=== PATIENT | male | born 1950 | race Caucasian/White ===

== ENCOUNTER 2023-10-10 03:28 | Observation (INO) | payer MEDICARE, SELFPAY ==
[2023-10-10] VITALS (49 sets, daily range): BP systolic 109–166; BP diastolic 74–118; PULSE 56–92; RESP 12–30; TEMP 36.5–36.6; O2SAT 93–100; BMI 29.5
--- NOTE | ~2023-10-10 | XR_ITS ---
XR chest 2V DATE: 10/10/2023 04:33 INDICATION: Shortness of breath TECHNIQUE: PA and lateral views COMPARISON: None FINDINGS: Heart size is within upper normal range. Aortic calcification. Left triple lead transvenous pacemaker device With leads in expected position. Moderate bilateral hyperinflation. Minimal atelectasis at the lung bases. Small bilateral pleural eff usions. Mild prominence of the fissures consistent with mild subpleural edema. Ayanna B-lines are most consis tent with pulmonary interstitial edema. Status post anterior cervical spine fusion at C6-7 Diffuse idiopathic skeletal hyperostosis of the thoracic spine. IMPRESSION: Pulmonary interstitial and subpleural edema and small pleural effusions, consistent with mild congestive change. Left triple lead pacemaker Aortic calcification Reviewed, dictated and finalized at location A. IMPRESSION: Pulmonary interstitial and subpleural edema and small pleural effus ions, consistent with mild congestive change. Left triple lead pacemaker Aortic calcification
--- NOTE | ~2023-10-10 | CT_ITS ---
EXAMINATION: CT abdomen pelvis wo con DATE: 10/11/2023 10:07 INDICATION: Generalized abdominal tenderness. Diarrhea. TECHNIQUE: Computed tomography (CT) of the abdomen and pelvis was performed without intravenous contr ast. Automated exposure control and iterative reconstruction technique were employed. The dose-length product was 723.13 mGy-cm. COMPARISON: None. FINDINGS: The visualized portions of the lung bases demonstrate small pleural effusions and mild depe ndent atelectasis. There is mild bronchiectasis bilaterally. There is smooth septal thickening in the lungs. There is left atrial and left ventricular enlargement of the heart. There are coronary artery calcifications. No pericardial effusion. There are pacer wires in the region, right ventricle, and c oronary sinus. The liver and spleen are normal. The gallbladder is normal in size. The pancreas, adre nal glands, and kidneys are normal. There is calcified atherosclerosis of the aorta and many of the o ther arteries. The prostate is moderately enlarged. There are no dilated loops of bowel. There is an anastomosis in the small bowel. The appendix is not visualized. There are no pathologically enlarged lymph nodes. There is no free intraperitoneal fluid. There are bridging endplate osteophytes at multi ple levels in the spine, consistent with diffuse idiopathic skeletal hyperostosis (DISH). There is mi ld lumbar spondylosis. IMPRESSION: 1. Small pleural effusions. 2. Diffuse lung disease, likely a combination of mild pulmonary edema and mild chronic interstitial l kurtis disease. Reviewed, dictated and finalized at location E. IMPRESSION: 1. Small pleural effusions. 2. Diffuse lung disease, likely a combination of mild pulmonary edema and mild chronic interstitial lung disease.
--- NOTE | ~2023-10-10 | US_ITS ---
EXAMINATION: US renal BI DATE: 10/11/2023 11:45 INDICATION: Acute kidney injury superimposed on chronic kidney disease. TECHNIQUE: Multiple ultrasound grayscale images of the kidneys were obtained. COMPARISON: CT abdomen and pelvis 10/11/2023 FINDINGS: The right kidney measures 9.2 x 4.5 x 5.7 cm. The left kidney measures 9.0 x 4.7 x 5.1 cm. The kidney s demonstrate normal parenchymal echogenicity. There is no hydronephrosis. The bladder is normal. IMPRESSION: 1. Normal kidneys. No hydronephrosis. Reviewed, dictated and finalized at location E.
--- NOTE | 2023-10-10 03:53 | ECG_ITS ---
Measurements Intervals [place] Rate: 72 P: 66 ID: [id number] QRS: 155 QRSD: 125 T: -29 QT: 416 QTc: 457 Interpretive Statements ELECTRONIC ATRIAL PACEMAKER WITH INHIBITION ELECTRONIC VENTRICULAR PACEMAKER WITH INHIBITION VENTRICULAR PREMATURE COMPLEX NO FURTHER INTERPRETATION IS POSSIBLE ATYPICAL ECG NO PREVIOUS ECG AVAILABLE FOR COMPARISON Electronically Signed On 10-10-2023 7:35:43 CDT by Jose Alberto Rodriguez D.O.
[2023-10-10 04:15] LABS: Basophils Absolute Auto 0.1 K/mm3 (0.0-0.1); Basophils Percent Auto 0.9 % (0.2-1.2); Eosinophils Absolute Auto 0.1 K/mm3 (0-0.3); Eosinophils Percent Auto 0.8 % (0-4.4); Hematocrit 32.6 % (42.0-52.0); Hemoglobin 10.4 g/dL (14.0-18.0); Immature Granulocyte Absolute 0.09 K/mm3 (0.00-0.031); Lymphocytes Percent Auto 11.1 % (18.3-44.2); Mean Corpuscular HGB Conc 31.9 g/dl (32-36); Mean Corpuscular Hemoglobin 30.9 pg (26-34); Mean Corpuscular Volume 96.7 fl (80-100); Mean Platelet Volume 10.4 fl (7.4-10.4); Monocytes Absolute Auto 0.7 K/mm3 (0.1-0.6); Neutrophils Absolute Auto 7.1 K/mm3 (1.3-6.7); Neutrophils Percent Auto 78.2 % (45.5-73.1); Platelet Count Result 258 k/mm3 (150-375); Red Blood Count 3.37 M/mm3 (4.6-6.20); Red Cell Distribution Width 13.4 % (11.5-14.5)
[2023-10-10 04:26] LABS: Alanine Aminotransferase 23 U/L (6-50); Alkaline Phosphatase 107 U/L (38-126); Anion Gap 14 mmol/L (4-12); Aspartate Amino Transferase 39 U/L (17-59); Bilirubin,Total 0.7 mg/dL (0.2-1.3); Blood Urea Nitrogen 59 mg/dL (9-20); Calcium 9.4 mg/dL (8.4-10.2); Carbon Dioxide 15 mmol/L (22-30); Chloride 107 mmol/L (98-107); Estimated CRCL calculation 20 ml/min; Estimated Glomerular Filt Rate 20; Glucose 102 mg/dL (65-110); Potassium 4.6 mmol/L (3.4-5.0); Sodium 136 mmol/L (137-145)
--- NOTE | 2023-10-10 04:27 | ED.SOB ---
HPI - SOB/Dyspnea General Chief Complaint: Shortness of Breath/Dyspnea Stated Complaint: sob Time Seen by Provider: 10/10/23 04:26 Source: patient Mode of arrival: EMS Limitations: no limitations History of Present Illness HPI Narrative: Patient presents with shortness of breath, particularly orthopnea but also dyspnea on exertion. Previously used 1 pillow behind head, now 2. Patient sees [facility] ([facility]) for cardiology; resolution manager = Dr Johnston. Recent pacemaker replacement 10/01/23 performed at [facility] in [place]. On coumadin and gets weekly INR checks. Had previously been on furosemide 40mg daily, states he was told to take it BID or even TID over the past few days for symptoms and that he should also take his potassium pill TID. Patient denies a history of diabetes mellitus. He states he was placed on Farxiga/dapagliflozin for renal protection. He states he previously was experiencing this recurrent shortness of breath and had gone multiple times to urgent care and kept getting prednisone and something else. Cough has been productive of clear sputum. No hemoptysis or pink tinged/foamy. He states he has not been told he has congestive heart failure although a nurse at his cardiology clinic had mentioned it to someone else. Patient's medication list as follows: Depakote was in/for [place] 5 mg daily, losartan 25 mg once daily, ondansetron carvedilol Lasix 40 mg by mouth Thursday and Thursday, pantoprazole, venlafaxine, warfarin/Coumadin 5 mg daily except for Thursday, [place] 5 mg q.4 hours, lorazepam, potassium chloride 20 mEq by mouth Thursday and Thursday. Patient has been advised recently to stop taking lisinopril and meloxicam. Related Data Home Medications Medication Instructions Recorded Confirmed albuterol sulfate 90 mcg/actuation 4 puff inhalation Q4-5H PRN 10/10/23 10/10/23 aerosol inhaler Shortness Of Breath carvedilol 6.25 mg tablet (Coreg) 6.25 mg PO BID 10/10/23 10/10/23 dapagliflozin propanediol 10 mg 5 mg PO DAILY 10/10/23 10/10/23 tablet (Farxiga) furosemide 40 mg tablet 40 mg PO 3XW 10/10/23 10/10/23 hydrocodone 5 mg-acetaminophen 325 1 tablet PO BID 10/10/23 10/10/23 mg tablet lorazepam 1 mg tablet 1 mg PO BID PRN Anxiety 10/10/23 10/10/23 losartan 25 mg tablet 25 mg PO DAILY 10/10/23 10/10/23 ondansetron HCl 4 mg tablet 4 mg PO DAILY PRN Nausea And 10/10/23 10/10/23 Vomiting pantoprazole 40 mg tablet,delayed 40 mg PO DAILY 10/10/23 10/10/23 release potassium chloride 20 mEq 20 meq PO 3XW 10/10/23 10/10/23 tablet,extended release venlafaxine 150 mg 150 mg PO DAILY 10/10/23 10/10/23 capsule,extended release 24 hr warfarin 5 mg tablet 5 mg PO DAILY 10/10/23 10/10/23 Allergies Allergy/AdvReac Type Severity Reaction Status Date / Time No Known Allergies Allergy Mild Unverified 05/25/08 16:13 [facility] Past Medical History Medical History (Updated 10/11/23 @ 21:55 by Brooklynn Arreguin MD) Afib Anxiety and depression Arthritis CHF (congestive heart failure) Chronic kidney disease CVA (cerebral vascular accident) Presence of combination internal cardiac defibrillator (ICD) and pacemaker Surgical History Surgical History History of appendectomy History of cardiac defibrillator placement replaced 10/01/2023; [facility] [facility] [employer]; Dr Fracisco Eli through [facility] Cardiology History of cataract surgery History of cervical spinal surgery cervical laminectomy Social History Social History Smoking packs per day: 0.5 Smoking cigarettes per day: 10.0 Years smoked: 30 Smoking pack-years: 15.00 Smoking status: Former smoker Tobacco type: cigarettes Alcohol intake: never Substance use: never Do You Feel Safe in your Home?: Yes Lack of Transportation: No Lack of Food: Never True Current Housing: I Have Housing Concer
[2023-10-10 05:23] LABS: NT Pro B Type Natriuretic Pept > 30000 pg/mL (19.9-100)
[2023-10-10 05:56] LABS: Influenza A QL RT-PCR Negative (Negative); Influenza B QL RT-PCR Negative (Negative); RSV RNA, RT-PCR Negative (Negative); SARS-CoV-2 RNA PCR Negative (Negative)
[2023-10-10] MEDS: ACETAMINOPHEN 325 MG TABLET 650 MG PO ×2 (07:09→13:42)
[2023-10-10] MEDS: FUROSEMIDE INJ 100 MG/10 ML VIAL 80 MG IV PUSH (07:09)
[2023-10-10] MEDS: HYDROcodone/acetaminophen (*CRX) 5-325 MG TABLET 1 TAB PO ×2 (07:09→16:33)
[2023-10-10] MEDS: ONDANSETRON INJ 4 MG/2 ML VIAL IV PUSH ×2 (09:25→20:43)
[2023-10-10 09:47] LABS: INR 1.9; Prothrombin Time 23.4 Seconds (11.1-14.7)
--- NOTE | 2023-10-10 11:38 | ADMGEN ---
This patient, Aj Zamarripa, was admitted to Medical Room 257-01. Patient/family oriented to hospital policies and general routines including ID bracelet, bed and alarms, visiting hours, pain management, procedures, bathroom and other care routines, personal items, smoking policy, room service/diet, and visiting hours. Information on how to activate the Rapid Response Team has been discussed. Patient/Family are encouraged to report perceived risks to care and to ask questions if they do not understand what they are told or what they should do.
[2023-10-10] MEDS: EMPAGLIFLOZIN 10 MG TABLET PO (13:43)
[2023-10-10] MEDS: PANTOPRAZOLE 40 MG TABLET PO (13:43)
[2023-10-10] MEDS: LOSARTAN POTASSIUM 25 MG TABLET PO (13:43)
[2023-10-10] MEDS: VENLAFAXINE HCL XR 75 MG CAP.ER.24H 150 MG PO (13:47)
--- NOTE | 2023-10-10 14:01 | PM.IMHP ---
H&P: HPI History of Present Illness Date/Time: 10/10/23 14:01 Chief Complaint: SOB Narrative: 73 y/o M presents here with shortness of breath with PMH of CKD, CHF, AFib, cardiac defibrillator in place, CVA, anxiety and depression. Patient presented here from home via EMS with complaints of shortness of breath. SOB has been progressing over the last 6 months. Has worsened over the last few days. Worsens with laying flat or exertion. Also experiencing a cough, productive, and yielding clear sputum that has been ongoing for the last 4 months. Has been producing more sputum in the last month. Recently had pacemaker replaced on 10/01/23 at [facility]. No complications post-procedure. No melena, hematochezia, hematemesis, or hemoptysis. Reports increased swelling to his feet and legs over the last 2 months. No dysuria, urinary frequency, or sensation that he was unable to completely empty his bladder. Endorsing chest discomfort around where pacemaker is located, was occurring prior to replacement for approximately the last 304 months. Reports the SOB was interfering with his sleep and causing insomnia which is what prompted him to seek care today. States that it feels like his chest is filled with fluids . Patient was seen at [facility] for same symptoms and was admitted for 7 days, told his symptoms were due to his heart and that it wasn't pumping fast enough to get rid of the fluids in his body and that's why I filled up with fluids . Patient then followed up with his fingernail sculptor last month and was told he had CHF. Patient was placed on 40 mg of Lasix daily. Denies any weight gain in the last month. Has had abdominal distention over the last few days with some underlying lower/midline abdominal pain. Reports diarrhea that started today, 4 episodes, nonbloody. Has been on abx recently - preventative with pacemaker placement. Initial VS at presentation: 97.8? F, HR 79, R 22, 152/102, and 98% on RA. ED workup showed: No leukocytosis, Hgb 10.4, INR 1.9, sodium 136, creatinine 3.1 (1.84 on 08/18/23 while at [facility], per chart review), BNP >30,000 and viral PCR negative. CXR showed pulmonary interstitial and subpleural edema, small pleural effusions all consistent with mild congestive changes, left triple lead pacemaker, and aortic calcification. Review of Systems Review of Systems: All systems reviewed & are unremarkable except as noted in HPI and below [facility] Past Medical History Medical History Afib Anxiety and depression Arthritis CHF (congestive heart failure) Chronic kidney disease CVA (cerebral vascular accident) Presence of combination internal cardiac defibrillator (ICD) and pacemaker Surgical History Surgical History History of appendectomy History of cardiac defibrillator placement replaced 10/01/2023; [employer] / [employer]; Dr Fracisco Eli through [facility] Cardiology History of cataract surgery History of cervical spinal surgery cervical laminectomy Social History Social History Smoking packs per day: 0.5 Smoking cigarettes per day: 10.0 Years smoked: 30 Smoking pack-years: 15.00 Smoking status: Former smoker Tobacco type: cigarettes Alcohol intake: never Substance use: never Do You Feel Safe in your Home?: Yes Lack of Transportation: No Lack of Food: Never True Current Housing: I Have Housing Concerned About Future Housing: No Difficulty Paying Gas/Electric Bills: No Difficulty Paying for Meds: No Currently Unemployed: No Education: High School Diploma/GED Difficulty w/ Childcare or Family Care: No Spiritual care concerns: No Meds Home Medications and Allergies Home Medications Medication Instructions Recorded Confirmed Type albuterol sulfate 90 mcg/actuation 4 puff inha
[2023-10-10] MEDS: IPRATROPIUM 0.5 MG/ALBUTEROL SULFATE 2.5 MG AMPUL.NEB 3 ML INHALATION ×2 (16:08→20:30)
[2023-10-10 17:20] LABS: Creatine Kinase 159 U/L (55-170)
[2023-10-10] MEDS: carvediloL 6.25 MG TABLET PO (17:39)
[2023-10-10] MEDS: WARFARIN (*PBKC) 5 MG TABLET PO (17:39)
[2023-10-10 18:53] LABS: Appearance Urine Clear (Clear); Bilirubin Urine Negative (Negative); Blood Urine Negative (Negative); Color Urine Yellow (Yellow); Glucose Urine UA Trace mg/dL (Negative); Ketones Urine Negative (Negative); Leukocyte Esterase Ur Negative LEU/UL (Negative); Nitrate Urine Negative (Negative); Protein Urine Negative (Negative); Specific Grav Ur 1.012 (1.001-1.035); Urobilinogen Urine 0.2 mg/dL (<2.0); pH Urine 5.5 (5.0-9.0)
[2023-10-10 18:56] LABS: Sodium Urine Random 73 meq/L
[2023-10-10 18:58] LABS: Add Urine Microscopic? NO
[2023-10-10 18:59] LABS: Creatinine Urine 60.6 mg/dL; Total Protein Urine Random 8 mg/dL; Ur Ttl Prot Creatinine Ratio 0.13 mg/mg (0-0.20)
[2023-10-10] MEDS: LORazepam (*CRX) 1 MG TABLET PO (20:01)
[2023-10-11] VITALS (18 sets, daily range): BP systolic 131–151; BP diastolic 72–86; PULSE 64–82; RESP 16–20; TEMP 36.6–36.7; O2SAT 94–100
--- NOTE | 2023-10-11 04:46 | PCRCNOTE ---
Patient did not want to be awakened for 0200 updraft treatment. Treatment to resume at 0800.
[2023-10-11 05:52] LABS: Basophils Absolute Auto 0.1 K/mm3 (0.0-0.1); Basophils Percent Auto 0.8 % (0.2-1.2); Eosinophils Absolute Auto 0.2 K/mm3 (0-0.3); Hematocrit 35.5 % (42.0-52.0); Hemoglobin 11.2 g/dL (14.0-18.0); Immature Granulocyte Percent A 1.3 % (0-0.5); Lymphocytes Absolute Auto 0.83 K/mm3 (0.9-3.2); Lymphocytes Percent Auto 10.6 % (18.3-44.2); Mean Corpuscular HGB Conc 31.5 g/dl (32-36); Mean Corpuscular Hemoglobin 31.3 pg (26-34); Mean Corpuscular Volume 99.2 fl (80-100); Mean Platelet Volume 10.5 fl (7.4-10.4); Monocytes Absolute Auto 0.8 K/mm3 (0.1-0.6); Monocytes Percent Auto 9.6 % (2.6-8.5); Neutrophils Percent Auto 75.7 % (45.5-73.1); Platelet Count Result 306 k/mm3 (150-375); Red Blood Count 3.58 M/mm3 (4.6-6.20); Red Cell Distribution Width 13.5 % (11.5-14.5); White Blood Count 7.9 K/mm3 (4.5-10.0)
[2023-10-11 06:00] LABS: INR 2.1; Prothrombin Time 25.4 Seconds (11.1-14.7)
[2023-10-11 06:30] LABS: Alanine Aminotransferase 22 U/L (6-50); Albumin Level 3.9 g/dL (3.5-5.1); Alkaline Phosphatase 109 U/L (38-126); Anion Gap 11 mmol/L (4-12); Aspartate Amino Transferase 33 U/L (17-59); Bilirubin,Total 0.5 mg/dL (0.2-1.3); Blood Urea Nitrogen 48 mg/dL (9-20); Calcium 9.3 mg/dL (8.4-10.2); Carbon Dioxide 20 mmol/L (22-30); Chloride 108 mmol/L (98-107); Estimated CRCL calculation 24 ml/min; Estimated Glomerular Filt Rate 24; Glucose 109 mg/dL (65-110); Potassium 3.7 mmol/L (3.4-5.0); Sodium 139 mmol/L (137-145)
[2023-10-11] MEDS: IPRATROPIUM 0.5 MG/ALBUTEROL SULFATE 2.5 MG AMPUL.NEB 3 ML INHALATION ×3 (07:13→20:05)
--- NOTE | 2023-10-11 08:35 | PM.CNNEP ---
Assessment and Plan Assessment and plan (1) Acute kidney injury superimposed on CKD: Code(s): N17.9 - Acute kidney failure, unspecified; N18.9 - Chronic kidney disease, unspecified Status: Acute Assessment and Plan: The patient has chronic kidney disease based on his history of what people of been telling him. His creatinine was apparently elevated a [place] as well. He does have 30 years of hypertension which could cause this. he has congestive heart failure and could have chronic pre renal azotemia. He also has had a stroke and so could have some vascular disease in his kidneys as well. to evaluate this will get a renal ultrasound, serology and immunofixation. The patient also has superimposed acute kidney injury. His creatinine is up to 3.1 on admission, however his creatinine improved to 2.6 this morning. The patient does not look dehydrated. The patient does not have a skin rash or eosinophilia to suggest allergic interstitial nephritis. There is no strong evidence for rhabdomyolysis but we can check a CPK. The patient does have congestive heart failure. He could have chronic pre renal azotemia . If it were this simple, then I would think that the diuretics he got overnight might have made the creatinine worse but they made the creatinine better. He could have renal venous hypertension in which case the creatinine can improve with diuresis. Some sort of glomerulonephritis is possible but his urine is bland and he does not have much protein in the urine. To evaluate this will get the renal ultrasound as above, fractional excretion of urea since he is on diuretics, and a CPK. I think we should give diuretics as long as his creatinine is improving. will try couple of doses of IV diuretics today. (2) CHF (congestive heart failure): Code(s): I50.9 - Heart failure, unspecified Status: Acute Assessment and Plan: The patient has a history of congestive heart failure. Will check an echocardiogram. Continue diuretics. He is on empagliflozin and carvedilol. Consider Entresto once the GFR has been worked out? (3) Diarrhea: Code(s): R19.7 - Diarrhea, unspecified Status: Acute Assessment and Plan: The patient has nausea vomiting and diarrhea for the last couple of weeks. Possibly this is viral. His kidney function is above 20 so I do not not think that the nausea is due to his renal failure. (4) Normocytic anemia: Code(s): D64.9 - Anemia, unspecified Status: Acute Assessment and Plan: will check iron levels and reticulocyte count. History of Present Illness Reason for Consult Consult date: 10/11/23 Chief Complaint Chief complaint: JANELL on CKD/ Acute on Subacute CHF Exacerbation History of Present Illness Narrative: Aj is a very pleasant 73-year-old gentleman who has multiple medical problems including stroke 30 years ago, hypertension for 30 years which has been well controlled, AFib for about 8 years, pacemaker with AICD, congestive heart failure, cervical spine surgery, anxiety and depression. the patient says he has been having trouble with shortness of breath with for about the last 6 months. He was at [facility] for about 7 days where he was told that he had in essence heart failure. He was also told that he had some issues with his kidneys. After that he went to see the manager pool told him that he had congestive heart failure. At some point an AICD/ pacemaker was placed. He says that over the last 6 months he has had episodes where he has shortness of breath and swelling. When he gets diuretics the symptoms improved. Lately however because of the kidney issue it seems that the diuretic dose has been reduced. Lately he has been getting Lasix 40mg 3 times a week. Because he does have some symptoms in between doses of Lasix he will take an extra dose from time to time. He say
[2023-10-11] MEDS: carvediloL 6.25 MG TABLET PO ×2 (08:39→18:07)
[2023-10-11] MEDS: EMPAGLIFLOZIN 10 MG TABLET PO (08:39)
[2023-10-11] MEDS: VENLAFAXINE HCL XR 75 MG CAP.ER.24H 150 MG PO (08:40)
[2023-10-11] MEDS: LOSARTAN POTASSIUM 25 MG TABLET PO (08:40)
[2023-10-11] MEDS: HYDROcodone/acetaminophen (*CRX) 5-325 MG TABLET 1 TAB PO ×2 (08:40→18:07)
[2023-10-11] MEDS: PANTOPRAZOLE 40 MG TABLET PO (08:40)
[2023-10-11 09:41] LABS: Reticulocyte Hemoglobin Conten 29.3 pg (28.2-36.6); Reticulocyte Percent 2.34 % (0.7-4.3); Reticulocytes Absolute 0.08 10^6/uL (0.02-0.10)
[2023-10-11 09:50] LABS: Creatine Kinase 141 U/L (55-170)
[2023-10-11 09:57] LABS: Complement C3 124 mg/dL (88-165)
[2023-10-11 10:02] LABS: Parathyroid Intact 86.4 pg/mL (7.5-53.5)
[2023-10-11 10:04] LABS: Iron 44 ug/dL (49-181)
[2023-10-11 10:12] LABS: Erythrocyte Sedimentation Rate 106 mm/hr (0-20)
[2023-10-11 10:14] LABS: Percent Iron Saturation 13 % (20-50)
[2023-10-11] MEDS: FUROSEMIDE INJ 40 MG/4 ML VIAL IV PUSH ×2 (11:30→18:07)
[2023-10-11] MEDS: LORazepam (*CRX) 1 MG TABLET PO (16:39)
--- NOTE | 2023-10-11 17:34 | PM.IMPN ---
Progress Note: A&P Assessment and Plan (1) CHF (congestive heart failure): Code(s): I50.9 - Heart failure, unspecified Status: Acute Assessment and Plan: Patient presents with SOB. CXR showing pulmonary interstitial and subpleural edema and small pleural effusions, consistent with mild congestive change. BNP>[id number] Viral PCR negative for influenza, COVID, and RSV EKG showing paced rhythm Hgb 10.4 but no hx of anemia Echo pending CT Abd showing small pleural effusions and diffuse lung disease likely combination of mild pulm edema and mild chronic ILD Suspect SOB secondary to volume overload/CHF exacerbation +/- ILD On Lasix IV but now stopped. Follow clinically. Okay to stop tele (2) Acute kidney injury superimposed on CKD: Code(s): N17.9 - Acute kidney failure, unspecified; N18.9 - Chronic kidney disease, unspecified Status: Acute Assessment and Plan: Creatinine 3.1 on admission. Baseline Cr 1.84 per chart from [facility] on 08/18/2023 Renal ultrasound showing no acute findings. ESR 106, TCK 159. Serum bicarb 15 with normal potassium UA benign. Urine sodium 73, UCr 61 with FENa 2.7 to suggest renal dz. Urine protein/creatinine 0.13gm Acidosis is better and Cr improved with diuretics. He is on dapgliflozin, lasix and losartan on admission. Could be poor renal perfusion from poor cardiac fxn. COnsider autoimmune (pulm-renal) with high ESR and ILD on imaging Monitor I&Os, renal function and electrolytes Nephrology consulted adn appreciate their input (3) Diarrhea: Code(s): R19.7 - Diarrhea, unspecified Status: Acute Assessment and Plan: Patient states having loose stools about 2 per day Recently on abx, finished course, as prophylaxis for pacemaker replacement procedure CT abdomen pelvis without contrast showing no acute abdominal findings. Check for CDiff (4) Normocytic anemia: Code(s): D64.9 - Anemia, unspecified Status: Acute Assessment and Plan: Normocytic anemia with Hgb 10.4 Iron studies showing iron defeiciency with ferritin 92. Probably related to being on Coumadin Repeat Hgb better so some of this dilutation related Probably a componenet of inflammation/anemia of chronic dz and/or CKD. Check B12/folate Replace iron. Continue PPI (5) Shortness of breath: Code(s): R06.02 - Shortness of breath Status: Acute Assessment and Plan: Patient presentw tih SOB felt to be related to CHF As above (6) Afib: Code(s): I48.91 - Unspecified atrial fibrillation Status: Acute Assessment and Plan: Paced rhythm. Okay to stop tele Continue COumadin Daily INR Plan Diet: Heart healthy DVT Prophylaxis: SCDs Code Status: Full code Subjective Date/time seen: 10/11/23 17:34 Interval history: 73 yo male with CKD, CHF, AFib, cardiac defibrillator in place, CVA, anxiety and depression here with shortness of breath He feels 'like shit' today. Having SOB and orthopnea. Cought productive of clear sputum. No CP. Has loose stools but more chronic for him. Had PM battery changed recently (09/30) and was on abx for that. Exam Narrative: AF 97.8 148/72 71 17 100% ra Gen - NARD Chest - left base crackles o/w distatn clear BS. Left upper chest dressing clean and dry CV - RRR S1/S2 with occasional extra beat. Tele showing paced rhythm Abd - Soft, NT/ND, Positive BS Ext - scant pedal edema Psych - Nml mood and affect Skin - Warm and dry Objective Data Vital Signs Vital Signs: Vital Signs - 24 hr 10/10/23 17:39 10/10/23 20:36 10/10/23 20:30 Temperature 97.7 F Pulse Rate 71 72 74 Respiratory Rate 16 20 Blood Pressure 124/74 Pulse Oximetry 99 Oxygen Delivery 10/10/23 20:30 10/10/23 20:40 10/10/23 20:00 Temperature Pulse Rate 74 72 Respiratory Rate 20 Blood Pressure Pulse Oximetry 97 Oxygen Delivery Room Air Room Air 10/10/23 20:0
--- NOTE | 2023-10-11 18:03 | PC.NURSE ---
Spoke with pharmacist to ask if I should give 1700 dose of lasix now or hold off since first dose was given at 1130. Pharmacist said okay to give dose now
[2023-10-11] MEDS: WARFARIN (*PBKC) 5 MG TABLET PO (18:07)
[2023-10-11] MEDS: IRON SUCROSE COMPLEX 100 MG in SODIUM CHLORIDE 0.9% IV 50 ML 220 MG IVPB (18:41)
[2023-10-11 18:43] LABS: Creatinine Urine 37.7 mg/dL; Total Protein Urine Random 9 mg/dL; Ur Ttl Prot Creatinine Ratio 0.24 mg/mg (0-0.20); Urea Random Urine 344 MG/DL
[2023-10-11 20:51] LABS: Toxigenic C. Diff NEGATIVE (NEGATIVE)
[2023-10-11] MEDS: ACETAMINOPHEN 325 MG TABLET 650 MG PO (21:10)
[2023-10-12] VITALS (10 sets, daily range): BP systolic 115–125; BP diastolic 65–84; PULSE 64–79; RESP 14–20; TEMP 36.4–36.5; O2SAT 98–100
--- NOTE | 2023-10-12 | ECHO_ITS ---
Patient Info Name: Aj Zamarripa Age: 73 years : 1950 Gender: Male Ht: 69 in Wt: 182 lbs BSA: 2.02 m2 HR: 73 bpm BP: 133 / 75 mmHg Heart Rhythm: Sinus Rhythm Technical Quality: Fair Exam Date: 10/12/2023 7:55 AM Exam Location: Echo Lab Patient Status: Inpatient Admit Date: 10/10/2023 Staff Ordering Physician: Nitish Schilling MD Vp Strategy: JOSE M Attending Provider: Serjio Bradley MD Referring Physician: Shakir MEHTA; Exam Type: CA echo dop color flow w con Study Info Complete two-dimensional, color flow and Doppler transthoracic echocardiogram is performed with contrast to opacify the left ventricle and to improve the deliniation of the left ventricle endocardial borders. Contrast/Agitated Saline Contrast/Ag. Saline: Definity Amount: 3.00 ml Summary 1. Technically challenging exam, definity contrast used to improve visualization. 2. Left ventricular enlargement with significant systolic dysfunction ejection fraction approximately 25% with grade 2 diastolic dysfunction as well. 3. Biatrial dilation. 4. Sclerotic and probably mildly stenotic aortic valve, Doppler information does not suggest significant . 5. Pacemaker/ICD lead identified in the right ventricle and right atrium. Left Ventricle Left ventricular chamber dimension is moderately enlarged. Left ventricular systolic function is severely reduced, estimated at 25-30%. The left ventricular diastolic function is grade II diastolic dysfunction. Right Ventricle Right ventricular chamber dimension is mildly enlarged. Linear artifact in right ventricle suggestive of catheter(s), pacemaker lead(s), or ICD lead(s). Left Atria Left atrial chamber dimension is moderately enlarged. Right Atria Right atrial chamber dimension is mildly enlarged. Linear artifact in the right atrium suggestive of catheter(s), pacemaker lead(s), or ICD lead(s). Aortic Valve The aortic valve is trileaflet. There is moderate aortic valve sclerosis. Pulmonic Valve The pulmonic valve is not well visualized. Mitral Valve The mitral valve has normal leaflets. The mitral valve annulus is moderately calcified. Tricuspid Valve The tricuspid valve leaflets are normal. There is mild tricuspid valve regurgitation. Pericardium/Pleural The pericardium appears normal. Aorta The aortic root size at the sinus of Valsalva is normal. Report Signatures
[2023-10-12] MEDS: IPRATROPIUM 0.5 MG/ALBUTEROL SULFATE 2.5 MG AMPUL.NEB 3 ML INHALATION ×3 (01:36→14:35)
[2023-10-12 05:47] LABS: Basophils Absolute Auto 0.1 K/mm3 (0.0-0.1); Basophils Percent Auto 1.2 % (0.2-1.2); Eosinophils Absolute Auto 0.2 K/mm3 (0-0.3); Eosinophils Percent Auto 3.3 % (0-4.4); Hematocrit 38.3 % (42.0-52.0); Hemoglobin 12.1 g/dL (14.0-18.0); Immature Granulocyte Percent A 1.5 % (0-0.5); Lymphocytes Absolute Auto 1.12 K/mm3 (0.9-3.2); Lymphocytes Percent Auto 16.8 % (18.3-44.2); Mean Corpuscular HGB Conc 31.6 g/dl (32-36); Mean Corpuscular Volume 98.2 fl (80-100); Mean Platelet Volume 9.8 fl (7.4-10.4); Monocytes Absolute Auto 0.7 K/mm3 (0.1-0.6); Monocytes Percent Auto 10.8 % (2.6-8.5); Neutrophils Absolute Auto 4.4 K/mm3 (1.3-6.7); Neutrophils Percent Auto 66.4 % (45.5-73.1); Platelet Count Result 335 k/mm3 (150-375); Red Cell Distribution Width 13.8 % (11.5-14.5); White Blood Count 6.7 K/mm3 (4.5-10.0)
[2023-10-12 05:58] LABS: INR 1.9; Prothrombin Time 23.4 Seconds (11.1-14.7)
[2023-10-12 06:07] LABS: Albumin Level 4.1 g/dL (3.5-5.1); Anion Gap 8 mmol/L (4-12); Blood Urea Nitrogen 37 mg/dL (9-20); Calcium 9.2 mg/dL (8.4-10.2); Carbon Dioxide 25 mmol/L (22-30); Chloride 107 mmol/L (98-107); Estimated CRCL calculation 27 ml/min; Estimated Glomerular Filt Rate 28; Glucose 107 mg/dL (65-110); Phosphorus 3.8 mg/dL (2.5-4.5); Potassium 3.5 mmol/L (3.4-5.0); Sodium 140 mmol/L (137-145)
[2023-10-12 07:36] LABS: Folic Acid > 20.0 ng/mL (2.76->20)
[2023-10-12] MEDS: PERFLUTREN LIPID MICROSPHERES 1.5 ML VIAL DILUTED TO 10 ML TOTAL VOLUME IV PUSH (08:20)
[2023-10-12] MEDS: LOSARTAN POTASSIUM 25 MG TABLET PO (09:30)
[2023-10-12] MEDS: PANTOPRAZOLE 40 MG TABLET PO (09:30)
[2023-10-12] MEDS: HYDROcodone/acetaminophen (*CRX) 5-325 MG TABLET 1 TAB PO (09:30)
[2023-10-12] MEDS: carvediloL 6.25 MG TABLET PO (09:31)
[2023-10-12] MEDS: EMPAGLIFLOZIN 10 MG TABLET PO (09:31)
[2023-10-12] MEDS: IRON SUCROSE COMPLEX 100 MG in SODIUM CHLORIDE 0.9% IV 50 ML 220 MG IVPB (09:31)
[2023-10-12] MEDS: VENLAFAXINE HCL XR 75 MG CAP.ER.24H 150 MG PO (09:31)
[2023-10-12] MEDS: POTASSIUM CHLORIDE 20 MEQ ER TABLET PO (09:36)
--- NOTE | 2023-10-12 10:02 | PM.PNNEP ---
Progress Note: A&P Assessment and Plan (1) JANELL (acute kidney injury): Code(s): N17.9 - Acute kidney failure, unspecified Status: Acute Assessment and Plan: slow improvement noted evaluation to date noted: normal renal ultrasound urine electrolytes non-prerenal moderate proteinuria CPK normal insult due to mild decompensation in heart failure (?) follow trend of repeat labs and UOP (2) Stage 3b chronic kidney disease: Code(s): N18.32 - Chronic kidney disease, stage 3b Status: Chronic Assessment and Plan: creatinine 1.84mg/dl in Aug 2023 by labs done at [place] suspect secondary to HTN, vascular disease, and chronic prerenal azotemia from his chronic systolic heart failure (3) CHF (congestive heart failure): Code(s): I50.9 - Heart failure, unspecified Status: Acute Assessment and Plan: confirmed by Echo EF ~ 25% resume diuretics as an outpatient GMDT as tolerated based on renal function (4) Diarrhea: Code(s): R19.7 - Diarrhea, unspecified Status: Acute Assessment and Plan: clinically better C. diff toxin negative supportive therapy (5) Normocytic anemia: Code(s): D64.9 - Anemia, unspecified Status: Acute Assessment and Plan: iron deficiency by anemia studies dosing with IV venofer follow trend of H/H Will continue to follow. Subjective Date/time seen: 10/12/23 10:02 Interval history: Follow-up for acute kidney injury/acute renal failure on chronic kidney disease. Chart reviewed -- assuming care from Dr. Schilling; no apparent distress voiced at the time of my visit; feeling better in general; improvement in renal function noted by AM labs; no other acute issues/events overnight or earlier this morning. Exam Narrative: General: elderly but WD/WN male in NAD Heart: normal S1 and S2; no rub Lungs: clear anteriorly; decreased at bases Abdomen: soft, nontender, nondistended, positive bowel sounds Extremities: no cyanosis or clubbing; trace edema Skin: warm and dry Objective Data Vital Signs Vital Signs: Vital Signs Temp Pulse Resp BP Pulse Ox O2 Del Method 10/12/23 09:31 70 10/12/23 09:28 70 16 115/65 100 10/12/23 09:24 70 18 10/12/23 09:16 64 18 10/12/23 06:56 97.6 F 79 14 125/84 98 10/12/23 01:45 65 20 10/12/23 01:38 73 20 10/11/23 21:00 Room Air 10/11/23 20:38 98.0 F 78 16 133/75 96 10/11/23 20:12 64 20 10/11/23 20:07 94 Room Air 10/11/23 20:05 69 20 10/11/23 18:07 80 10/11/23 16:00 71 10/11/23 14:00 97.8 F 74 17 148/72 H 100 10/11/23 13:20 72 20 10/11/23 13:08 73 20 Intake/Output Intake/Output: Intake & Output 10/09/23 10/10/23 10/11/23 10/12/23 23:59 23:59 23:59 23:59 Intake Total 1359 670 Output Total 2575 900 Balance -1216 -230 Meds/Results Medications: Active Medications Generic Name Dose Route Start Last Admin Trade Name Timmy PRN Reason Stop Dose Admin Acetaminophen 650 mg 10/10/23 07:12 10/11/23 21:10 Acetaminophen 325 Mg Tablet PO 650 mg Q4H PRN Administration Mild Pain (1-3) or Fever Hydrocodone Bitart/Acetaminophen 1 tab 10/10/23 17:00 10/12/23 09:30 Hydrocodone/Acetaminophen (*Crx) 5-325 Mg Tablet PO 1 tab BID MC Administration Albuterol/Ipratropium 3 ml 10/10/23 20:00 10/12/23 09:15 Ipratropium 0.5 Mg/Albuterol Sulfate 2.5 Mg Ampul.Neb 3 Ml INHALATION 3 ml Q6HRT MC Administration Carvedilol 6.25 mg 10/10/23 17:00 10/12/23 09:31 Carvedilol 6.25 Mg Tablet PO 6.25 mg BIDWM MC Administration Empagliflozin 10 mg 10/10/23 13:40 10/12/23 09:31 Empagliflozin 10 Mg Tablet PO 11/10/23 13:39 10 mg DAILY MC Administration Iron Sucrose 100 mg/ Sodium 55 mls @ 220 mls/hr 10/12/23 09:00 10/12/23 09:31 Chloride IVPB 10/13/23 09:14 22
--- NOTE | 2023-10-12 10:02 | P.PNNP_ITS ---
Progress Note: A&P Assessment and Plan (1) JANELL (acute kidney injury): Code(s): N17.9 - Acute kidney failure, unspecified Status: Acute Assessment and Plan: * slow improvement noted * evaluation to date noted: * normal renal ultrasound * urine electrolytes non-prerenal * moderate proteinuria * CPK normal * insult due to mild decompensation in heart failure (?) * follow trend of repeat labs and UOP (2) Stage 3b chronic kidney disease: Code(s): N18.32 - Chronic kidney disease, stage 3b Status: Chronic Assessment and Plan: * creatinine 1.84mg/dl in Aug 2023 by labs done at [place] * suspect secondary to HTN, vascular disease, and chronic prerenal azotemia from his chronic systolic heart failure (3) CHF (congestive heart failure): Code(s): I50.9 - Heart failure, unspecified Status: Acute Assessment and Plan: * confirmed by Echo * EF ~ 25% * resume diuretics as an outpatient * GMDT as tolerated based on renal function (4) Diarrhea: Code(s): R19.7 - Diarrhea, unspecified Status: Acute Assessment and Plan: * clinically better * C. diff toxin negative * supportive therapy (5) Normocytic anemia: Code(s): D64.9 - Anemia, unspecified Status: Acute Assessment and Plan: * iron deficiency by anemia studies * dosing with IV venofer * follow trend of H/H Will continue to follow. Subjective Date/time seen: 10/12/23 10:02 Interval history: Follow-up for acute kidney injury/acute renal failure on chronic kidney disease. Chart reviewed -- assuming care from Dr. Schilling; no apparent distress voiced at the time of my visit; feeling better in general; improvement in renal function noted by AM labs; no other acute issues/events overnight or earlier this morning. Exam Narrative: General: elderly but WD/WN male in NAD Heart: normal S1 and S2; no rub Lungs: clear anteriorly; decreased at bases Abdomen: soft, nontender, nondistended, positive bowel sounds Extremities: no cyanosis or clubbing; trace edema Skin: warm and dry Objective Data Vital Signs Vital Signs: Vital Signs Temp Pulse Resp BP Pulse Ox O2 Del Method 10/12/23 09:31 70 10/12/23 09:28 70 16 115/65 100 10/12/23 09:24 70 18 10/12/23 09:16 64 18 10/12/23 06:56 97.6 F 79 14 125/84 98 10/12/23 01:45 65 20 10/12/23 01:38 73 20 10/11/23 21:00 Room Air 10/11/23 20:38 98.0 F 78 16 133/75 96 10/11/23 20:12 64 20 10/11/23 20:07 94 Room Air 10/11/23 20:05 69 20 10/11/23 18:07 80 10/11/23 16:00 71 10/11/23 14:00 97.8 F 74 17 148/72 H 100 10/11/23 13:20 72 20 10/11/23 13:08 73 20 Intake/Output Intake/Output: Intake & Output 10/09/23 10/10/23 10/11/23 10/12/23 23:59 23:59 23:59 23:59 Intake Total 1359 670 Output Total 4273 900 [facility] -[id number] [phone] Meds/Results Medications: Active Medications Generic Name Dose Route Start Last Admin Trade Name Freq PRN Reason Stop Dose Admin
[2023-10-12] MEDS: LORazepam (*CRX) 1 MG TABLET PO (12:05)
--- NOTE | 2023-10-12 14:32 | IVDEFINITY ---
Prior to administration of IV Definity the patient was educated on the risks and benefits of the imaging enhancing agent including potential adverse side effects. The patient verbalized understanding. Allergies were verified. No exclusion criteria were identified and at least one of the following inclusion criteria were met: 1) physician request, 2) patient technically difficult to image (per the [place] [employer] guidelines of two or more segments not discernable within the apical view), or 3) questionable left ventricular function. ?
--- NOTE | 2023-10-12 15:28 | PM.DS ---
DS: Admitting Diagnosis Discharge Date 10/12/23 Admitting Diagnosis Shortness of breath DS: Discharge Diagnosis Discharge Diagnosis (1) CHF (congestive heart failure): Code(s): I50.9 - Heart failure, unspecified Status: Acute (2) Acute kidney injury superimposed on CKD: Code(s): N17.9 - Acute kidney failure, unspecified; N18.9 - Chronic kidney disease, unspecified Status: Acute (3) Diarrhea: Code(s): R19.7 - Diarrhea, unspecified Status: Acute (4) Normocytic anemia: Code(s): D64.9 - Anemia, unspecified Status: Acute (5) Shortness of breath: Code(s): R06.02 - Shortness of breath Status: Acute (6) Afib: Code(s): I48.91 - Unspecified atrial fibrillation Status: Acute DS: Summary Hospital Course Reason for hospitalization: 73yo male with CKD, CHF, AFib, cardiac defibrillator in place, CVA, anxiety and depression here with shortness of breath. Please see H&P for details. Hospital Course: Patient presents with SOB. CXR showing pulmonary interstitial and subpleural edema and small pleural effusions, consistent with mild congestive change. BNP>45614. Viral PCR negative for influenza, COVID, and RSV. EKG showing paced rhythm. Hgb 10.4 but no hx of anemia. Echo showing EF 25% with Grade II diastolic dysfunction. No old records to compare but suspect chronic. CT Abd showing small pleural effusions and diffuse lung disease likely combination of mild pulm edema and mild chronic ILD. Suspect SOB secondary to volume overload/CHF exacerbation +/- ILD. He was treated with IV Lasix IV with improvement. Creatinine 3.1 on admission. Baseline Cr 1.84 per chart from [facility] on 08/18/23. Renal ultrasound showing no acute findings. ESR 106, TCK 159. Serum bicarb 15 with normal potassium. UA benign. Urine sodium 73, UCr 61 with FENa 2.7 to suggest renal dz. Urine protein/creatinine 0.13gm. Acidosis resolved and Cr improved to 2.3. He is on dapagliflozin, lasix and losartan on admission related to his CHF. Consider poor renal perfusion from poor cardiac fxn.? Consider autoimmune (pulm-renal) with high ESR and ILD on imaging. Patient states having loose stools about 2 per day. He was on abx recently and finished the course. CT abdomen pelvis without contrast showing no acute abdominal findings. CDiff negative. Diarrhea resolved. Normocytic anemia with Hgb 10.4. Iron studies showing iron deficiency with ferritin 92. Probably related to being on Coumadin. Repeat Hgb better so some of this dilutation related. Probably a component of inflammation/anemia of chronic dz and/or CKD. He has been up walking in the room without symptoms. Slept well. He overall did well and was able to be discharged home on 10/12/23. Status at Discharge Cognitive/behavioral status at discharge: stable Time Spent with Patient Time attestation: Total time spent providing and/or coordinating discharge services: 35 minutes Time spent: Greater than 30 minutes Specific discharge activities: discussed with nephrology Exam Narrative: AF 97.7 122/78 72 18 98% ra Gen - NARD Chest - CTA bilaterally, nml RR CV - RRR S1/S2 Abd - Soft, NT/ND, Positive BS Ext - no pedal edema Psych - Nml mood and affect Skin - Warm and dry DS: Data Data Completed and Pending Labs on day of discharge: Labs from last 24 hours 10/12/23 10/11/23 10/11/23 05:32 19:58 18:15 WBC 6.7 RBC 3.90 L Hgb 12.1 L Hct 38.3 L MCV 98.2 MCH 31.0 MCHC 31.6 L RDW 13.8 Plt Count 335 MPV 9.8 Immature Gran % (Auto) 1.5 H Neut % (Auto) 66.4 Lymph % (Auto) 16.8 L [place] % (Auto) 10.8 H Eos % (Auto) 3.3 Baso % (Auto) 1.2 Lymph # (Auto) 1.12 [place] # (Auto) 0.7 H Eos # (Auto) 0.2 Baso # (Auto) 0.1 Abs Immat Gran (auto) 0.10 H Absolute Neuts (auto) 4.4 Absolute Nucleated RBC 0.000 Nucleated RBC % 0.0 PT 23.4 H INR 1.9 S
[2023-10-14 10:45] LABS: Kappa\\Lambda Light Chains 1.13 (0.26-1.65); Lambda Light Chain 23.4 mg/L (5.7-26.3)
[2023-10-14 18:23] LABS: Complement Total CH50 >60 U/mL (31-60)
[2023-10-14 22:04] LABS: ANCA Screen Negative (Negative)
[2023-10-16 01:45] LABS: Anti Glomerular Basement Memb <1.0 AI (<1.0)
[2023-10-16 18:14] LABS: Anti Nuclear Antibody Titer 1:40 (Negative)
[2023-10-19 22:08] LABS: Albumin 30 %; Creat 24 Hr 1.24 g/24 h (0.50-2.15); Pro/Creat Ratio 147 mg/g creat (<100); Pro/Creat Ratio mg/mg 0.147 (<0.100); Protein,total, 24 Hr Ur 182 mg/24 h (<100)
--- NOTE | 2023-10-23 13:30 | PC.NURSE ---
OSVALDO abnormal, UIF and SIF abnormal. Dr. Snyder aware of findings. Labs faxed to Shaun Teague APRN.
== END 2023-10-12 17:30 | disposition home or self-care (01) ==
LOC: ANHED 05:02 → ANH2MED 13:33 → ANH3MEDSUR 10-15 08:09
PROVIDERS: Internal Medicine Nephrology; Student in an Organized Health Care Education/Training Program; Admitting Provider Internal Medicine; Emergency Provider Student in an Organized Health Care Education/Training Program; PCP Nurse Practitioner Family; Visit Provider Internal Medicine
DX: N17.9 Acute kidney failure, unspecified (principal); I13.10 Hypertensive heart and chronic kidney disease without heart failure, with stage 1 through stage 4 chronic kidney disease, or unspecified chronic kidney disease; I50.22 Chronic systolic (congestive) heart failure; N18.32 Chronic kidney disease, stage 3b; D63.1 Anemia in chronic kidney disease; R19.7 Diarrhea, unspecified; I48.91 Unspecified atrial fibrillation; F41.9 Anxiety disorder, unspecified; I07.1 Rheumatic tricuspid insufficiency; I34.81 Nonrheumatic mitral (valve) annulus calcification; I70.0 Atherosclerosis of aorta; J81.1 Chronic pulmonary edema; Z95.810 Presence of automatic (implantable) cardiac defibrillator; Z20.822 Contact with and (suspected) exposure to COVID-19; F32.A Depression, unspecified; Z87.891 Personal history of nicotine dependence; Z86.73 Personal history of transient ischemic attack (TIA), and cerebral infarction without residual deficits; Z79.01 Long term (current) use of anticoagulants; Z79.51 Long term (current) use of inhaled steroids; Z79.84 Long term (current) use of oral hypoglycemic drugs; Z79.891 Long term (current) use of opiate analgesic; Z79.899 Other long term (current) drug therapy
CPT/HCPCS: 36415; 71046; 74176; 76775; 80053; 80069; 81003; 82550; 82570; 82607; 82728; 82746; 83520; 83540; 83550; 83880; 83883; 83970; 84156; 84300; 84540; 85025; 85046; 85610; 85652; 86036; 86038; 86039; 86160; 86162; 86334; 86335; 87493; 87637; 93005; 93306; 94640; 96365; 96374; 96375; 96376; 99285; A9270; C8929; G0378; J1756; J1940; J2405; Q9957

== ENCOUNTER 2024-04-22 10:46 | Emergency (ER) | payer MEDICARE, SELFPAY ==
--- NOTE | ~2024-04-22 | CT_ITS ---
EXAMINATION: CT lumbar spine wo con DATE: 04/22/2024 11:27 INDICATION: Back injury. TECHNIQUE: Computed tomography (CT) of the lumbar spine was performed without intravenous contrast. A utomated exposure control and iterative reconstruction technique were employed. The dose-length produ ct was 754.81 mGy-cm. COMPARISON: CT lumbar spine 02/19/2018 FINDINGS: There are trace pleural effusions. There are healing fractures of left 11th and 12th ribs a nd left L1 and L2 transverse processes with callus formation. Alignment is normal. Vertebral body hei ghts are normal. There are bridging endplate osteophytes from at least T10 to L1, consistent with dif fuse idiopathic skeletal hyperostosis (DISH). Intervertebral disc heights are normal and lumbar spine . The following disc levels are specifically discussed: L1-L2: The disc does not extend beyond the endplate margin. There is moderate bilateral facet joint o steoarthritis. There is no neural foraminal stenosis. There is no central canal stenosis. L2-L3: The disc is bulging. There is severe bilateral facet joint osteoarthritis. There is mild bilat eral neural foraminal stenosis. There is mild central canal stenosis. L3-L4: The disc is bulging. There is severe bilateral facet joint osteoarthritis. There is mild later al neural foraminal stenosis. There is mild central canal stenosis. L4-L5: The disc is bulging. There is severe bilateral facet joint osteoarthritis. There is hypertroph y of the ligamentum flavum. There is moderate bilateral neural foraminal stenosis. There is severe ce ntral canal stenosis. L5-S1: The disc is bulging. There is severe bilateral facet joint osteoarthritis. There is mild bilat eral neural foraminal stenosis. There is mild central canal stenosis. IMPRESSION: 1. Lumbar spondylosis including severe central canal stenosis at L4-L5. Reviewed, dictated and finalized at location A.
[2024-04-22 10:50] VITALS: BP 122/67; PULSE 66; RESP 20; TEMP 36.6; O2SAT 100
[2024-04-22] MEDS: oxyCODONE/ACETAMINOPHEN (*CRX) 5-325 MG TABLET 1 TABLET PO (11:37)
[2024-04-22] MEDS: predniSONE 20 MG TABLET 40 MG PO (11:38)
[2024-04-22 11:39] VITALS: BP 120/75; PULSE 68; RESP 16; TEMP 36.6; O2SAT 100
--- NOTE | 2024-04-22 12:59 | ED.BACK ---
HPI - Back Pain/Injury General Chief Complaint: Back Pain/Injury Stated Complaint: BACK PAIN Time Seen by Provider: 04/22/24 10:55 History of Present Illness HPI Narrative: Had headache and patient had to lift his couch up yesterday because 1 of his birds escaped and ran under the couch, he has had chronic back pain for a while and he felt like he threw his back out. Has had pain since then especially when he walks, has no focal numbness or week, no saddle anesthesia, no difficulty with voiding. History of spinal stenosis Related Data Home Medications Medication Instructions Recorded Confirmed albuterol sulfate 90 mcg/actuation 4 puff inhalation Q4-5H PRN 10/10/23 11/04/23 aerosol inhaler Shortness Of Breath carvedilol 6.25 mg tablet (Coreg) 6.25 mg PO BID 10/10/23 11/04/23 dapagliflozin propanediol 10 mg 5 mg PO DAILY 10/10/23 11/04/23 tablet (Farxiga) furosemide 40 mg tablet 40 mg PO 3XW 10/10/23 11/04/23 hydrocodone 5 mg-acetaminophen 325 1 tablet PO BID 10/10/23 11/04/23 mg tablet lorazepam 1 mg tablet 1 mg PO BID PRN Anxiety 10/10/23 11/04/23 ondansetron HCl 4 mg tablet 4 mg PO DAILY PRN Nausea And 10/10/23 11/04/23 Vomiting pantoprazole 40 mg tablet,delayed 40 mg PO DAILY 10/10/23 11/04/23 release potassium chloride 20 mEq 20 meq PO 3XW 10/10/23 11/04/23 tablet,extended release venlafaxine 150 mg 150 mg PO DAILY 10/10/23 11/04/23 capsule,extended release 24 hr warfarin 5 mg tablet 5 mg PO DAILY 10/10/23 11/04/23 ferrous sulfate 325 mg (65 mg 325 mg PO DAILY 11/03/23 11/04/23 iron) tablet sacubitril 49 mg-valsartan 51 mg 1 tablet PO BID 11/03/23 11/04/23 tablet (Entresto) topiramate 50 mg tablet 50 mg PO .COMPLEX 11/03/23 11/04/23 Allergies Allergy/AdvReac Type Severity Reaction Status Date / Time No Known Allergies Allergy Mild Unverified 04/22/24 10:52 Review of Systems Review of Systems: All systems reviewed & are unremarkable except as noted in HPI and below [facility] Past Medical History Medical History Afib Anxiety and depression Arthritis CHF (congestive heart failure) Chronic kidney disease CVA (cerebral vascular accident) Presence of combination internal cardiac defibrillator (ICD) and pacemaker Surgical History Surgical History History of appendectomy History of cardiac defibrillator placement replaced 10/01/2023; [employer] / [employer]; Dr Fracisco Eli through [facility] Cardiology History of cataract surgery History of cervical spinal surgery cervical laminectomy Social History Social History Smoking packs per day: 0.5 Smoking cigarettes per day: 10.0 Years smoked: 30 Smoking pack-years: 15.00 Smoking status: Former smoker Tobacco type: cigarettes Alcohol intake: never Substance use: never Do You Feel Safe in your Home?: Yes Lack of Transportation: No Lack of Food: Never True Current Housing: I Have Housing Concerned About Future Housing: No Difficulty Paying Gas/Electric Bills: No Difficulty Paying for Meds: No Currently Unemployed: No Education: High School Diploma/GED Difficulty w/ Childcare or Family Care: No Gender identity (if verbalized by the patient): Male Spiritual care concerns: No Exam Narrative: EXAMINATION OF ORGAN SYSTEMS/BODY AREAS: Constitutional: Vital signs per nursing GENERAL: Appears slightly uncomfortable HEAD: Normal with no signs of head trauma. EYES: EOMI, conjunctiva normal ENT: Hearing grossly intact LUNGS: Nonlabored breathing. HEART: [Regular rate and rhythm] ABD: [Soft], [nontender to palpation] EXT: Normal range of motion SKIN: [No rashes or lesions.] NEURO: [Alert and oriented x 3. No gross focal sensory or strength deficits. Able to lift both legs equally without drift.] PSYCH: Normal affect Course Vital Signs
== END 2024-04-22 12:02 | disposition home or self-care (01) ==
LOC: ANHED 11:52
PROVIDERS: Emergency Provider Emergency Medicine; PCP Nurse Practitioner Family
DX: S33.5XXA Sprain of ligaments of lumbar spine, initial encounter (principal); X50.0XXA Overexertion from strenuous movement or load, initial encounter; I48.91 Unspecified atrial fibrillation; F41.8 Other specified anxiety disorders; I50.9 Heart failure, unspecified; N18.9 Chronic kidney disease, unspecified; Z95.0 Presence of cardiac pacemaker; Z87.891 Personal history of nicotine dependence
CPT/HCPCS: 72131; 99284; A9270; J7512

== ENCOUNTER 2024-05-16 12:03 | Observation (INO) | payer MEDICARE, SELFPAY ==
[2024-05-16] VITALS (15 sets, daily range): BP systolic 131–177; BP diastolic 82–122; PULSE 62–92; RESP 12–23; TEMP 36.5–37; O2SAT 95–100; BMI 27.1
--- NOTE | ~2024-05-16 | XR_ITS ---
EXAMINATION: XR chest 2V DATE: 05/16/2024 13:20 INDICATION: Shortness of breath. TECHNIQUE: Frontal and lateral views of the chest were obtained. COMPARISON: Chest 2 views 10/10/2023, CT abdomen and pelvis 10/11/2023 FINDINGS: There are small pleural effusions. A calcified right lung nodule is consistent with old gra nulomatous disease. There is mild atelectasis at the lung bases. No pneumothorax. The heart size is n ormal. There is a left chest pacer with leads in right atrium, right ventricle, and coronary sinus. IMPRESSION: 1. Small pleural effusions. Reviewed, dictated and finalized at location A. RIBUTION ESTIMATOR IMPRESSION: 1. Small pleural effusions.
--- NOTE | 2024-05-16 12:10 | ECG_ITS ---
Test Date: 2024-05-16 12:19:32 Measurements Intervals [place] Rate: 80 P: 64 OK: 191 QRS: -76 QRSD: 133 T: 82 QT: 419 QTc: 483 Interpretive Statements ATRIAL SENSE- ELECTRONIC VENTRICULAR PACEMAKER WITH INHIBITION VENTRICULAR PREMATURE COMPLEXES NO FURTHER INTERPRETATION IS POSSIBLE ATYPICAL ECG No previous ECG available for comparison Electronically Signed On 05-16-2024 13:09:12 [employer] by Jose Alberto Rodriguez D.O.
[2024-05-16 12:34] LABS: Basophils Absolute Auto 0.1 K/mm3 (0.0-0.1); Basophils Percent Auto 1.1 % (0.2-1.2); Eosinophils Absolute Auto 0.1 K/mm3 (0-0.3); Hematocrit 42.3 % (42.0-52.0); Hemoglobin 13.8 g/dL (14.0-18.0); Immature Granulocyte Absolute 0.02 K/mm3 (0.00-0.031); Immature Granulocyte Percent A 0.3 % (0-0.5); Lymphocytes Absolute Auto 1.01 K/mm3 (0.9-3.2); Lymphocytes Percent Auto 15.4 % (18.3-44.2); Mean Corpuscular HGB Conc 32.6 g/dl (32-36); Mean Corpuscular Hemoglobin 32.7 pg (26-34); Mean Corpuscular Volume 100.2 fl (80-100); Mean Platelet Volume 10.7 fl (7.4-10.4); Monocytes Absolute Auto 0.6 K/mm3 (0.1-0.6); Monocytes Percent Auto 9.2 % (2.6-8.5); Neutrophils Absolute Auto 4.7 K/mm3 (1.3-6.7); Platelet Count Result 195 k/mm3 (150-375); Red Blood Count 4.22 M/mm3 (4.6-6.20); Red Cell Distribution Width 13.2 % (11.5-14.5); White Blood Count 6.6 K/mm3 (4.5-10.0)
[2024-05-16 12:47] LABS: Alanine Aminotransferase 25 U/L (6-50); Albumin Level 4.4 g/dL (3.5-5.1); Alkaline Phosphatase 90 U/L (38-126); Anion Gap 15 mmol/L (4-12); Aspartate Amino Transferase 43 U/L (17-59); Blood Urea Nitrogen 39 mg/dL (9-20); Carbon Dioxide 20 mmol/L (22-30); Chloride 105 mmol/L (98-107); Estimated Glomerular Filt Rate 31; Glucose 118 mg/dL (65-110); Potassium 4.5 mmol/L (3.4-5.0); Sodium 140 mmol/L (137-145)
--- NOTE | 2024-05-16 13:50 | ED.SOB ---
HPI - SOB/Dyspnea General Chief Complaint: Shortness of Breath/Dyspnea Stated Complaint: sent by PMD for fluid build up Time Seen by Provider: 05/16/24 12:53 History of Present Illness HPI Narrative: 74-year-old male history of CHF, CKD, afib on warfarin presenting with shortness of breath. States that over the last week or so he has been increasingly short of breath with exertion and lying flat. States that he has been taking his Lasix more frequently but he has not noticed an increase in his urination. He saw his news wire photo operator today who advised that he come to the ER as they were concerned his kidneys are not responding to the diuretics. States that he can not breathe if he lays flat. Denies any new pain. Denies significant weight gain. Related Data Home Medications Medication Instructions Recorded Confirmed albuterol sulfate 90 mcg/actuation 4 puff inhalation Q4-5H PRN 10/10/23 05/16/24 aerosol inhaler Shortness Of Breath carvedilol 6.25 mg tablet (Coreg) 6.25 mg PO BID 10/10/23 05/16/24 dapagliflozin propanediol 10 mg 5 mg PO DAILY 10/10/23 05/16/24 tablet (Farxiga) furosemide 40 mg tablet 40 mg PO 3XW 10/10/23 05/16/24 ondansetron HCl 4 mg tablet 4 mg PO DAILY PRN Nausea And 10/10/23 05/16/24 Vomiting pantoprazole 40 mg tablet,delayed 40 mg PO DAILY 10/10/23 05/16/24 release potassium chloride 20 mEq 20 meq PO 3XW 10/10/23 05/16/24 tablet,extended release venlafaxine 150 mg 150 mg PO DAILY 10/10/23 05/16/24 capsule,extended release 24 hr ferrous sulfate 325 mg (65 mg 325 mg PO DAILY 11/03/23 05/16/24 iron) tablet sacubitril 49 mg-valsartan 51 mg 1 tablet PO BID 11/03/23 05/16/24 tablet (Entresto) topiramate 50 mg tablet 50 mg PO .COMPLEX 11/03/23 05/16/24 cyclobenzaprine 10 mg tablet 10 mg PO Q8H PRN muscle spasms 05/16/24 05/16/24 hydrocodone 5 mg-acetaminophen 325 1 tablet PO BID PRN Pain 05/16/24 05/16/24 mg tablet lorazepam 1 mg tablet 1 mg PO BID PRN Anxiety 05/16/24 05/16/24 meloxicam 15 mg tablet 15 mg PO EVERY OTHER DAY 05/16/24 05/16/24 warfarin 5 mg tablet 5 mg USEASDIRECTD 05/16/24 05/16/24 Allergies Allergy/AdvReac Type Severity Reaction Status Date / Time No Known Allergies Allergy Mild Verified 05/16/24 19:57 Review of Systems Review of Systems: All systems reviewed & are unremarkable except as noted in HPI and below [facility] Past Medical History Medical History Afib Anxiety and depression Arthritis CHF (congestive heart failure) Chronic kidney disease CVA (cerebral vascular accident) Presence of combination internal cardiac defibrillator (ICD) and pacemaker Surgical History Surgical History History of appendectomy History of cardiac defibrillator placement replaced 10/01/2023; [employer] / Setrox/Protego; Dr Fracisco Eli through [facility] Cardiology History of cataract surgery History of cervical spinal surgery cervical laminectomy Family History Family History (Updated 05/16/24 @ 19:50 by Kathy Pena RN) Father S/P triple vessel bypass Social History Social History Smoking packs per day: 0.5 Smoking cigarettes per day: 10.0 Years smoked: 30 Smoking pack-years: 15.00 Smoking status: Current some day smoker Tobacco type: cigarettes Alcohol intake: never Substance use: never Do You Feel Safe in your Home?: Yes Lack of Transportation: No Lack of Food: Never True Current Housing: I Have Housing Concerned About Future Housing: No Difficulty Paying Gas/Electric Bills: No Difficulty Paying for Meds: No Currently Unemployed: No Education: High School Diploma/GED Difficulty w/ Childcare or Family Care: No Gender identity (if verbalized by the patient): Male Spiritual care concerns: No Exam Narrative: GENERAL: Chronically ill-appearing, no acute distress, pleasant cooperative HEAD: Normocephalic, atraumatic. EYES: PERRLA and EOMI. ENT: Mucous membranes moist. NECK: Supple. CHEST: Clear to auscultation. No respiratory distress. HEART: Regular rate and rhythm ABDOMEN: Soft, nontender, nondistended EXTREMITIES: Normal range of motion. No edema. SKIN: Warm, dry, no rash. NEURO: Alert and oriented x3. PSYCH: Normal mood and affect. Course Vital Signs Vital signs: Vital Signs Temperature 97.7 F 05/16/24 12:06 Pulse Rate 62 05/16/24 12:06 Respiratory Rate 22 H 05/16/24 12:06 Blood Pressure 152/110 H 05/16/24 12:06 Pulse Oximetry 95 05/16/24 12:06 Oxygen Delivery Room Air 05/16/24 12:06 Temperature 98.6 F 05/16/24 21:20 Pulse Rate 86 05/16/24 21:46 Respiratory Rate 20 05/16/24 21:20 Blood Pressure 147/95 H 05/16/24 21:20 Pulse Oximetry 100 05/16/24 21:20 Oxygen Delivery Room Air 05/16/24 13:06 MDM - SOB/Dyspnea MDM Narrative Medical decision making narrative: 74-year-old male presenting with orthopnea and exertional shortness of breath. Vitals are stable. Exam remarkable for the above. EKG per my interpretation shows ventricular pacemaker, no ST elevations or depressions. [place] [address]. Troponin is elevated at 0.078. Patient denies any chest pain. Chest x-ray with small bilateral pleural effusions. Patient requires admission for diuresis. He has been compliant with his Lasix and actually has gone up but states that he has not had any increase in his urinary output. Spoke with cardiology who advises to continue trending troponins, will not start heparin drip at this time. Spoke with the hospitalist who has accepted him for admission. Patient is agreeable this plan. Differential Diagnosis Differential diagnosis: Likely congestive heart failure and other ( CHF, CKD, orthopnea, dyspnea) Medical Records Attestation: I reviewed the patient's medical records. Lab Data Attestation: I reviewed the patient's lab results. 05/16/24 12:27 05/16/24 12:27 Labs: Lab Results 05/16/24 05/16/24 Range/Units 12:27 14:17 WBC 6.6 (4.5-10.0) K/mm3 RBC 4.22 L (4.6-6.20) M/mm3 Hgb 13.8 L (14.0-18.0) g/dL Hct 42.3 (42.0-52.0) % MCV 100.2 H (80-100) fl MCH 32.7 (26-34) pg MCHC 32.6 (32-36) g/dl RDW 13.2 (11.5-14.5) % Plt Count 195 (150-375) k/mm3 MPV 10.7 H (7.4-10.4) fl Immature Gran % (Auto) 0.3 (0-0.5) % Neut % (Auto) 72.0 (45.5-73.1) % Lymph % (Auto) 15.4 L (18.3-44.2) % [place] % (Auto) 9.2 H (2.6-8.5) % Eos % (Auto) 2.0 (0-4.4) % Baso % (Auto) 1.1 (0.2-1.2) % Lymph # (Auto) 1.01 (0.9-3.2) K/mm3 [place] # (Auto) 0.6 (0.1-0.6) K/mm3 Eos # (Auto) 0.1 (0-0.3) K/mm3 Baso # (Auto) 0.1 (0.0-0.1) K/mm3 Abs Immat Gran (auto) 0.02 (0.00-0.031) K/mm3 Absolute Neuts (auto) 4.7 (1.3-6.7) K/mm3 Absolute Nucleated RBC 0.000 (0.0-0.012) K/mm3 Nucleated RBC % 0.0 (0.0-0.2) % PT 24.4 H (11.1-14.7) Seconds INR 2.1 APTT 43.6 H (22.3-36.8) Seconds Sodium 140 (137-145) mmol/L Potassium 4.5 (3.4-5.0) mmol/L Chloride 105 (98-107) mmol/L Carbon Dioxide 20 L (22-30) mmol/L Anion Gap 15 H (4-12) mmol/L BUN 39 H (9-20) mg/dL Creatinine 2.10 H (0.7-1.3) mg/dL Estim Creat Clear Calc Not Reportable Estimated GFR 31 L (59 - ) Glucose 118 H (65-110) mg/dL Calcium 9.0 (8.4-10.2) mg/dL Total Bilirubin 1.0 (0.2-1.3) mg/dL AST 43 (17-59) U/L ALT 25 (6-50) U/L Alkaline Phosphatase 90 (38-126) U/L Troponin I 0.078 H* (0.000-0.034) ng/mL NT-Pro-B Natriuret Pep 57263 H (19.9-100) pg/mL Total Protein 8.0 (6.3-8.2) g/dL Albumin 4.4 (3.5-5.1) g/dL Influenza A (RT-PCR) Negative (Negative) Influenza B (RT-PCR) Negative (Negative) RSV (RT-PCR) Negative (Negative) SARS-CoV-2 RNA (RT-PCR) Negative (Negative) Imaging Data Radiologist's impression: ITS Impressions Chest X-Ray 05/16/24 13:34 IMPRESSION: 1. Small pleural effusions. Critical Care Time Critical Care Time Critical Care Time: No Discharge Plan Discharge Clinical Impression: Acute exacerbation of CHF (congestive heart failure), Elevated troponin, Orthopnea Patient Disposition: Still a Patient Condition: Stable
[2024-05-16] MEDS: HYDROcodone/acetaminophen (*CRX) 5-325 MG TABLET 1 TAB PO ×2 (14:18→21:54)
[2024-05-16 14:31] LABS: INR 2.1; Prothrombin Time 24.4 Seconds (11.1-14.7)
[2024-05-16 14:32] LABS: Partial Thromboplastin Time 43.6 Seconds (22.3-36.8)
[2024-05-16 14:47] LABS: NT Pro B Type Natriuretic Pept 20700 pg/mL (19.9-100); Troponin I 0.078 ng/mL (0.000-0.034)
[2024-05-16 14:58] LABS: Influenza A QL RT-PCR Negative (Negative); Influenza B QL RT-PCR Negative (Negative); RSV RNA, RT-PCR Negative (Negative); SARS-CoV-2 RNA PCR Negative (Negative)
--- NOTE | 2024-05-16 16:04 | PM.IMHP ---
H&P: HPI History of Present Illness Date/Time: 05/16/24 16:04 Chief Complaint: Shortness of breath Narrative: 74-year-old male presents to the hospital with complaints of shortness of breath. 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 This morning he went to his motorcycle police officer in was sent to emergency room. Patient states that his be propped up on several pillows to sleep. Patient denies flu-like symptoms, fever or chills. In the ED his troponin was 0.078, proBNP was 20,700, respiratory panel was negative, creatinine was 2.1 which seems to be baseline. Chest x-ray shows small pleural effusions, EKG shows ventricular paced rhythm. Last echocardiogram was 10/10/2023 which showed ejection fraction 25% with grade 2 diastolic dysfunction. In the ED the patient was given 40 mg IV Lasix. [facility] Past Medical History Medical History Afib Anxiety and depression Arthritis CHF (congestive heart failure) Chronic kidney disease CVA (cerebral vascular accident) Presence of combination internal cardiac defibrillator (ICD) and pacemaker Surgical History Surgical History History of appendectomy History of cardiac defibrillator placement replaced 10/01/2023; [employer] / Setrox/Protego; Dr Fracisco Eli through [facility] Cardiology History of cataract surgery History of cervical spinal surgery cervical laminectomy Family History Family History (Updated 05/16/24 @ 19:50 by Kathy Pena RN) Father S/P triple vessel bypass Social History Social History Smoking packs per day: 0.5 Smoking cigarettes per day: 10.0 Years smoked: 30 Smoking pack-years: 15.00 Smoking status: Current some day smoker Tobacco type: cigarettes Alcohol intake: never Substance use: never Do You Feel Safe in your Home?: Yes Lack of Transportation: No Lack of Food: Never True Current Housing: I Have Housing Concerned About Future Housing: No Difficulty Paying Gas/Electric Bills: No Difficulty Paying for Meds: No Currently Unemployed: No Education: High School Diploma/GED Difficulty w/ Childcare or Family Care: No Gender identity (if verbalized by the patient): Male Spiritual care concerns: No Meds Home Medications and Allergies Home Medications Medication Instructions Recorded Confirmed Type albuterol sulfate 90 mcg/actuation 4 puff inhalation Q4-5H PRN 10/10/23 05/16/24 History aerosol inhaler Shortness Of Breath carvedilol 6.25 mg tablet (Coreg) 6.25 mg PO BID 10/10/23 05/16/24 History dapagliflozin propanediol 10 mg 5 mg PO DAILY 10/10/23 05/16/24 History tablet (Farxiga) furosemide 40 mg tablet 40 mg PO 3XW 10/10/23 05/16/24 History ondansetron HCl 4 mg tablet 4 mg PO DAILY PRN Nausea And 10/10/23 05/16/24 History Vomiting pantoprazole 40 mg tablet,delayed 40 mg PO DAILY 10/10/23 05/16/24 History release potassium chloride 20 mEq 20 meq PO 3XW 10/10/23 05/16/24 History tablet,extended release venlafaxine 150 mg 150 mg PO DAILY 10/10/23 05/16/24 History capsule,extended release 24 hr ferrous sulfate 325 mg (65 mg 325 mg PO DAILY 11/03/23 05/16/24 History iron) tablet sacubitril 49 mg-valsartan 51 mg 1 tablet PO BID 11/03/23 05/16/24 History tablet (Entresto) topiramate 50 mg tablet 50 mg PO .COMPLEX 11/03/23 05/16/24 History methocarbamol 750 mg tablet 750 mg PO TID PRN muscle spasm #30 04/22/24 05/16/24 Rx tabs cyclobenzaprine 10 mg tablet 10 mg PO Q8H PRN muscle spasms 05/16/24 05/16/24 History hydrocodone 5 mg-acetaminophen 325 1 tablet PO BID PRN Pain 05/16/24 05/16/24 History mg tablet lorazepam 1 mg tablet 1 mg PO BID PRN Anxiety 05/16/24 05/16/24 History meloxicam 15 mg tablet 15 mg PO EVERY OTHER DAY 05/16/24 05/16/24 History warfarin 5 mg tablet 5 mg USEASDIRECTD 05/16/24 05/16/24 History Allergies Allergy/AdvReac Type Severity Reaction Status Date / Time No Known Allergies Allergy Mild Verified 05/16/24 19:57 Vital Signs Vital Signs - 24 hr 05/16/24 12:06 05/16/24 13:06 05/16/24 13:06 Temperature 97.7 F Pulse Rate 62 78 Respiratory Rate 22 H Blood Pressure 152/110 H Pulse Oximetry 95 98 Oxygen Delivery Room Air Room Air 05/16/24 12:22 05/16/24 13:24 05/16/24 14:30 Temperature 97.7 F Pulse Rate 89 74 92 Respiratory Rate 15 19 18 Blood Pressure 141/113 H 131/101 H 164/122 H Pulse Oximetry 99 100 100 Oxygen Delivery 05/16/24 15:00 05/16/24 15:46 Temperature 98.0 F Pulse Rate 83 85 Respiratory Rate 19 12 Blood Pressure 177/121 H 158/87 H Pulse Oximetry 98 98 Oxygen Delivery Exam Narrative: General: well appearing, appears stated age. HEENT: normocephalic, atraumatic. Mucous membranes moist. EOMI, PERRLA, bilateral sclera anicteric, no conjunctival injection. Neck supple without JVD, lymphadenopathy, or bruit. Respiratory: Diminished clear to ascultation bilaterally. No rales/rhonic/wheezes. Cardiovascular: Regular rate and rhythm, normal S1-S2 upon ascultation. No murmurs, rubs, or clicks. PMI is nondisplaced, capillary refill less than 3 second. Abdomen: Soft, round, no pulsatile masses, nondistended and nontender. No rebound, no guarding. No CVA tenderness, no hepatosplenomegaly. Bowel sounds present to all four quadrants. No high pitch or tinkling sounds, resonant to percussion. Extremities: No cyanosis, clubbing, or edema present. Pulses are palpable 2/2. Active ROM to all four extremities. Neuro: Alert and orientated x 4. PERRLA. Cranial nerves 2-12 intact without focal deficit. Skin: Warm, dry, and intact, without rash, erythema, or lesion. Psych: pleasant, cooperative, normal speech, normal affect, no hallucinations, no dysarthia H&P: Results Labs Labs: Short CBC 05/16/24 Range/Units 12:27 WBC 6.6 (4.5-10.0) K/mm3 Hgb 13.8 L (14.0-18.0) g/dL Hct 42.3 (42.0-52.0) % Plt Count 195 (150-375) k/mm3 BMP 05/16/24 12:27 Sodium 140 Potassium 4.5 Chloride 105 Carbon Dioxide 20 L BUN 39 H Creatinine 2.10 H Glucose 118 H Calcium 9.0 Cardiac Enzymes 05/16/24 Range/Units 12:27 Troponin I 0.078 H* (0.000-0.034) ng/mL Liver Function 05/16/24 Range/Units 12:27 Total Bilirubin 1.0 (0.2-1.3) mg/dL AST 43 (17-59) U/L ALT 25 (6-50) U/L Alkaline Phosphatase 90 (38-126) U/L Albumin 4.4 (3.5-5.1) g/dL Assessment and Plan Assessment and plan (1) CHF (congestive heart failure): Code(s): I50.9 - Heart failure, unspecified Status: Acute Assessment and Plan: Last echocardiogram was 10/10/2023 which showed ejection fraction 25% with grade 2 diastolic dysfunct Will need Cardiology IV Lasix 40 mg x 1 in ED Forty of IV Lasix scheduled daily, adjust as needed (2) Stage 3b chronic kidney disease: Code(s): N18.32 - Chronic kidney disease, stage 3b Status: Chronic Assessment and Plan: Creatinine 2.1 baseline (3) Normocytic anemia: Code(s): D64.9 - Anemia, unspecified Status: Acute Assessment and Plan: No signs of acute bleeding, no need to transfuse at this time (4) Afib: Code(s): I48.91 - Unspecified atrial fibrillation Status: Acute Assessment and Plan: Restarted home Coreg and warfarin Quality VTE Prophylaxis VTE prophylaxis: mechanical ordered and pharmacologic ordered Hospitalist MIPS Advance Care Plan I have confirmed that the patient's Advanced Care Plan is present, code status is documented, or surrogate decision maker is listed in patient medical record.: Yes Medication Reconciliation I have utilized all available resources to obtain, update and review the patients current medications (includes all prescriptions, OTC, herbals, cannabis, and nutritional supplements).: Yes
[2024-05-16] MEDS: FUROSEMIDE INJ 40 MG/4 ML VIAL IV PUSH (16:35)
--- NOTE | 2024-05-16 17:01 | ECG_ITS ---
Test Date: 2024-05-16 17:25:21 Measurements Intervals [place] Rate: 75 P: -87 [place]: 143 QRS: 202 QRSD: 169 T: 24 QT: 495 QTc: 554 Interpretive Statements ELECTRONIC ATRIAL PACEMAKER WITH INHIBITION ELECTRONIC VENTRICULAR PACEMAKER VENTRICULAR PREMATURE COMPLEXES AND FUSION COMPLEX NO FURTHER INTERPRETATION IS POSSIBLE ATYPICAL ECG Compared to ECG 05/16/2024 12:19:32 NO SIGNIFICANT CHANGE Electronically Signed On 05-16-2024 18:42:12 PATTERN SCRATCHER by Jose Alberto Rodriguez D.O.
[2024-05-16 17:34] LABS: Troponin I 0.072 ng/mL (0.000-0.034)
--- NOTE | 2024-05-16 19:43 | ECG_ITS ---
Test Date: 2024-05-16 20:05:33 Measurements Intervals [place] Rate: 80 P: 58 [place]: 191 QRS: 244 QRSD: 114 T: 0 QT: 422 QTc: 487 Interpretive Statements ATRIAL SENSE- ELECTRONIC VENTRICULAR PACEMAKER FREQUENT VENTRICULAR PREMATURE COMPLEXES NO FURTHER INTERPRETATION IS POSSIBLE ABNORMAL ECG Compared to ECG 05/16/2024 17:25:21 NO SIGNIFICANT CHANGE Electronically Signed On 05-17-2024 06:06:18 CREDIT AUTHORIZER by Jose Alberto Rodriguez D.O.
[2024-05-16 20:31] LABS: Troponin I 0.087 ng/mL (0.000-0.034)
--- NOTE | 2024-05-16 20:59 | PC.NURSE ---
FLORECITA Young called for report - no questions.
--- NOTE | 2024-05-16 21:27 | ADMGEN ---
This patient, jA Zamarripa, was admitted to IMU Room 210-01 on 05/16/24 at 2120. Patient/family oriented to hospital policies and general routines including ID bracelet, bed and alarms, visiting hours, pain management, procedures, bathroom and other care routines, personal items, smoking policy, room service/diet, and visiting hours. Information on how to activate the Rapid Response Team has been discussed. Patient/Family are encouraged to report perceived risks to care and to ask questions if they do not understand what they are told or what they should do.
[2024-05-16] MEDS: SACUBITRIL/VALSARTAN 49-51 MG TABLET 1 TABLET PO (21:46)
[2024-05-16] MEDS: carvediloL 6.25 MG TABLET PO (21:46)
[2024-05-16] MEDS: WARFARIN (*PBKC) 5 MG TABLET BY MOUTH (21:46)
[2024-05-16] MEDS: VENLAFAXINE HCL XR 75 MG CAP.ER.24H 150 MG PO (21:55)
[2024-05-16] MEDS: ONDANSETRON INJ 4 MG/2 ML VIAL IV PUSH (22:55)
[2024-05-17] VITALS (15 sets, daily range): BP systolic 99–134; BP diastolic 67–90; PULSE 66–94; RESP 12–20; TEMP 36.2–37.2; O2SAT 90–99
[2024-05-17 05:07] LABS: Basophils Percent Auto 0.9 % (0.2-1.2); Eosinophils Absolute Auto 0.2 K/mm3 (0-0.3); Eosinophils Percent Auto 4.1 % (0-4.4); Hematocrit 39.9 % (42.0-52.0); Hemoglobin 13.1 g/dL (14.0-18.0); Immature Granulocyte Absolute 0.02 K/mm3 (0.00-0.031); Immature Granulocyte Percent A 0.4 % (0-0.5); Lymphocytes Absolute Auto 1.04 K/mm3 (0.9-3.2); Lymphocytes Percent Auto 22.5 % (18.3-44.2); Mean Corpuscular HGB Conc 32.8 g/dl (32-36); Mean Corpuscular Volume 100.5 fl (80-100); Mean Platelet Volume 10.4 fl (7.4-10.4); Monocytes Absolute Auto 0.6 K/mm3 (0.1-0.6); Monocytes Percent Auto 13.2 % (2.6-8.5); Neutrophils Absolute Auto 2.7 K/mm3 (1.3-6.7); Neutrophils Percent Auto 58.9 % (45.5-73.1); Platelet Count Result 159 k/mm3 (150-375); Red Blood Count 3.97 M/mm3 (4.6-6.20); Red Cell Distribution Width 13.2 % (11.5-14.5); White Blood Count 4.6 K/mm3 (4.5-10.0)
[2024-05-17 05:18] LABS: INR 1.8; Prothrombin Time 21.7 Seconds (11.1-14.7)
[2024-05-17 05:23] LABS: Anion Gap 9 mmol/L (4-12); Blood Urea Nitrogen 33 mg/dL (9-20); Calcium 8.7 mg/dL (8.4-10.2); Carbon Dioxide 27 mmol/L (22-30); Chloride 103 mmol/L (98-107); Cholesterol 129 mg/dL (0-200); Estimated CRCL calculation 29 ml/min; Estimated Glomerular Filt Rate 31; Glucose 136 mg/dL (65-110); HDL Direct 30 mg/dL; Potassium 3.6 mmol/L (3.4-5.0); Sodium 139 mmol/L (137-145); Triglycerides 204 mg/dL (<150)
[2024-05-17 05:33] LABS: LDL Cholesterol Direct 49 mg/dL
[2024-05-17 05:37] LABS: Troponin I 0.082 ng/mL (0.000-0.034)
[2024-05-17] MEDS: HYDROcodone/acetaminophen (*CRX) 5-325 MG TABLET 1 TAB PO ×2 (06:16→20:05)
[2024-05-17] MEDS: carvediloL 6.25 MG TABLET PO ×2 (08:17→20:14)
[2024-05-17] MEDS: DOCUSATE SODIUM 100 MG CAPSULE PO (08:17)
[2024-05-17] MEDS: PANTOPRAZOLE 40 MG TABLET PO (08:17)
[2024-05-17] MEDS: SACUBITRIL/VALSARTAN 49-51 MG TABLET 1 TABLET PO ×2 (08:17→20:06)
[2024-05-17] MEDS: FERROUS SULFATE 325 MG TABLET DR PO (08:18)
[2024-05-17] MEDS: FUROSEMIDE INJ 40 MG/4 ML VIAL IV PUSH ×2 (08:18→17:15)
[2024-05-17] MEDS: EMPAGLIFLOZIN 5 MG 1 EACH PO (09:52)
--- NOTE | 2024-05-17 10:21 | P.PNIM_ITS ---
Progress Note: A&P Assessment and Plan (1) Acute exacerbation of CHF (congestive heart failure): Code(s): I50.9 - Heart failure, unspecified Status: Deleted (2) Elevated troponin: Code(s): R79.89 - Other specified abnormal findings of blood chemistry Status: Acute (3) Orthopnea: Code(s): R06.01 - Orthopnea Status: Acute (4) Acute non-ST segment elevation myocardial infarction: Code(s): I21.4 - Non-ST elevation (NSTEMI) myocardial infarction Status: Deleted (5) Shortness of breath: Code(s): R06.02 - Shortness of breath Status: Acute (6) Afib: Code(s): I48.91 - Unspecified atrial fibrillation Status: Acute (7) CHF (congestive heart failure): Code(s): I50.9 - Heart failure, unspecified Status: Acute (8) JANELL (acute kidney injury): Code(s): N17.9 - Acute kidney failure, unspecified Status: Acute (9) Stage 3b chronic kidney disease: Code(s): N18.32 - Chronic kidney disease, stage 3b Status: Chronic (10) Paraproteinemia: Code(s): D89.2 - Hypergammaglobulinemia, unspecified Status: Acute (11) Raised antibody titer: Code(s): R76.0 - Raised antibody titer Status: Acute Plan 74-year-old male presents to the hospital with complaints of shortness of breath. he went to his food service agent, he was sent to emergency room. Patient states that his be propped up on several pillows to sleep. In the ED his troponin was 0.078, proBNP was 20,700, respiratory panel was negative, creatinine was 2.1 which seems to be baseline. Chest x-ray shows small pleural effusions, EKG shows ventricular paced rhythm. Last echocardiogram was 10/10/2023 which showed ejection fraction 25% with grade 2 diastolic dysfunction. In the ED the patient was given 40 mg IV Lasix. Acute on chronic systolic and diastolic heart failure Last echocardiogram was 10/10/2023 which showed ejection fraction 25% with grade 2 diastolic dysfunct IV Lasix 40 mg x 1 in ED Start Lasix 40 mg b.i.d. IV push Follow-up input output Consult food service agent for evaluation treatment Stage 3b chronic kidney disease: Code(s): N18.32 - Chronic kidney disease, stage 3b Status: Chronic Assessment and Plan: Creatinine 2.1 baseline Follow urinalysis Cardiorenal syndrome? Normocytic anemia: Code(s): D64.9 - Anemia, unspecified Status: Acute Assessment and Plan: No signs of acute bleeding, no need to transfuse at this time Afib: Code(s): I48.91 - Unspecified atrial fibrillation Status: Acute Assessment and Plan: Restarted home Coreg and warfarin Uncontrolled hypertension Patient is on coronal 06.25 mg b.i.d. p.o. Blood pressure is not well control, Management per food service agent Subjective Date/time seen: 05/17/24 10:21 Interval history: I saw examined patient today, patient feels better on IV diuretic medication. Dyspnea is improving. Patient denies chest pain abdomen pain, nausea vomiting diarrhea. Patient is afebrile, blood pressure stable Exam Narrative: GENERAL: Pleasant, in no acute distress. Well-nourished. - EYES: EOMI. Anicteric. - HENT: Moist mucous membranes. - LUNGS: Coarse breath sound bilateral base - CARDIOVASCULAR: Regular rate and rhyth m. No murmur. No JVD. - ABDOMEN: Soft, non-tender and non-dist ended. No palpable masses. - EXTREMITIES: No edema. Peripheral puls es 2+. Non-tender. - NEUROLOGIC: No focal neurological defi cits. CN II-XII grossly intact. - PSYCHIATRIC: Awake, Alert and oriented x 3. Appropriate mood and affect. - SKIN: No rashes or lesions. Warm. - LYMPH: No cervical lymphadenopathy. Objective Data Vital Signs Vital Signs: Vital Signs - 24 hr 05/16/24 12:06 05/16/24 13:06 05/16/24 13:06 Temperature 97.7 F Pulse Rate 62 78 Respiratory Rate 22 H Blood Pressure 152/110 H Pulse Oximetry 95 98 Oxygen Delivery Room Air Room Air 05/16/24 12:22 05/16/24 13:24 05/16/24 14:30 Temperature 97.7 F Pulse Rate 89 74 92 Respiratory Rate 15 19 18 Blood Pressure 141/113 H 131/101 H 164/122 H Pulse Oximetry 99 100 100 Oxygen Delivery 05/16/24 15:00 05/16/24 15:46 05/16/24 17:05 Temperature 98.0 F 97.9 F Pulse Rate 83 85 79 Respiratory Rate 19 12 14 Blood Pressure 177/121 H 158/87 H 144/82 H Pulse Oximetry 98 98 97 Oxygen Delivery 05/16/24 17:55 05/16/24 19:07 05/16/24 20:37 Temperature 97.7 F 97.8 F Pulse Rate 88 77 79 Respiratory Rate 18 23 H Blood Pressure 140/88 149/108 H Pulse Oximetry 99 99 Oxygen Delivery 05/16/24 20:00 05/16/24 21:46 05/16/24 21:20 Temperature 98.6 F Pulse Rate 86 86 86 Respiratory Rate 20 Blood Pressure 147/95 H Pulse Oximetry 100 Oxygen Delivery 05/16/24 22:00 05/17/24 00:05 05/17/24 00:00 Temperature 98.9 F Pulse Rate 89 78 71 Respiratory Rate 20 Blood Pressure 129/81 Pulse Oximetry 99 Oxygen Delivery 05/17/24 00:00 05/17/24 02:00 05/17/24 04:00 Temperature Pulse Rate 78 75 77 Respiratory Rate 20 Blood Pressure Pulse Oximetry 99 Oxygen Delivery Room Air 05/17/24 04:00 05/17/24 04:25 05/17/24 06:00 Temperature 97.8 F Pulse Rate 94 71 73 Respiratory Rate 20 20 Blood Pressure 99/72 L Pulse Oximetry 99 90 Oxygen Delivery Room Air 05/17/24 08:17 05/17/24 08:00 05/17/24 08:00 Temperature 97.6 F Pulse Rate 75 74 85 Respiratory Rate 16 Blood Pressure 131/83 Pulse Oximetry 97 Oxygen Delivery 05/17/24 08:00 Temperature Pulse Rate Respiratory Rate Blood Pressure Pulse Oximetry Oxygen Delivery Room Air Intake/Output Intake/Output: Intake & Output 05/15/24 05/15/24 05/16/24 05/17/24 00:59 23:59 23:59 23:59 Intake Total 790 Balance 790 Meds/Results Medications: Active Medications Generic Name Dose Route Start Last Admin Trade Name Freq PRN Reason Stop Dose Admin Acetaminophen 650 mg 05/16/24 20:11 Acetaminophen 325 Mg Tablet PO Q4H PRN Mild Pain (1-3) or Fever Hydrocodone Bitart/Acetaminophen 1 tab 05/16/24 20:12 05/17/24 06:16 Hydrocodone/Acetaminophen (*Crx) 5-325 Mg Tablet PO 1 tab BID PRN Administration PAIN RATED 4-6 Albuterol 4 puff 05/16/24 20:12 Albuterol Sulfate (*Sp) Aerosol 1 Puff INHALATION Q4H PRN Shortness Of Breath Carvedilol 6.25 mg 05/16/24 21:00 05/17/24 08:17 Carvedilol 6.25 Mg Tablet PO 6.25 mg Q12HR MC Administration Cyclobenzaprine HCl 10 mg 05/16/24 20:12 Cyclobenzaprine Hcl 10 Mg Tablet PO Q8H PRN muscle spasms Docusate Sodium 100 mg 05/17/24 09:00 05/17/24 08:17 Docusate Sodium 100 Mg Capsule PO 100 mg DAILY [facility] Administration Ferrous Sulfate 325 mg 05/17/24 09:00 05/17/24 08:18 Ferrous Sulfate [address] PO 325 mg DAILY [facility] Administration Furosemide 40 mg 05/17/24 09:00 05/17/24 08:18 Furosemide Inj 40 Mg/4 Ml Vial IV PUSH 40 mg DAILY [facility] Administration Lorazepam 1 mg 05/16/24 20:12 Lorazepam (*Crx) 1 Mg Tablet PO BID PRN Anxiety Non-Formulary ( 1 each 05/17/24 09:00 Empagliflozin 5 Mg PO 06/16/24 08:59 Oral Tablet) DAILY [facility] Ondansetron HCl 4 mg 05/16/24 22:55 05/16/24 22:55 Ondansetron Inj 4 Mg/2 Ml Vial IV PUSH 4 mg Q6H PRN Administration Nausea And Vomiting Pantoprazole Sodium 40 mg 05/17/24 09:00 05/17/24 08:17 Pantoprazole 40 Mg Tablet PO 40 mg DAILY [facility] Administration Sacubitril/Valsartan 1 tablet 05/16/24 21:00 05/17/24 08:17 Sacubitril/Valsartan 49-51 Mg Tablet PO 1 tablet Q12HR [facility] Administration Venlafaxine HCl 150 mg 05/17/24 09:00 05/16/24 22:17 Venlafaxine Hcl Xr 75 Mg Cap.Er.24h PO Not Given DAILY [facility] Warfarin Sodium 5 mg 05/16/24 20:35 05/16/24 21:46 Warfarin (*Pbkc) 5 Mg Tablet BY MOUTH 5 mg MoFr@1700 [facility] Administration Warfarin Sodium 2.5 mg 05/17/24 17:00 Warfarin (*Pbkc) 2.5 Mg Tablet BY MOUTH Suresh@1700 [facility] Radiology Results: ITS Impressions Chest X-Ray 05/16/24 13:34 IMPRESSION: 1. Small pleural effusions. Labs Labs: Laboratory Results - last 24 hr 05/16/24 05/16/24 05/16/24 12:27 14:17 16:58 WBC 6.6 RBC 4.22 L Hgb 13.8 L Hct 42.3 MCV 100.2 H MCH 32.7 MCHC 32.6 RDW 13.2 Plt Count 195 MPV 10.7 H Immature Gran % (Auto) 0.3 Neut % (Auto) 72.0 Lymph % (Auto) 15.4 L [place] % (Auto) 9.2 H Eos % (Auto) 2.0 Baso % (Auto) 1.1 Lymph # (Auto) 1.01 [place] # (Auto) 0.6 Eos # (Auto) 0.1 Baso # (Auto) 0.1 Abs Immat Gran (auto) 0.02 Absolute Neuts (auto) 4.7 Absolute Nucleated RBC 0.000 Nucleated RBC % 0.0 PT 24.4 H INR 2.1 APTT 43.6 H Sodium 140 Potassium 4.5 Chloride 105 Carbon Dioxide 20 L Anion Gap 15 H BUN 39 H Creatinine 2.10 H Estim Creat Clear Calc Not Reportable Estimated GFR 31 L Glucose 118 H Calcium 9.0 Total Bilirubin 1.0 AST 43 ALT 25 Alkaline Phosphatase 90 Troponin I 0.078 H* 0.072 H* NT-Pro-B Natriuret Pep 40275 H Total Protein 8.0 Albumin 4.4 Triglycerides Cholesterol LDL Cholesterol Direct HDL Direct Influenza A (RT-PCR) Negative Influenza B (RT-PCR) Negative RSV (RT-PCR) Negative SARS-CoV-2 RNA (RT-PCR) Negative 05/16/24 05/17/24 19:55 04:53 WBC 4.6 RBC 3.97 L Hgb 13.1 L Hct 39.9 L MCV 100.5 H MCH 33.0 MCHC 32.8 RDW 13.2 Plt Count 159 MPV 10.4 Immature Gran % (Auto) 0.4 Neut % (Auto) 58.9 Lymph % (Auto) 22.5 [place] % (Auto) 13.2 H Eos % (Auto) 4.1 Baso % (Auto) 0.9 Lymph # (Auto) 1.04 [place] # (Auto) 0.6 Eos # (Auto) 0.2 Baso # (Auto) 0.0 Abs Immat Gran (auto) 0.02 Absolute Neuts (auto) 2.7 Absolute Nucleated RBC 0.000 Nucleated RBC % 0.0 PT 21.7 H INR 1.8 APTT Sodium 139 Potassium 3.6 Chloride 103 Carbon Dioxide 27 Anion Gap 9 BUN 33 H Creatinine 2.10 H Estim Creat Clear Calc 29 Estimated GFR 31 L Glucose 136 H Calcium 8.7 Total Bilirubin AST ALT Alkaline Phosphatase Troponin I 0.087 H* D 0.082 H* NT-Pro-B Natriuret Pep Total Protein Albumin Triglycerides 204 H Cholesterol 129 LDL Cholesterol Direct 49 HDL Direct 30 Influenza A (RT-PCR) Influenza B (RT-PCR) RSV (RT-PCR) SARS-CoV-2 RNA (RT-PCR)
--- NOTE | 2024-05-17 12:45 | PM.CNCAR ---
Assessment and Plan Assessment and plan (1) Acute on chronic heart failure with reduced ejection fraction (HFrEF, <= 40%): Code(s): I50.23 - Acute on chronic systolic (congestive) heart failure Status: Acute Assessment and Plan: He has diuresed well with IV Lasix. No longer having shortness of breath or orthopnea. Okay for discharge from my standpoint. Recommend Lasix 40mg PO daily. Continue Coreg, Farxiga, Entresto. (2) Elevated troponin: Code(s): R79.89 - Other specified abnormal findings of blood chemistry Status: Acute Assessment and Plan: Minimally elevated and flat. Not an acute coronary syndrome. (3) Afib: Code(s): I48.91 - Unspecified atrial fibrillation Status: Acute Assessment and Plan: Continue home Warfarin with INR goal of 2-3. Continue Coreg. (4) Biventricular ICD (implantable cardioverter-defibrillator) in place: Code(s): Z95.810 - Presence of automatic (implantable) cardiac defibrillator Status: Acute (5) Stage 3b chronic kidney disease: Code(s): N18.32 - Chronic kidney disease, stage 3b Status: Chronic Assessment and Plan: Renal function stable. Plan Okay for discharge from my standpoint. Patient to follow up with his primary field service technician after hospital discharge. History of Present Illness History of Present Illness Consult date/time: 05/17/24 12:45 Requesting physician: Deana Anderson APRN Consult reason: congestive heart failure Reason For Visit: sent by PMD for fluid build up Narrative: This is a 74 year old male with heart failure with reduced LVEF, atrial fibrillation, s/p biventricular ICD who presented with shortness of breath and orthopnea. Primary field service technician is Dr. Eli with [facility]. He was recently started on Lasix 40mg once daily a few days ago due to his heart failure symptoms, however, he continued to have symptoms, therefore, he was instructed by his field service technician to go to ER. Workup here shows troponins of 0.078, 0.072, 0.087, 0.082. NT pro BNP of 20,700. CXR with small pleural effusions. EKG with ventricular paced rhythm with PVCs. He was started on IV Lasix on admission, and feels much better now. No longer having shortness of breath or orthopnea. Last echocardiogram in our system October 2023 shows LVEF 25-30%. Review of Systems Review of Systems: All systems reviewed & are unremarkable except as noted in HPI and below (HPI) [facility] Past Medical History Medical History Afib Anxiety and depression Arthritis CHF (congestive heart failure) Chronic kidney disease CVA (cerebral vascular accident) Presence of combination internal cardiac defibrillator (ICD) and pacemaker Surgical History Surgical History History of appendectomy History of cardiac defibrillator placement replaced 10/01/2023; [employer] / [employer]; Dr Fracisco Eli through [facility] Cardiology History of cataract surgery History of cervical spinal surgery cervical laminectomy Family History Family History Father S/P triple vessel bypass Social History Social History Smoking packs per day: 0.5 Smoking cigarettes per day: 10.0 Years smoked: 30 Smoking pack-years: 15.00 Smoking status: Current some day smoker Tobacco type: cigarettes Alcohol intake: never Substance use: never Do You Feel Safe in your Home?: Yes Lack of Transportation: No Lack of Food: Never True Current Housing: I Have Housing Concerned About Future Housing: No Difficulty Paying Gas/Electric Bills: No Difficulty Paying for Meds: No Currently Unemployed: No Education: High School Diploma/GED Difficulty w/ Childcare or Family Care: No Gender identity (if verbalized by the patient): Male Spiritual care concerns: No Meds Home Medications and Allergies Home Medications Medication Instructions Recorded Confirmed Type albuterol sulfate 90 mcg/actuation 4 puff inhalation Q4-5H PRN 10/10/23 05/16/24 History aerosol inhaler Shortness Of Breath carvedilol 6.25 mg tablet (Coreg) 6.25 mg PO BID 10/10/23 05/16/24 History dapagliflozin propanediol 10 mg 5 mg PO DAILY 10/10/23 05/16/24 History tablet (Farxiga) furosemide 40 mg tablet 40 mg PO 3XW 10/10/23 05/16/24 History ondansetron HCl 4 mg tablet 4 mg PO DAILY PRN Nausea And 10/10/23 05/16/24 History Vomiting pantoprazole 40 mg tablet,delayed 40 mg PO DAILY 10/10/23 05/16/24 History release potassium chloride 20 mEq 20 meq PO 3XW 10/10/23 05/16/24 History tablet,extended release venlafaxine 150 mg 150 mg PO DAILY 10/10/23 05/16/24 History capsule,extended release 24 hr ferrous sulfate 325 mg (65 mg 325 mg PO DAILY 11/03/23 05/16/24 History iron) tablet sacubitril 49 mg-valsartan 51 mg 1 tablet PO BID 11/03/23 05/16/24 History tablet (Entresto) topiramate 50 mg tablet 50 mg PO .COMPLEX 11/03/23 05/16/24 History methocarbamol 750 mg tablet 750 mg PO TID PRN muscle spasm #30 04/22/24 05/16/24 Rx tabs cyclobenzaprine 10 mg tablet 10 mg PO Q8H PRN muscle spasms 05/16/24 05/16/24 History hydrocodone 5 mg-acetaminophen 325 1 tablet PO BID PRN Pain 05/16/24 05/16/24 History mg tablet lorazepam 1 mg tablet 1 mg PO BID PRN Anxiety 05/16/24 05/16/24 History meloxicam 15 mg tablet 15 mg PO EVERY OTHER DAY 05/16/24 05/16/24 History warfarin 5 mg tablet 5 mg USEASDIRECTD 05/16/24 05/16/24 History Allergies Allergy/AdvReac Type Severity Reaction Status Date / Time No Known Allergies Allergy Mild Verified 05/16/24 19:57 Vital Signs Vital Signs - 24 hr 05/16/24 13:06 05/16/24 13:06 05/16/24 13:24 Temperature 36.5 C Pulse Rate 78 74 Respiratory Rate 19 Blood Pressure 131/101 H Pulse Oximetry 98 100 Oxygen Delivery Room Air 05/16/24 14:30 05/16/24 15:00 05/16/24 15:46 Temperature 36.7 C Pulse Rate 92 83 85 Respiratory Rate 18 19 12 Blood Pressure 164/122 H 177/121 H 158/87 H Pulse Oximetry 100 98 98 Oxygen Delivery 05/16/24 17:05 05/16/24 17:55 05/16/24 19:07 Temperature 36.6 C 36.5 C Pulse Rate 79 88 77 Respiratory Rate 14 18 Blood Pressure 144/82 H 140/88 Pulse Oximetry 97 99 Oxygen Delivery 05/16/24 20:37 05/16/24 20:00 05/16/24 21:46 Temperature 36.6 C Pulse Rate 79 86 86 Respiratory Rate 23 H Blood Pressure 149/108 H Pulse Oximetry 99 Oxygen Delivery 05/16/24 21:20 05/16/24 22:00 05/17/24 00:05 Temperature 37.0 C 37.2 C Pulse Rate 86 89 78 Respiratory Rate 20 20 Blood Pressure 147/95 H 129/81 Pulse Oximetry 100 99 Oxygen Delivery 05/17/24 00:00 05/17/24 00:00 05/17/24 02:00 Temperature Pulse Rate 71 78 75 Respiratory Rate 20 Blood Pressure Pulse Oximetry 99 Oxygen Delivery Room Air 05/17/24 04:00 05/17/24 04:00 05/17/24 04:25 Temperature 36.6 C Pulse Rate 77 94 71 Respiratory Rate 20 20 Blood Pressure 99/72 L Pulse Oximetry 99 90 Oxygen Delivery Room Air 05/17/24 06:00 05/17/24 08:17 05/17/24 08:00 Temperature 36.4 C Pulse Rate 73 75 74 Respiratory Rate 16 Blood Pressure 131/83 Pulse Oximetry 97 Oxygen Delivery 05/17/24 08:00 05/17/24 08:00 05/17/24 10:00 Temperature Pulse Rate 85 71 Respiratory Rate Blood Pressure Pulse Oximetry Oxygen Delivery Room Air 05/17/24 11:45 05/17/24 12:00 05/17/24 12:00 Temperature 36.6 C Pulse Rate 78 Respiratory Rate 16 Blood Pressure 115/76 Pulse Oximetry 95 95 Oxygen Delivery Room Air Room Air 05/17/24 12:00 Temperature Pulse Rate 75 Respiratory Rate Blood Pressure Pulse Oximetry Oxygen Delivery Exam Const: General: comfortable and no acute distress HENMT: Mouth: Yes moist mucous membranes Eyes: General: appearance normal, both eyes and all related structures Sclera: sclerae normal Resp: Effort & Inspection: normal respiratory effort Auscultation: clear to auscultation bilaterally Cardio: Rate: regular rate Rhythm: regular rhythm Heart sounds: no murmurs Skin: General skin exam: normal color Neuro: Speech: normal speech Psych: Mental Status: mental status grossly normal Affect: normal affect Results Labs and Meds 05/17/24 04:53 05/17/24 04:53 Lab results: Cardiac Enzymes 05/16/24 05/16/24 05/16/24 Range/Units 12:27 16:58 19:55 AST 43 (17-59) U/L Troponin I 0.078 H* 0.072 H* 0.087 H* D (0.000-0.034) ng/mL 05/17/24 Range/Units 04:53 AST (17-59) U/L Troponin I 0.082 H* (0.000-0.034) ng/mL Coagulation 05/16/24 05/17/24 Range/Units 12:27 04:53 PT 24.4 H 21.7 H (11.1-14.7) Seconds APTT 43.6 H (22.3-36.8) Seconds Lipids 05/17/24 Range/Units 04:53 Triglycerides 204 H (<150) mg/dL Cholesterol 129 (0-200) mg/dL CBC 05/17/24 Range/Units 04:53 WBC 4.6 (4.5-10.0) K/mm3 RBC 3.97 L (4.6-6.20) M/mm3 Hgb 13.1 L (14.0-18.0) g/dL Hct 39.9 L (42.0-52.0) % Plt Count 159 (150-375) k/mm3 Lymph # (Auto) 1.04 (0.9-3.2) K/mm3 [place] # (Auto) 0.6 (0.1-0.6) K/mm3 Eos # (Auto) 0.2 (0-0.3) K/mm3 Baso # (Auto) 0.0 (0.0-0.1) K/mm3 Comprehensive Metabolic Panel 05/16/24 05/17/24 Range/Units 12:27 04:53 Sodium 140 139 (137-145) mmol/L Potassium 4.5 3.6 (3.4-5.0) mmol/L Chloride 105 103 (98-107) mmol/L Carbon Dioxide 20 L 27 (22-30) mmol/L BUN 39 H 33 H (9-20) mg/dL Creatinine 2.10 H 2.10 H (0.7-1.3) mg/dL Glucose 118 H 136 H (65-110) mg/dL Calcium 9.0 8.7 (8.4-10.2) mg/dL AST 43 (17-59) U/L ALT 25 (6-50) U/L Alkaline Phosphatase 90 (38-126) U/L Total Protein 8.0 (6.3-8.2) g/dL Albumin 4.4 (3.5-5.1) g/dL Intake and Output 05/16/24 05/17/24 05/17/24 23:59 07:59 15:59 Intake Total 550 240 Balance 550 240 Intake: Oral 550 240 Other: # Unmeasured Voids 2 Patient Weight 05/17/24 23:59 Weight 83.4 kg
[2024-05-17] MEDS: LORazepam (*CRX) 1 MG TABLET PO (13:52)
--- NOTE | 2024-05-17 16:01 | PC.NURSE ---
This patient, Aj Zamarripa, was received from imu on 05/17/24 at 1601. Patient/family oriented to unit policies and routines
[2024-05-17] MEDS: ONDANSETRON INJ 4 MG/2 ML VIAL IV PUSH (16:05)
--- NOTE | 2024-05-17 16:09 | PC.NURSE ---
patient being transferred rooms. Nurse gave report to receiving nurse at 1550. Patient transferred to room 241 at 1557 via bed with all belongings.
[2024-05-17] MEDS: WARFARIN (*PBKC) 2.5 MG TABLET BY MOUTH (17:14)
[2024-05-18] MEDS: LORazepam (*CRX) 1 MG TABLET PO (00:54)
[2024-05-18 05:15] LABS: INR 1.7
[2024-05-18 06:00] VITALS: BP 133/83; PULSE 74; RESP 20; TEMP 36.8; O2SAT 98
[2024-05-18] MEDS: SACUBITRIL/VALSARTAN 49-51 MG TABLET 1 TABLET PO (08:46)
[2024-05-18 08:47] VITALS: PULSE 64
[2024-05-18] MEDS: DOCUSATE SODIUM 100 MG CAPSULE PO (08:47)
[2024-05-18] MEDS: FERROUS SULFATE 325 MG TABLET DR PO (08:47)
[2024-05-18] MEDS: PANTOPRAZOLE 40 MG TABLET PO (08:47)
[2024-05-18] MEDS: carvediloL 6.25 MG TABLET PO (08:47)
[2024-05-18] MEDS: FUROSEMIDE INJ 40 MG/4 ML VIAL IV PUSH (08:48)
[2024-05-18] MEDS: EMPAGLIFLOZIN 5 MG 1 EACH PO (08:50)
[2024-05-18] MEDS: HYDROcodone/acetaminophen (*CRX) 5-325 MG TABLET 1 TAB PO (08:52)
--- NOTE | 2024-05-18 09:44 | PM.DS ---
DS: Admitting Diagnosis Discharge Date 05/18/2024 Admitting Diagnosis Acute congestive heart failure DS: Discharge Diagnosis Discharge Diagnosis (1) Elevated troponin: Code(s): R79.89 - Other specified abnormal findings of blood chemistry Status: Acute (2) Orthopnea: Code(s): R06.01 - Orthopnea Status: Acute (3) Afib: Code(s): I48.91 - Unspecified atrial fibrillation Status: Acute (4) CHF (congestive heart failure): Code(s): I50.9 - Heart failure, unspecified Status: Acute (5) JANELL (acute kidney injury): Code(s): N17.9 - Acute kidney failure, unspecified Status: Acute (6) Stage 3b chronic kidney disease: Code(s): N18.32 - Chronic kidney disease, stage 3b Status: Chronic (7) Paraproteinemia: Code(s): D89.2 - Hypergammaglobulinemia, unspecified Status: Acute Plan Disposition: Discharged to home DS: Summary Hospital Course Reason for hospitalization: Acute on chronic systolic heart failure with reduced ejection fraction Hospital Course: Patient was a 74-year-old male who initially presented to the emergency department with worsening shortness of breaths after he was sent to the emergency department by his custodial services manager due to fluid overload. Initial troponin was 0.078 likely ischemic demand due to exacerbation of CHF proBNP was >20,00 and CXR was showing bilateral small pleurel effusions. Patient last known Echo from 09/2023 showed and EF of 25%. Patient was then admitted for further treatment of congestive heart failure exacerbation. EKG was showing a ventricle paced rhythm and patient was having improvement with IV Lasix initially given in the emergency department 40 mg. There is a consult to Cardiology placed who recommended continued IV diuresis as well as continuing patient's Lasix 40 daily, Coreg, Farxiga, and Entresto. Patient remained on RA and had overall improvement to symptoms after 2 days of IV lasix. Patient was ambulatory on own and was transitioned to PO lasix and cleared by cardiology prior to discharge. Patient discharged to home back to baseline and will follow-up with his custodial services manager outpatient. Status at Discharge Functional status at discharge: independent ambulation Overall status at discharge: patient is back to baseline Time Spent with Patient Time attestation: Total time spent providing and/or coordinating discharge services: Time spent: Greater than 30 minutes Exam Narrative: GENERAL: Pleasant, in no acute distress. Well-nourished. - EYES: EOMI. Anicteric. - HENT: Moist mucous membranes. - LUNGS: Improved Coarse breath sound bilateral base - CARDIOVASCULAR: Regular rate and rhythm. No murmur. No JVD. - ABDOMEN: Soft, non-tender and non-distended. No palpable masses. - EXTREMITIES: No edema. Peripheral pulses 2+. Non-tender. - NEUROLOGIC: No focal neurological deficits. CN II-XII grossly intact. - PSYCHIATRIC: Awake, Alert and oriented x 3. Appropriate mood and affect. - SKIN: No rashes or lesions. Warm. - LYMPH: No cervical lymphadenopathy. DS: Data Data Completed and Pending Labs on day of discharge: Labs from last 24 hours 05/18/24 04:35 PT 21.0 H INR 1.7 Imaging Radiologist's impression: EXAMINATION: XR chest 2V DATE: 05/16/2024 13:20 INDICATION: Shortness of breath. TECHNIQUE: Frontal and lateral views of the chest were obtained. COMPARISON: Chest 2 views 10/10/2023, CT abdomen and pelvis 10/11/2023 FINDINGS: There are small pleural effusions. A calcified right lung nodule is consistent with old granulomatous disease. There is mild atelectasis at the lung bases. No pneumothorax. The heart size is normal. There is a left chest pacer with leads in right atrium, right ventricle, and coronary sinus. IMPRESSION: 1. Small pleural effusions. Additional Comments Additional comments: EXAMINATION: XR chest 2V DATE: 05/16/2024 13:20 INDICATION: Shortness of breath. TECHNIQUE: Frontal and lateral views of the chest were obtained. COMPARISON: Chest 2 views 10/10/2023, CT abdomen and pelvis 10/11/2023 FINDINGS: There are small pleural effusions. A calcified right lung nodule is consistent with old granulomatous disease. There is mild atelectasis at the lung bases. No pneumothorax. The heart size is normal. There is a left chest pacer with leads in right atrium, right ventricle, and coronary sinus. IMPRESSION: 1. Small pleural effusions. Discharge Plan Discharge Attending physician on discharge: Juan C Snyder Consulting providers: Deana Anderson; Jose Alberto Rodriguez; Rush Thakkar V.; [place]; Lena Peoples Discharging Clinician: Monica Chaudhary Anticipated Discharge Date/Time: 05/18/24 09:23 Patient Disposition: Home, Self-Care Activity: may shower and as tolerated Diet: heart healthy and low sodium Discharge Instructions: You are being discharged to the home after treatment for congestive heart failure exacerbation. I encourage a low sodium heart healthy diet. Please follow-up with your custodial services manager Dr. Fountain as scheduled. I will resume your Coreg, Farxiga and Entresto as well as prescribing 40mg daily dose of Lasix per cardiology recommendations. I also recommend daily ow weekly weights and to report a significant weight gain to your doctor. Please review the education attached regarding diet, exercise and general education on congestive heart failure I understand your Primary has recently retired and you are establishing with a new primary care physician please follow-up with them as soon as established. I have provided a prescription for you Albuterol inhaler and Christiana pain medication for our back as needed. How can you care for yourself at home? ? Keep track of any new symptoms or changes in your symptoms. ? Rest until you feel better. ? Be safe with medicines. Take your medicines exactly as prescribed. Call your doctor if you think you are having a problem with your medicine. ? Do not drive after taking a prescription pain medicine. ? Ensure to follow-up with primary care physician as indicated and provide updated medication list provided to you at discharge. When should you call for help? Call 911 anytime you think you may need emergency care. For example, call if: ? You passed out (lost consciousness). Call your doctor now or seek immediate medical care if: ? You have new symptoms like fever, difficulty breathing, Chest pain, vomiting, or rash. ? You have new or different pain. ? You are confused and are having trouble thinking clearly. ? Your symptoms are getting worse. Watch closely for changes in your health, and be sure to contact your doctor if: ? You do not get better as expected. Patient Instructions: Antibiotic Form, Warfarin (By mouth), Heart Failure (DC), Pain Management (DC), Low-Sodium Diet (DC) Stand Alone Forms: General Discharge Information Follow-up/Referrals: Julian Eli MD [Physician] - Keep Reg. Scheduled Appt. Discharge Medications: New docusate sodium 100 mg Capsule 100 mg PO DAILY Qty: 30 0RF loratadine [Allergy Relief (loratadine)] 10 mg tablet 10 mg PO QHS Qty: 30 0RF Continued ferrous sulfate 325 mg (65 mg iron) tablet 325 mg PO DAILY Entresto 49-51 mg tablet 1 tablet PO BID topiramate 50 mg tablet 50 mg PO .COMPLEX Rx Instructions: 50 mg orally take 2 tabs weekly or as needed carvedilol [Coreg] 6.25 mg tablet 6.25 mg PO BID ondansetron HCl 4 mg tablet 4 mg PO DAILY PRN (Reason: Nausea And Vomiting) venlafaxine 150 mg capsule,extended release 24hr 150 mg PO DAILY pantoprazole 40 mg tablet,delayed release (DR/EC) 40 mg PO DAILY dapagliflozin propanediol [Farxiga] 10 mg tablet 5 mg PO DAILY potassium chloride 20 mEq tablet extended release 20 meq PO 3XW Rx Instructions: Takes on days with Furosemide methocarbamol 750 mg tablet 750 mg PO TID PRN (Reason: muscle spasm) Qty: 30 0RF warfarin 5 mg tablet 5 mg USEASDIRECTD Rx Instructions: 5mg on Thursday and Thursday; 2.5mg , Thu, , Sat, Sun cyclobenzaprine 10 mg tablet 10 mg PO Q8H PRN (Reason: muscle spasms) meloxicam 15 mg tablet 15 mg PO EVERY OTHER DAY lorazepam 1 mg tablet 1 mg PO BID PRN (Reason: Anxiety) hydrocodone-acetaminophen 5-325 mg tablet 1 tablet PO BID PRN (Reason: Pain) Qty: 20 0RF albuterol sulfate 90 mcg/actuation HFA aerosol inhaler 4 puff INHALATION Q4-5H PRN (Reason: Shortness Of Breath) Qty: 6.7 0RF Changed furosemide 40 mg tablet 40 mg PO DAILY Qty: 30 0RF Rx Instructions: Takes on Thursday, Thursday, and Thursday Date of admission: 05/16/24 15:47 Primary Care Provider: HoShaun Admitting Provider: Ronan Cano Attending physician on admission: Monica Chaudhary Condition: Stable Quality VTE Prophylaxis VTE prophylaxis: mechanical ordered and pharmacologic ordered Hospitalist MIPS Heart Failure (Exclusion) Patient has history of Heart Transplant or Left Ventricular Assistive Device?: No IF YES, STOP HERE Heart Failure (Qualifier) Patient has current or prior documentation of LVEF less than or equal to 40%, or mod/servere depressed LVSF?: Yes IF NO, STOP HERE If Yes, Heart Failure (Qualifier) Patient was prescribed or already taking an Angiotensin-Converting Enzyme (KRYSTA) Inhibitor, or Antiotensin Receptor Addison (ARB): Yes Patient was prescribed or already taking bisoprolol, carvedilol, or sustained release metoprolol succinate: Yes
== END 2024-05-18 11:57 | disposition home or self-care (01) ==
LOC: ANHED 12:57 → ANHIMU 20:08 → ANH2MED 05-18 07:08 → ANHIMU 05-19 07:15
PROVIDERS: Nurse Practitioner Gerontology; Student in an Organized Health Care Education/Training Program; Admitting Provider Internal Medicine; Emergency Provider Emergency Medicine; PCP Nurse Practitioner Family; Visit Provider Nurse Practitioner Family
DX: I13.0 Hypertensive heart and chronic kidney disease with heart failure and stage 1 through stage 4 chronic kidney disease, or unspecified chronic kidney disease (principal); I50.23 Acute on chronic systolic (congestive) heart failure; N18.32 Chronic kidney disease, stage 3b; N17.9 Acute kidney failure, unspecified; I48.91 Unspecified atrial fibrillation; R79.89 Other specified abnormal findings of blood chemistry; D64.9 Anemia, unspecified; R76.0 Raised antibody titer; D89.2 Hypergammaglobulinemia, unspecified; F17.210 Nicotine dependence, cigarettes, uncomplicated; M19.90 Unspecified osteoarthritis, unspecified site; F41.9 Anxiety disorder, unspecified; F32.A Depression, unspecified; Z20.822 Contact with and (suspected) exposure to COVID-19; Z79.01 Long term (current) use of anticoagulants; Z79.51 Long term (current) use of inhaled steroids; Z79.84 Long term (current) use of oral hypoglycemic drugs; Z79.899 Other long term (current) drug therapy; Z86.73 Personal history of transient ischemic attack (TIA), and cerebral infarction without residual deficits; Z95.810 Presence of automatic (implantable) cardiac defibrillator
CPT/HCPCS: 36415; 71046; 80048; 80053; 80061; 83880; 84484; 85025; 85610; 85730; 87637; 93005; 96374; 96375; 96376; 99285; A9270; G0378; J1940; J2405

== ENCOUNTER 2024-06-07 06:55 | Inpatient (IN) | payer MEDICARE, SELFPAY ==
[2024-06-07] VITALS (14 sets, daily range): BP systolic 107–139; BP diastolic 77–107; PULSE 59–133; RESP 19–29; TEMP 36.5–36.6; O2SAT 95–100; BMI 28.2
--- NOTE | ~2024-06-07 | XR_ITS ---
EXAMINATION: XR chest 2V DATE: 06/07/2024 08:09 INDICATION: Shortness of breath. TECHNIQUE: Frontal and lateral views of the chest were obtained. COMPARISON: Chest 2 views 05/16/2024 FINDINGS: Ayanna B-lines are noted, consistent with mild pulmonary edema. A calcified right lung nodu le is consistent with old granulomatous disease. There are small pleural effusions. No pneumothorax. Cardiomegaly is noted. There is a left chest pacer with leads in right atrium, right ventricle, and c oronary sinus. There are changes of anterior fusion procedure in cervical spine. IMPRESSION: 1. Mild pulmonary edema. 2. Small pleural effusions. 3. Cardiomegaly. Reviewed, dictated and finalized at location A. [employer]
--- NOTE | ~2024-06-07 | XR_ITS ---
EXAMINATION: XR chest 1V portable DATE: 06/08/2024 12:22 INDICATION: Congestive heart failure. TECHNIQUE: A single frontal view of the chest was obtained. COMPARISON: Chest 2 views 06/07/2024, CT abdomen and pelvis 10/11/2023 FINDINGS: Ayanna B-lines are noted, consistent with mild pulmonary edema. No pleural effusion or pneu mothorax. Cardiomegaly is noted. There is a left chest pacer with leads in right atrium, right ventri manuel, and coronary sinus. There are changes of anterior fusion procedure in cervical spine. IMPRESSION: 1. Mild pulmonary edema. 2. Cardiomegaly. Reviewed, dictated and finalized at location A. [employer]
--- NOTE | 2024-06-07 07:07 | ECG_ITS ---
Test Date: 2024-06-07 07:08:19 Measurements Intervals Ira Rate: 133 P: -56 CO: 185 QRS: -53 QRSD: 150 T: 119 QT: 346 QTc: 516 Interpretive Statements SUPRAVENTRICULAR TACHYCARDIA WITH FREQUENT VENTRICULAR PREMATURE COMPLEXES INTRAVENTRICULAR CONDUCTION DELAY ST-T WAVE ABNORMALITY IN HIGH LATERAL LEADS- CONSIDER ISCHEMIA BASELINE ARTIFACT- I, II, III, V6 ABNORMAL ECG Compared to ECG 05/16/2024 20:05:33 SUPRAVENTRICULAR TACHYCARDIA NOW PRESENT POSSIBLE ISCHEMIA NOW PRESENT Electronically Signed On 06-07-2024 08:28:07 SHOT BLASTER by Jose Alberto Rodriguez D.O.
[2024-06-07 07:16] LABS: Basophils Absolute Auto 0.1 K/mm3 (0.0-0.1); Basophils Percent Auto 0.8 % (0.2-1.2); Eosinophils Absolute Auto 0.1 K/mm3 (0-0.3); Eosinophils Percent Auto 1.2 % (0-4.4); Hematocrit 40.6 % (42.0-52.0); Hemoglobin 12.6 g/dL (14.0-18.0); Immature Granulocyte Absolute 0.04 K/mm3 (0.00-0.031); Immature Granulocyte Percent A 0.5 % (0-0.5); Lymphocytes Absolute Auto 0.67 K/mm3 (0.9-3.2); Lymphocytes Percent Auto 8.9 % (18.3-44.2); Mean Corpuscular Hemoglobin 32.1 pg (26-34); Mean Corpuscular Volume 103.6 fl (80-100); Mean Platelet Volume 10.6 fl (7.4-10.4); Monocytes Absolute Auto 0.7 K/mm3 (0.1-0.6); Monocytes Percent Auto 8.8 % (2.6-8.5); Neutrophils Percent Auto 79.8 % (45.5-73.1); Platelet Count Result 165 k/mm3 (150-375); Red Blood Count 3.92 M/mm3 (4.6-6.20); Red Cell Distribution Width 14.5 % (11.5-14.5); White Blood Count 7.5 K/mm3 (4.5-10.0)
[2024-06-07 07:29] LABS: INR 2.2; Prothrombin Time 25.1 Seconds (11.1-14.7)
[2024-06-07 07:30] LABS: Alanine Aminotransferase 24 U/L (6-50); Albumin Level 4.3 g/dL (3.5-5.1); Alkaline Phosphatase 111 U/L (38-126); Anion Gap 15 mmol/L (4-12); Aspartate Amino Transferase 44 U/L (17-59); Bilirubin,Total 1.2 mg/dL (0.2-1.3); Blood Urea Nitrogen 41 mg/dL (9-20); Calcium 8.8 mg/dL (8.4-10.2); Carbon Dioxide 18 mmol/L (22-30); Chloride 106 mmol/L (98-107); Estimated CRCL calculation 27 ml/min; Estimated Glomerular Filt Rate 25; Glucose 152 mg/dL (65-110); Lipase 66 U/L (23-300); Partial Thromboplastin Time 41.5 Seconds (22.3-36.8); Potassium 4.3 mmol/L (3.4-5.0); Sodium 139 mmol/L (137-145)
[2024-06-07 07:49] LABS: Troponin I 0.101 ng/mL (0.000-0.034)
--- NOTE | 2024-06-07 07:56 | ED.SOB ---
HPI - SOB/Dyspnea General Chief Complaint: Shortness of Breath/Dyspnea Stated Complaint: SOB, CP Time Seen by Provider: 06/07/24 07:39 History of Present Illness HPI Narrative: 74-year-old male with a past medical history significant for congestive heart failure with reduced ejection fraction pressure proximally 25%. He also has a history of AICD pacemaker placement as well as chronic renal insufficiency. Today patient presents to the emergency room with chief complaint of worsening difficulty in breathing, shortness of breath and difficulty lying flat. He states that his communications program manager instructed him to take escalating doses of Lasix at home but he has not been urinating as frequently and feeling like he is drowning and having to sit up to sleep. He called EMS today as he was having some chest discomfort and was pale and diaphoretic when they arrive. Patient was provided 0.4 mg of nitroglycerin EN route within removed in his symptoms. He was saturating well on room air with arrived. Patient presently is tachycardic and tachypneic but awake alert able answer questions. He states that he feels short of breath and like he is drowning but denies any chest discomfort, fever, chills, nausea, vomiting, vomiting, back pain. He states he has been gaining weight the last few days including weight around the abdomen legs. States he feels dehydrated but has been trying to drink water but notices that he is not urinating much at all. Related Data Home Medications Medication Instructions Recorded Confirmed carvedilol 6.25 mg tablet (Coreg) 6.25 mg PO Q12H 10/10/23 06/07/24 dapagliflozin propanediol 10 mg 5 mg PO DAILY 10/10/23 06/07/24 tablet (Farxiga) pantoprazole 40 mg tablet,delayed 40 mg PO DAILY 10/10/23 06/07/24 release potassium chloride 20 mEq 20 meq PO 3XW 10/10/23 06/07/24 tablet,extended release venlafaxine 150 mg 150 mg PO DAILY 10/10/23 06/07/24 capsule,extended release 24 hr ferrous sulfate 325 mg (65 mg 325 mg PO DAILY 11/03/23 06/07/24 iron) tablet sacubitril 49 mg-valsartan 51 mg 1 tablet PO Q12H 11/03/23 06/07/24 tablet (Entresto) topiramate 50 mg tablet 50 mg PO .COMPLEX 04/23/24 11/26/24 lorazepam 1 mg tablet 1 mg PO BID PRN Anxiety 05/16/24 06/07/24 meloxicam 15 mg tablet 15 mg PO EVERY OTHER DAY 05/16/24 06/07/24 warfarin 5 mg tablet 5 mg USEASDIRECTD 05/16/24 06/07/24 furosemide 40 mg tablet 40 mg PO 3XW 06/07/24 06/07/24 Allergies Allergy/AdvReac Type Severity Reaction Status Date / Time No Known Allergies Allergy Mild Verified 06/07/24 08:12 Review of Systems Review of Systems: As reviewed above in [facility] Past Medical History Medical History Afib Anxiety and depression Arthritis CHF (congestive heart failure) Chronic kidney disease CVA (cerebral vascular accident) Presence of combination internal cardiac defibrillator (ICD) and pacemaker Surgical History Surgical History History of appendectomy History of cardiac defibrillator placement replaced 10/01/2023; [employer] / [employer]; Dr Fracisco Eli through [facility] Cardiology History of cataract surgery History of cervical spinal surgery cervical laminectomy Family History Family History Father S/P triple vessel bypass Social History Social History Smoking packs per day: 0.5 Smoking cigarettes per day: 10.0 Years smoked: 30 Smoking pack-years: 15.00 Smoking status: Current some day smoker Tobacco type: cigarettes Alcohol intake: former Substance use: never Substance use type: does not use Do You Feel Safe in your Home?: Yes Lack of Transportation: No Lack of Food: Never True Current Housing: I Have Housing Concerned About Future Housing: No Difficulty Paying Gas/Electric Bills: No Difficulty Paying for Meds: No Currently Unemployed: No Education: High School Diploma/GED Difficulty w/ Childcare or Family Care: No Gender identity (if verbalized by the patient): Male Spiritual care concerns: No Exam Narrative: GENERAL: Chronically ill-appearing, tachypneic, tachycardic, awake and alert answering questions with some dyspnea HEAD: [Normocephalic, atraumatic.] EYES: [PERRLA and EOMI.] ENT: Nares clear, no rhinorrhea or epistaxis. Telangiectasias noted on the nose. dry mucous membranes NECK: Supple. CHEST: Rales appreciated in the bilateral lung bases, tachypnea without any significant respiratory distress HEART: [Regular rate and rhythm]. No murmur heard. [Normal peripheral pulses.] ABDOMEN: [Soft, nondistended], [nontender], [No rigidity or guarding] EXTREMITIES: Normal range of motion. 1+ edema to the ankles SKIN: Warm, dry, no rash. NEURO: [No focal deficits]. Alert and oriented [x3.] PSYCH: [Normal mood and affect.] Course Vital Signs Vital signs: Vital Signs Temperature 36.6 C 06/07/24 06:56 Pulse Rate 128 H 06/07/24 06:56 Respiratory Rate 25 H 06/07/24 06:56 Blood Pressure 128/94 H 06/07/24 06:56 Pulse Oximetry 98 06/07/24 06:56 Oxygen Delivery Room Air 06/07/24 06:56 Temperature 36.6 C 06/07/24 06:56 Pulse Rate 108 H 06/07/24 17:55 Respiratory Rate 22 H 06/07/24 17:55 Blood Pressure 107/77 06/07/24 17:55 Pulse Oximetry 99 06/07/24 17:55 Oxygen Delivery Room Air 06/07/24 09:12 MDM - SOB/Dyspnea MDM Narrative Medical decision making narrative: 74-year-old male with a past medical history of congestive heart failure with reduced ejection fraction, AICD pacemaker placement, chronic renal insufficiency. Today patient presents to the emergency department with worsening difficulty in breathing despite escalating Lasix dosages at the direction of his communications program manager at home. He states that he is not urinating as frequently as he was previously and feels like he is drowning and having to sit straight upright to get any rest. Endorses some chest discomfort and difficulty breathing which is why he called EMS. EMS provided some nitroglycerin which alleviated some of his pain. Overall he appears chronically ill and is tachycardic and tachypneic. No significant respiratory distress and is able to answer questions and awake alert oriented. He has normal reassuring blood pressure but tachycardic pulse in the 110s to 140s on the monitor. Respiratory rates in the mid 20s, no hypoxia noted. He does have diffuse rales on the lung bases and some edema in his legs. Overall likely differential includes acute exacerbation of heart failure, decompensated heart failure, pneumonia, atrial fibrillation, ACS, cardiorenal syndrome, fluid overload of other causes. Laboratory studies were obtained including serial troponins, EKG, chest x-ray, BNP. Laboratory studies revealed worsening rising troponin from his previous elevations during his last visit 3 weeks ago but EKG shows no acute ST segment elevations or depressions noted BP suspicious for an acute occlusive myocardial infarction he is tachycardic on EKG however. His creatinine also reva and now has an JANELL on CKD. Higher dose of Lasix was provided 80 mg to make sure that the doses able to reach his kidneys to get the desired effect in the urinary catheter was placed for I/O management. After successfully placing the Cifuentes catheter pacing started having some leakage around the Cifuentes and wanted it removed. He did have successful urination and urinating quite frequently after the Lasix. Laboratory studies revealed no leukocytosis or significant anemia. Platelets within normal limits. Chemistry panel reveals elevated BUN and creatinine slightly higher than his normal chronic kidney disease indicative of an JANELL on CKD. Troponin was elevated 0.082 which is mildly above his previous levels. Will trend his troponins and his repeated 3 hours and 6 hours was only mildly above the stent without any significant delta. BNP markedly elevated 28,700 which is almost 33% higher than his previous level upon discharge several weeks ago. Patient's chest x-ray was reviewed and does show pulmonary edema on my interpretation as well as small pleural effusions per Radiology interpretation. EKG shows sinus tachycardia with a or left bundle branch block which is chronic per his previous EKGs. No signs of acute arrhythmia or acute ischemic changes. Repeat troponin 3 hours shows similar findings without any progressive changes or acute findings aside from a infrequent PVC. I re-evaluated the patient after the Lasix therapy and he had improvement in his respiratory efforts and feeling like he was no longer drowning. He was able to talk in clear concise sentences and able ambulate without getting winded. At this time I believe he requires a more aggressive diuretic therapy and would benefit from admission to the hospital to accomplish this until we can get him to euvolemic state and on a good regimen for outpatient therapy. Patient was appreciative of this and I discussed the case for admission with the on-call hospitalist Dr. Snyder. We will or patient's imaging studies, plan of care, laboratory assessment and imaging studies and patient is up to the intermediate care unit given his elevated troponins and respiratory efforts. Repeat vital signs were obtained with improvement in the tachycardia no longer in the 120 he was now in the 100s and still saturating well on room air. Differential Diagnosis Differential diagnosis: Likely acute exacerbation of chronic obstructive airways disease, congestive heart failure, community acquired pneumonia, asthma with exacerbation and other Medical Records Attestation: I reviewed the patient's medical records. Lab Data Attestation: I reviewed the patient's lab results. 06/07/24 07:09 06/07/24 07:09 Labs: Lab Results 06/07/24 06/07/24 Range/Units 07:09 11:07 WBC 7.5 (4.5-10.0) K/mm3 RBC 3.92 L (4.6-6.20) M/mm3 Hgb 12.6 L (14.0-18.0) g/dL Hct 40.6 L (42.0-52.0) % MCV 103.6 H (80-100) fl MCH 32.1 (26-34) pg MCHC 31.0 L (32-36) g/dl RDW 14.5 (11.5-14.5) % Plt Count 165 (150-375) k/mm3 MPV 10.6 H (7.4-10.4) fl Immature Gran % (Auto) 0.5 (0-0.5) % Neut % (Auto) 79.8 H (45.5-73.1) % Lymph % (Auto) 8.9 L (18.3-44.2) % [place] % (Auto) 8.8 H (2.6-8.5) % Eos % (Auto) 1.2 (0-4.4) % Baso % (Auto) 0.8 (0.2-1.2) % Lymph # (Auto) 0.67 L (0.9-3.2) K/mm3 [place] # (Auto) 0.7 H (0.1-0.6) K/mm3 Eos # (Auto) 0.1 (0-0.3) K/mm3 Baso # (Auto) 0.1 (0.0-0.1) K/mm3 Abs Immat Gran (auto) 0.04 H (0.00-0.031) K/mm3 Absolute Neuts (auto) 6.0 (1.3-6.7) K/mm3 Absolute Nucleated RBC 0.000 (0.0-0.012) K/mm3 Nucleated RBC % 0.0 (0.0-0.2) % PT 25.1 H (11.1-14.7) Seconds INR 2.2 APTT 41.5 H (22.3-36.8) Seconds Sodium 139 (137-145) mmol/L Potassium 4.3 (3.4-5.0) mmol/L Chloride 106 (98-107) mmol/L Carbon Dioxide 18 L (22-30) mmol/L Anion Gap 15 H (4-12) mmol/L BUN 41 H (9-20) mg/dL Creatinine 2.50 H (0.7-1.3) mg/dL Estim Creat Clear Calc 27 ml/min Estimated GFR 25 L (59 - ) Glucose 152 H (65-110) mg/dL Calcium 8.8 (8.4-10.2) mg/dL Total Bilirubin 1.2 (0.2-1.3) mg/dL AST 44 (17-59) U/L ALT 24 (6-50) U/L Alkaline Phosphatase 111 (38-126) U/L Troponin I 0.101 H* 0.111 H* (0.000-0.034) ng/mL NT-Pro-B Natriuret Pep 28152 H (19.9-100) pg/mL Total Protein 7.0 (6.3-8.2) g/dL Albumin 4.3 (3.5-5.1) g/dL Lipase 66 (23-300) U/L Imaging Data Attestation: I personally reviewed and interpreted this imaging study as follows: Radiologist's impression: Impressions Chest X-Ray 06/07/24 08:10 IMPRESSION: 1. Mild pulmonary edema. 2. Small pleural effusions. 3. Cardiomegaly. Critical Care Time Critical Care Time Critical Care Time: Yes Total Critical Care Time: 35 Discharge Plan Discharge Clinical Impression: Acute exacerbation of CHF (congestive heart failure), Acute kidney injury superimposed on chronic kidney disease Patient Disposition: Still a Patient Condition: Stable Time of Disposition: 11:35
[2024-06-07] MEDS: FUROSEMIDE INJ 100 MG/10 ML VIAL 80 MG IV PUSH (08:22)
--- NOTE | 2024-06-07 10:30 | PC.NURSE ---
Patient is urinating around catheter. provider made aware and gave verbal order to remove 5CC of fluid from the rojo balloon. This RN did and patient states he is still urinating around the tube. the rojo catheter is patent and also draining. provider aware
--- NOTE | 2024-06-07 10:57 | PC.NURSE ---
rojo catheter removed per verbal from provider. around 650mL of clear, yellow urine was measured prior to removal
--- NOTE | 2024-06-07 11:01 | ECG_ITS ---
Test Date: 2024-06-07 11:33:50 Measurements Intervals Capac Rate: 126 P: 101 OR: 229 QRS: -54 QRSD: 141 T: 111 QT: 353 QTc: 512 Interpretive Statements SUPRAVENTRICULAR TACHYCARDIA WITH VENTRICULAR PREMATURE COMPLEXES INTRAVENTRICULAR CONDUCTION DELAY BORDERLINE R WAVE PROGRESSION, ANTERIOR LEADS ST-T WAVE ABNORMALITY IN HIGH LATERAL LEADS- CONSIDER ISCHEMIA BASELINE ARTIFACT- I, II, III, AVR, AVL, AVF, V1-V2 ABNORMAL ECG Compared to ECG 06/07/2024 07:08:19 NO SIGNIFICANT CHANGE Electronically Signed On 06-07-2024 12:03:22 FISH FARMER by Jose Alberto Rodriguez D.O.
[2024-06-07 11:10] LABS: NT Pro B Type Natriuretic Pept 28700 pg/mL (19.9-100)
[2024-06-07 11:51] LABS: Troponin I 0.111 ng/mL (0.000-0.034)
--- NOTE | 2024-06-07 12:39 | PM.IMHP ---
H&P: HPI History of Present Illness Date/Time: 06/07/24 12:39 Chief Complaint: Shortness of breath Narrative: 74-year-old male past medical history of CHF with ejection fraction 25%, AFib, AICD, CKD presents to the hospital with complaints of shortness of breath. Patient states this morning that was coughing so hard your struggling to breathe and he felt like he could not get the secretions in his chest. So he came to the emergency room. Patient was recently discharged from the hospital on 05/17/2024 for acute on chronic congestive heart failure seen by Cardiology with recommendations for p.o. Lasix 40 mg daily. Patient has been struggling with managing his CHF for the last 3 or 4 weeks with dramatic increase in his diuretics with out adequate control. Patient's creatinine was 2.5, baseline appears to be 2.10, BNP of 28,000, an elevated troponin of 0.101 and 2 hour troponin of 0.111. EKG in that emergency room shows supraventricular tachycardia with PVCs at a rate of 126. Cardiology is consulted. Chest x-ray shows pulmonary edema with Ayanna b lines, small pleural effusions and cardiomegaly. Patient was given 80 mg IV Lasix in the chewable aspirin in the ED. patient states that shortness of breath has improved since given Lasix. Review of Systems Review of Systems: 12 systems were reviewed and are negative except for as per HPI. [facility] Past Medical History Medical History Afib Anxiety and depression Arthritis CHF (congestive heart failure) Chronic kidney disease CVA (cerebral vascular accident) Presence of combination internal cardiac defibrillator (ICD) and pacemaker Surgical History Surgical History History of appendectomy History of cardiac defibrillator placement replaced 10/01/2023; [employer] / Setrox/Protego; Dr Fracisco Eli through [facility] Cardiology History of cataract surgery History of cervical spinal surgery cervical laminectomy Family History Family History Father S/P triple vessel bypass Social History Social History Smoking packs per day: 0.5 Smoking cigarettes per day: 10.0 Years smoked: 30 Smoking pack-years: 15.00 Smoking status: Current some day smoker Tobacco type: cigarettes Alcohol intake: former Substance use: never Substance use type: does not use Do You Feel Safe in your Home?: Yes Lack of Transportation: No Lack of Food: Never True Current Housing: I Have Housing Concerned About Future Housing: No Difficulty Paying Gas/Electric Bills: No Difficulty Paying for Meds: No Currently Unemployed: No Education: High School Diploma/GED Difficulty w/ Childcare or Family Care: No Gender identity (if verbalized by the patient): Male Spiritual care concerns: No Meds Home Medications and Allergies Home Medications Medication Instructions Recorded Confirmed Type carvedilol 6.25 mg tablet (Coreg) 6.25 mg PO Q12H 10/10/23 06/07/24 History dapagliflozin propanediol 10 mg 5 mg PO DAILY 10/10/23 06/07/24 History tablet (Farxiga) pantoprazole 40 mg tablet,delayed 40 mg PO DAILY 10/10/23 06/07/24 History release potassium chloride 20 mEq 20 meq PO 3XW 10/10/23 06/07/24 History tablet,extended release venlafaxine 150 mg 150 mg PO DAILY 10/10/23 06/07/24 History capsule,extended release 24 hr ferrous sulfate 325 mg (65 mg 325 mg PO DAILY 11/03/23 06/07/24 History iron) tablet sacubitril 49 mg-valsartan 51 mg 1 tablet PO Q12H 11/03/23 06/07/24 History tablet (Entresto) topiramate 50 mg tablet 50 mg PO .COMPLEX 11/03/23 06/07/24 History lorazepam 1 mg tablet 1 mg PO BID PRN Anxiety 05/16/24 06/07/24 History meloxicam 15 mg tablet 15 mg PO EVERY OTHER DAY 05/16/24 06/07/24 History warfarin 5 mg tablet 5 mg USEASDIRECTD 05/16/24 06/07/24 History albuterol sulfate 90 mcg/actuation 4 puff inhalation Q4-5H PRN 05/18/24 06/07/24 Rx aerosol inhaler Shortness Of Breath #6.7 grams docusate sodium 100 mg capsule 100 mg PO DAILY #30 caps 05/18/24 06/07/24 Rx hydrocodone 5 mg-acetaminophen 325 1 tablet PO BID PRN Pain #20 tabs 05/18/24 06/07/24 Rx mg tablet loratadine 10 mg tablet (Allergy 10 mg PO QHS #30 tabs 05/18/24 06/07/24 Rx Relief (loratadine)) furosemide 40 mg tablet 40 mg PO 3XW 06/07/24 06/07/24 History Allergies Allergy/AdvReac Type Severity Reaction Status Date / Time No Known Allergies Allergy Mild Verified 06/07/24 08:12 Vital Signs Vital Signs - 24 hr 06/07/24 06:56 06/07/24 08:25 06/07/24 09:12 Temperature 97.8 F Pulse Rate 128 H 133 H Respiratory Rate 25 H 25 H Blood Pressure 128/94 H 135/103 H Pulse Oximetry 98 100 100 Oxygen Delivery Room Air Room Air 06/07/24 10:00 06/07/24 11:11 Temperature Pulse Rate 123 H 122 H Respiratory Rate 27 H Blood Pressure 129/107 H 139/97 H Pulse Oximetry 100 99 Oxygen Delivery Exam Narrative: General: well appearing, appears stated age. HEENT: normocephalic, atraumatic. Mucous membranes moist. EOMI, PERRLA, bilateral sclera anicteric, no conjunctival injection. Neck supple without JVD, lymphadenopathy, or bruit. Respiratory: Diminished to ascultation bilaterally. No rales/rhonic/wheezes. Cardiovascular: Regular rate and rhythm, normal S1-S2 upon ascultation. No murmurs, rubs, or clicks. PMI is nondisplaced, capillary refill less than 3 second. Abdomen: Soft, round, no pulsatile masses, nondistended and nontender. No rebound, no guarding. No CVA tenderness, no hepatosplenomegaly. Bowel sounds present to all four quadrants. No high pitch or tinkling sounds, resonant to percussion. Extremities: No cyanosis, clubbing, or edema present. Pulses are palpable 2/2. Active ROM to all four extremities. Neuro: Alert and orientated x 4. PERRLA. Cranial nerves 2-12 intact without focal deficit. Skin: Warm, dry, and intact, without rash, erythema, or lesion. Psych: pleasant, cooperative, normal speech, normal affect, no hallucinations, no dysarthia H&P: Results Labs Labs: Short CBC 06/07/24 Range/Units 07:09 WBC 7.5 (4.5-10.0) K/mm3 Hgb 12.6 L (14.0-18.0) g/dL Hct 40.6 L (42.0-52.0) % Plt Count 165 (150-375) k/mm3 BMP 06/07/24 07:09 Sodium 139 Potassium 4.3 Chloride 106 Carbon Dioxide 18 L BUN 41 H Creatinine 2.50 H Glucose 152 H Calcium 8.8 Cardiac Enzymes 06/07/24 06/07/24 Range/Units 07:09 11:07 Troponin I 0.101 H* 0.111 H* (0.000-0.034) ng/mL Liver Function 06/07/24 Range/Units 07:09 Total Bilirubin 1.2 (0.2-1.3) mg/dL AST 44 (17-59) U/L ALT 24 (6-50) U/L Alkaline Phosphatase 111 (38-126) U/L Albumin 4.3 (3.5-5.1) g/dL Assessment and Plan Assessment and plan (1) Acute on chronic heart failure with reduced ejection fraction (HFrEF, <= 40%): Code(s): I50.23 - Acute on chronic systolic (congestive) heart failure Status: Acute Assessment and Plan: Patient was discharged on 05/18/2024 after acute CHF exacerbation on 40 mg p.o. Lasix daily Cardiology consulted 80 mg IV Lasix given in ED 60 mg IV Lasix b.i.d. Cardiac diet with fluid restriction Daily weight Daily BMP is for electrolytes closely due to aggressive diuresis (2) Elevated troponin: Code(s): R79.89 - Other specified abnormal findings of blood chemistry Status: Acute Assessment and Plan: Cardiology consulted Aspirin given ED, no heparin drip per Cardiology Trend troponins Denies chest pain Could be demand ischemia from severe CHF and pulmonary edema (3) JANELL (acute kidney injury): Code(s): N17.9 - Acute kidney failure, unspecified Status: Acute Assessment and Plan: On CKD stage 3 Avoid nephrotoxic medications as much as possible Daily BMP (4) Afib: Code(s): I48.91 - Unspecified atrial fibrillation Status: Acute Assessment and Plan: Restarted home Coreg and warfarin Quality VTE Prophylaxis VTE prophylaxis: mechanical ordered and pharmacologic ordered Hospitalist MIPS Advance Care Plan I have confirmed that the patient's Advanced Care Plan is present, code status is documented, or surrogate decision maker is listed in patient medical record.: Yes Medication Reconciliation I have utilized all available resources to obtain, update and review the patients current medications (includes all prescriptions, OTC, herbals, cannabis, and nutritional supplements).: Yes
[2024-06-07] MEDS: HYDROcodone/acetaminophen (*CRX) 5-325 MG TABLET 1 TAB PO ×2 (13:00→21:21)
[2024-06-07 14:59] LABS: Troponin I 0.118 ng/mL (0.000-0.034)
[2024-06-07] MEDS: LORazepam (*CRX) 1 MG TABLET PO (17:12)
--- NOTE | 2024-06-07 18:15 | ADMGEN ---
This patient, Aj Zamarripa, was admitted to IMU Room 214-01. Patient/family oriented to hospital policies and general routines including ID bracelet, bed and alarms, visiting hours, pain management, procedures, bathroom and other care routines, personal items, smoking policy, room service/diet, and visiting hours. Information on how to activate the Rapid Response Team has been discussed. Patient/Family are encouraged to report perceived risks to care and to ask questions if they do not understand what they are told or what they should do.
[2024-06-07] MEDS: FUROSEMIDE INJ 100 MG/10 ML VIAL 60 MG IV PUSH (20:29)
[2024-06-07] MEDS: HEPARIN SODIUM 5,000 UNITS/ML VIAL 5000 UNITS SUB-Q (20:29)
[2024-06-07] MEDS: VENLAFAXINE HCL XR 75 MG CAP.ER.24H 150 MG PO (21:22)
[2024-06-07] MEDS: carvediloL 6.25 MG TABLET PO (21:22)
[2024-06-07] MEDS: LORATADINE 10 MG TABLET PO (21:22)
[2024-06-07] MEDS: SACUBITRIL/VALSARTAN 49-51 MG TABLET 1 TABLET PO (21:22)
[2024-06-07] MEDS: IPRATROPIUM 0.5 MG/ALBUTEROL SULFATE 2.5 MG AMPUL.NEB 3 ML INHALATION (22:47)
[2024-06-07 23:16] LABS: Anion Gap 13 mmol/L (4-12); Blood Urea Nitrogen 44 mg/dL (9-20); Calcium 8.9 mg/dL (8.4-10.2); Carbon Dioxide 18 mmol/L (22-30); Chloride 105 mmol/L (98-107); Estimated CRCL calculation 23 ml/min; Estimated Glomerular Filt Rate 24; Glucose 93 mg/dL (65-110); Magnesium 2.1 mg/dL (1.6-2.3); Phosphorus 4.1 mg/dL (2.5-4.5); Potassium 3.9 mmol/L (3.4-5.0); Sodium 136 mmol/L (137-145)
[2024-06-08] VITALS (27 sets, daily range): BP systolic 102–133; BP diastolic 79–88; PULSE 86–117; RESP 16–24; TEMP 36.3–36.6; O2SAT 97–100
[2024-06-08] MEDS: WARFARIN (*PBKC) 2.5 MG TABLET BY MOUTH ×2 (01:47→17:07)
[2024-06-08] MEDS: IPRATROPIUM 0.5 MG/ALBUTEROL SULFATE 2.5 MG AMPUL.NEB 3 ML INHALATION ×4 (03:00→20:35)
[2024-06-08 05:25] LABS: Basophils Absolute Auto 0.1 K/mm3 (0.0-0.1); Basophils Percent Auto 1.3 % (0.2-1.2); Eosinophils Absolute Auto 0.1 K/mm3 (0-0.3); Eosinophils Percent Auto 1.4 % (0-4.4); Hematocrit 40.1 % (42.0-52.0); Hemoglobin 12.6 g/dL (14.0-18.0); Immature Granulocyte Absolute 0.04 K/mm3 (0.00-0.031); Immature Granulocyte Percent A 0.6 % (0-0.5); Lymphocytes Absolute Auto 1.31 K/mm3 (0.9-3.2); Lymphocytes Percent Auto 18.9 % (18.3-44.2); Mean Corpuscular HGB Conc 31.4 g/dl (32-36); Mean Corpuscular Hemoglobin 31.8 pg (26-34); Mean Corpuscular Volume 101.3 fl (80-100); Mean Platelet Volume 10.5 fl (7.4-10.4); Monocytes Absolute Auto 1.1 K/mm3 (0.1-0.6); Monocytes Percent Auto 15.7 % (2.6-8.5); Neutrophils Absolute Auto 4.3 K/mm3 (1.3-6.7); Neutrophils Percent Auto 62.1 % (45.5-73.1); Platelet Count Result 153 k/mm3 (150-375); Red Blood Count 3.96 M/mm3 (4.6-6.20); Red Cell Distribution Width 14.3 % (11.5-14.5); White Blood Count 6.9 K/mm3 (4.5-10.0)
[2024-06-08 05:33] LABS: Anion Gap 14 mmol/L (4-12); Blood Urea Nitrogen 43 mg/dL (9-20); Calcium 8.7 mg/dL (8.4-10.2); Carbon Dioxide 19 mmol/L (22-30); Chloride 106 mmol/L (98-107); Estimated CRCL calculation 24 ml/min; Estimated Glomerular Filt Rate 25; Glucose 92 mg/dL (65-110); Potassium 3.7 mmol/L (3.4-5.0); Sodium 139 mmol/L (137-145)
[2024-06-08 05:36] LABS: INR 2.2; Prothrombin Time 24.6 Seconds (11.1-14.7)
[2024-06-08] MEDS: PANTOPRAZOLE 40 MG TABLET PO (09:14)
[2024-06-08] MEDS: carvediloL 6.25 MG TABLET PO (09:14)
[2024-06-08] MEDS: HYDROcodone/acetaminophen (*CRX) 5-325 MG TABLET 1 TAB PO (09:14)
[2024-06-08] MEDS: SACUBITRIL/VALSARTAN 49-51 MG TABLET 1 TABLET PO ×2 (09:15→21:52)
[2024-06-08] MEDS: FUROSEMIDE INJ 100 MG/10 ML VIAL 60 MG IV PUSH (09:15)
[2024-06-08] MEDS: DOCUSATE SODIUM 100 MG CAPSULE PO (09:15)
[2024-06-08] MEDS: EMPAGLIFLOZIN 10 MG TABLET PO (09:15)
--- NOTE | 2024-06-08 10:58 | P.CONCA_ITS ---
Assessment and Plan Assessment and plan (1) Acute on chronic heart failure with reduced ejection fraction (HFrEF, <= 40%): Code(s): I50.23 - Acute on chronic systolic (congestive) heart failure Status: Acute Assessment and Plan: Urine output not at goal. I am going to increase his Lasix to 80mg IV BID. Will give a one time dose of Metolazone 5mg to see if this helps facilitate diuresis. Please monitor strict I/Os. Continue Coreg, will increase to 12.5 mg BID given atrial flutter with RVR noted on tele overnight. Continue Jardiance. Continue Entresto. Not on Spironolactone, likely due to his renal function. Aj states that he saw Dr. Gastelum three times last week in the office. Please obtain [facility] records. (2) Elevated troponin: Code(s): R79.89 - Other specified abnormal findings of blood chemistry Status: Acute Assessment and Plan: Minimally elevated, likely due to demand ischemia. From the very limited records I see from [facility], there is mention of a cath earlier in 2023 that showed only mild CAD. Recommend to obtain the cardiac catheterization report if possible. (3) Atrial flutter with rapid ventricular response: Code(s): I48.92 - Unspecified atrial flutter Status: Acute Assessment and Plan: EKGs on admission show SVT, maybe atrial flutter with RVR, which was noted on tele overnight as well. Will get his device interrogated. Tele with frequent ectopy noted as well, along with NSVT. Will increase his Coreg to 12.5mg BID. Continue Warfarin for anticoagulation. (4) Biventricular ICD (implantable cardioverter-defibrillator) in place: Code(s): Z95.810 - Presence of automatic (implantable) cardiac defibrillator Status: Acute Assessment and Plan: Will get his device interrogated. (5) Acute kidney injury superimposed on chronic kidney disease: Code(s): N17.9 - Acute kidney failure, unspecified; N18.9 - Chronic kidney disease, unspecified Status: Acute Assessment and Plan: Monitor renal function closely with diuresis. Plan Recommendations and plan discussed with Hospitalist. History of Present Illness History of Present Illness Consult date/time: 06/08/24 10:58 Requesting physician: Eugene Li MD Consult reason: congestive heart failure Reason For Visit: CHF Exacerbation Narrative: We are consulted for CHF. This is a 74 year old male with heart failure with reduced LVEF, atrial fibrillation, s/p biventricular ICD, CKD. Follows with Dr. Eli from [facility] He was recently admitted here at [facility] for CHF exacerbation earlier this month. Last echocardiogram in our system October 2023 shows LVEF 25-30%. Earlier this month, we had discharged him on Lasix 40mg once daily. Patient states he was taking the Lasix three times a week at home. He saw Dr. Jose A Gastelum three times last week due to shortness of breath and was instructed to increase Lasix to once daily. He continued to have worsening shortness of breath, orthopnea, and came to [facility]. Workup shows SCr of 2.6. Troponins are 0.101, 0.111, 0.118. NT pro BNP of 28,700, which is higher than previous value of 20,700. CXR shows mild pulmonary edema, small pleural effusions. EKG on admission shows SVT, possible atrial flutter with RVR. He has been started on Lasix 60mg IV BID. Review of Systems Review of Systems: All systems reviewed & are unremarkable except as noted in HPI and below (HPI) [facility] Past Medical History Medical History Afib Anxiety and depression Arthritis CHF (congestive heart failure) Chronic kidney disease CVA (cerebral vascular accident) Presence of combination internal cardiac defibrillator (ICD) and pacemaker Surgical History Surgical History History of appendectomy History of cardiac defibrillator placement replaced 10/01/2023; [employer] / Setrox/Protego; Dr Fracisco Eli through [facility] Cardiology History of cataract surgery History of cervical spinal surgery cervical laminectomy Family History Family History Father S/P triple vessel bypass Social History Social History Smoking packs per day: 0.5 Smoking cigarettes per day: 10.0 Years smoked: 30 Smoking pack-years: 15.00 Smoking status: Current some day smoker Tobacco type: cigarettes Alcohol intake: former Substance use: never Substance use type: does not use Do You Feel Safe in your Home?: Yes Lack of Transportation: No Lack of Food: Never True Current Housing: I Have Housing Concerned About Future Housing: No Difficulty Paying Gas/Electric Bills: No Difficulty Paying for Meds: No Currently Unemployed: No Education: High School Diploma/GED Difficulty w/ Childcare or Family Care: No Gender identity (if verbalized by the patient): Male Spiritual care concerns: No Meds Home Medications and Allergies Home Medications Medication Instructions Recorded Confirmed Type carvedilol 6.25 mg tablet (Coreg) 6.25 mg PO Q12H 10/10/23 06/07/24 History dapagliflozin propanediol 10 mg 5 mg PO DAILY 10/10/23 06/07/24 History tablet (Farxiga) pantoprazole 40 mg tablet,delayed 40 mg PO DAILY 10/10/23 06/07/24 History release potassium chloride 20 mEq 20 meq PO 3XW 10/10/23 06/07/24 History tablet,extended release venlafaxine 150 mg 150 mg PO DAILY 10/10/23 06/07/24 History capsule,extended release 24 hr ferrous sulfate 325 mg (65 mg 325 mg PO DAILY 11/03/23 06/07/24 History iron) tablet sacubitril 49 mg-valsartan 51 mg 1 tablet PO Q12H 11/03/23 06/07/24 History tablet (Entresto) topiramate 50 mg tablet 50 mg PO .COMPLEX 11/03/23 06/07/24 History lorazepam 1 mg tablet 1 mg PO BID PRN Anxiety 05/16/24 06/07/24 History meloxicam 15 mg tablet 15 mg PO EVERY OTHER DAY 05/16/24 06/07/24 History warfarin 5 mg tablet 5 mg USEASDIRECTD 05/16/24 06/07/24 History albuterol sulfate 90 mcg/actuation 4 puff inhalation Q4-5H PRN 05/18/24 06/07/24 Rx aerosol inhaler Shortness Of Breath #6.7 grams docusate sodium 100 mg capsule 100 mg PO DAILY #30 caps 05/18/24 06/07/24 Rx hydrocodone 5 mg-acetaminophen 325 1 tablet PO BID PRN Pain #20 tabs 05/18/24 06/07/24 Rx mg tablet loratadine 10 mg tablet (Allergy 10 mg PO QHS #30 tabs 05/18/24 06/07/24 Rx Relief (loratadine)) furosemide 40 mg tablet 40 mg PO 3XW 06/07/24 06/07/24 History Allergies Allergy/AdvReac Type Severity Reaction Status Date / Time No Known Allergies Allergy Mild Verified 06/07/24 08:12 Vital Signs Vital Signs - 24 hr 06/07/24 11:11 06/07/24 14:16 06/07/24 14:29 Temperature Pulse Rate 122 H 118 H 133 H Respiratory Rate 20 29 H Blood Pressure 139/97 H 112/91 H Pulse Oximetry 99 95 98 Oxygen Delivery Oxygen Flow Rate Fraction of Inspired Oxygen 06/07/24 17:55 06/07/24 21:09 06/07/24 21:22 Temperature 36.5 C Pulse Rate 108 H 118 H 109 H Respiratory Rate 22 H 22 H Blood Pressure 107/77 127/96 H Pulse Oximetry 99 98 Oxygen Delivery Oxygen Flow Rate Fraction of Inspired Oxygen 06/07/24 22:46 06/07/24 22:55 06/08/24 00:22 Temperature 36.6 C Pulse Rate 59 L 67 91 Respiratory Rate 19 19 22 H Blood Pressure 121/84 Pulse Oximetry 100 Oxygen Delivery Oxygen Flow Rate Fraction of Inspired Oxygen 06/07/24 20:00 06/08/24 00:00 06/08/24 03:00 Temperature Pulse Rate 97 Respiratory Rate 19 Blood Pressure Pulse Oximetry 100 Oxygen Delivery Room Air Nasal Cannula Oxygen Flow Rate 2 Fraction of Inspired Oxygen 06/08/24 03:15 06/08/24 04:00 06/08/24 04:00 Temperature 36.5 C Pulse Rate 96 103 H Respiratory Rate 19 22 H Blood Pressure 121/80 Pulse Oximetry 100 100 Oxygen Delivery Nasal Cannula Oxygen Flow Rate 2 Fraction of Inspired Oxygen 06/07/24 20:00 06/07/24 22:00 06/08/24 00:00 Temperature Pulse Rate 112 H 116 H 97 Respiratory Rate Blood Pressure Pulse Oximetry Oxygen Delivery Oxygen Flow Rate Fraction of Inspired Oxygen 06/08/24 02:00 06/08/24 04:00 06/08/24 06:00 Temperature Pulse Rate 96 103 H 95 Respiratory Rate Blood Pressure Pulse Oximetry Oxygen Delivery Oxygen Flow Rate Fraction of Inspired Oxygen 06/08/24 07:41 06/08/24 08:21 06/08/24 07:24 Temperature 36.3 C L Pulse Rate 96 Respiratory Rate 24 H Blood Pressure 115/88 Pulse Oximetry 100 98 100 Oxygen Delivery Room Air Nasal Cannula Oxygen Flow Rate 2 Fraction of Inspired Oxygen 06/08/24 07:24 06/08/24 07:31 Temperature Pulse Rate 91 86 Respiratory Rate 18 18 Blood Pressure Pulse Oximetry Oxygen Delivery Oxygen Flow Rate Fraction of Inspired Oxygen Exam Const: General: no acute distress Other: Coughing a lot HENMT: Mouth: Yes moist mucous membranes Eyes: General: appearance normal, both eyes and all related structures Sclera: sclerae normal Resp: Effort & Inspection: normal respiratory effort Auscultation: diminished lung sounds Cardio: Rate: regular rate Rhythm: regular rhythm Heart sounds: no murmurs Skin: General skin exam: normal color Neuro: Speech: normal speech Psych: Mental Status: mental status grossly normal Affect: normal affect Results Labs and Meds 06/08/24 05:04 06/08/24 05:04 Lab results: Cardiac Enzymes 06/07/24 06/07/24 Range/Units 11:07 14:15 Troponin I 0.111 H* 0.118 H* (0.000-0.034) ng/mL Coagulation 06/08/24 Range/Units 05:04 PT 24.6 H (11.1-14.7) Seconds CBC 06/08/24 Range/Units 05:04 WBC 6.9 (4.5-10.0) K/mm3 RBC 3.96 L (4.6-6.20) M/mm3 Hgb 12.6 L (14.0-18.0) g/dL Hct 40.1 L (42.0-52.0) % Plt Count 153 (150-375) k/mm3 Lymph # (Auto) 1.31 (0.9-3.2) K/mm3 [place] # (Auto) 1.1 H (0.1-0.6) K/mm3 Eos # (Auto) 0.1 (0-0.3) K/mm3 Baso # (Auto) 0.1 (0.0-0.1) K/mm3 Comprehensive Metabolic Panel 06/07/24 06/08/24 Range/Units 22:57 05:04 Sodium 136 L 139 (137-145) mmol/L Potassium 3.9 3.7 (3.4-5.0) mmol/L Chloride 105 106 (98-107) mmol/L Carbon Dioxide 18 L 19 L (22-30) mmol/L BUN 44 H 43 H (9-20) mg/dL Creatinine 2.60 H 2.50 H (0.7-1.3) mg/dL Glucose 93 92 (65-110) mg/dL Calcium 8.9 8.7 (8.4-10.2) mg/dL Intake and Output 06/07/24 06/08/24 06/08/24 23:59 07:59 15:59 Intake Total 1200 240 Output Total 100 500 Balance -100 700 240 Intake: Oral 1200 240 Output: Urine 100 500 Other: # Unmeasured Voids 1 Patient Weight 06/08/24 23:59 Weight 86 kg
[2024-06-08] MEDS: LORazepam (*CRX) 1 MG TABLET PO (11:42)
[2024-06-08] MEDS: metOLazone 5 MG TABLET PO (11:42)
--- NOTE | 2024-06-08 13:15 | ADMGEN ---
This patient, Aj Zamarripa, was admitted to IMU Room 214-01 at 0825. Patient/family oriented to hospital policies and general routines including ID bracelet, bed and alarms, visiting hours, pain management, procedures, bathroom and other care routines, personal items, smoking policy, room service/diet, and visiting hours. Information on how to activate the Rapid Response Team has been discussed. Patient/Family are encouraged to report perceived risks to care and to ask questions if they do not understand what they are told or what they should do.
--- NOTE | 2024-06-08 17:05 | P.PNIM_ITS ---
Progress Note: A&P Assessment and Plan (1) Acute on chronic heart failure with reduced ejection fraction (HFrEF, <= 40%): Code(s): I50.23 - Acute on chronic systolic (congestive) heart failure Status: Acute Assessment and Plan: * Cardiology following * 80 mg IV Lasix ED * Continue 80 mg IV Lasix b.i.d. * Cardiac diet * Obtain daily weights * Continue fluid restriction * Cardiology consulted * Plan for interrogation of pacemaker * Continue Coreg, Jardiance, Entresto--Coreg increased today by Cardiology * Patient is not on spironolactone due to his kidney function per Cardiology (2) Elevated troponin: Code(s): R79.89 - Other specified abnormal findings of blood chemistry Status: Acute Assessment and Plan: * Troponin 0.101> 0.111> 0.118 * Likely demand ischemia from on chronic congestive heart failure with reduced ejection fraction * Cardiology following (3) JANELL (acute kidney injury): Code(s): N17.9 - Acute kidney failure, unspecified Status: Acute Assessment and Plan: * Avoid nephrotoxic medication * Creatinine 2.50, EGFR 25 * Appears to be a baseline * Continue to trend (4) Afib: Code(s): I48.91 - Unspecified atrial fibrillation Status: Acute Assessment and Plan: * Continue Coreg and warfarin Time Spent With Patient Time with patient: Greater than 35 minutes Subjective Date/time seen: 06/08/24 17:05 Review of Systems Review of Systems: 12 systems were reviewed and are negativ e except for as per HPI. Exam Narrative: General: In no acute distress, well nourished Head: atraumatic, no encephalopathy Eyes: PERRLA, sclera clear ENT: moist mucous membranes, nasal passages clear Neck: supple, no JVD, no adenopathy, trachea midline Cardiac: Normal S1 and S2. No murmur, gallops or friction rubs, peripheral pulses intact. Respiratory: Lungs clear to auscultation, no adventitious lung sounds, currently on room air Gastrointestinal: soft, non-distended, non-tender, normoactive bowel sounds. : voiding without difficulty. Extremities: moves all extremities well, no edema, good ROM, strength 5/5 Skin: clean, dry, intact. No wounds or lesions. Neuro: Alert and oriented x4, cranial nerves intact, no neuro deficits. Psych: normal mood, normal affect, interactive Objective Data Vital Signs Vital Signs: Vital Signs - 24 hr 06/07/24 17:55 06/07/24 21:09 06/07/24 21:22 Temperature 97.7 F Pulse Rate 108 H 118 H 109 H Respiratory Rate 22 H 22 H Blood Pressure 107/77 127/96 H Pulse Oximetry 99 98 Oxygen Delivery Oxygen Flow Rate Fraction of Inspired Oxygen 06/07/24 22:46 06/07/24 22:55 06/08/24 00:22 Temperature 97.8 F Pulse Rate 59 L 67 91 Respiratory Rate 19 19 22 H Blood Pressure 121/84 Pulse Oximetry 100 Oxygen Delivery Oxygen Flow Rate Fraction of Inspired Oxygen 06/07/24 20:00 06/08/24 00:00 06/08/24 03:00 Temperature Pulse Rate 97 Respiratory Rate 19 Blood Pressure Pulse Oximetry 100 Oxygen Delivery Room Air Nasal Cannula Oxygen Flow Rate 2 Fraction of Inspired Oxygen 06/08/24 03:15 06/08/24 04:00 06/08/24 04:00 Temperature 97.7 F Pulse Rate 96 103 H Respiratory Rate 19 22 H Blood Pressure 121/80 Pulse Oximetry 100 100 Oxygen Delivery Nasal Cannula Oxygen Flow Rate 2 Fraction of Inspired Oxygen 06/07/24 20:00 06/07/24 22:00 06/08/24 00:00 Temperature Pulse Rate 112 H 116 H 97 Respiratory Rate Blood Pressure Pulse Oximetry Oxygen Delivery Oxygen Flow Rate Fraction of Inspired Oxygen 06/08/24 02:00 06/08/24 04:00 06/08/24 06:00 Temperature Pulse Rate 96 103 H 95 Respiratory Rate Blood Pressure Pulse Oximetry Oxygen Delivery Oxygen Flow Rate Fraction of Inspired Oxygen 06/08/24 07:41 06/08/24 08:21 06/08/24 07:24 Temperature 97.3 F L Pulse Rate 96 Respiratory Rate 24 H Blood Pressure 115/88 Pulse Oximetry 100 98 100 Oxygen Delivery Room Air Nasal Cannula Oxygen Flow Rate 2 Fraction of Inspired Oxygen 06/08/24 07:24 06/08/24 07:31 06/08/24 08:00 Temperature Pulse Rate 91 86 Respiratory Rate 18 18 Blood Pressure Pulse Oximetry Oxygen Delivery Room Air Oxygen Flow Rate Fraction of Inspired Oxygen 06/08/24 08:00 06/08/24 10:00 06/08/24 11:18 Temperature 97.6 F Pulse Rate 113 H 113 H 117 H Respiratory Rate 20 Blood Pressure 133/79 Pulse Oximetry 98 Oxygen Delivery Oxygen Flow Rate Fraction of Inspired Oxygen 06/08/24 12:00 06/08/24 12:00 06/08/24 13:27 Temperature Pulse Rate 93 91 Respiratory Rate 18 Blood Pressure Pulse Oximetry Oxygen Delivery Room Air Oxygen Flow Rate Fraction of Inspired Oxygen 06/08/24 13:38 06/08/24 14:00 06/08/24 16:00 Temperature 97.3 F L Pulse Rate 92 94 101 H Respiratory Rate 18 20 Blood Pressure 111/84 Pulse Oximetry 98 Oxygen Delivery Oxygen Flow Rate Fraction of Inspired Oxygen 06/08/24 16:00 Temperature Pulse Rate Respiratory Rate Blood Pressure Pulse Oximetry Oxygen Delivery Room Air Oxygen Flow Rate Fraction of Inspired Oxygen Intake/Output Intake/Output: Intake & Output 06/05/24 06/06/24 06/07/24 06/08/24 23:59 23:59 23:59 23:59 Intake Total 1560 Output Total 100 850 Balance -100 710 Meds/Results Medications: Active Medications Generic Name Dose Route Start Last Admin Trade Name Freq PRN Reason Stop Dose Admin Acetaminophen 650 mg 06/07/24 17:53 Acetaminophen 325 Mg Tablet PO Q4H PRN Mild Pain (1-3) or Fever Hydrocodone Bitart/Acetaminophen 1 tab 06/07/24 20:48 06/08/24 09:14 Hydrocodone/Acetaminophen (*Crx) 5-325 Mg Tablet PO 1 tab BID PRN Administration Pain 4-6 Albuterol/Ipratropium 3 ml 06/08/24 02:00 06/08/24 13:27 Ipratropium 0.5 Mg/Albuterol Sulfate 2.5 Mg Ampul.Neb 3 Ml INHALATION 06/09/24 02:00 3 ml Q6HRT MC Administration Carvedilol 12.5 mg 06/08/24 21:00 Carvedilol 12.5 Mg Tablet PO Q12HR MC Docusate Sodium 100 mg 06/08/24 09:00 06/08/24 09:15 Docusate Sodium 100 Mg Capsule PO 100 mg DAILY MC Administration Empagliflozin 10 mg 06/08/24 09:00 06/08/24 09:15 Empagliflozin 10 Mg Tablet PO 10 mg DAILY MC Administration Furosemide 80 mg 06/08/24 21:00 Furosemide Inj 100 Mg/10 Ml Vial IV PUSH Q12HR MC Loratadine 10 mg 06/07/24 21:00 06/07/24 21:22 Loratadine 10 Mg Tablet PO 10 mg QHS [facility] Administration Lorazepam 1 mg 06/07/24 20:48 06/08/24 11:42 Lorazepam (*Crx) 1 Mg Tablet PO 1 mg BID PRN Administration Anxiety Pantoprazole Sodium 40 mg 06/08/24 09:00 06/08/24 09:14 Pantoprazole 40 Mg Tablet PO 40 mg DAILY MC Administration Sacubitril/Valsartan 1 tablet 06/07/24 21:00 06/08/24 09:15 Sacubitril/Valsartan 49-51 Mg Tablet PO 1 tablet Q12HR [facility] Administration Venlafaxine HCl 150 mg 06/08/24 21:00 Venlafaxine Hcl Xr 75 Mg Cap.Er.24h PO QHS [facility] Warfarin Sodium 2.5 mg 06/08/24 00:00 06/08/24 01:47 Warfarin (*Pbkc) 2.5 Mg Tablet BY MOUTH 2.5 mg DAILY@1700 [facility] Administration Warfarin Sodium 2.5 mg 06/10/24 17:00 Warfarin (*Pbkc) 2.5 Mg Tablet PO MoFr@1700 [facility] Radiology Results: ITS Impressions Chest X-Ray 06/08/24 12:24 IMPRESSION: 1. Mild pulmonary edema. 2. Cardiomegaly. Labs Labs: Laboratory Results - last 24 hr 06/07/24 06/08/24 22:57 05:04 WBC 6.9 RBC 3.96 L Hgb 12.6 L Hct 40.1 L MCV 101.3 H MCH 31.8 MCHC 31.4 L RDW 14.3 Plt Count 153 MPV 10.5 H Immature Gran % (Auto) 0.6 H Neut % (Auto) 62.1 Lymph % (Auto) 18.9 Tift % (Auto) 15.7 H Eos % (Auto) 1.4 Baso % (Auto) 1.3 H Lymph # (Auto) 1.31 Tift # (Auto) 1.1 H Eos # (Auto) 0.1 Baso # (Auto) 0.1 Abs Immat Gran (auto) 0.04 H Absolute Neuts (auto) 4.3 Absolute Nucleated RBC 0.000 Nucleated RBC % 0.0 PT 24.6 H INR 2.2 Sodium 136 L 139 Potassium 3.9 3.7 Chloride 105 106 Carbon Dioxide 18 L 19 L Anion Gap 13 H 14 H BUN 44 H 43 H Creatinine 2.60 H 2.50 H Estim Creat Clear Calc 23 24 Estimated GFR 24 L 25 L Glucose 93 92 Calcium 8.9 8.7 Phosphorus 4.1 Magnesium 2.1 Quality VTE Prophylaxis VTE prophylaxis: mechanical ordered and pharmacologic ordered
[2024-06-08] MEDS: FUROSEMIDE INJ 100 MG/10 ML VIAL 80 MG IV PUSH (20:11)
[2024-06-08] MEDS: VENLAFAXINE HCL XR 75 MG CAP.ER.24H 150 MG PO (20:14)
[2024-06-08] MEDS: LORATADINE 10 MG TABLET PO (20:15)
[2024-06-08] MEDS: carvediloL 12.5 MG TABLET PO (20:15)
[2024-06-09] VITALS (21 sets, daily range): BP systolic 75–140; BP diastolic 35–85; PULSE 80–103; RESP 16–20; TEMP 36.3–36.7; O2SAT 92–100
[2024-06-09] MEDS: LORazepam (*CRX) 1 MG TABLET PO (01:40)
[2024-06-09] MEDS: IPRATROPIUM 0.5 MG/ALBUTEROL SULFATE 2.5 MG AMPUL.NEB 3 ML INHALATION (01:43)
--- NOTE | 2024-06-09 02:46 | PC.NURSE ---
Pt set off bed alarm getting up to go to the bathroom with water pitcher in hand. PCT entered and pt stated he was going to get some water. PCT reinforced fluid restriction, but pt states I'm getting water. Pt was a little unsteady on his feet. PCT reached out to arm to steady and pt pulled arm back away away from her and told her not to touch him.
[2024-06-09 05:10] LABS: Prothrombin Time 22.6 Seconds (11.1-14.7)
[2024-06-09] MEDS: carvediloL 12.5 MG TABLET PO (08:23)
[2024-06-09] MEDS: PANTOPRAZOLE 40 MG TABLET PO (08:23)
[2024-06-09] MEDS: EMPAGLIFLOZIN 10 MG TABLET PO (08:23)
[2024-06-09] MEDS: SACUBITRIL/VALSARTAN 49-51 MG TABLET 1 TABLET PO (08:23)
[2024-06-09] MEDS: FUROSEMIDE INJ 100 MG/10 ML VIAL 80 MG IV PUSH (08:24)
[2024-06-09] MEDS: DOCUSATE SODIUM 100 MG CAPSULE PO (08:24)
[2024-06-09] MEDS: HYDROcodone/acetaminophen (*CRX) 5-325 MG TABLET 1 TAB PO (08:35)
--- NOTE | 2024-06-09 11:29 | PM.PNCARD ---
Progress Note: A&P Assessment and Plan (1) Atrial flutter with rapid ventricular response: Code(s): I48.92 - Unspecified atrial flutter Status: Acute (2) Biventricular ICD (implantable cardioverter-defibrillator) in place: Code(s): Z95.810 - Presence of automatic (implantable) cardiac defibrillator Status: Acute (3) Acute on chronic heart failure with reduced ejection fraction (HFrEF, <= 40%): Code(s): I50.23 - Acute on chronic systolic (congestive) heart failure Status: Acute Plan 74-year-old man with cardiomyopathy CHF with reduced ejection fraction atrial fibrillation. 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 He has improved clinically with diuresis and advancement in his beta-ambrose dosage to provide better heart rate control. We will continue IV furosemide at least for another 24 hours. Explained to the patient that it would be preferable for his continuity of care when he does have trouble like this to% to a hospital where his established physician is available. Hopefully he can be discharge in the next 24-48 hours Richie Soliman MD [facility] Subjective Date/time seen: date of nzuaikl04/28/24 11:29 Interval history: follow-up visit in this 74-year-old man with cardiomyopathy, atrial fib, low ejection fraction and significant chronic kidney disease presenting here with shortness of breath and CHF. He has been treated with intravenous furosemide, 1 dose of metolazone yesterday and advancing his carvedilol dosage because of AF/RVR. He feels better today with less shortness of breath he says he slept well last night. Telemetry demonstrates AF with heart rate in the 80s rather than 120-130 as was seen yesterday. Exam Const: Other: Elderly white male relatively comfortable watching television HENMT: Mouth: Yes moist mucous membranes Eyes: Sclera: sclerae normal Pupils: Equal, round and reactive pupils present Neck: Neck: supple Resp: Effort & Inspection: normal respiratory effort Other: dullness at the bases bilaterally no audible rales or wheeze Cardio: Rate: regular rate Rhythm: abnormal rhythm irregularly irregular GI: GI Palp: Yes Soft to palpation Auscultation: normal bowel sounds Skin: General skin exam: normal color Neuro: Other: alert and oriented x3 Extrem: Other: adequate perfusion, no edema at all Objective Data Vital Signs Vital Signs: Vital Signs - 24 hr 06/08/24 12:00 06/08/24 12:00 06/08/24 13:27 Temperature Pulse Rate 93 91 Respiratory Rate 18 Blood Pressure Pulse Oximetry Oxygen Delivery Room Air 06/08/24 13:38 06/08/24 14:00 06/08/24 16:00 Temperature 36.3 C L Pulse Rate 92 94 101 H Respiratory Rate 18 20 Blood Pressure 111/84 Pulse Oximetry 98 Oxygen Delivery 06/08/24 16:00 06/08/24 16:00 06/08/24 18:00 Temperature Pulse Rate 88 87 Respiratory Rate Blood Pressure Pulse Oximetry Oxygen Delivery Room Air 06/08/24 20:15 06/08/24 20:00 06/08/24 20:36 Temperature 36.4 C Pulse Rate 103 H 92 Respiratory Rate 22 H Blood Pressure 102/82 Pulse Oximetry 97 97 Oxygen Delivery Room Air 06/08/24 20:36 06/08/24 20:41 06/08/24 20:00 Temperature Pulse Rate 87 90 Respiratory Rate 16 16 Blood Pressure Pulse Oximetry Oxygen Delivery Room Air 06/08/24 21:35 06/08/24 20:00 06/08/24 22:00 Temperature Pulse Rate 91 101 H Respiratory Rate Blood Pressure 114/88 Pulse Oximetry Oxygen Delivery 06/08/24 23:35 06/08/24 23:43 06/09/24 00:00 Temperature 36.3 C L Pulse Rate 97 91 Respiratory Rate 24 H Blood Pressure 117/82 Pulse Oximetry 100 Oxygen Delivery Room Air 06/09/24 01:43 06/09/24 01:49 06/09/24 02:00 Temperature Pulse Rate 90 103 H 101 H Respiratory Rate 16 16 Blood Pressure Pulse Oximetry Oxygen Delivery 06/09/24 04:00 06/09/24 04:00 06/09/24 04:00 Temperature 36.7 C Pulse Rate 97 94 Respiratory Rate 20 Blood Pressure 140/69 Pulse Oximetry 99 Oxygen Delivery Room Air 06/09/24 06:00 06/09/24 08:23 06/09/24 08:00 Temperature 36.4 C Pulse Rate 90 89 82 Respiratory Rate 20 Blood Pressure 123/85 Pulse Oximetry 92 Oxygen Delivery 06/09/24 08:00 06/09/24 10:00 Temperature Pulse Rate 89 89 Respiratory Rate Blood Pressure Pulse Oximetry Oxygen Delivery Intake/Output Intake/Output: Intake & Output 06/06/24 06/07/24 06/08/24 06/09/24 23:59 23:59 23:59 23:59 Intake Total 1800 980 Output Total 100 1925 1750 Balance -100 -601 -028 Meds/Results Medications: Active Medications Generic Name Dose Route Start Last Admin Trade Name Freq PRN Reason Stop Dose Admin Acetaminophen 650 mg 06/07/24 17:53 Acetaminophen 325 Mg Tablet PO Q4H PRN Mild Pain (1-3) or Fever Hydrocodone Bitart/Acetaminophen 1 tab 06/07/24 20:48 06/09/24 08:35 Hydrocodone/Acetaminophen (*Crx) 5-325 Mg Tablet PO 1 tab BID PRN Administration Pain 4-6 Carvedilol 12.5 mg 06/08/24 21:00 06/09/24 08:23 Carvedilol 12.5 Mg Tablet PO 12.5 mg Q12HR MC Administration Docusate Sodium 100 mg 06/08/24 09:00 06/09/24 08:24 Docusate Sodium 100 Mg Capsule PO 100 mg DAILY MC Administration Empagliflozin 10 mg 06/08/24 09:00 06/09/24 08:23 Empagliflozin 10 Mg Tablet PO 10 mg DAILY MC Administration Furosemide 80 mg 06/08/24 21:00 06/09/24 08:24 Furosemide Inj 100 Mg/10 Ml Vial IV PUSH 80 mg Q12HR [facility] Administration Loratadine 10 mg 06/07/24 21:00 06/08/24 20:15 Loratadine 10 Mg Tablet PO 10 mg QHS [facility] Administration Lorazepam 1 mg 06/07/24 20:48 06/09/24 01:40 Lorazepam (*Crx) 1 Mg Tablet PO 1 mg BID PRN Administration Anxiety Pantoprazole Sodium 40 mg 06/08/24 09:00 06/09/24 08:23 Pantoprazole 40 Mg Tablet PO 40 mg DAILY MC Administration Sacubitril/Valsartan 1 tablet 06/07/24 21:00 06/09/24 08:23 Sacubitril/Valsartan 49-51 Mg Tablet PO 1 tablet Q12HR [facility] Administration Venlafaxine HCl 150 mg 06/08/24 21:00 06/08/24 20:14 Venlafaxine Hcl Xr 75 Mg Cap.Er.24h PO 150 mg QHS [facility] Administration Warfarin Sodium 2.5 mg 06/08/24 00:00 06/08/24 17:07 Warfarin (*Pbkc) 2.5 Mg Tablet BY MOUTH 2.5 mg DAILY@1700 [facility] Administration Warfarin Sodium 2.5 mg 06/10/24 17:00 Warfarin (*Pbkc) 2.5 Mg Tablet PO MoFr@1700 [facility] Radiology Results: ITS Impressions Chest X-Ray 06/08/24 12:24 IMPRESSION: 1. Mild pulmonary edema. 2. Cardiomegaly. Labs Labs: Laboratory Results - last 24 hr 06/09/24 04:52 PT 22.6 H INR 2.0
--- NOTE | 2024-06-09 11:50 | P.PNIM_ITS ---
Progress Note: A&P Assessment and Plan (1) Acute on chronic heart failure with reduced ejection fraction (HFrEF, <= 40%): Code(s): I50.23 - Acute on chronic systolic (congestive) heart failure Status: Acute Assessment and Plan: * Cardiology following * 80 mg IV Lasix ED * Continue 80 mg IV Lasix b.i.d. * Cardiac diet * Obtain daily weights * Continue fluid restriction * Cardiology consulted * Plan for interrogation of pacemaker * Continue Coreg, Jardiance, Entresto--Coreg increased today by Cardiology * Patient is not on spironolactone due to his kidney function per Cardiology * Hold lasix today due to hypotension requiring 500ml fluid bolus. (2) Elevated troponin: Code(s): R79.89 - Other specified abnormal findings of blood chemistry Status: Acute Assessment and Plan: * Troponin 0.101> 0.111> 0.118 * Likely demand ischemia from on chronic congestive heart failure with reduced ejection fraction * Cardiology following (3) JANELL (acute kidney injury): Code(s): N17.9 - Acute kidney failure, unspecified Status: Acute Assessment and Plan: * Avoid nephrotoxic medication * At baseline function (4) Afib: Code(s): I48.91 - Unspecified atrial fibrillation Status: Acute Assessment and Plan: * Continue Coreg and warfarin Time Spent With Patient Time with patient: 25 - 35 minutes Subjective Date/time seen: 06/09/24 11:50 Interval history: Interval history: This is a 74 year old male who presented to the hospital on 06/07/24 with complaints of SOB. Patient has history fo CHF with reduced EF. Last echo from 10/12/23 shown EF of 25% and grade 2 diastolic dysfunction, biatrial dilation, sclerotic aortic valve, pacemaker/AICD in place. Work up in the hospital included a chest x-ray that shown mild pulmonary edema, small pleural effusions, cardiomegaly. Patient received Duonebs and IV lasix in the ER. Cardiology consulted. Subjective: Patient denies any new complaints today. I was notified of low blood pressure by the bedside nurse today with systolic of 70's. after review of EMR it was noted that he received Lasix 80 mg, blood pressure medications, [place], and had 6 liquid BMs overnight. Labs reviewed. Review of Systems Review of Systems: 12 systems were reviewed and are negativ e except for as per HPI. Exam Narrative: General: In no acute distress, well nourished Cardiac: Normal S1 and S2. No murmur, gallops or friction rubs, peripheral pul ses intact. Respiratory: Lungs clear to auscultation, no adventitious lung sounds, currently on room air Gastrointestinal: soft, non-distended, non-tender, normoactive bowel sounds. : voiding without difficulty. Neuro: Alert and oriented x4 Objective Data Vital Signs Vital Signs: Vital Signs - 24 hr 06/08/24 12:00 06/08/24 12:00 06/08/24 13:27 Temperature Pulse Rate 93 91 Respiratory Rate 18 Blood Pressure Pulse Oximetry Oxygen Delivery Room Air 06/08/24 13:38 06/08/24 14:00 06/08/24 16:00 Temperature 97.3 F L Pulse Rate 92 94 101 H Respiratory Rate 18 20 Blood Pressure 111/84 Pulse Oximetry 98 Oxygen Delivery 06/08/24 16:00 06/08/24 16:00 06/08/24 18:00 Temperature Pulse Rate 88 87 Respiratory Rate Blood Pressure Pulse Oximetry Oxygen Delivery Room Air 06/08/24 20:15 06/08/24 20:00 06/08/24 20:36 Temperature 97.6 F Pulse Rate 103 H 92 Respiratory Rate 22 H Blood Pressure 102/82 Pulse Oximetry 97 97 Oxygen Delivery Room Air 06/08/24 20:36 06/08/24 20:41 06/08/24 20:00 Temperature Pulse Rate 87 90 Respiratory Rate 16 16 Blood Pressure Pulse Oximetry Oxygen Delivery Room Air 06/08/24 21:35 06/08/24 20:00 06/08/24 22:00 Temperature Pulse Rate 91 101 H Respiratory Rate Blood Pressure 114/88 Pulse Oximetry Oxygen Delivery 06/08/24 23:35 06/08/24 23:43 06/09/24 00:00 Temperature 97.4 F L Pulse Rate 97 91 Respiratory Rate 24 H Blood Pressure 117/82 Pulse Oximetry 100 Oxygen Delivery Room Air 06/09/24 01:43 06/09/24 01:49 06/09/24 02:00 Temperature Pulse Rate 90 103 H 101 H Respiratory Rate 16 16 Blood Pressure Pulse Oximetry Oxygen Delivery 06/09/24 04:00 06/09/24 04:00 06/09/24 04:00 Temperature 98.1 F Pulse Rate 97 94 Respiratory Rate 20 Blood Pressure 140/69 Pulse Oximetry 99 Oxygen Delivery Room Air 06/09/24 06:00 06/09/24 08:23 06/09/24 08:00 Temperature 97.6 F Pulse Rate 90 89 82 Respiratory Rate 20 Blood Pressure 123/85 Pulse Oximetry 92 Oxygen Delivery 06/09/24 08:00 06/09/24 10:00 Temperature Pulse Rate 89 89 Respiratory Rate Blood Pressure Pulse Oximetry Oxygen Delivery Intake/Output Intake/Output: Intake & Output 06/06/24 06/07/24 06/08/24 06/09/24 23:59 23:59 23:59 23:59 Intake Total 1800 980 Output Total 100 8005 6550 Balance -100 -715 -693 Meds/Results Medications: Active Medications Generic Name Dose Route Start Last Admin Trade Name Freq PRN Reason Stop Dose Admin Acetaminophen 650 mg 06/07/24 17:53 Acetaminophen 325 Mg Tablet PO Q4H PRN Mild Pain (1-3) or Fever Hydrocodone Bitart/Acetaminophen 1 tab 06/07/24 20:48 06/09/24 08:35 Hydrocodone/Acetaminophen (*Crx) 5-325 Mg Tablet PO 1 tab BID PRN Administration Pain 4-6 Carvedilol 12.5 mg 06/08/24 21:00 06/09/24 08:23 Carvedilol 12.5 Mg Tablet PO 12.5 mg Q12HR [facility] Administration Docusate Sodium 100 mg 06/08/24 09:00 06/09/24 08:24 Docusate Sodium 100 Mg Capsule PO 100 mg DAILY [facility] Administration Empagliflozin 10 mg 06/08/24 09:00 06/09/24 08:23 Empagliflozin 10 Mg Tablet PO 10 mg DAILY [facility] Administration Furosemide 80 mg 06/08/24 21:00 06/09/24 08:24 Furosemide Inj 100 Mg/10 Ml Vial IV PUSH 80 mg Q12HR [facility] Administration Loratadine 10 mg 06/07/24 21:00 06/08/24 20:15 Loratadine 10 Mg Tablet PO 10 mg QHS [facility] Administration Lorazepam 1 mg 06/07/24 20:48 06/09/24 01:40 Lorazepam (*Crx) 1 Mg Tablet PO 1 mg BID PRN Administration Anxiety Pantoprazole Sodium 40 mg 06/08/24 09:00 06/09/24 08:23 Pantoprazole 40 Mg Tablet PO 40 mg DAILY [facility] Administration Sacubitril/Valsartan 1 tablet 06/07/24 21:00 06/09/24 08:23 Sacubitril/Valsartan 49-51 Mg Tablet PO 1 tablet Q12HR [facility] Administration Venlafaxine HCl 150 mg 06/08/24 21:00 06/08/24 20:14 Venlafaxine Hcl Xr 75 Mg Cap.Er.24h PO 150 mg QHS [facility] Administration Warfarin Sodium 2.5 mg 06/08/24 00:00 06/08/24 17:07 Warfarin (*Pbkc) 2.5 Mg Tablet BY MOUTH 2.5 mg DAILY@1700 [facility] Administration Warfarin Sodium 2.5 mg 06/10/24 17:00 Warfarin (*Pbkc) 2.5 Mg Tablet PO MoFr@1700 [facility] Radiology Results: ITS Impressions Chest X-Ray 06/08/24 12:24 IMPRESSION: 1. Mild pulmonary edema. 2. Cardiomegaly. Labs Labs: Laboratory Results - last 24 hr 06/09/24 04:52 PT 22.6 H INR 2.0 Quality VTE Prophylaxis VTE prophylaxis: mechanical ordered and pharmacologic ordered
[2024-06-09] MEDS: SODIUM CHLORIDE 0.9% IV 500 ML IV CONT (12:51)
[2024-06-09] MEDS: WARFARIN (*PBKC) 2.5 MG TABLET BY MOUTH (18:48)
[2024-06-09] MEDS: SODIUM CHLORIDE 0.9% IV 1,000 ML 999 ML IV CONT (19:08)
--- NOTE | 2024-06-09 20:12 | PC.NURSE ---
hospitalist Vikki notified at 12:15pm, BP 70s systolic, 500mg NS bolus ordered. keep MAP above 65. 18:30pm BP 80s systolic, 1L NS bolus/4hr ordered.
[2024-06-09] MEDS: VENLAFAXINE HCL XR 75 MG CAP.ER.24H 150 MG PO (20:58)
[2024-06-09] MEDS: LORATADINE 10 MG TABLET PO (20:58)
[2024-06-10] VITALS (14 sets, daily range): BP systolic 91–104; BP diastolic 44–80; PULSE 83–98; RESP 16–18; TEMP 36.4–37.1; O2SAT 97–99
[2024-06-10] MEDS: ACETAMINOPHEN 325 MG TABLET 650 MG PO (03:59)
[2024-06-10 05:37] LABS: Basophils Absolute Auto 0.1 K/mm3 (0.0-0.1); Basophils Percent Auto 0.7 % (0.2-1.2); Eosinophils Absolute Auto 0.3 K/mm3 (0-0.3); Eosinophils Percent Auto 3.3 % (0-4.4); Hematocrit 40.7 % (42.0-52.0); Hemoglobin 13.1 g/dL (14.0-18.0); Immature Granulocyte Absolute 0.04 K/mm3 (0.00-0.031); Immature Granulocyte Percent A 0.5 % (0-0.5); Lymphocytes Absolute Auto 0.96 K/mm3 (0.9-3.2); Lymphocytes Percent Auto 12.5 % (18.3-44.2); Mean Corpuscular HGB Conc 32.2 g/dl (32-36); Mean Corpuscular Hemoglobin 32.3 pg (26-34); Mean Corpuscular Volume 100.2 fl (80-100); Mean Platelet Volume 10.4 fl (7.4-10.4); Monocytes Absolute Auto 1.2 K/mm3 (0.1-0.6); Monocytes Percent Auto 15.5 % (2.6-8.5); Neutrophils Absolute Auto 5.2 K/mm3 (1.3-6.7); Neutrophils Percent Auto 67.5 % (45.5-73.1); Platelet Count Result 163 k/mm3 (150-375); Red Blood Count 4.06 M/mm3 (4.6-6.20); Red Cell Distribution Width 14.3 % (11.5-14.5); White Blood Count 7.7 K/mm3 (4.5-10.0)
[2024-06-10 05:46] LABS: INR 1.9; Prothrombin Time 21.6 Seconds (11.1-14.7)
[2024-06-10 05:47] LABS: Alanine Aminotransferase 308 U/L (6-50); Albumin Level 4.1 g/dL (3.5-5.1); Alkaline Phosphatase 122 U/L (38-126); Anion Gap 14 mmol/L (4-12); Aspartate Amino Transferase 361 U/L (17-59); Blood Urea Nitrogen 51 mg/dL (9-20); Calcium 8.6 mg/dL (8.4-10.2); Carbon Dioxide 24 mmol/L (22-30); Chloride 99 mmol/L (98-107); Estimated CRCL calculation 26 ml/min; Estimated Glomerular Filt Rate 28; Glucose 101 mg/dL (65-110); Potassium 3.1 mmol/L (3.4-5.0); Sodium 137 mmol/L (137-145)
[2024-06-10 08:18] LABS: Glucose Point of Care 85 mg/dl (65-105)
[2024-06-10] MEDS: HYDROcodone/acetaminophen (*CRX) 5-325 MG TABLET 1 TAB PO ×2 (08:43→16:17)
[2024-06-10] MEDS: PANTOPRAZOLE 40 MG TABLET PO (08:44)
[2024-06-10] MEDS: EMPAGLIFLOZIN 10 MG TABLET PO (08:44)
[2024-06-10] MEDS: carvediloL 12.5 MG TABLET PO (08:44)
[2024-06-10] MEDS: SACUBITRIL/VALSARTAN 49-51 MG TABLET 1 TABLET PO (08:44)
[2024-06-10] MEDS: DOCUSATE SODIUM 100 MG CAPSULE PO (08:44)
--- NOTE | 2024-06-10 12:22 | PM.PNCARD ---
Progress Note: A&P Assessment and Plan (1) Acute exacerbation of CHF (congestive heart failure): Code(s): I50.9 - Heart failure, unspecified Status: Acute Plan 74-year-old man with atrial fibrillation left ventricular systolic dysfunction and heart failure with reduced ejection fraction. He has been rendered euvolemic and asymptomatic with IV furosemide. I would go back to his previous dosage of oral furosemide of 40 mg daily starting tomorrow. 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 Richie Soliman MD [facility] Subjective Date/time seen: Date of service: 06/10/24 12:22 Interval history: follow-up visit in this 74-year-old man with cardiomyopathy, atrial fib, low ejection fraction and significant chronic kidney disease presenting here with shortness of breath and CHF. He has been treated with intravenous furosemide, 1 dose of metolazone yesterday and advancing his carvedilol dosage because of AF/RVR. He feels better today with less shortness of breath he says he slept well last night. Telemetry demonstrates AF with heart rate in the 80s rather than 120-130 as was seen yesterday. 06/10/2024: Patient is asymptomatic today. IV furosemide has been placed on hold because of low blood pressure last evening. No longer reporting any shortness of breath. Patient is hoping to be discharged. Exam Const: General: no acute distress Other: Elderly white male relatively comfortable watching television HENMT: Mouth: Yes moist mucous membranes Eyes: General: appearance normal, both eyes and all related structures Sclera: sclerae normal Pupils: Equal, round and reactive pupils present Neck: Neck: supple Resp: Effort & Inspection: normal respiratory effort Auscultation: diminished lung sounds Other: dullness at the bases bilaterally no audible rales or wheeze Cardio: Rate: regular rate Rhythm: regular rhythm and abnormal rhythm irregularly irregular Heart sounds: no murmurs GI: Auscultation: normal bowel sounds Skin: General skin exam: normal color Neuro: Cranial nerves: Yes Equal, round and reactive pupils present Speech: normal speech Other: alert and oriented x3 Extrem: Other: adequate perfusion, no edema at all Psych: Mental Status: mental status grossly normal Affect: normal affect Objective Data Vital Signs Vital Signs: Vital Signs - 24 hr 06/09/24 12:36 06/09/24 12:36 06/09/24 12:53 Temperature Pulse Rate Respiratory Rate Blood Pressure 75/35 L 84/46 L 88/68 L Pulse Oximetry Oxygen Delivery Fraction of Inspired Oxygen 06/09/24 12:58 06/09/24 15:11 06/09/24 16:00 Temperature Pulse Rate 81 86 86 Respiratory Rate 16 Blood Pressure 96/59 L Pulse Oximetry 98 Oxygen Delivery Room Air Fraction of Inspired Oxygen 21 06/09/24 16:00 06/09/24 17:38 06/09/24 18:57 Temperature 36.6 C Pulse Rate 86 86 80 Respiratory Rate 18 Blood Pressure 81/55 L Pulse Oximetry 100 Oxygen Delivery Fraction of Inspired Oxygen 06/09/24 20:19 06/09/24 20:33 06/09/24 20:00 Temperature Pulse Rate 88 Respiratory Rate Blood Pressure 94/71 L Pulse Oximetry Oxygen Delivery Room Air Fraction of Inspired Oxygen 06/09/24 20:00 06/09/24 22:00 06/10/24 00:00 Temperature Pulse Rate 82 86 Respiratory Rate Blood Pressure Pulse Oximetry Oxygen Delivery Room Air Fraction of Inspired Oxygen 06/10/24 00:00 06/10/24 00:00 06/10/24 01:29 Temperature 37.1 C Pulse Rate 88 89 Respiratory Rate 18 Blood Pressure 91/71 L 93/44 L Pulse Oximetry 99 Oxygen Delivery Fraction of Inspired Oxygen 06/10/24 02:00 06/10/24 04:00 06/10/24 04:00 Temperature Pulse Rate 86 90 Respiratory Rate Blood Pressure Pulse Oximetry Oxygen Delivery Room Air Fraction of Inspired Oxygen 06/10/24 04:00 06/10/24 06:00 06/10/24 07:45 Temperature 36.4 C 36.4 C Pulse Rate 89 98 97 Respiratory Rate 16 18 Blood Pressure 92/76 L 104/75 Pulse Oximetry 97 97 Oxygen Delivery Fraction of Inspired Oxygen 06/10/24 08:44 06/10/24 08:00 06/10/24 08:00 Temperature Pulse Rate 92 92 Respiratory Rate Blood Pressure Pulse Oximetry Oxygen Delivery Room Air Fraction of Inspired Oxygen 06/10/24 10:00 06/10/24 11:35 Temperature 36.4 C L Pulse Rate 88 88 Respiratory Rate 18 Blood Pressure 100/76 Pulse Oximetry 97 Oxygen Delivery Fraction of Inspired Oxygen Intake/Output Intake/Output: Intake & Output 06/07/24 06/08/24 06/09/24 06/10/24 23:59 23:59 23:59 23:59 Intake Total 1800 2970 476 Output Total 100 1925 2750 1050 Balance -100 -125 220 -574 Meds/Results Medications: Active Medications Generic Name Dose Route Start Last Admin Trade Name Freq PRN Reason Stop Dose Admin Acetaminophen 650 mg 06/07/24 17:53 06/10/24 03:59 Acetaminophen 325 Mg Tablet PO 650 mg Q4H PRN Administration Mild Pain (1-3) or Fever Hydrocodone Bitart/Acetaminophen 1 tab 06/07/24 20:48 06/10/24 08:43 Hydrocodone/Acetaminophen (*Crx) 5-325 Mg Tablet PO 1 tab BID PRN Administration Pain 4-6 Carvedilol 12.5 mg 06/08/24 21:00 06/10/24 08:44 Carvedilol 12.5 Mg Tablet PO 12.5 mg Q12HR MC Administration Docusate Sodium 100 mg 06/08/24 09:00 06/10/24 08:44 Docusate Sodium 100 Mg Capsule PO 100 mg DAILY MC Administration Empagliflozin 10 mg 06/08/24 09:00 06/10/24 08:44 Empagliflozin 10 Mg Tablet PO 10 mg DAILY MC Administration Furosemide 40 mg 06/11/24 09:00 Furosemide 40 Mg Tablet PO DAILY MC Loratadine 10 mg 06/07/24 21:00 06/09/24 20:58 Loratadine 10 Mg Tablet PO 10 mg QHS MC Administration Lorazepam 1 mg 06/07/24 20:48 06/09/24 01:40 Lorazepam (*Crx) 1 Mg Tablet PO 1 mg BID PRN Administration Anxiety Pantoprazole Sodium 40 mg 06/08/24 09:00 06/10/24 08:44 Pantoprazole 40 Mg Tablet PO 40 mg DAILY MC Administration Sacubitril/Valsartan 1 tablet 06/07/24 21:00 06/10/24 08:44 Sacubitril/Valsartan 49-51 Mg Tablet PO 1 tablet Q12HR MC Administration Venlafaxine HCl 150 mg 06/08/24 21:00 06/09/24 20:58 Venlafaxine Hcl Xr 75 Mg Cap.Er.24h PO 150 mg QHS MC Administration Warfarin Sodium 2.5 mg 06/08/24 00:00 06/09/24 18:48 Warfarin (*Pbkc) 2.5 Mg Tablet BY MOUTH 2.5 mg DAILY@1700 [facility] Administration Warfarin Sodium 2.5 mg 06/10/24 17:00 Warfarin (*Pbkc) 2.5 Mg Tablet PO MoFr@1700 [facility] Radiology Results: ITS Impressions Chest X-Ray 06/08/24 12:24 IMPRESSION: 1. Mild pulmonary edema. 2. Cardiomegaly. Labs Labs: Laboratory Results - last 24 hr 06/10/24 06/10/24 06/10/24 05:27 05:28 07:17 WBC 7.7 RBC 4.06 L Hgb 13.1 L Hct 40.7 L MCV 100.2 H MCH 32.3 MCHC 32.2 RDW 14.3 Plt Count 163 MPV 10.4 Immature Gran % (Auto) 0.5 Neut % (Auto) 67.5 Lymph % (Auto) 12.5 L Curry % (Auto) 15.5 H Eos % (Auto) 3.3 Baso % (Auto) 0.7 Lymph # (Auto) 0.96 Curry # (Auto) 1.2 H Eos # (Auto) 0.3 Baso # (Auto) 0.1 Abs Immat Gran (auto) 0.04 H Absolute Neuts (auto) 5.2 Absolute Nucleated RBC 0.000 Nucleated RBC % 0.0 PT 21.6 H INR 1.9 Sodium 137 Potassium 3.1 L Chloride 99 Carbon Dioxide 24 Anion Gap 14 H BUN 51 H Creatinine 2.30 H Estim Creat Clear Calc 26 Estimated GFR 28 L Glucose 101 POC Capillary Glucose 85 Calcium 8.6 Total Bilirubin 1.0 AST 361 H ALT 308 H Alkaline Phosphatase 122 Total Protein 7.0 Albumin 4.1
--- NOTE | 2024-06-10 15:45 | PM.DS ---
DS: Admitting Diagnosis Discharge Date 06/10/24 Admitting Diagnosis acute on chronic heart failure with reduced ejection fraction elevated troponin JANELL AFib DS: Discharge Diagnosis Discharge Diagnosis (1) Acute on chronic heart failure with reduced ejection fraction (HFrEF, <= 40%): Code(s): I50.23 - Acute on chronic systolic (congestive) heart failure Status: Acute (2) Elevated troponin: Code(s): R79.89 - Other specified abnormal findings of blood chemistry Status: Acute (3) JANELL (acute kidney injury): Code(s): N17.9 - Acute kidney failure, unspecified Status: Acute (4) Afib: Code(s): I48.91 - Unspecified atrial fibrillation Status: Acute DS: Summary Hospital Course Reason for hospitalization: acute on chronic heart failure with reduced ejection fraction elevated troponin JANELL AFib Hospital Course: This is a 74 year old male who presented to the hospital on 06/07/24 with complaints of SOB. Patient has history fo CHF with reduced EF. Last echo from 10/12/23 shown EF of 25% and grade 2 diastolic dysfunction, biatrial dilation, sclerotic aortic valve, pacemaker/AICD in place. Work up in the hospital included a chest x-ray that shown mild pulmonary edema, small pleural effusions, cardiomegaly. Patient received Duonebs and IV lasix in the ER. Cardiology consulted. patient continued with Lasix for past 2 days and is now euvolemic. Cardiology has signed off and will follow up with patient on an outpatient basis. He will continue taking his oral Lasix starting tomorrow and will follow up with Cardiology in a few weeks. Vital signs are stable, he is afebrile, he is currently on room air. He is stable for discharge at this time. STEMI/non STEMI was ruled out and elevated troponin was likely due to demand ischemia from heart failure final diagnosis: acute on heart failure with reduced ejection fraction, acute kidney injury Status at Discharge Cognitive/behavioral status at discharge: alert oriented x3 Functional status at discharge: independent ambulation Overall status at discharge: patient is progressing back to baseline Time Spent with Patient Time attestation: Total time spent providing and/or coordinating discharge services: Time spent: Greater than 30 minutes Exam Narrative: General: In no acute distress, well nourished Cardiac: Normal S1 and S2. No murmur, gallops or friction rubs, peripheral pulses intact. Respiratory: Lungs clear to auscultation, no adventitious lung sounds, currently on room air Gastrointestinal: soft, non-distended, non-tender, normoactive bowel sounds. : voiding without difficulty. Neuro: Alert and oriented x4 DS: Data Data Completed and Pending Completed studies during hospitalization: chest x-ray Pending studies at discharge: none Labs on day of discharge: Labs from last 24 hours 06/10/24 06/10/24 06/10/24 07:17 05:28 05:27 WBC 7.7 RBC 4.06 L Hgb 13.1 L Hct 40.7 L MCV 100.2 H MCH 32.3 MCHC 32.2 RDW 14.3 Plt Count 163 MPV 10.4 Immature Gran % (Auto) 0.5 Neut % (Auto) 67.5 Lymph % (Auto) 12.5 L Knott % (Auto) 15.5 H Eos % (Auto) 3.3 Baso % (Auto) 0.7 Lymph # (Auto) 0.96 Knott # (Auto) 1.2 H Eos # (Auto) 0.3 Baso # (Auto) 0.1 Abs Immat Gran (auto) 0.04 H Absolute Neuts (auto) 5.2 Absolute Nucleated RBC 0.000 Nucleated RBC % 0.0 PT 21.6 H INR 1.9 Sodium 137 Potassium 3.1 L Chloride 99 Carbon Dioxide 24 Anion Gap 14 H BUN 51 H Creatinine 2.30 H Estim Creat Clear Calc 26 Estimated GFR 28 L Glucose 101 POC Capillary Glucose 85 Calcium 8.6 Total Bilirubin 1.0 AST 361 H ALT 308 H Alkaline Phosphatase 122 Total Protein 7.0 Albumin 4.1 Procedures/Treatments: none Discharge Plan Discharge Attending physician on discharge: Ronan Cano Consulting providers: [place] Discharging Clinician: Vikki Guerrero Anticipated Discharge Date/Time: 06/10/24 15:37 Patient Disposition: Home, Self-Care Activity: as tolerated Diet: as tolerated and heart healthy Discharge Instructions: 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 Your blood pressure is still running below your normal. Check blood pressure in the morning before taking your medications. If your top number is below 110 hold lasix for one more day. Patient Instructions: Antibiotic Form, Heart Failure (ED), Heart Failure (DC), How to Stop Smoking (DC), Blood Thinners (DC) Patient Language: Indonesian Stand Alone Forms: General Discharge Information Follow-up/Referrals: Ho,Shaun Allan, EMR SPECIALIST [Primary Care Provider] - 1 Week Discharge Medications: Continued ferrous sulfate 325 mg (65 mg iron) tablet 325 mg PO DAILY Entresto 49-51 mg tablet 1 tablet PO Q12H topiramate 50 mg tablet 50 mg PO .COMPLEX Rx Instructions: 50 mg orally take 2 tabs weekly or as needed carvedilol [Coreg] 6.25 mg tablet 6.25 mg PO Q12H venlafaxine 150 mg capsule,extended release 24hr 150 mg PO DAILY pantoprazole 40 mg tablet,delayed release (DR/EC) 40 mg PO DAILY dapagliflozin propanediol [Farxiga] 10 mg tablet 5 mg PO DAILY potassium chloride 20 mEq tablet extended release 20 meq PO 3XW Rx Instructions: Takes on Thu, Thu, Thu warfarin 5 mg tablet 5 mg USEASDIRECTD Rx Instructions: 5mg on Thursday and Thursday; 2.5mg , Thu, , Thu, Thu meloxicam 15 mg tablet 15 mg PO EVERY OTHER DAY lorazepam 1 mg tablet 1 mg PO BID PRN (Reason: Anxiety) docusate sodium 100 mg Capsule 100 mg PO DAILY Qty: 30 0RF albuterol sulfate 90 mcg/actuation HFA aerosol inhaler 4 puff INHALATION Q4-5H PRN (Reason: Shortness Of Breath) Qty: 6.7 0RF loratadine [Allergy Relief (loratadine)] 10 mg tablet 10 mg PO QHS Qty: 30 0RF furosemide 40 mg tablet 40 mg PO 3XW Rx Instructions: Takes on Thursday, Thursday, and Thursday hydrocodone-acetaminophen 5-325 mg tablet 1 tablet PO BID PRN (Reason: Pain) Qty: 20 0RF Date of admission: 06/08/24 11:18 Primary Care Provider: HoShaun Admitting Provider: Juan C Snyder Attending physician on admission: Vikki Guerrero Condition: Improved Quality VTE Prophylaxis VTE prophylaxis: mechanical ordered and pharmacologic ordered
[2024-06-10] MEDS: WARFARIN (*PBKC) 2.5 MG TABLET BY MOUTH (16:17)
[2024-06-10] MEDS: WARFARIN (*PBKC) 2.5 MG TABLET PO (16:28)
== END 2024-06-10 17:10 | disposition home or self-care (01) | DRG 292 ==
LOC: ANHED 07:47 → ANHIMU 12:18
PROVIDERS: Emergency Medicine; Nurse Practitioner Gerontology; Admitting Provider Internal Medicine; Emergency Provider Student in an Organized Health Care Education/Training Program; PCP Nurse Practitioner Family; Visit Provider Nurse Practitioner Acute Care
DX: I50.23 Acute on chronic systolic (congestive) heart failure (principal); I24.89 Other forms of acute ischemic heart disease; I42.9 Cardiomyopathy, unspecified; I48.92 Unspecified atrial flutter; N17.9 Acute kidney failure, unspecified; F41.9 Anxiety disorder, unspecified; F17.210 Nicotine dependence, cigarettes, uncomplicated; F32.A Depression, unspecified; I48.91 Unspecified atrial fibrillation; N18.30 Chronic kidney disease, stage 3 unspecified; Z95.810 Presence of automatic (implantable) cardiac defibrillator; Z79.01 Long term (current) use of anticoagulants; Z28.21 Immunization not carried out because of patient refusal; Z86.73 Personal history of transient ischemic attack (TIA), and cerebral infarction without residual deficits; Z90.49 Acquired absence of other specified parts of digestive tract
CPT/HCPCS: 36415; 71045; 71046; 80048; 80053; 82948; 83690; 83735; 83880; 84100; 84484; 85025; 85610; 85730; 93005; 94640; 96372; 96374; 96376; 99285; A9270; G0378; J1644; J1940; J7030; J7040

== ENCOUNTER 2024-06-22 15:28 | Emergency (ER) | payer MEDICARE, SELFPAY ==
--- NOTE | ~2024-06-22 | XR_ITS ---
EXAMINATION: XR chest 2V DATE: 06/22/2024 17:37 INDICATION: Shortness of breath. TECHNIQUE: Frontal and lateral views of the chest were obtained. COMPARISON: Chest single view 06/08/2024, CT abdomen and pelvis 10/11/2023 FINDINGS: A calcified right lung nodule is consistent with old granulomatous disease. Ayanna B-lines are noted, consistent with mild pulmonary edema. No pleural effusion or pneumothorax. Cardiomegaly is noted. There is a left chest pacer/defibrillator with leads in right atrium, right ventricle, and co ronary sinus. There are changes of anterior fusion procedure in cervical spine. IMPRESSION: 1. Mild pulmonary edema. 2. Cardiomegaly. Reviewed, dictated and finalized at location A. RIETARY TRADER
[2024-06-22 15:34] VITALS: BP 129/82; PULSE 89; RESP 20; TEMP 36.4; O2SAT 100
--- NOTE | 2024-06-22 17:16 | ED_ITS ---
HPI - SOB/Dyspnea General Chief Complaint: Shortness of Breath/Dyspnea <Stephanie Logan PA-C - Last Filed: 06/27/24 18:31> Stated Complaint: I can't breathe. <Stephanie Logan PA-C - Last Filed: 06/27/24 18:31> Time Seen by Provider: 06/22/24 17:16 <Stephanie Logan PA-C - Last Filed: 06/27/24 18:31> Focused HPI: This is a 74 year old male that presents to the ER for shortness of breath. Ongoing over the last month. Reports he can't lay flat because his lungs fill up with fluid. He was admitted to [place] and discharged yesterday for this, but started to feel short of breath again this morning. Denies current chest pain, lower extremity edema. GENERAL: Well-appearing, well-nourished, and in no acute distress. HEAD: Normocephalic, atraumatic. CHEST: Clear to auscultation. ?No respiratory distress. HEART: Regular rate and rhythm.? NEURO: ?Alert and oriented x3. Patient screened in triage and initial orders placed.? ?Additional care and disposition to be based upon?diagnostic testing and treatment. <Stephanie Logan PA-C - Last Filed: 06/27/24 18:31> History of Present Illness HPI Narrative: 74-year-old male with history of CHF with the ejection fraction around 25%, AICD pacemaker placement and chronic renal insufficiency, AFib on warfarin presents to the emergency department for shortness of breath and concern for volume overload. Patient was discharged yesterday after 6 night stay at [facility], [place], operated by [facility] for reported CHF exacerbation. He presents with his paperwork today. Amiodarone and chlordiazepoxide was added to his normal regimen which she reportedly took around 4:00 a.m today.. States after he took these medications he began feeling short of breath. States his shortness of breath is worse with activity, better at rest and worse with lying flat. Reports a cough that occurs when he lays flat. He states around 1:00 p.m. he was sitting in his recliner when he felt a palpitation. He otherwise denies chest pain or discomfort. States he gets lower extremity edema when he stands for long periods of time but denies recent weight gain. Denies fever. States he has a long history of smoking, however has not smoked in several weeks. His merchandiser retail representative is Dr. Gastelum at [facility], [place]. He is taking 40mg of Lasix MWF and states he has been compliant with his medications. He denies decreased urine output. <Cammy Vazquez PA-C - Last Filed: 06/22/24 23:41> Related Data Home Medications: Home Medications ?Medication ?Instructions ?Recorded ?Confirmed ?Last Taken ?Type carvedilol 6.25 mg tablet (Coreg) 6.25 mg PO Q12H 10/10/23 06/07/24 05/15/24 History dapagliflozin propanediol 10 mg 5 mg PO DAILY 10/10/23 06/07/24 Unknown History tablet (Farxiga) pantoprazole 40 mg tablet,delayed 40 mg PO DAILY 10/10/23 06/07/24 Unknown History release potassium chloride 20 mEq 20 meq PO 3XW 10/10/23 06/07/24 06/06/24 History tablet,extended release venlafaxine 150 mg 150 mg PO DAILY 10/10/23 06/07/24 Unknown History capsule,extended release 24 hr ferrous sulfate 325 mg (65 mg 325 mg PO DAILY 11/03/23 06/07/24 Unknown History iron) tablet sacubitril 49 mg-valsartan 51 mg 1 tablet PO Q12H 11/03/23 06/07/24 Unknown History tablet (Entresto) topiramate 50 mg tablet 50 mg PO .COMPLEX 11/03/23 06/07/24 Unknown History lorazepam 1 mg tablet 1 mg PO BID PRN Anxiety 05/16/24 06/07/24 Unknown History meloxicam 15 mg tablet 15 mg PO EVERY OTHER DAY 05/16/24 06/07/24 06/06/24 History warfarin 5 mg tablet 5 mg USEASDIRECTD 05/16/24 06/07/24 Unknown History furosemide 40 mg tablet 40 mg PO 3XW 06/07/24 06/07/24 Unknown History <Stephanie Logan PA-C - Last Filed: 06/27/24 18:31> Allergies/Adverse Reactions: Allergies Allergy/AdvReac Type Severity Reaction Status Date / Time No Known Allergies Allergy Mild Verified 06/07/24 08:12 <Stephanie Logan PA-C - Last Filed: 06/27/24 18:31> Review of Systems 2 Review of Systems: All systems reviewed & are unremarkable except as noted in HPI and below <Cammy Vazquez PA-C - Last Filed: 06/22/24 23:41> [facility] Past Medical History Medical History: Medical History Anxiety and depression Arthritis Presence of combination internal cardiac defibrillator (ICD) and pacemaker CHF (congestive heart failure) Afib CVA (cerebral vascular accident) Chronic kidney disease <Stephanie Logan PA-C - Last Filed: 06/27/24 18:31> Surgical History Surgical History: Surgical History History of cataract surgery History of cervical spinal surgery cervical laminectomy History of appendectomy History of cardiac defibrillator placement replaced 10/01/2023; [employer] / [employer]; Dr Fracisco Eli through [facility] Cardiology <Stephanie Logan PA-C - Last Filed: 06/27/24 18:31> Family History Family History: Family History Father S/P triple vessel bypass <Stephanie Logan PA-C - Last Filed: 06/27/24 18:31> Social History Social History: Social History Smoking packs per day: 0.5 Smoking cigarettes per day: 10.0 Years smoked: 30 Smoking pack-years: 15.00 Smoking status: Current some day smoker Tobacco type: cigarettes Alcohol intake: former Substance use: never Substance use type: does not use Do You Feel Safe in your Home?: Yes Lack of Transportation: No Lack of Food: Never True Current Housing: I Have Housing Concerned About Future Housing: No Difficulty Paying Gas/Electric Bills: No Difficulty Paying for Meds: No Currently Unemployed: No Education: High School Diploma/GED Difficulty w/ Childcare or Family Care: No Gender identity (if verbalized by the patient): Male Spiritual care concerns: No <STACIA Maya Last Filed: 06/27/24 18:31> Exam 2 Narrative: GENERAL: Well-appearing, well-nourished, and in no acute distress. HEAD: Normocephalic, atraumatic. EYES: EOMI. ENT: Nares clear, no rhinorrhea or epistaxis. Mucous membranes moist. NECK: Supple. CHEST: Fine crackles in the left lower lung field, otherwise no adventitious breath sounds. Patient satting 100% on room air in no distress HEART: Regular rate and rhythm. No murmur heard. Normal peripheral pulses. ABDOMEN: Soft, nontender, nondistended, normal active bowel sounds. EXTREMITIES: Normal range of motion. No edema. SKIN: Warm, dry, no rash. NEURO: No focal deficits. Alert and oriented x3 <STACIA Reddy Last Filed: 06/22/24 23:41> Course Vital Signs Vital signs: Vital Signs Temperature 97.6 F 06/22/24 15:34 Pulse Rate 89 06/22/24 15:34 Respiratory Rate 20 06/22/24 15:34 Blood Pressure 129/82 06/22/24 15:34 Pulse Oximetry 100 06/22/24 15:34 Temperature 97.6 F 06/22/24 15:34 Pulse Rate 77 06/22/24 23:36 Respiratory Rate 16 06/22/24 23:36 Blood Pressure 117/85 06/22/24 23:36 Pulse Oximetry 100 06/22/24 23:36 Oxygen Delivery Room Air 06/22/24 19:04 <STACIA Maya Last Filed: 06/27/24 18:31> Vital Signs Temperature 97.6 F 06/22/24 15:34 Pulse Rate 89 06/22/24 15:34 Respiratory Rate 20 06/22/24 15:34 Blood Pressure 129/82 06/22/24 15:34 Pulse Oximetry 100 06/22/24 15:34 Temperature 97.6 F 06/22/24 15:34 Pulse Rate 77 06/22/24 23:36 Respiratory Rate 16 06/22/24 23:36 Blood Pressure 117/85 06/22/24 23:36 Pulse Oximetry 100 06/22/24 23:36 Oxygen Delivery Room Air 06/22/24 19:04 <Cammy Vazquez PA-C - Last Filed: 06/22/24 23:41> MDM - SOB/Dyspnea MDM Narrative Medical decision making narrative: 74-year-old male with history of CKD, AFib on warfarin, CHF with an estimated EF of 25%, AICD placement presents to the ED for exertional dyspnea and orthopnea. See HPI for further history. Triage vitals are stable. Patient is satting 100% on room air and is in no respiratory distress. Respiratory rate is 20. He is resting comfortably in exam bed speaking in full sentences. Exam is significant for fine crackles in the left lower lung field. His lab work shows no leukocytosis and a baseline hemoglobin of 13.2. Chemistries with hyponatremia of 128, hyperkalemia of 5.3 and a baseline kidney function at 2.2 creatinine with a BUN of 39. UA shows no findings consistent with a UTI. Lipase is normal. EKG shows electronic ventricular pacemaker with no ischemic findings. Troponins are at chronically elevated level, but are flat. He continues to deny chest pain. Suspect chronic elevation is secondary to CHF. Chest x-ray shows cardiomegaly and mild pulmonary edema. Patient updated on workup. He received a mg of Bumex in the ED with good urine output. His vitals remain stable. Oxygen saturations remained greater than 95% on room air and he is in no respiratory distress. Suspect his acute hyponatremia is due to hypervolemia. I discussed admission with the hospitalist, however she feels that the patient does not meet admission criteria and needs to follow up outpatient with his merchandiser retail representative. Patient was updated on this. Advised to continue Lasix as directed and follow-up closely with his merchandiser retail representative. Discussed strict ED return precautions. He is agreeable to plan verbalized understanding. Discharged in stable condition. <Cammy Vazquez PA-C - Last Filed: 06/22/24 23:41> Lab Data Result diagrams: 06/22/24 18:59 06/22/24 18:59 <Stephanie Logan PA-C - Last Filed: 06/27/24 18:31> Labs: Lab Results 06/22/24 06/22/24 06/22/24 Range/Units 18:59 18:59 19:18 WBC 6.8 (4.5-10.0) K/mm3 RBC 4.20 L (4.6-6.20) M/mm3 Hgb 13.2 L (14.0-18.0) g/dL Hct 41.0 L (42.0-52.0) % MCV 97.6 (80-100) fl MCH 31.4 (26-34) pg MCHC 32.2 (32-36) g/dl RDW 14.3 (11.5-14.5) % Plt Count 192 (150-375) k/mm3 MPV 10.3 (7.4-10.4) fl Immature Gran % (Auto) 0.4 (0-0.5) % Neut % (Auto) 68.6 (45.5-73.1) % Lymph % (Auto) 14.3 L (18.3-44.2) % [place] % (Auto) 14.9 H (2.6-8.5) % Eos % (Auto) 0.3 (0-4.4) % Baso % (Auto) 1.5 H (0.2-1.2) % Lymph # (Auto) 0.97 (0.9-3.2) K/mm3 [place] # (Auto) 1.0 H (0.1-0.6) K/mm3 Eos # (Auto) 0.0 (0-0.3) K/mm3 Baso # (Auto) 0.1 (0.0-0.1) K/mm3 Abs Immat Gran (auto) 0.03 (0.00-0.031) K/mm3 Absolute Neuts (auto) 4.6 (1.3-6.7) K/mm3 Absolute Nucleated RBC 0.000 (0.0-0.012) K/mm3 Nucleated RBC % 0.0 (0.0-0.2) % PT 22.4 H (11.1-14.7) Seconds INR 1.9 APTT 45.2 H (22.3-36.8) Seconds Sodium 128 L (137-145) mmol/L Potassium 5.3 H (3.4-5.0) mmol/L Chloride 98 (98-107) mmol/L Carbon Dioxide 19 L (22-30) mmol/L Anion Gap 11 (4-12) mmol/L BUN 39 H D (9-20) mg/dL Creatinine 2.20 H (0.7-1.3) mg/dL Estim Creat Clear Calc 27 ml/min Estimated GFR 29 L (59 - ) Glucose 103 (65-110) mg/dL Calcium 9.0 (8.4-10.2) mg/dL Total Bilirubin 1.8 H (0.2-1.3) mg/dL AST 65 H (17-59) U/L ALT 45 (6-50) U/L Alkaline Phosphatase 127 H (38-126) U/L Troponin I 0.090 H* Cancelled (0.000-0.034) ng/mL NT-Pro-B Natriuret Pep 58334 H (19.9-100) pg/mL Total Protein 7.0 (6.3-8.2) g/dL Albumin 4.6 (3.5-5.1) g/dL Lipase 58 (23-300) U/L Urine Color Yellow (Yellow) Urine Appearance Clear (Clear) Urine pH 5.5 (5.0-9.0) Ur Specific [place] 1.018 (1.001-1.035) Urine Protein Trace (Negative) mg/dL Urine Glucose (UA) 2+ H (Negative) mg/dL Urine Ketones Negative (Negative) mg/dL Ur Blood (Man) Negative (Negative) Urine Nitrate Negative (Negative) Urine Bilirubin Negative (Negative) Urine Urobilinogen 1.0 (<2.0) mg/dL Leukocyte Esterase Rfl Trace H (Negative) PATRIC/UL Urine RBC 0-2 (0-2) /hpf Urine WBC 0-5 (0-3) /hpf Ur Squamous Epith Cells None seen (Few) /hpf Urine Bacteria None seen /hpf Urine Casts 3-5 Hyaline Casts Present (None) /lpf 06/22/24 Range/Units 22:13 WBC (4.5-10.0) K/mm3 RBC (4.6-6.20) M/mm3 Hgb (14.0-18.0) g/dL Hct (42.0-52.0) % MCV (80-100) fl MCH (26-34) pg MCHC (32-36) g/dl RDW (11.5-14.5) % Plt Count (150-375) k/mm3 MPV (7.4-10.4) fl Immature Gran % (Auto) (0-0.5) % Neut % (Auto) (45.5-73.1) % Lymph % (Auto) (18.3-44.2) % [place] % (Auto) (2.6-8.5) % Eos % (Auto) (0-4.4) % Baso % (Auto) (0.2-1.2) % Lymph # (Auto) (0.9-3.2) K/mm3 [place] # (Auto) (0.1-0.6) K/mm3 Eos # (Auto) (0-0.3) K/mm3 Baso # (Auto) (0.0-0.1) K/mm3 Abs Immat Gran (auto) (0.00-0.031) K/mm3 Absolute Neuts (auto) (1.3-6.7) K/mm3 Absolute Nucleated RBC (0.0-0.012) K/mm3 Nucleated RBC % (0.0-0.2) % PT (11.1-14.7) Seconds INR APTT (22.3-36.8) Seconds Sodium (137-145) mmol/L Potassium (3.4-5.0) mmol/L Chloride (98-107) mmol/L Carbon Dioxide (22-30) mmol/L Anion Gap (4-12) mmol/L BUN (9-20) mg/dL Creatinine (0.7-1.3) mg/dL Estim Creat Clear Calc ml/min Estimated GFR (59 - ) Glucose (65-110) mg/dL Calcium (8.4-10.2) mg/dL Total Bilirubin (0.2-1.3) mg/dL AST (17-59) U/L ALT (6-50) U/L Alkaline Phosphatase (38-126) U/L Troponin I 0.104 H* (0.000-0.034) ng/mL NT-Pro-B Natriuret Pep (19.9-100) pg/mL Total Protein (6.3-8.2) g/dL Albumin (3.5-5.1) g/dL Lipase (23-300) U/L Urine Color (Yellow) Urine Appearance (Clear) Urine pH (5.0-9.0) Ur Specific [place] (1.001-1.035) Urine Protein (Negative) mg/dL Urine Glucose (UA) (Negative) mg/dL Urine Ketones (Negative) mg/dL Ur Blood (Man) (Negative) Urine Nitrate (Negative) Urine Bilirubin (Negative) Urine Urobilinogen (<2.0) mg/dL Leukocyte Esterase Rfl (Negative) PATRIC/UL Urine RBC (0-2) /hpf Urine WBC (0-3) /hpf Ur Squamous Epith Cells (Few) /hpf Urine Bacteria /hpf Urine Casts Hyaline Casts (None) /lpf <Stephanie Logan PA-C - Last Filed: 06/27/24 18:31> Lab Results 06/22/24 06/22/24 06/22/24 Range/Units 18:59 18:59 19:18 WBC 6.8 (4.5-10.0) K/mm3 RBC 4.20 L (4.6-6.20) M/mm3 Hgb 13.2 L (14.0-18.0) g/dL Hct 41.0 L (42.0-52.0) % MCV 97.6 (80-100) fl MCH 31.4 (26-34) pg MCHC 32.2 (32-36) g/dl RDW 14.3 (11.5-14.5) % Plt Count 192 (150-375) k/mm3 MPV 10.3 (7.4-10.4) fl Immature Gran % (Auto) 0.4 (0-0.5) % Neut % (Auto) 68.6 (45.5-73.1) % Lymph % (Auto) 14.3 L (18.3-44.2) % [place] % (Auto) 14.9 H (2.6-8.5) % Eos % (Auto) 0.3 (0-4.4) % Baso % (Auto) 1.5 H (0.2-1.2) % Lymph # (Auto) 0.97 (0.9-3.2) K/mm3 [place] # (Auto) 1.0 H (0.1-0.6) K/mm3 Eos # (Auto) 0.0 (0-0.3) K/mm3 Baso # (Auto) 0.1 (0.0-0.1) K/mm3 Abs Immat Gran (auto) 0.03 (0.00-0.031) K/mm3 Absolute Neuts (auto) 4.6 (1.3-6.7) K/mm3 Absolute Nucleated RBC 0.000 (0.0-0.012) K/mm3 Nucleated RBC % 0.0 (0.0-0.2) % PT 22.4 H (11.1-14.7) Seconds INR 1.9 APTT 45.2 H (22.3-36.8) Seconds Sodium 128 L (137-145) mmol/L Potassium 5.3 H (3.4-5.0) mmol/L Chloride 98 (98-107) mmol/L Carbon Dioxide 19 L (22-30) mmol/L Anion Gap 11 (4-12) mmol/L BUN 39 H D (9-20) mg/dL Creatinine 2.20 H (0.7-1.3) mg/dL Estim Creat Clear Calc 27 ml/min Estimated GFR 29 L (59 - ) Glucose 103 (65-110) mg/dL Calcium 9.0 (8.4-10.2) mg/dL Total Bilirubin 1.8 H (0.2-1.3) mg/dL AST 65 H (17-59) U/L ALT 45 (6-50) U/L Alkaline Phosphatase 127 H (38-126) U/L Troponin I 0.090 H* Cancelled (0.000-0.034) ng/mL NT-Pro-B Natriuret Pep 12723 H (19.9-100) pg/mL Total Protein 7.0 (6.3-8.2) g/dL Albumin 4.6 (3.5-5.1) g/dL Lipase 58 (23-300) U/L Urine Color Yellow (Yellow) Urine Appearance Clear (Clear) Urine pH 5.5 (5.0-9.0) Ur Specific [place] 1.018 (1.001-1.035) Urine Protein Trace (Negative) mg/dL Urine Glucose (UA) 2+ H (Negative) mg/dL Urine Ketones Negative (Negative) mg/dL Ur Blood (Man) Negative (Negative) Urine Nitrate Negative (Negative) Urine Bilirubin Negative (Negative) Urine Urobilinogen 1.0 (<2.0) mg/dL Leukocyte Esterase Rfl Trace H (Negative) PATRIC/UL Urine RBC 0-2 (0-2) /hpf Urine WBC 0-5 (0-3) /hpf Ur Squamous Epith Cells None seen (Few) /hpf Urine Bacteria None seen /hpf Urine Casts 3-5 Hyaline Casts Present (None) /lpf 06/22/24 Range/Units 22:13 WBC (4.5-10.0) K/mm3 RBC (4.6-6.20) M/mm3 Hgb (14.0-18.0) g/dL Hct (42.0-52.0) % MCV (80-100) fl MCH (26-34) pg MCHC (32-36) g/dl RDW (11.5-14.5) % Plt Count (150-375) k/mm3 MPV (7.4-10.4) fl Immature Gran % (Auto) (0-0.5) % Neut % (Auto) (45.5-73.1) % Lymph % (Auto) (18.3-44.2) % [place] % (Auto) (2.6-8.5) % Eos % (Auto) (0-4.4) % Baso % (Auto) (0.2-1.2) % Lymph # (Auto) (0.9-3.2) K/mm3 [place] # (Auto) (0.1-0.6) K/mm3 Eos # (Auto) (0-0.3) K/mm3 Baso # (Auto) (0.0-0.1) K/mm3 Abs Immat Gran (auto) (0.00-0.031) K/mm3 Absolute Neuts (auto) (1.3-6.7) K/mm3 Absolute Nucleated RBC (0.0-0.012) K/mm3 Nucleated RBC % (0.0-0.2) % PT (11.1-14.7) Seconds INR APTT (22.3-36.8) Seconds Sodium (137-145) mmol/L Potassium (3.4-5.0) mmol/L Chloride (98-107) mmol/L Carbon Dioxide (22-30) mmol/L Anion Gap (4-12) mmol/L BUN (9-20) mg/dL Creatinine (0.7-1.3) mg/dL Estim Creat Clear Calc ml/min Estimated GFR (59 - ) Glucose (65-110) mg/dL Calcium (8.4-10.2) mg/dL Total Bilirubin (0.2-1.3) mg/dL AST (17-59) U/L ALT (6-50) U/L Alkaline Phosphatase (38-126) U/L Troponin I 0.104 H* (0.000-0.034) ng/mL NT-Pro-B Natriuret Pep (19.9-100) pg/mL Total Protein (6.3-8.2) g/dL Albumin (3.5-5.1) g/dL Lipase (23-300) U/L Urine Color (Yellow) Urine Appearance (Clear) Urine pH (5.0-9.0) Ur Specific [place] (1.001-1.035) Urine Protein (Negative) mg/dL Urine Glucose (UA) (Negative) mg/dL Urine Ketones (Negative) mg/dL Ur Blood (Man) (Negative) Urine Nitrate (Negative) Urine Bilirubin (Negative) Urine Urobilinogen (<2.0) mg/dL Leukocyte Esterase Rfl (Negative) PATRIC/UL Urine RBC (0-2) /hpf Urine WBC (0-3) /hpf Ur Squamous Epith Cells (Few) /hpf Urine Bacteria /hpf Urine Casts Hyaline Casts (None) /lpf <Cammy Vazquez PA-C - Last Filed: 06/22/24 23:41> Imaging Data Radiologist's impression: ITS Impressions Chest X-Ray 06/22/24 17:38 IMPRESSION: 1. Mild pulmonary edema. 2. Cardiomegaly. <Stephanie Logan PA-C - Last Filed: 06/27/24 18:31> Critical Care Time Critical Care Time Critical Care Time: No <STACIA Maya Last Filed: 06/27/24 18:31> Discharge Plan Discharge Clinical Impression: Elevated troponin, Hyponatremia Pulmonary edema Qualifiers: Chronicity: chronic Qualified Code(s): J81.1 - Chronic pulmonary edema <STACIA Maya Last Filed: 06/27/24 18:31> Patient Disposition: Home, Self-Care <Stephanie Logan PA-C - Last Filed: 06/27/24 18:31> Condition: Stable <Stephanie Logan PA-C - Last Filed: 06/27/24 18:31> Instructions: Pulmonary Edema (ED), High Troponin Levels (ED) <Stephanie Logna PA-C - Last Filed: 06/27/24 18:31> Additional Instructions: Follow-up with your merchandiser retail representative tomorrow. Take her medications as directed. Return to the emergency department if you develop chest pain, increased difficulty breathing, fever or other concerning symptoms. <Stephanie Logan PA-C - Last Filed: 06/27/24 18:31> Patient Language: Maltese <Stephanie Logan PA-C - Last Filed: 06/27/24 18:31> Prescriptions: No Action ferrous sulfate 325 mg (65 mg iron) tablet 325 mg PO DAILY Entresto 49-51 mg tablet 1 tablet PO Q12H topiramate 50 mg tablet 50 mg PO .COMPLEX Rx Instructions: 50 mg orally take 2 tabs weekly or as needed carvedilol [Coreg] 6.25 mg tablet 6.25 mg PO Q12H venlafaxine 150 mg capsule,extended release 24hr 150 mg PO DAILY pantoprazole 40 mg tablet,delayed release (DR/EC) 40 mg PO DAILY dapagliflozin propanediol [Farxiga] 10 mg tablet 5 mg PO DAILY potassium chloride 20 mEq tablet extended release 20 meq PO 3XW Rx Instructions: Takes on Thu, Wed, Thu warfarin 5 mg tablet 5 mg USEASDIRECTD Rx Instructions: 5mg on Thursday and Thursday; 2.5mg , Thu, , Thu, Sun meloxicam 15 mg tablet 15 mg PO EVERY OTHER DAY lorazepam 1 mg tablet 1 mg PO BID PRN (Reason: Anxiety) docusate sodium 100 mg Capsule 100 mg PO DAILY Qty: 30 0RF albuterol sulfate 90 mcg/actuation HFA aerosol inhaler 4 puff INHALATION Q4-5H PRN (Reason: Shortness Of Breath) Qty: 6.7 0RF loratadine [Allergy Relief (loratadine)] 10 mg tablet 10 mg PO QHS Qty: 30 0RF furosemide 40 mg tablet 40 mg PO 3XW Rx Instructions: Takes on Thursday, Thursday, and Thursday hydrocodone-acetaminophen 5-325 mg tablet 1 tablet PO BID PRN (Reason: Pain) Qty: 20 0RF <Stephanie Logan PA-C - Last Filed: 06/27/24 18:31> Follow-up/Referrals: Teague,Shaun Allan APRN [Non-Staff] - <Stephanie Logan PA-C - Last Filed: 06/27/24 18:31>
--- NOTE | 2024-06-22 17:17 | ECG_ITS ---
Test Date: 2024-06-22 17:27:56 Measurements Intervals [place] Rate: 85 P: 57 RI: 144 QRS: 199 QRSD: 167 T: 15 QT: 475 QTc: 568 Interpretive Statements ELECTRONIC VENTRICULAR PACEMAKER ABNORMAL RHYTHM ECG Compared to ECG 06/07/2024 11:33:50 Supraventricular tachycardia no longer present Ventricular premature complex(es) no longer present Intraventricular conduction delay no longer present T-wave abnormality no longer present Possible ischemia no longer present Electronically Signed On 06-22-2024 19:03:28 OIL DEVELOPER by Santo Bradley
[2024-06-22 19:05] VITALS: BP 121/96; PULSE 86; RESP 17; O2SAT 99
[2024-06-22 19:10] LABS: Basophils Absolute Auto 0.1 K/mm3 (0.0-0.1); Basophils Percent Auto 1.5 % (0.2-1.2); Eosinophils Percent Auto 0.3 % (0-4.4); Hemoglobin 13.2 g/dL (14.0-18.0); Immature Granulocyte Absolute 0.03 K/mm3 (0.00-0.031); Immature Granulocyte Percent A 0.4 % (0-0.5); Lymphocytes Absolute Auto 0.97 K/mm3 (0.9-3.2); Lymphocytes Percent Auto 14.3 % (18.3-44.2); Mean Corpuscular HGB Conc 32.2 g/dl (32-36); Mean Corpuscular Hemoglobin 31.4 pg (26-34); Mean Corpuscular Volume 97.6 fl (80-100); Mean Platelet Volume 10.3 fl (7.4-10.4); Monocytes Percent Auto 14.9 % (2.6-8.5); Neutrophils Absolute Auto 4.6 K/mm3 (1.3-6.7); Neutrophils Percent Auto 68.6 % (45.5-73.1); Platelet Count Result 192 k/mm3 (150-375); Red Cell Distribution Width 14.3 % (11.5-14.5); White Blood Count 6.8 K/mm3 (4.5-10.0)
[2024-06-22 19:24] LABS: Alanine Aminotransferase 45 U/L (6-50); Albumin Level 4.6 g/dL (3.5-5.1); Alkaline Phosphatase 127 U/L (38-126); Anion Gap 11 mmol/L (4-12); Aspartate Amino Transferase 65 U/L (17-59); Bilirubin,Total 1.8 mg/dL (0.2-1.3); Blood Urea Nitrogen 39 mg/dL (9-20); Carbon Dioxide 19 mmol/L (22-30); Chloride 98 mmol/L (98-107); Estimated CRCL calculation 27 ml/min; Estimated Glomerular Filt Rate 29; Glucose 103 mg/dL (65-110); Lipase 58 U/L (23-300); Potassium 5.3 mmol/L (3.4-5.0); Sodium 128 mmol/L (137-145)
[2024-06-22 19:34] LABS: INR 1.9; Prothrombin Time 22.4 Seconds (11.1-14.7)
[2024-06-22 19:35] LABS: Partial Thromboplastin Time 45.2 Seconds (22.3-36.8)
[2024-06-22 19:37] LABS: NT Pro B Type Natriuretic Pept 29300 pg/mL (19.9-100)
[2024-06-22 20:11] LABS: Add Urine Microscopic? YES; Appearance Urine Clear (Clear); Bacteria Urine None Seen /hpf; Bilirubin Urine Negative (Negative); Blood Urine Negative (Negative); Color Urine Yellow (Yellow); Glucose Urine UA 2+ mg/dL (Negative); Hyaline Casts Urine Present /lpf; Ketones Urine Negative (Negative); Leukocyte Esterase Ur Trace LEU/UL (Negative); Nitrate Urine Negative (Negative); Protein Urine Trace mg/dL (Negative); RBC Urine 0-2 /hpf (0-2); Specific Grav Ur 1.018 (1.001-1.035); Squamous Epithelial Cell Urine None Seen /hpf (Few); WBC Urine 0-5 /hpf (0-3); pH Urine 5.5 (5.0-9.0)
[2024-06-22 20:46] VITALS: BP 122/7; PULSE 82; RESP 16; O2SAT 97
[2024-06-22] MEDS: BUMETANIDE INJ 1 MG/4 ML VIAL IV PUSH (20:47)
[2024-06-22] MEDS: ONDANSETRON INJ 4 MG/2 ML VIAL IV PUSH (20:47)
--- NOTE | 2024-06-22 21:53 | ECG_ITS ---
Test Date: 2024-06-22 22:31:43 Measurements Intervals [place] Rate: 84 P: 45 HI: 166 QRS: 189 QRSD: 158 T: 3 QT: 482 QTc: 572 Interpretive Statements ELECTRONIC VENTRICULAR PACEMAKER ABNORMAL RHYTHM ECG Compared to ECG 06/22/2024 17:27:56 No significant changes Electronically Signed On 06-23-2024 15:37:23 SECURITY CONTROL CENTER OPERATOR by Santo Bradley
[2024-06-22 22:44] VITALS: BP 91/70; PULSE 77; RESP 22; O2SAT 100
[2024-06-22 23:30] LABS: Troponin I 0.104 ng/mL (0.000-0.034)
[2024-06-22 23:36] VITALS: BP 117/85; PULSE 77; RESP 16; O2SAT 100
== END 2024-06-22 23:51 | disposition home or self-care (01) ==
PROVIDERS: Physician Assistant; Emergency Provider Physician Assistant
DX: J81.1 Chronic pulmonary edema (principal); E87.1 Hypo-osmolality and hyponatremia; R79.89 Other specified abnormal findings of blood chemistry; N18.9 Chronic kidney disease, unspecified; I48.91 Unspecified atrial fibrillation; I50.9 Heart failure, unspecified; M19.90 Unspecified osteoarthritis, unspecified site; F32.A Depression, unspecified; F41.9 Anxiety disorder, unspecified; F17.210 Nicotine dependence, cigarettes, uncomplicated; Z95.810 Presence of automatic (implantable) cardiac defibrillator; Z86.73 Personal history of transient ischemic attack (TIA), and cerebral infarction without residual deficits; Z79.01 Long term (current) use of anticoagulants; Z79.899 Other long term (current) drug therapy; I51.7 Cardiomegaly
CPT/HCPCS: 36415; 71046; 80053; 81001; 83690; 83880; 84484; 85025; 85610; 85730; 93005; 96374; 96375; 99284; J1939; J2405

== ENCOUNTER 2024-10-08 23:50 | Inpatient (IN) | payer MEDICARE, SELFPAY ==
--- NOTE | ~2024-10-08 | XR_ITS ---
CHEST RADIOGRAPH CLINICAL HISTORY: central line placement . COMPARISON: 10/09/2024 approximately 1 hour earlier TECHNIQUE: Single portable view of the chest. FINDINGS Interval placement of a right internal jugular central venous catheter with its tip projecting over t he cavoatrial junction. The left mid lung is partially obscured due to AICD generator. Wires project over the right atrium, coronary sinus and right ventricle. The remainder of the cardiomediastinal silhouette is otherwise unremarkable. The right lung is fully inflated. The lungs are clear. IMPRESSION: No focal infiltrate or effusion. Interval placement of a right internal jugular central venous catheter, in good position and ready fo r immediate use. Reviewed, dictated and finalized at location A. IMPRESSION: No focal infiltrate or effusion. Interval placement of a right internal jugular central venous catheter, in good position and ready for immediate use.
--- NOTE | ~2024-10-08 | XR_ITS ---
CHEST RADIOGRAPH CLINICAL HISTORY: weakness . COMPARISON: 06/22/2024 TECHNIQUE: Single portable view of the chest. FINDINGS The left mid lung is partially obscured due to AICD generator. Wires project over the right atrium, coronary sinus and right ventricle. The remainder of the cardiomediastinal silhouette is otherwise unremarkable. The lungs are clear. IMPRESSION: No focal infiltrate or effusion. Reviewed, dictated and finalized at location A.
--- NOTE | ~2024-10-08 | XR_ITS ---
XR chest 1V portable 10/14/2024 15:30 Indication: Hypoxia Procedure: AP portable chest Comparison: Comparison to multiple prior studies sequentially, with oldest reviewed study dated 06/12. Findings: Cardiomegaly with interstitial edema. Small pleural effusions. No pneumothorax. No acute os seous abnormality. Pacemaker leads in expected position. Impression: 1: Cardiomegaly with pulmonary edema. 2: Small pleural effusions. Reviewed, dictated and finalized at location A. Impression: 1: Cardiomegaly with pulmonary edema. 2: Small pleural effusions.
--- NOTE | ~2024-10-08 | XR_ITS ---
Portable chest x-ray Comparison: 10/09/2024 Clinical History: Shortness of breath Findings: Right IJ line remains in place. Possible minimal developing bibasilar pulmonary edema. Ca rdiomediastinal silhouette is stable, with pacemaker device. Bones and soft tissues are unremarkable. Impression: Possible minimal developing bibasilar pulmonary edema. Stable support line. Reviewed, dictated and finalized at location . Impression: Possible minimal developing bibasilar pulmonary edema. Stable support line.
--- NOTE | ~2024-10-08 | CT_ITS ---
CLINICAL INDICATION: Altered mental status, abdominal pain with diarrhea COMPARISON: 10/11/2023. TECHNIQUE: Multiple contiguous axial images of the chest, abdomen and pelvis were performed without t he administration of intravenous contrast The dose-length product (DLP) was 1052.78 mGy-cm. Automated exposure control and iterative reconstruction technique were employed. FINDINGS/OBSERVATIONS: LUNG:Bibasilar pleural thickening with dependent atelectasis. MEDIASTINUM: Limited evaluation without intravenous contrast. HEART: The heart is enlarged, without pericardial effusion. SOFT TISSUES OF THE CHEST: Unremarkable. Liver: The liver demonstrates homogeneous attenuation and is enlarged measuring 20 cm in longitudinal dimens ion. Trace perihepatic fluid. Gallbladder and biliary system: The gallbladder is distended, and otherwise unremarkable. Pancreas: Limited evaluation of the pancreas secondary to the lack of intravenous contrast. Spleen: The spleen demonstrates homogeneous attenuation and is enlarged measuring 13 cm in longitudinal dimen silke. Trace perisplenic fluid. Kidneys: Punctate nonobstructing stones detected within the bilateral kidneys, possibly vascular in o rigin. The remainder of the bilateral kidneys are otherwise unremarkable, without hydronephrosis. Adrenal glands: Unremarkable. Gastrointestinal tract: The colon is fluid filled, without fecal stasis. No small bowel dilatation or additional findings suggesting obstruction. Appendix: The appendix is not definitively visualized. However, no pericecal inflammatory change is identified suggest the presence of acute appendicitis. Vasculature: Densely calcified atherosclerotic disease. Lymph nodes: Limited evaluation without intravenous contrast. Pelvic structures: The bladder demonstrates markedly thickened rodriguez and surrounding inflammatory change. The prostate gland is enlarged. Body wall and musculoskeletal: Age appropriate degenerative disease within the lumbosacral spine. IMPRESSION: Trace perisplenic and perihepatic ascites. Findings suggesting cystitis. Findings consistent with patient's known diarrhea illness. Reviewed, dictated and finalized at location A.
--- NOTE | ~2024-10-08 | CT_ITS ---
History: Altered mental status PROCEDURE: CT head without contrast. COMPARISON: None TECHNIQUE: Axial imaging of the head performed from the skull base to the vertex without IV contrast. Sagittal a nd coronal reformations obtained. DLP: 681 mGy-cm FINDINGS: The ventricles are normal in size, shape and position. There is no mass, mass effect or midline shift. There is no abnormal extra-axial fluid collection or intracranial hemorrhage. Visualized paranasal sinuses are clear. The mastoid air cells are well aerated. No acute displaced fractures within the overlying cranium. Impression: No acute intracranial hemorrhage or suspicious mass effect. Reviewed, dictated and finalized at location A. Impression: No acute intracranial hemorrhage or suspicious mass effect.
[2024-10-08 23:52] VITALS: BP 78/59; PULSE 87; RESP 17; TEMP 36.5; O2SAT 100
[2024-10-09] VITALS (44 sets, daily range): BP systolic 64–130; BP diastolic 41–99; PULSE 83–108; RESP 15–35; TEMP 36.3–37.4; O2SAT 77–100; BMI 22.2
--- NOTE | 2024-10-09 00:13 | ECG_ITS ---
Test Date: 2024-10-09 00:44:20 Measurements Intervals [place] Rate: 92 P: 0 [place]: 0 QRS: -62 QRSD: 153 T: 108 QT: 424 QTc: 527 Interpretive Statements ELECTRONIC VENTRICULAR PACEMAKER. PREMATURE VENTRICULAR COMPLEX SEEN ATYPICAL ECG Electronically Signed On 10-09-2024 07:42:28 CDT by Dallin Drew M.D.
[2024-10-09 00:40] LABS: Hematocrit 31.4 % (42.0-52.0); Hemoglobin 10.1 g/dL (14.0-18.0); Mean Corpuscular HGB Conc 32.2 g/dl (32-36); Mean Corpuscular Hemoglobin 29.2 pg (26-34); Mean Corpuscular Volume 90.8 fl (80-100); Mean Platelet Volume 10.8 fl (7.4-10.4); Platelet Count Result 159 k/mm3 (150-375); Red Blood Count 3.46 M/mm3 (4.6-6.20); Red Cell Distribution Width 19.2 % (11.5-14.5); White Blood Count 24.1 K/mm3 (4.5-10.0)
--- OUTSIDE RECORDS SUMMARY | 2024-10-09 00:41 | XMS_ITS ---
Author Organization [facility] Address [address] [place] [address] Care Team Providers Care Cigarette Packer Name Role Phone Braulio Gastelum [phone] MEDICATIONS Medication SIG (Take, Route, Frequency, Duration) Notes Start Date End Date Status metOLazone 2.5 MG 1 tablet Orally thre e times a week M W F for 90 days 06/29/2024 03/26/2025 Active Calcitriol 0.25 MCG 1 capsule Orally Onc e a day for 90 day(s) 06/29/2024 03/26/2025 Active Ergocalciferol 1.25 MG (30593 UT) 1 capsule Orally Once a week for 90 day(s) 06/29/2024 03/26/2025 Active Potassium Chloride ER 20 MEQ 1 tablet with food Orally three times a week M W F for 90 days 06/29/2024 03/26/2025 Active Eliquis 2.5 MG 1 tablet Orally Twic e a day for 30 days 06/29/2024 Active Encounters Encounter Location Date Provider Diagnosis [facility] [place] [facility] [address] [place] [address] 06/29/2024 Braulio Gastelum PLAN OF TREATMENT Medication Medication Name Sig Start Date Stop Date Notes metOLazone 2.5 MG 1 tablet Orally thre e times a week M W F for 90 days 06/29/2024 03/26/2025 Calcitriol 0.25 MCG 1 capsule Orally Onc e a day for 90 day(s) 06/29/2024 03/26/2025 Ergocalciferol 1.25 MG (5000 0 UT) 1 capsule Orally Once a week for 90 day(s) 06/29/2024 03/26/2025 Potassium Chloride ER 20 MEQ 1 tablet wi th food Orally three times a week M W for 90 days 06/29/2024 03/26/2025 Eliquis 2.5 MG 1 tablet Orally Twic e a day for 30 days 06/29/2024 Progress Notes * VIVIEN LOPEZDOB:1950 ([age] yo M)Acc No.[id number]:06/29/2024 Patient: VIVIEN LOPEZ :1950 Age:74 Y Sex:Male Address:[address] [place] [address] [address], [facility] [address] * Refills Start Eliquis Tablet, 2.5 MG, Orally, 60 Tablet, 1 tablet, Twice a day, 30 days, Refills=3 Start metOLazone Tablet, 2.5 MG, Orally, 90, 1 tablet, three times a week , 90 days, Refills=2 Start Ergocalciferol Capsule, 1.25 MG (55452 UT), Orally, 13, 1 capsule, Once a week, 90 day(s), Refills=2 Start Calcitriol Capsule, 0.25 MCG, Orally, 90 Capsule, 1 capsule, Once a day, 90 day(s), Refills=2 Start Potassium Chloride ER Tablet Extended Release, 20 MEQ, Orally, 180 Tablet, 1 tablet with food, three times a week , 90 days, Refills=2 * true * Date:
--- OUTSIDE RECORDS SUMMARY | 2024-10-09 00:41 | XMS_ITS ---
Author Organization [facility] Address [address] [facility] [facility] [address] [facility] [address] [place] [address] Care Team Providers Care Pipe Machine Operator Name Role Phone Nirav Braulio Unavailable [phone] Encounters Encounter Location Date Provider Diagnosis [place] [facility] [address] [facility] [address] [place] [address] 07/20/2024 Braulio Gastelum PLAN OF TREATMENT No Information Progress Notes * VIVIEN LOPEZDOB:1950 ([age] yo M)Acc No.[id number]:07/20/2024 Progress Notes Patient: VIVIEN LOPEZ Provider: MD ESTEFANY, Randy.Marty.C.P, F.A.S.N. :1950 Age:74 Y Sex:Male Date:07/20/2024 Address:[facility] [address], [place] [address] Subjective: * Chief Complaints: * * Medical History: Objective: Assessment: Plan: * Treatment: * Billing Information: * Visit Code: * Procedure Codes: * Sign off status: Pending * Provider: MD ESTEFANY, Randy.Marty.C.P, F.A.S.N. Date: 07/20/2024
--- OUTSIDE RECORDS SUMMARY | 2024-10-09 00:41 | XMS_ITS ---
Author Organization [facility] [employer] [facility] Address [address] [facility] [address] [facility] [address] [place] [address] Care Team Providers Care Ultrasound Spec Name Role Phone JULIO C [employer] BAKER-C, MOISÉS Primary Care Provider Denice vailaJyoti Carroll Unavailable [phone] REASON FOR VISIT Hospital-Lorazepam Medications Medication SIG (Take, Route, Fr equency, Duration) Notes Start Date End Date Status LORazepam 1 MG take 1 tablet Oral twice a day for 30 days as needed for anxiety/panic attacks 08/10/2024 Active Social History Sex Assigned At : Social History Observation Description Sex Assigned At Male Encounters En[facility] [address] [facility] [address] [place] [address] 08/10/2024 Jyoti Colmenares Panic disorder [episodic paroxysmal anxiety] without agoraphobia F41.0 Assessments Encounter Date Diagnosis (ICD Code) Assessment Notes Treatment Notes Treatment Clinical Notes Section Notes 08/10/2024 Panic disorder [episodic paroxysmal anxiety] without agoraphobia (ICD-10 - F41.0) Plan Of Treatment Medication Medication Name Sig Start Date Stop Date Notes LORazepam 1 MG take 1 tablet Oral twice a day for 30 days 08/10/2024 Progress Notes * VIVIEN LOPEZ PDOB:1950 (74 yo M)Acc No.[id number]:08/10/2024 Patient: VIVIEN MONSALVE :1950 A ge:74 Y S ex:Male Address:[address] [place] [address], [address], [place], [address] * Refills Refill LORazepam Tablet, 1 MG, Oral, 60, take 1 tablet, twice a day, 30 days, Refills=0 * true * Date: Generated for Nya galindo/Jozef/Blanche on: 0 10/09/2024 12:41 AM CDT
--- OUTSIDE RECORDS SUMMARY | 2024-10-09 00:42 | XMS_ITS ---
Author Organization [facility] [employer] [facility] Address [address] [place] [address] [address] Care Team Providers Care Size Roller Operator Name Role Phone JULIO C GREGGP-C, MOISÉS Primary Care Provider Denice vailaJyoti Carroll Unavailable [phone] Social History Sex Assigned At : Social History Observation Description Sex Assigned At Male Encounters Encounter Location Date Provider Diagnosis [facility] [address] [address] 08/05/2024 Jyoti Colmenares Plan Of Treatment No Information Progress Notes * VIVIEN LOPEZ PDOB:1950 (74 yo M)Acc No.[id number]:08/05/2024 Patient: VIVIEN MONSALVE Provider: SADAF FINNEY :1950 A ge:74 Y S ex:Male Date:08/05/2024 Address:[address] [place] [address], [address], [facility] Pcp:MOISÉS VILLA-C Subjective: * Chief Complaints: * * Medical History: Objective: * Vitals: Assessment: Plan: * Treatment: * Procedure Codes: N S NO SHOW * Billing Information: * Visit Code: * Procedure Codes: NS NO SHOW. * USTER Sign off status: Completed true * Provider: SADAF FINNEY Date: 0 08/05/2024 Generated for Nya galindo/Jozef/Yenniitting on: 0 10/09/2024 12:42 AM CDT
--- OUTSIDE RECORDS SUMMARY | 2024-10-09 00:42 | XMS_ITS | Patient Health Record ---
Author Organization [facility] Address [address] [place] [address] Care Team Providers Care Legal Research Analyst Name Role Phone Braulio Gastelum Unavailable [phone] REASON FOR REFERRAL No Information MEDICATIONS Medication SIG (Take, Route, Frequency, Duration) Notes Start Date End Date Status metOLazone 2.5 MG 1 tablet Orally thre e times a week for 90 days 06/29/2024 03/26/2025 Active Calcitriol 0.25 MCG 1 capsule Orally Onc e a day for 90 day(s) 06/29/2024 03/26/2025 Active Ergocalciferol 1.25 MG (44225 UT) 1 capsule Orally Once a week for 90 day(s) 06/29/2024 03/26/2025 Active Potassium Chloride ER 20 MEQ 1 tablet with food Orally three times a week for 90 days 06/29/2024 03/26/2025 Active Eliquis 2.5 MG 1 tablet Orally Twic e a day for 30 days 06/29/2024 Active PROBLEMS Problem Type ICD Code Onset Dates Problem Status W/U Status Risk SNOMED Code Notes Problem Major depressive disorder, single episode, unspecified (F32.9) Active confirmed Major depressio n, single episode (16522192) Problem Essential (primary) hypertension (I10) Active confirmed Essential hypertension (35242831) Problem Chronic systolic (congestive) heart failure (I50.22) Active confirmed Chronic systoli c heart failure (271765230) Problem Renal osteodystrophy (N25.0) Active confirmed Renal osteodystrophy (17924099) Problem Hyperlipidemia, unspecified (E78.5) Active confirmed Hyperlipidemia (55361818) Problem Other heart failure (I50.89) Active confirmed Heart failu re (46946646) Problem Stage 3 chronic kidney disease (N18.30) Active confirmed Chronic kidney disease stage 3 (disorder) (042840017) Problem CAD (coronary artery disease) (I25.10) Active confirmed Coronary artery disease (53705113) Encounters Encounter Location Date Provider Diagnosis [facility] [address] [place] [address] 06/23/2024 Braulio Gastelum Chronic kidney disea se, stage 3 unspecified N18.30 ; Chronic systolic (congestive) heart failure I50.22 ; CAD (coronary artery disease) I25.10 ; Renal osteodystrophy N25.0 and Essential (primary) hypertension I10 [place] [facility] [address] [facility] [address] [place] [address] 06/29/2024 Braulio Gastelum Stage 3 chronic kidn ey disease N18.30 ; Other heart failure I50.89 ; Hyperlipidemia, unspecified E78.5 and Major depressive disorder, single episode, unspecified F32.9 [place] [facility] [address] [facility] [address] [place] [address] 07/20/2024 Braulio Gastelum [facility] [place] [facility] [address] [place] [address] 06/29/2024 Braulio Gastelum ASSESSMENTS Encounter Date Diagnosis Assessment Notes Treatment Notes Treatment Clinical Notes Section Notes 06/23/2024 Chronic systolic (congestive) heart failure (ICD-10 - I50.22) 06/23/2024 Chronic kidney disease, stage 3 unspecified (ICD-10 - N18.30) 06/29/2024 Other heart failure (ICD-10 - I50.89) 06/29/2024 Stage 3 chronic kidney disease (ICD-10 - N18.30) 06/29/2024 Hyperlipidemia, unspecified (ICD-10 - E78.5) 06/23/2024 CAD (coronary artery disease) (ICD-10 - I25.10) 06/29/2024 Major depressive disorder, single episode, unspecified (ICD-10 - F32.9) 06/23/2024 Renal osteodystrophy (ICD-10 - N25.0) 06/23/2024 Essential (primary) hypertension (ICD-10 - I10) PLAN OF TREATMENT No Information
--- OUTSIDE RECORDS SUMMARY | 2024-10-09 00:42 | XMS_ITS | Clinical Summary ---
Author Organization [facility] Address [address] [place] [address] Care Team Providers Care Account Development Representative Name Role Phone Woody Maradiaga NP Primary Care Provider [phone] Allergies Active Allergy Reactions Criticality Noted Date Comments Grass Pollen Sneezing High 04/10/2018 Medications rosuvastatin (CRESTOR) 20 mg tablet Take 1 tablet (20 mg total) by mouth daily 2 Active carvediloL (COREG) 3.125 mg tablet Take 1 tablet (3.125 mg total) by mouth 2 (two) times a day 2 Active LORazepam (ATIVAN) 1 mg tablet Take 1 tablet (1 mg total) by mouth 2 (two) times a day as needed 2 Active venlafaxine XR (EFFEXOR-XR) 75 mg 24 hr capsule Take 3 capsules (225 mg total) by mouth daily Active CAPTOPRIL ORAL Take 25 mg by mouth early breastfeeding care specialist before breakfast Active pantoprazole DR (PROTONIX) 20 mg EC tablet Take 2 tablets (40 mg total) by mouth daily Active spironolactone (ALDACTONE) 25 mg tablet Take 1 tablet (25 mg total) by mouth daily Active topiramate (TOPAMAX) 50 mg tablet Take 1 tablet (50 mg total) by mouth as needed Active warfarin (COUMADIN) 5 mg tablet Take 1 tablet (5 mg total) by mouth 2 (two) times a week 30 tablet 1 2 Active warfarin (COUMADIN) 2.5 mg tablet Take 1 tablet (2.5 mg total) by mouth 5 (five) times a week 30 tablet 1 2 Active senna-docusate (PERICOLACE) 8.6-50 mgIndications:c onstipation Take 2 tablets by mouth 2 (two) times a day 30 tablet 1 2 Active methylPREDNISol one (MEDROL DOSEPACK) 4 mg DosepackIndicat ions:Cervical pain (neck) Take as directed on package 1 packet 2 Active cyclobenzaprine (FLEXERIL) 5 mg tablet Take 1 tablet (5 mg total) by mouth every 8 (eight) hours as needed for muscle spasms 90 tablet 1 3 Active HYDROcodone-jasiel taminophen (NORCO) 10-325 mg per tabletIndicatio ns:Pain Take 1 tablet by mouth every 4 (four) hours as needed for pain (Max 6 tablets/day) 42 tablet 3 Active Active Problems Problem Noted Date Diagnosed Date Status post cervical spinal fusion 07/09/2022 Assessment & Plan (07/09/2022 11:31 AM LAWN SERVICE WORKER): PLAN: - Start physical therapy to work on range of motion exercises and upper body strengthening exercises. - Renew medications: Will call in a Medrol Dosepak to help with right low back pain. Renewed acetaminophen 500 mg 1 tablet every 6 hours as needed for pain. Will also have Dr. Avila renew his oxycodone 5 mg. Patient was informed that we will continue to wean him down office pain medication as once he reaches 3 months postop we will no longer fill. - Discontinue [place] collar. Wear soft collar for comfort as needed. 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 Preop MRI CD return to the patient Low back pain, non-specific 07/09/2022 Assessment & Plan (07/09/2022 11:32 AM LAWN SERVICE WORKER): Patient has aggravation of his right low back pain. He has a previous history with chronic low back pain. Will start a Medrol Dosepak to help with inflammatory issues. In addition to this he should continue with heat therapy, muscle creams, muscle relaxants, rest. Upon his next office visit we will also obtain lumbar spine four view x-rays to assess this further. Stenosis of cervical spine with myelopathy 05/30 Cervical pain (neck) 03/27/2022 Assessment & Plan (03/27/2022 11:37 AM CDT): Mr. Zamarripa has cervical pain. Cervical spine films show some spondylosis at multiple levels, worst at C5-6 and C6-7. The patient will send a copy of his CT myelogram for my review. The report shows multilevel foraminal stenosis and some moderate canal stenosis at C5-6. We will speak to him about the results and further recommendations once the actual films have been reviewed. Cervicogenic headache 01/02/2022 Spondylosis of cervical joint without myelopathy 10/22/2021 Cervical spinal stenosis 10/22/2021 Musculoskeletal disorder and symptoms referable to neck 10/22/2021 Dislocation of finger 04/09/2018 Overview (04/10/2018): Added automatically from request for surgery [id number] Immunizations Immunization Administration Dates Next Due Tdap 04/10/2018 Surgical History Surgery Date Site/Laterality Comments COLON SURGERY CARDIAC PACEMAKER PLACEMENT 07/13/2012 - 07/12/2013 Left pacer/defib; pt unsure of brand Medical History Medical History Date Comments HTN (hypertension) GERD (gastroesophageal reflux disease) Depression AICD (automatic cardioverter/defibrillator) pres ent A-fib (HCC) Family History Relation Name Status Comments Father Mother Social History Tobacco Use Types Packs/Day Years Used Date Smoking Tobacco: Every Day Cigarettes Smokeless Tobacco: Never Tobacco Cessation:Ready to Q uit: Not Asked; Counseling Given: Not Answered Alcohol Use Standard Drinks/Week Comments Yes 7 (1 standard drink = 0.6 oz pur e alcohol) AUDIT-C Answer Date Recorded Q1: How often do you have a drink containing alc ohol? 2-4 times a month 05/30/2022 Q2: How many drinks containi ng alcohol do you have on a typical day when you are drinking? 1 or 2 05/30/2022 Q3: How often do you have si x or more drinks on one occasion? Never 05/30/2022 Sex and Gender Information Value Date Recorded Sex Assigned at Not on file Legal Sex Male 8:27 PM LAWN SERVICE WORKER Gender Identity Not on file Sexual Orientation Not on file Obstetrics History Last Filed Vital Signs Vital Sign Reading Time Taken Comments Blood Pressure 150/66 05/31/2022 8:00 AM LAWN SERVICE WORKER Pulse 80 05/31/2022 8:00 AM LAWN SERVICE WORKER Temperature 36.2 C (97.2 F) 05/31/2022 8:00 AM LAWN SERVICE WORKER Respiratory Rate 18 05/31/2022 8:00 AM LAWN SERVICE WORKER Oxygen Saturation 100% 05/31/2022 8:00 AM LAWN SERVICE WORKER Inhaled Oxygen Concentration - - Weight 85.8 kg (189 lb 2.5 oz) 05/30/2022 1:02 P M LAWN SERVICE WORKER Height 177.8 cm (5' 10 ) 05/31/2022 10:08 AM LAWN SERVICE WORKER Body Mass Index 27.14 05/30/2022 1:02 PM LAWN SERVICE WORKER Plan of Treatment Health Maintenance Due Date Last Done Comments Colon Cancer Screening-Colonoscopy 1950 Depression Screening 1950 Hepatitis C Screening 1950 Hepatitis B Screening 1969 Zoster Vaccine (1 of 2) 2001 Abdominal Aortic Aneurysm (A AA) Screen 2016 Well Visit 65+ 2016 Fall Risk Assessment 05/31/2023 05/31/2022 Covid-19 Vaccine (3 - 2023-2 5 season) 2024 05/03/2021, 09/18/2020 Influenza Vaccine (#1) 2024 , 03/29/2020, 04/23/2019, Additional history exists DTaP/Tdap/Td Vaccine (2 - Td or Tdap) 04/10/2028 04/10/2018 Pneumococcal vaccine 65+ Completed 021, 05/12/2018, 04/14/2014 Medical Devices Implanted Type Area Workplace Relations Adviser Device Identifier Shelf Expiration Date Model / Serial / Lot Icd ICD Left: Chest [employer] [id number] Interbody Cervical Allograft [id number] 7deg Puros-S2 - [id number] - [id number] Implanted:Qty: 1 on 05/30/2022 by Richie Avila MD at [facility] N/A: Spine Cervical [employer] 12/10/2022 [id number] / [id number] / [id number] [employer] 4mm 16mm Fix Screw Bone [id number] - [id number] Implanted:Qty: 4 on 05/30/2022 by Richie Avila MD at [facility] N/A: Spine Cervical [employer] 05/30/2022 [id number] / / [employer] Maxan 10mm Level 1 Spine Cervical Anterior Plate Bone Titanium [id number] - [id number] Implanted:Qty: 1 on 05/30/2022 by Richie Avila MD at [facility] N/A: Spine Cervical [employer] 05/30/2022 [id number] / / Insurance T MEDICARE GOLD [place] MEDICARE GOLD A[employer] MEDICARE GOLD Advance Directives For more information, please contact: [phone] * Full Code (Latest Code Status on File) Date Activated Date Inactivated Comments 05/30/2022 4:55 PM 05/31/2022 6:51 PM Care Teams Account Development Representative Relationship Specialty Start Date End Date Woody Maradiaga NP PCP - General Internal Medicine 11/06/21
--- OUTSIDE RECORDS SUMMARY | 2024-10-09 00:42 | XMS_ITS | Referral Summary ---
Author Organization [facility] Healthcare Address [address] [place] [address] Care Team Providers Care Crew Clerk Name Role Phone Woody Maradiaga NP Primary Care Provider [phone] Allergies Active Allergy Reactions Criticality Noted Date [...] CAPTOPRIL ORAL Take 25 mg by mouth turnstile attendant before breakfast Active pantoprazole DR (PROTONIX) 20 [...] 07/09/2022 Assessment & Plan (07/09/2022 11:31 AM ELEVATOR ERECTOR): PLAN: - Start physical therapy to work [...] we will no longer fill. - Discontinue [place] collar. Wear soft collar for comfort as needed. 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 Preop MRI CD return to the patient Low back pain, non-specific 07/09/2022 Assessment & Plan (07/09/2022 11:32 AM ELEVATOR ERECTOR): Patient has aggravation of his right low [...] (04/10/2018): Added automatically from request for surgery [id number] Immunizations Immunization Administration Dates Next Due Tdap 04/10/2018 Social History Tobacco Use Types Packs/Day Years [...] on file Legal Sex Male 8:27 PM ELEVATOR ERECTOR Gender Identity Not on file Sexual Orientation Not on file Last Filed Vital Signs Vital Sign Reading Time Taken Comments Blood Pressure 150/66 05/31/2022 8:00 AM ELEVATOR ERECTOR Pulse 80 05/31/2022 8:00 AM ELEVATOR ERECTOR Temperature 36.2 C (97.2 F) 05/31/2022 8:00 AM ELEVATOR ERECTOR Respiratory Rate 18 05/31/2022 8:00 AM ELEVATOR ERECTOR Oxygen Saturation 100% 05/31/2022 8:00 AM ELEVATOR ERECTOR Inhaled Oxygen Concentration - - Weight 85.8 kg (189 lb 2.5 oz) 05/30/2022 1:02 P M ELEVATOR ERECTOR Height 177.8 cm (5' 10 ) 05/31/2022 10:08 AM ELEVATOR ERECTOR Body Mass Index 27.14 05/30/2022 1:02 PM ELEVATOR ERECTOR Plan of Treatment Not on file Medical Devices Implanted Type Area Soft Mud Molder Device Identifier Shelf Expiration Date Model / Serial / Lot Icd ICD Left: Chest [employer] [id number] Interbody Cervical Allograft [id number] 7deg Puros-S2 - [id number] - [id number] Implanted:Qty: 1 on 05/30/2022 by Richie Avila MD at [facility] N/A: Spine Cervical [employer] 12/10/2022 [id number] 21 / [id number] / [id number] [employer] 4mm 16mm Fix Screw Bone [id number] - [id number] Implanted:Qty: 4 on 05/30/2022 by Richie Avila MD at [facility] N/A: Spine Cervical [employer] 05/30/2022 [id number] / / [employer] Maxan 10mm Level 1 Spine Cervical Anterior Plate Bone Titanium [id number] - [id number] Implanted:Qty: 1 on 05/30/2022 by Richie Avila MD at [facility] N/A: Spine Cervical [employer] 05/30/2022 [id number] / / Insurance [address] [place] [address] [employer] MEDICARE GOLD A[employer] MEDICARE GOLD A[employer] MEDICARE GOLD Advance Directives For more information, please contact: [phone] * Full Code (Latest Code Status on File) Date Activated Date Inactivated Comments 05/30/2022 4:55 PM 05/31/2022 6:51 PM Care Teams Crew Clerk Relationship Specialty Start Date End Date Woody Maradiaga NP PCP - General Internal Medicine 11/06/21
--- OUTSIDE RECORDS SUMMARY | 2024-10-09 00:43 | XMS_ITS | Data Portability ---
Author Organization [facility] [employer], Main Office Address [address] [place] [address] Assessment No assessment recorded. Plan of Treatment Reminders Order Date Submit Date Provider Last Modified By Organization Details Last Modified Time Details Appointments None recorded. Lab None recorded. Referral None recorded. Procedures None recorded. Surgeries None recorded. Imaging None recorded. Medication Orders cyclobenzap rine 10 mg tablet 2023 024 [facility] #[id number], [address] [place], [place], [id number], 4 15:22:24 metronidazo le 500 mg tablet 2023 024 [facility] #32394, [address] [place], [place], [id number], 4 15:17:26 ondansetron 8 mg disintegrat ing tablet 2023 024 [facility] #16134, [address] [place], [place], [id number], 4 15:17:25 Cymbalta 30 mg capsule,del ayed release 2023 024 [facility] #18688, [address] [place], [place], [id number], 4 15:17:25 meloxicam 15 mg tablet 2022 023 [email or web address] [facility] #52580, [address], [place], [place], [id number], 4 14:59:51 albuterol sulfate HFA 90 mcg/actuati on aerosol inhaler 2022 023 [facility] #[id number], [address], [place], [place], [id number], 3 14:47:26 meloxicam 7.5 mg tablet [email or web address] [facility], [address] [place], [address], 4 15:43:54 lidocaine 5 % topical patch [email or web address] [facility], [address] [place] [address], [address], 3 14:16:19 Patient TargetsNo targets recorded. Patient InstructionsNo instructions recorded. Reason for Referral None Reported. Results Created Date Observation Date Name Description Value Unit Range Abnormal Flag Note LastModifiedBy Organization Detail LastModifiedTime 09/11/1909/10/2023 , [facility] ardio gram No observ ation record ed. [facility] [address], [place], [address], 09/17/2023 14:28:59 10/10/19 24 10/10/2023 XR, chest , 2 view No observ ation record ed. [place] [address] [facility] [address], [place], [address], 10/19/2023 17:22:56 10/16/19 24 10/11/2023 CT, abdom en + pelvi s, w/o contr ast No observ ation record ed. [place] [address] [facility] [address], [place], [address], 10/19/2023 17:22:29 10/16/19 24 10/10/2023 US, renal No observ ation record ed. [email or web address] [place] [id number] [facility] [address], [place], [address], 10/19/2023 17:23:14 10/19/19 24 10/12/2023 US, echoc ardio gram No observ ation record ed. [email or web address] [place] [address], [place], [address], 10/19/2023 17:21:20 04/22/20 24 04/22/2024 CT, lumba r spine , w/o contr ast No observ ation record ed. [email or web address] [address], [place], [address], 04/26/2024 11:52:11 05/16/20 24 05/16/2024 XR, chest , 2 view No observ ation record ed. [email or web address] [address], [place], [address], 05/17/2024 08:39:21 06/07/20 24 06/07/2024 XR, chest , 2 view No observ ation record ed. [email or web address] [place] [address] [place] [address] [address], [place], [address], 06/07/2024 22:54:36 06/08/20 24 06/08/2024 XR, chest , 2 view No observ ation record ed. [address], [place], [address], 06/17/2024 13:40:29 06/22/20 24 06/22/2024 XR, chest , 2 view No observ ation record ed. [email or web address] [address], [place], [address], 06/23/2024 11:22:41 Result Notes None recorded. Problems Name Problem SNOMED Code Status Onset Date Resolution Date Notes Provider Name and Address Organization Details Recorded Time Tobacco user 264936789 Active Not Available [employer] 3 09:16:41 Chronic back pain 066524401 Active Not Available [facility] 3 09:16:41 Serum creatinine above reference range 352831455 Active Not Available [facility] 3 09:16:41 Anxiety state 693122024 Active Not Available [facility] 3 09:16:41 [place] 96970176 Active Not Available [facility] 3 09:16:42 History of cerebrovas cular accident 147501720 Active 2020 Not Available [facility] 3 09:16:42 Hypertrigl yceridemia 670652199 Active Not Available [facility] 3 09:16:42 Bronchitis 81896360 Active Not Available [facility] 3 09:16:42 Acute ischemic enteritis 27625494 Active Not Available [facility] 3 09:16:42 Depressive disorder 71860847 Active Not Available [facility] 3 09:16:42 Upper respirator y infection 30098070 Active Not Available [facility] 3 09:16:42 Essential hypertensi on 76140054 Active Not Available [facility] 3 09:16:42 Chronic neck pain for greater than 3 months 7377199373908 03 Active 2021 Not Available [facility] 3 09:16:43 Cardiomyop athy 61589176 Active Not Available [facility] 3 09:16:43 Paresthesi a of lower extremity 385473219 Active 2022 ALLEN Ralph [address], [place], [address] , [employer] [facility] [employer] [facility] 3 15:50:33 Persistent cough 833369381 Active 2022 ALLEN Ralph [address], [place], [address] , [facility] [employer] [facility] 3 08:52:44 Anxiety 14676357 Active 2022 ALLEN Ralph [address], [address], [place], [address] , [employer] [facility] [employer] 3 08:53:32 Chronic neck pain 4438332507117 Active 2022 ALLEN Morales-C [address], [place], [address] , [facility] [employer] [facility] [employer] 3 16:42:58 Dyspnea 879321883 Active 2022 CRISTINO MoralesP-C [address], [place], [address] , [facility] [employer] [facility] [employer] [facility] 3 14:07:57 Panic attack 227307326 Active 2022 CRISTINO MoralesP-C [address], [place], [address] , [employer] [facility] [employer] [facility] 3 14:41:21 Asthma 413781474 Active 2022 CRISTINO MoralesP-C [address], [place], [address] , [employer] [facility] [employer] [facility] 3 14:30:27 Nocturnal dyspnea 957025234 Active 2022 CRISTINO MoralesP-C [address], [place], [address] , [employer] [facility] [employer] [facility] 3 14:34:29 Acute gastroente ritis 35311854 Active 2023 CRISTINO MoralesP-C [address], [place], [address] , [employer] [facility] [employer] [facility] 4 15:01:35 Problem Notes None recorded. Procedures Surgical History None recorded. Imaging Results Imaging Date Name Status LastModified by Organization Details LastModified Time 09/10/2023 US, echocardiogram completed [email or web address] [address], [place], [address], 09/17/2023 14:28:59 10/10/2023 XR, chest, 2 view completed [address], [place], [address], 10/19/2023 17:22:56 10/11/2023 CT, abdomen + pelvis, w/o contrast completed [address], [place], [address], 10/19/2023 17:22:29 10/10/2023 US, renal completed [place] [address], [place], [address], 10/19/2023 17:23:14 10/12/2023 US, echocardiogram completed [place] [address], [place], [address], 10/19/2023 17:21:20 04/22/2024 CT, lumbar spine, w/o contrast completed [email or web address] [place] [address], [place], [address], 04/26/2024 11:52:11 05/16/2024 XR, chest, 2 view completed [email or web address] [place] [address], [place], [address], 05/17/2024 08:39:21 06/07/2024 XR, chest, 2 view completed [address] Radiology [address] [place] [address] [address], [place], [address], 06/07/2024 22:54:36 06/08/2024 XR, chest, 2 view completed [address], [address], 06/17/2024 13:40:29 06/22/2024 XR, chest, 2 view completed [address], [address], 06/23/2024 11:22:41 Procedure Notes None recorded. Medical Equipment None Reported. Allergies No known drug allergies Medications Name Sig Start Date Stop Date Status Note LastModified by Organization Details LastModified Time carisopro dol 350 mg tablet TAKE ONE TABLET BY MOUTH THREE TIMES DAILY active Not Available Not Available No t Available cyclobenz aprine 10 mg tablet TAKE 1 TABLET BY MOUTH EVERY 8 HOURS NEEDED active Not Available Not Available No t Available amoxicill in 500 mg capsule Take 1 capsule 3 times a day by oral route for 10 days. active Not Available Not Available No t Available furosemid e 40 mg tablet TAKE 1 TABLET BY MOUTH EVERY DAY active Not Available Not Available No t Available atorvasta tin 40 mg tablet TK 1 T PO D active Not Available Not Available No t Available venlafaxi ne ER 37.5 mg capsule,e xtended release 24 hr TK 1 C PO QD 08/11 completed Not Available Not Available Not Available carvedilo l 6.25 mg tablet TAKE 1 TABLET BY MOUTH TWICE DAILY active Not Available Not Available No t Available venlafaxi ne ER 75 mg capsule,e xtended release 24 hr TAKE 1 CAPSULE BY MOUTH EVERY DAY IN THE MORNING 02/02 completed Not Available Not Available Not Available cefuroxim e axetil 250 mg tablet Take 1 tablet every 12 hours by oral route. active Not Available Not Available No t Available venlafaxi ne 75 mg tablet take 1 po qd 11/26 completed Not Available Not Available Not Available triamcino lone acetonide 0.5 % topical cream apply to affected areas two times a day 04/30 completed Not Available Not Available Not Available Pneumovax -23 25 mcg/0.5 mL injection solution 04/25 completed Not Available Not Available Not Available azithromy maciej 250 mg tablet TAKE 2 TABLETS (500 MG) BY ORAL ROUTE ONCE DAILY FOR 1 DAY THEN 1 TABLET (250 MG) BY ORAL ROUTE ONCE DAILY FOR 4 DAYS 06/17 completed Not Available Not Available Not Available tizanidin e 4 mg tablet TAKE 1 TABLET BY MOUTH EVERY 6 HOURS NEEDED 06/17 completed Not Available Not Available Not Available amiodaron e 200 mg tablet TK 1 T PO QD 04/11 completed Not Available Not Available Not Available benzonata te 200 mg capsule TAKE 1 CAPSULE BY MOUTH THREE TIMES A DAY DIRECTED FOR 10 DAYS 06/17 completed Not Available Not Available Not Available cephalexi n 250 mg capsule TAKE 1 CAPSULE BY MOUTH THREE TIMES DAILY 02/02 completed Not Available Not Available Not Available hydrocodo ne 5 mg-acetam inophen 325 mg tablet TAKE 1 TABLET BY MOUTH TWICE DAILY NEEDED FOR PAIN active Not Available Not Available No t Available meloxicam 15 mg tablet TAKE 1 TABLET BY MOUTH EVERY DAY active Not Available Not Available No t Available ondansetr on HCl 4 mg tablet TAKE 1 TABLET BY MOUTH EVERY 8 HOURS NEEDED FOR NAUSEA active Not Available Not Available No t Available prednison e 20 mg tablet TAKE 2 TABLETS BY MOUTH DAILY FOR 5 DAYS active Not Available Not Available No t Available venlafaxi ne ER 150 mg capsule,e xtended release 24 hr TAKE 1 CAPSULE BY MOUTH EVERY DAY active Not Available Not Available No t Available warfarin 2.5 mg tablet TAKE 1 TABLET BY MOUTH EVERY EVENING EXCEPT ON SAT TAKE 2 TABS (= 5MG) 06/09 completed Not Available Not Available Not Available penicilli n V potassium 500 mg tablet TAKE 1 TABLET BY MOUTH TWICE DAILY 02/02 completed Not Available Not Available Not Available topiramat e 25 mg tablet 10/18 completed Not Available Not Available Not Available meclizine 12.5 mg tablet Take 1-2 tabs TID prn vertigo 09/16 completed Not Available Not Available Not Available metronida zole 500 mg tablet TAKE 1 TABLET BY MOUTH EVERY 8 HOURS FOR 10 DAYS active Not Available Not Available No t Available hydroxyzi ne HCl 50 mg tablet TAKE 1 TABLET BY MOUTH TWICE DAILY NEEDED 04/15 completed Not Available Not Available Not Available sulfameth oxazole 800 mg-trimet hoprim 160 mg tablet TK 1 T PO BID 04/11 completed Not Available Not Available Not Available hydrocodo ne 10 mg-acetam inophen 325 mg tablet TAKE 1 TABLET BY MOUTH EVERY 4 HOURS NEEDED FOR PAIN. MAX 6 TABS/24 HOURS 09/16 completed Not Available Not Available Not Available acetamino phen 500 mg tablet TAKE 1 TABLET BY MOUTH EVERY 6 HOURS 02/02 completed Not Available Not Available Not Available spironola ctone 25 mg tablet TAKE 1 TABLET BY MOUTH EVERY DAY 02/02 completed Not Available Not Available Not Available ketorolac 30 mg/mL (1 mL) injection solution 1 ml x 1 2022 active Not Available Not Available Not Avai lable amoxicill in 500 mg tablet TK 1 T PO TID FOR 10 DAYS 06/17 completed Not Available Not Available Not Available carvedilo l 3.125 mg tablet TAKE 1 TABLET BY MOUTH TWICE DAILY 06/17 completed Not Available Not Available Not Available ondansetr on 8 mg disintegr ating tablet DISSOLVE 1 TABLET ON THE TONGUE TWICE DAILY active Not Available Not Available No t Available warfarin 4 mg tablet TK 1 T PO D WITH PETEY MEAL 10/18 completed Not Available Not Available Not Available ketorolac 10 mg tablet TAKE 1 TABLET BY MOUTH EVERY 6 HOURS NEEDED FOR 5 DAYS, START AFTER STEROIDS ARE COMPLETE D 04/15 completed Not Available Not Available Not Available pantopraz ole 20 mg tablet,de layed release TAKE ONE TABLET DAILY 10/18 completed Not Available Not Available Not Available meloxicam 7.5 mg tablet TAKE 1 TABLET BY MOUTH ONCE DAILY NEEDED 09/28 completed Not Available Not Available Not Available oxycodone -acetamin ophen 5 mg-325 mg tablet TAKE 1 TABLET BY MOUTH THREE TIMES DAILY FOR PAIN 02/02 completed Not Available Not Available Not Available alprazola m 0.5 mg tablet TAKE ONE TABLET BY MOUTH TWO TIMES A DAY NEEDED 05/18 completed Not Available Not Available Not Available amoxicill in 875 mg tablet active Not Available Not Available Not Available hydromorp yamilka 2 mg tablet TK 1 T PO Q 6 H PRN P 04/11 completed Not Available Not Available Not Available magnesium oxide 400 mg (241.3 mg magnesium ) tablet TK 1 T PO BID 11/20 completed Not Available Not Available Not Available lorazepam 0.5 mg tablet TAKE 1 TABLET BY MOUTH EVERY DAY NEEDED 06/17 completed Not Available Not Available Not Available methocarb jason 750 mg tablet TAKE 1 TABLET BY MOUTH THREE TIMES DAILY NEEDED FOR MUSCLE SPASM active Not Available Not Available No t Available captopril 12.5 mg tablet TAKE 1 TABLET BY MOUTH ONCE DAILY 09/16 completed Not Available Not Available Not Available benzonata te 100 mg capsule TAKE 1 CAPSULE BY MOUTH EVERY 8 HOURS NEEDED FOR COUGH AND CONGESTI ON 06/17 completed Not Available Not Available Not Available hydrocodo ne 7.5 mg-acetam inophen 325 mg tablet TAKE ONE TABLET 3 TIMES DAILY active Not Available Not Available No t Available cephalexi n 500 mg capsule active Not Available Not Available Not Available pantopraz ole 40 mg tablet,de layed release TAKE 1 TABLET BY MOUTH EVERY DAY active Not Available Not Available No t Available trazodone 150 mg tablet TAKE 1/2 (ONE-YUMIKO F) TABLET BY MOUTH ONCE DAILY AT BEDTIME 09/16 completed Not Available Not Available Not Available lisinopri l 10 mg tablet TAKE 1 TABLET BY MOUTH ONCE DAILY 02/02 completed Not Available Not Available Not Available lidocaine 5 % topical patch APPLY 1 PATCH BY TOPICAL ROUTE ONCE DAILY (MAY WEAR UP TO 12HOURS. ) 06/17 completed Not Available Not Available Not Available captopril 50 mg tablet TK 1 T PO BID 01/20 completed Not Available Not Available Not Available warfarin 5 mg tablet TAKE 1/2 TABLET BY MOUTH EVERY NIGHT. EXCEPT ON THURSDAY AND THURSDAY TAKE 1 TABLET active Not Available Not Available No t Available losartan 25 mg tablet TAKE 1 TABLET BY MOUTH DAILY active Not Available Not Available No t Available captopril 25 mg tablet TAKE 1 TABLET BY MOUTH EVERY DAY FOR 90 DAYS 02/02 completed Not Available Not Available Not Available nitroglyc jessica 0.4 mg sublingua l tablet DISSOLVE 1 TABLET UNDER THE TONGUE NEEDED FOR CHEST PAIN DIRECTED 02/02 completed Not Available Not Available Not Available docusate sodium 100 mg capsule TAKE 1 CAPSULE BY MOUTH DAILY active Not Available Not Available No t Available gabapenti n 300 mg capsule 1 po qhs x 7 days then 1 po bid x 7 days then 1 po tid thereaft er active Not Available Not Available No t Available sertralin e 25 mg tablet Take 1 tablet(s ) every day by oral route for 30 days. active Not Available Not Available No t Available buspirone 7.5 mg tablet TAKE 1 TABLET BY MOUTH TWICE A DAY DIRECTED 06/17 completed Not Available Not Available Not Available verapamil ER (SR) 240 mg tablet,ex tended release 1bid active Not Available Not Available Not Available hydrocodo ne 5 mg-acetam inophen 500 mg tablet active Not Available Not Available Not Available lorazepam 1 mg tablet TAKE 1 TABLET BY MOUTH TWICE DAILY NEEDED FOR ANXIETY/ PANIC ATTACKS active Not Available Not Available No t Available ibuprofen 600 mg tablet TAKE 1 TABLET BY MOUTH EVERY 6 HOURS WITH FOOD NEEDED 10/18 completed Not Available Not Available Not Available levofloxa maciej 500 mg tablet 04/25 completed Not Available Not Available Not Available levofloxa maciej 750 mg tablet TK 1 T PO D FOR 10 DAYS 01/20 completed Not Available Not Available Not Available zolpidem 10 mg tablet TK 1 T PO QHS 11/24 completed Not Available Not Available Not Available methylpre dnisolone 4 mg tablets in a dose pack FOLLOW PACKAGE DIRECTIO NS 02/02 completed Not Available Not Available Not Available albuterol sulfate HFA 90 mcg/actua tion aerosol inhaler INHALE 4 PUFFS BY MOUTH EVERY 4 TO 5 HOURS NEEDED FOR SHORTNES S OF BREATH active Not Available Not Available No t Available propranol ol 20 mg tablet TAKE 1 TABLET BY MOUTH THREE TIMES DAILY NEEDED 02/02 completed Not Available Not Available Not Available fluticaso ne propionat e 50 mcg/actua tion nasal spray,jono pension INHALE ONE SPRAY INTO EACH NOSTRIL ONCE DAILY 06/17 completed Not Available Not Available Not Available loratadin e 10 mg tablet TAKE 1 TABLET BY MOUTH EVERY DAY AT BEDTIME active Not Available Not Available No t Available naproxen 500 mg tablet active Not Available Not Available Not Available amoxicill in 875 mg-potass ium clavulana te 125 mg tablet TAKE 1 TABLET BY MOUTH TWICE DAILY 02/02 completed Not Available Not Available Not Available oxycodone 5 mg tablet TAKE 1 TABLET BY MOUTH EVERY 4 HOURS NEEDED FOR PAIN 09/16 completed Not Available Not Available Not Available hydroxyzi ne pamoate 25 mg capsule TAKE 1 CAPSULE BY MOUTH THREE TIMES A DAY NEEDED 06/17 completed Not Available Not Available Not Available enoxapari n 40 mg/0.4 mL subcutane ous syringe INJECT THE CONTENTS OF 1 PEN (40MG) UNDER THE SKIN DAILY FOR 5 DAYS BRIDGE TO COUMADIN 09/16 completed Not Available Not Available Not Available azithromy maciej 500 mg tablet TK 1 T PO QD 11/20 completed Not Available Not Available Not Available cyclobenz aprine 5 mg tablet TAKE 1 TABLET BY MOUTH EVERY 8 HOURS NEEDED FOR MUSCLE SPASMS. 09/16 completed Not Available Not Available Not Available moxifloxa maciej 0.5 % eye drops 10/18 completed Not Available Not Available Not Available rosuvasta tin 20 mg tablet TAKE 1 TABLET BY MOUTH ONCE DAILY 02/02 completed Not Available Not Available Not Available bupropion HCl XL 300 mg 24 hr tablet, extended release TK 1 T PO QD UTD 08/11 completed Not Available Not Available Not Available bupropion HCl XL 150 mg 24 hr tablet, extended release one tablet daily 11/24 completed Not Available Not Available Not Available Cialis 5 mg tablet Take 1 tablet every day by oral route. 11/26 completed Dispense Qty: 3. samples given Not Available Not Available Not Available topiramat e 50 mg tablet TAKE 1 TABLET BY MOUTH EVERY DAY AT NIGHT 02/02 completed Not Available Not Available Not Available duloxetin e 30 mg capsule,d elayed release TAKE 1 CAPSULE BY MOUTH EVERY DAY active Not Available Not Available No t Available fenofibra te 160 mg tablet Take 1 tablet every day by oral route for 30 days. active Not Available Not Available No t Available BiDil 20 mg-37.5 mg tablet 1/2 tab twice daily. active Not Available Not Available No t Available pregabali n 75 mg capsule TAKE 1 CAPSULE BY MOUTH TWICE DAILY 10/15 completed Not Available Not Available Not Available lisinopri l 02/02 completed Not Available Not Available Not Available aripipraz ole 2 mg tablet TAKE 1 TABLET BY MOUTH EVERY DAY IN THE MORNING 10/18 completed Not Available Not Available Not Available fenofibra te nanocryst allized 145 mg tablet TAKE 1 TABLET BY MOUTH EVERY DAY DIRECTED 09/16 completed Not Available Not Available Not Available FeroSul 325 mg (65 mg iron) tablet TAKE 1 TABLET BY MOUTH TWICE DAILY active Not Available Not Available No t Available Durezol 0.05 % eye drops 10/18 completed Not Available Not Available Not Available GaviLyte- N 420 gram oral solution active Not Available Not Available Not Available Senexon-S 8.6 mg-50 mg tablet TAKE 2 TABLETS BY MOUTH TWICE A DAY 02/02 completed Not Available Not Available Not Available Prevnar 13 (PF) 0.5 mL intramusc ular syringe ADM 0.5ML IM UTD 09/16 completed Not Available Not Available Not Available Ilevro 0.3 % eye drops,jono pension INSTILL ONE DROP INTO AFFECTED EYE ONCE DAILY STARTING 2 DAYS BEFORE SURGERY active Not Available Not Available No t Available Fluvirin 4758-1220 45 mcg (15 mcg x 3)/0.5 mL intramusc ular suspensio n 04/25 completed Not Available Not Available Not Available Farxiga 10 mg tablet TAKE 1 TABLET BY MOUTH EVERY DAY active Not Available Not Available No t Available potassium chloride ER 20 mEq tablet,ex tended release TAKE 1 TABLET BY MOUTH EVERY DAY WITH FUROSEMI DE active Not Available Not Available No t Available Fluvirin 4779-3483 45 mcg (15 mcg x 3)/0.5 mL intramusc ular suspensio n 04/25 completed Not Available Not Available Not Available Entresto 49 mg-51 mg tablet TAKE 1 TABLET BY MOUTH TWICE DAILY active Not Available Not Available No t Available Entresto 24 mg-26 mg tablet 02/02 completed Not Available Not Available Not Available Fluzone High-Dose 1490-6813 (PF) 180 mcg/0.5 mL intramusc ular syringe TO BE ADMINIST ERED BY YorxsI ST FOR IMMUNIZA TION 08/11 completed Not Available Not Available Not Available Flublok Quad 9222-4590 (PF) 180 mcg (45 mcg x 4)/0.5 mL IM syringe IMMUNIZA TION 09/16 completed Not Available Not Available Not Available Fluzone High-Dose (PF) 180 mcg/0.5 mL intramusc ular syringe PHARMACI ST ADMINIST ERED IMMUNIZA TION ADMINIST ERED AT TIME OF DISPENSI NG 09/16 completed Not Available Not Available Not Available Fluad Quad 3003-5916 (65yr up)(PF) 60 mcg (15 mcg x 4)/0.5mL IM syringe ADMINIST ER 0.5ML IN THE MUSCLE DIRECTED 09/16 completed Not Available Not Available Not Available Vitals Date Recorded Body height Body mass index (BMI) Body weight Body temperature Heart rate Oxygen saturation Oxygen saturation in Arterial blood by Pulse oximetry Systolic blood pressure Diastolic blood pressure Provider Name and Address Organization Details Last Updated DateTime 3 177.8 cm 28.7 kg/m2 61268.4 7 g 96.1 [degF] 76 /min 98 % 98 % 164 mm[Hg] 98 mm[Hg] Johanna Xavier RN [facility] 3 14:04:02 Date Recorded Body height Body mass index (BMI) Body weight Body temperature Oxygen saturation Oxygen saturation in Arterial blood by Pulse oximetry Heart rate Systolic blood pressure Diastolic blood pressure Provider Name and Address Organization Details Last Updated DateTime 3 177.8 cm 28.3 kg/m2 60750.7 g 97.2 [degF] 100 % 100 % 72 /min 140 mm[Hg] 82 mm[Hg] Kamilah Humphrey LPN [facility] 3 14:12:52 Date Recorded Body height Body mass index (BMI) Body weight Body temperature Heart rate Oxygen saturation Oxygen saturation in Arterial blood by Pulse oximetry Systolic blood pressure Diastolic blood pressure Provider Name and Address Organization Details Last Updated DateTime 4 177.8 cm 27.4 kg/m2 14823.1 4 g 97.2 [degF] 70 /min 99 % 99 % 104 mm[Hg] 70 mm[Hg] Yaneli North RN [facility] [place] [facility] 4 14:58:11 Date Recorded Body height Body mass index (BMI) Body weight Body temperature Heart rate Oxygen saturation Oxygen saturation in Arterial blood by Pulse oximetry Systolic blood pressure Diastolic blood pressure Provider Name and Address Organization Details Last Updated DateTime 4 177.8 cm 26.7 kg/m2 37160.1 8 g 98.2 [degF] 47 /min 99 % 99 % 122 mm[Hg] 80 mm[Hg] Yaneli North RN [facility] [place] [facility] 4 15:02:25 Social History Question Answer Notes LastModified by Organizat ion Details LastModified Time Tobacco Smoking Status Current Some Day Smoker Yaneli North RN [facility] [facility] 02/03/2024 14:56:30 What Is Your Level Of Alcohol Consumption? 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 Moderate MIGRATION.77427 59676 Information not available 09/10/2022 How Much Tobacco Do You Chew? None MIGRATION.14594 75804 Information not available 09/10/2022 In The 14 Days Before Symptom Onset, Have You Had Close Contact With A Laboratory-confir med COVID-19 While That Case Was Ill? No MIGRATION.46080 16973 Information not available 09/10/2022 In The 14 Days Before Symptom Onset, Have You Had Close Contact With A Person Who Is Under Investigation For COVID-19 While That Person Was Ill? No MIGRATION.39598 92536 Information not available 09/10/2022 Are You Deaf Or Do You Have Serious Difficulty Hearing? No MIGRATION.73941 23698 Information not available 09/10/2022 What Type Of Diet Are You Following? REGULAR MIGRATION.40783 67375 Information not available 09/10/2022 Which Illicit Or Recreational Drugs Have You Used? None MIGRATION.94555 49469 Information not available 09/10/2022 Do You Or Have You Ever Used E-cigarettes Or Vape? Never Used Electronic Cigarettes MIGRATION.81670 53792 Information not available 09/10/2022 What Is Your Occupation? Disability MIGRATION.74611 81878 Information not available 09/10/2022 Are There Any Guns Present In Your Home? No MIGRATION.51218 41570 Information not available 09/10/2022 How Many Children Do You Have? 2 MIGRATION.19939 87756 Information not available 09/10/2022 At What Age Did You Start Smoking Tobacco? 19 MIGRATION.92580 38680 Information not available 09/10/2022 Are You Passively Exposed To Smoke? No MIGRATION.96687 31336 Information not available 09/10/2022 Do You Or Have You Ever Used Smokeless Tobacco? Never Used Smokeless Tobacco MIGRATION.18320 05186 Information not available 09/10/2022 How Much Tobacco Do You Smoke? 2 PPW MIGRATION.18622 69827 Information not available 09/10/2022 Do You Use Any Illicit Or Recreational Drugs? No MIGRATION.50348 17774 Information not available 09/10/2022 Has Tobacco Cessation Counseling Been Provided? No MIGRATION.81985 24050 Information not available 09/10/2022 How Many Years Have You Smoked Tobacco? 40 MIGRATION.89092 71536 Information not available 09/10/2022 Do You Have Any Dietary Restrictions? No MIGRATION.11098 20917 Information not available 09/10/2022 Do You Or Have You Ever Used Any Other Forms Of Tobacco Or Nicotine? No MIGRATION.85039 66621 Information not available 09/10/2022 Sex: Male Functional Status Question Answer Note LastModified by Punch! Details LastModified Time Do you have difficulty walking or climbing stairs? No MIGRATION.[id number] 6 Information not available 09/10/2022 Do you have difficulty doing errands alone? No MIGRATION.348971607 6 Information not available 09/10/2022 Do you have difficulty dressing or bathing? No MIGRATION.933037215 6 Information not available 09/10/2022 What is your exercise level? None MIGRATION.573447637 6 Information not available 09/10/2022 Mental Status Question Answer Note LastModified by Punch! Details LastModified Time Do you have difficulty concentrating, remembering or making decisions? Yes yes because of pain MIGRATION.3056323 026 Information not available 09/10/2022 Family History Relationship Description Onset Age of this Age Resolved Age Notes LastModified by Organization Details LastModified Time Father Diabetes mellitus MIGRATION.549 [id number] Not available 09/10/2022 09:13:15 Father Hypertensive disorder MIGRATION.447 [id number] Not available 09/10/2022 09:13:15 Sister Diabetes mellitus MIGRATION.788 [id number] Not available 09/10/2022 09:13:15 Sister Hypertensive disorder MIGRATION.955 [id number] Not available 09/10/2022 09:13:15 Maternal Grandmother Diabetes mellitus MIGRATION.134 [id number] Not available 09/10/2022 09:13:15 Son Diabetes mellitus MIGRATION.698 [id number] Not available 09/10/2022 09:13:15 Maternal Uncle Diabetes mellitus MIGRATION.045 [id number] Not available 09/10/2022 09:13:15 Mother Family history of malignant neoplasm MIGRATION.998 [id number] Not available 09/10/2022 09:13:15 Medical History Condition Response BLINDNESS N RHEUMATIC FEVER N KIDNEY STONES N BLADDER PROBLEMS N MRSA N OTHER # 1 N POLIO N LUNG DISEASE/DISORDER N COPD N RADIATION / CHEMOTHERAPY N Other # 2 N BLOOD DISEASES N SURGERY N EAR OR HEARING PROBLEMS N MUMPS N FEMALE PROBLEMS / INFECTIONS N DEPRESSION (INCLUDING POST ) N BOWEL PROBLEMS N STROKE/TIA N THYROID DISEASE N ULCERS N BENIGN PROSTATIC HYPERPLASIA N MEASLES N CERVICALGIA N TB SKIN TEST N MYOCARDIAL INFARCTION N OBESITY N PARAPELGIA N GERD/NAUSEA N ANEURYSM N URINARY/BLADDER/KIDNEY PROBLEMS N CORONARY ARTERY DISEASE (CAD) N MENIERE'S DISEASE N ADDICTION CONCERNS N ENDOMETRIOSIS N USE OF BLOOD THINNERS N SKIN PROBLEMS N EMPHYSEMA N GASTROINTESTINAL DISORDER N MUSCLE,JOINT OR BONE PROBLEMS N GASTROINTESTINAL BLEEDING N BLOOD CLOTS N ASTHMA N CATARACTS N ERECTILE DYSFUNCTION N GI PROBLEMS N CHF N Low Testosterone N NEUROPATHY N INFERTILITY N AIDS/HIV N FRACTURES N CHEMOTHERAPY / RADIATION N VISION/EYE PROBLEMS N LIVER DISEASE N MALE HYPOGONADISM N HYPERTENSION N ANXIETY DISORDER N BLOOD TRANSFUSION N ANEMIA/BLOOD DISORDER N CHRONIC EAR INFECTIONS N BRONCHITIS N TUBERCULOSIS N GLAUCOMA N FOOT PROBLEM N DIVERTICULITIS N CHICKENPOX N SLEEP APNEA N ALLERGIES/HAYFEVER N INFECTIOUS DISEASE N HEART ARRHYTHMIA N PROSTATE N INSOMNIA N HIGH CHOLESTEROL / HYPERLIPIDEMIA N EYE PROBLEMS N HYPERTHYROIDISM N EATING DISORDER N NEUROLOGICAL PROBLEMS N EDEMA N CHRONIC PAIN SYNDROME N HYPOTHYROIDISM N CAROTID BLOCKAGE N CONSTIPATION N BACK / NECK PROBLEMS N HAVE YOU BEEN HOSPITALIZED OR SEEN IN [facility] IN THE PAST YEAR ? N ATHEROSCLEROSIS N BREAST PROBLEMS N DIALYSIS N ECZEMA N FIBROMYALGIA N OSTEOPOROSIS N ARTHRITIS N NO SIGNIFICANT PAST MEDICAL HISTORY N APPENDICITIS N DIABETES, TYPE N BAD TEETH N HEARTBURN / REFLUX N ADD/ADHD N AUTISM SPECTRUM DISORDER (ASD) N HEPATITIS / LIVER DISEASE N PULMONARY DISEASE N GOUT N SLEEP DISORDER N ALZHEIMER'S DISEASE N PAIN N HERPES N DEMENTIA N SEIZURES/EPILEPSY N HEADACHES/MIGRAINES N VASCULAR DISEASE N PACEMAKER N DIZZINESS N KIDNEY DISEASE N HEART DISEASE/HEART PROBLEMS N SCARLET FEVER N MULTIPLE SCLEROSIS N MENTAL DISORDER/ILLNESS N DEVELOPMENTAL OR BEHAVIORAL DISORDERS N CARDIAC ARRHYTHMIA N CANCER: SPECIFY N PNEUMONIA N Gall Stones N ATRIAL FIBRILLATION N PULMONARY EMBOLISM N AUTOIMMUNE DISEASE N Immunizations Vaccine Type Date Status Note Provider Nam e and Address Organization Details Recorded Time SARS-COV-2 (COVID-19) vaccine, UNSPECIFIED 1 completed Not Available [facility] 09/10/2022 09:21:22 influenza, unspecified formulation 7 completed Not Available [facility] 09/10/2022 09:21:23 Influenza, high-dose, trivalent, PF 4 completed Not Available [facility] 09/10/2022 09:21:23 pneumococcal, unspecified formulation 4 completed Not Available [facility] 09/10/2022 09:21:23 Influenza, high-dose, trivalent, PF 3 completed Not Available [facility] 09/10/2022 09:21:23 pneumococcal polysaccharide PPV23 1 completed Not Available [facility] 09/10/2022 09:21:23 Influenza, split virus, quadrivalent, PF 5 completed Not Available [facility] 09/10/2022 09:21:23 Past Encounters Encounter ID Performer Location Encounter Start Date Encounter Closed Date Diagnosis/Indication Diagnosis SNOMED-CT Code Diagnosis ICD10 Code Diagnosis Note [id number] [facility] Jenny Martínez [address] [address] 09/13/2020 00:00:00 09/13/2020 14:52:34 [id number] [facility] Jenny Martínez [address] [address] 12/13/2020 00:00:00 12/13/2020 15:33:02 [id number] [facility] Jenny Martínez [address] [address] 04/08/2021 00:00:00 04/08/2021 19:05:09 [id number] [facility] Jenny Martínez [address] [address] 05/07/2021 00:00:00 05/07/2021 16:33:05 [id number] [facility] Jenny Martínez [address] [address] 07/04/2021 00:00:00 07/04/2021 19:26:19 [id number] [facility] [address] [place] [address] T[address] [address] 09/03/2021 00:00:00 09/03/2021 17:03:51 [id number] [facility] Jenny Martínez [address] [address] 11/18/2021 00:00:00 11/18/2021 16:17:21 [id number] [facility] 4 [address] Mart[address]nez [address] [address] 02/10/2022 00:00:00 02/10/2022 15:31:41 [id number] [facility] 204[address] Jenny Tanya [address] [address] 05/08/2022 00:00:00 05/11/2022 13:45:55 [id number] [facility] Kasi Jenny Tanya [address] [address] 08/05/2022 00:00:00 08/05/2022 15:52:45 [id number] [facility] [place] [address] [place] [address] 09/26/2020 00:00:00 09/26/2020 15:33:57 [id number] [facility] [place] [address] [place] [address] 10/18/2020 00:00:00 10/18/2020 14:26:44 [id number] [facility] [place] [address] [place] [address] 12/12/2020 00:00:00 12/12/2020 19:51:05 [id number] [facility] [place] [address] [place] [address] 01/17/2021 00:00:00 01/18/2021 16:08:01 [id number] [facility] [place] [address] [place] [address] 02/26/2021 00:00:00 03/10/2021 22:49:34 [id number] [facility] [place] [address] [place] [address] 04/02/2021 00:00:00 04/02/2021 18:17:00 [id number] [facility] [place] [address] [place] [address] 10/15/2021 00:00:00 10/15/2021 19:43:20 [id number] [facility] [place] [address] [place] [address] 01/10/2022 00:00:00 01/10/2022 17:23:15 [id number] [facility] [place] [address] [place] [address] 2022 00:00:00 2022 15:20:27 [id number] [facility] Primary [facility] [place] [address] [place] [address] 04/02/2022 00:00:00 04/02/2022 17:42:33 [id number] ALLEN Ralph [facility] Primary [facility] [place] [address] [place], [place] [address] 09/16/2022 15:22:26 09/16/2022 16:21:56 Chronic neck pain for greater than 3 months [id number] 24944 M54.2 ChronicSom e improvemen t with cervical fusion (05/2023). Did not improve with steroid injections , physical therapy, or other non-pharma cologic pain relief modalities . Pt states the Lyrica caused him to gain weight and didn't work well. Good neck mechanics, posture, modalities reviewed with patient. Heat 10-15 minutes 3 times a day, then neck stretches as tolerated not beyond pain. Neck support/pi llow at bedtime. Ok to continue with neck brace prn. Go to ED for sudden onset of neurologic symptoms or incontinen ce. Continue with otc pain relievers per package instructio ns.Pt has been on benzo/opia te combo for an extended period of time and manages safely. Pt aware he may not take them together. Will give Toradol injection in office today. Continue with pain meds as directed. Resume hydrocodon e sparingly as directed Pt denies any lending, selling, or borrowing of medication s. Reviewed controlled substance agreement requiremen ts. UDS appropriat e (03/05/22). RTO 3 months for routine med check and f/u appt. Paresthesi a of lower extremity [id number] R20.2 BilatPt aware this may be secondary to degenerati ve disc disease of lumbar spine. [id number] Vani Lopes NP [facility] [address] [address] 09/17/2022 15:12:48 09/17/2022 16:59:48 [id number] Vani Lopes NP [facility] [address] [place] [address] [address] 11/20/2022 13:46:12 11/20/2022 14:59:38 [id number] ALLEN Ralph [facility] Primary Care [facility] [address] [facility] [address] [place] [address] 11/21/2022 08:10:29 11/21/2022 09:04:07 Persistent cough 453789323 R05.3 New problemURI vs covid vs bronchits vs pneumonia vs fluPatient presented with symptoms of upper respirator y infection. Advised to drink plenty of fluids, run a cool-mist humidifier in room at night, gargle salt water for sore throat, and get plenty of rest. Patient should avoid over-exert ion and reduce exposure to irritants such as smoke, cold, dry air, and dust.Start po abx and steroids. Patient may take acetaminop hen or ibuprofen as directed to reduce fever and body aches. Antihistam ine and decongesta nt usage was discussed and recommenda tions made.Nasra nt understood these instructio ns and will follow up in the office in 10 days to 2 weeks if symptoms not improving. Anxiety 22740862 F41.9 Not well controlled since psychiatry stopped lorazepam. Encouraged pt to resume hydroxyzin e TID prn per psychiatry recommenda tion.Pt previously advised we will not provide benzos for him since he is also taking opioid pain medication . Chronic ne ck pain for greater than 3 months [id number] 09611 M54.2 ChronicSom e improvemen t with cervical fusion (05/2023). Did not improve with steroid injections , physical therapy, or other non-pharma cologic pain relief modalities . Pt states the Lyrica caused him to gain weight and didn't work well. Good neck mechanics, posture, modalities reviewed with patient. Heat 10-15 minutes 3 times a day, then neck stretches as tolerated not beyond pain. Neck support/pi llow at bedtime. Ok to continue with neck brace prn. Go to ED for sudden onset of neurologic symptoms or incontinen ce. Continue with otc pain relievers per package instructio ns. Will give short-term rx for toradol. Pt aware he is not to start until steroids completed and not to take any other nsaids. Continue with hydrocodon e as directed Pt denies any lending, selling, or borrowing of medication s. Reviewed controlled substance agreement requiremen ts. UDS appropriat e (03/05/22), due for repeat next in-office visit. [id number] GUILLERMO Morales [facility] Primary Care [address] [place] [address] 03/18/2023 16:06:27 03/18/2023 17:12:41 Chronic neck pain 4579826065 107 M54.2 aggravated old injury while driving last weekROM and strength continue to be affected. continues use of norco as orderedreq uests- reorder ketorolac Depressive disorder 1696 1425 F32.A panic attacks that interfere with daily livingwas unwillingl y taken off lorazepam per psychiatri stwould like to restartWil l trial hydroxyzin eWill give referral to psych [id number] GUILLERMO Morales [facility] Primary Care [place] [address] [facility] [address] [place] [address] 04/15/2023 13:56:32 04/15/2023 14:41:33 Chronic neck pain 2035425616 107 M54.2 describes continued /10 pain to cervical regionwear s inflated brace at night, soft collar during the dayROM and strength continue to be affectedWi ll give course of prednisone Depressive disorder 3548 2077 F32.A Pt describes continued panic attack since last visitdoes not take the hydroxyzin e as ordered d/t symptoms (describes brain fog and increased anxiety)st ill requesting lorazepam, plans to speak with psychiatri st on 10/5voices hope of not giving up -discus sed with pt that there are still many options to treatment and our team is fully committed to helping improve quality of lifedeclin es counselor referralHe wants to continue treating on as needed basisWill trial propanolol [id number] GUILLERMO Morales [facility] Primary Care [facility] [address] [place] [address] 05/13/2023 13:52:13 05/13/2023 14:26:17 Chronic neck pain 6520251979 107 M54.2 -daily pain continues, worsens with activity-w earing soft cervical collar, recently was cleaning bird cages-mod improvemen t with the prednisone -will give meloxicam and order for lidocaine patches-f/ u in 1 month Depressive disorder 2358 9007 F32.A -pt states he has been doing better since last visit-he is very optimistic and positive minded-he has started seeing a new psychiatri st ([facility] improvemen t), next f/u next week-he was started back on lorazepam, had resolution of panic attacks-clarke s not used the propanolol at all-f/u in 1 month [id number] GUILLERMO Morales [facility] Primary Care [facility] [address] [facility] [place] [address] 06/17/2023 14:04:38 06/17/2023 17:52:45 Chronic neck pain 9898748822 107 M54.2 -notes a lot improvemen t with daily meloxicam (no ase)-no longer needing the soft collar-peña n rated at 4-5/10 currently, only pain at extremes of rom-improv ement in cervical ROM and strength-l idocaine patches not covered on insurance, he would like to have them reordered- will increase meloxicam to 15mg-pt to f/u as needed Dyspnea 246293917 R06.00 -recently been more of a problem for him-pt getting sob in the evenings to the point that he has to get up out of bed-smokes 4 cigs/day-n oted to be sob during conversati on-sp02 100% today-will trial albuterol inhaler [id number] GUILLERMO Morales [facility] Primary Care [place] [address] [place] [address] 12/30/2023 14:05:43 12/30/2023 14:25:01 [id number] GUILLERMO Morales [facility] Primary Care [place] [address] [place] [address] 02/03/2024 14:45:31 02/03/2024 15:31:42 Acute gastroenteritis 41576727 K52.9 taking pepto bismol, imodiumdia rrhea/naus eametronid azole, zofran given Depressive disorder 3548 9007 F32.A trial cymbalta [id number] GUILLERMO Morales [facility] Primary Care [place] [address] [place], [place] [address] 05/11/2024 14:54:19 05/11/2024 15:33:49 Chronic back pain 381283036 G89.29 central canal stenosis found on CT in ERwas given referral to pain management trial damian coker, he will update this office if changes are neededdecl jamar PT Health Concerns Section Related Observation LastModified by Organization Detai ls LastModified Time None Recorded Concern Status LastModified by Organization Details LastModified Time None Recorded Advance Directives Directive None Recorded Payers Encounter Date Sequence Insurance Name Policy Number Policy Miles Covered Member ID Miles Member ID Guarantor Name 05/13/2023 1 [employer] (MEDICARE REPLACEMENT PPO) [id number] Aj Zamarripa [id number] Aj Zamarripa 06/17/2023 1 [employer] (MEDICARE REPLACEMENT PPO) [id number] Aj Zamarripa [id number] Aj Zamarripa 12/30/2023 1 [employer] (MEDICARE REPLACEMENT PPO) [id number] Aj Zamarripa [id number] Aj Zamarripa 02/03/2024 1 [employer] (MEDICARE REPLACEMENT PPO) [id number] Aj Zamarripa [id number] Aj Zamarripa 05/11/2024 1 [employer] (MEDICARE REPLACEMENT PPO) [id number] Aj Zamarripa [id number] Aj Zamarripa Notes Date Note Type Note Provider Name and Address Organization Details Recorded Time 05/13/2023 text/html Pt is here for 1 month f/u ALLEN Morales[facility] [address], [place], [address], [facility] 05/13/2023 14:27:50 06/17/2023 text/html Pt is here for 1 mo f/u ALLEN Morales[facility] [address], [place], [address], [facility] 06/17/2023 14:47:37 02/03/2024 text/html pt is here for f/u ALLEN Morales[facility] [address], [place], [address], [facility] 02/03/2024 15:25:55 05/11/2024 text/html pt is here for ALLEN Morales[facility] [address], [place], [address], [facility] 05/11/2024 15:22:55
--- OUTSIDE RECORDS SUMMARY | 2024-10-09 00:43 | XMS_ITS ---
Author Organization [facility] Address [address] [facility] [address] [facility] [address] [place] [address] Care Team Providers Care Data Librarian Name Role Phone Nirav Braulio Unavailable [phone] PROBLEMS Problem Type ICD Code Onset Dates Problem Status W/U Status Risk SNOMED Code Notes Problem Stage 3 chronic kidney disease (N18.30) Active confirmed Chronic kidney disease stage 3 (disorder) (175293188) Problem Other heart failure (I50.89) Active confirmed Heart failure (54306286) Problem Hyperlipidemia, unspecified (E78.5) Active confirmed Hyperlipidemia (68465086) Problem Major depressive disorder, single episode, unspecified (F32.9) Active confirmed Major depressio n, single episode (55598317) Encounters Encounter Location Date Provider Diagnosis [place] [facility] [address] [facility] [address] [place] [address] 06/29/2024 Braulio Gastelum Stage 3 chronic kidney disease N18.30 ; Other heart failure I50.89 ; Hyperlipidemia, unspecified E78.5 and Major depressive disorder, single episode, unspecified F32.9 ASSESSMENTS Encounter Date Diagnosis Assessment Notes Treatment Notes Treatment Clinical Notes Section Notes 06/29/2024 Stage 3 chronic kidney disease (ICD-10 - N18.30) 06/29/2024 Other heart failure (ICD-10 - I50.89) 06/29/2024 Hyperlipidemia, unspecified (ICD-10 - E78.5) 06/29/2024 Major depressive disorder, single episode, unspecified (ICD-10 - F32.9) PLAN OF TREATMENT No Information Progress Notes * VIVIEN LOPEZDOB:1950 ([age] yo M)Acc No.[id number]:06/29/2024 Progress Notes Patient: VIVIEN LOPEZ Provider: MD ESTEFANY, Nancy, F.A.S.N. :1950 Age:74 Y Sex:Male Date:06/29/2024 Address:[place] [address] Subjective: * Chief Complaints: * * Medical History: Objective: Assessment: * Assessment: 1. Stage 3 chronic kidney disease - N18.30 (Primary) 2. Other heart failure - I50.89 3. Hyperlipidemia, unspecified - E78.5 4. Major depressive disorder, single episode, unspecified - F32.9 Plan: * Treatment: * Billing Information: * Visit Code: 13768 Office Visit, Est Pt., Level 4. * Procedure Codes: * Sign off status: Pending * Provider: MD ESTEFANY, Nancy, F.A.S.N. Date: 06/29/2024
--- OUTSIDE RECORDS SUMMARY | 2024-10-09 00:43 | XMS_ITS | CONTINUITY OF CARE DOCUMENT ---
Author Name humbertowaqas humbertowaqas Address Unknown Organization [facility] Address [address] [place] [address] Phone [phone] Care Team Providers Care Manager Aviation Name Role Phone Sreedhar SILVERIO, Julian Unavailable CARLOS SEED CORE OPERATOR, DELORA Unavailable CARLOS SEED CORE OPERATOR, DELORA Unavailable PROBLEMS Condition Status Date Provider Notes Atrial Fibrillation active Arturo Amaro RN Coumadin therapy active Apoorva Johnson RN Shortness of breath active Timi Paulino HTN Systolic completed - Julian Eli MD PVC's active Julian Eli MD Tobacco use disorder active Julian toussaint MD Hypertension active Julian Eli MD Nonischemic cardiomyopathy active Julian osman MD CHF - systolic active Julian Eli MD Congestive Heart Failure completed - Julian osman MD Abdominal pain active Julian Eli MD Intermediate CAD completed - Collins Jamison Chest pain-type to be determined active Julian Eli MD Cough active Julian Eli MD Leg cramps active Donnell Blanco Dizziness active Donnell Blanco Alcohol abuse active Julian Eli MD LBBB active Julian Eli MD Cardiology examination active Kristopherrickie Starksquin CKD stage 4 (gfr 15-29) active Collins Jamison CAD active Collins Jamison S/P DC AICD - Biotronik// Upgrade BiV ICD Biotronik 10/01/23 (NOT MRI SAFE/ old RV Lead) active Lilliana Hernández Hx of CVA active Julian Eli MD Family History of Hypertension: completed - Julian Eli MD Family History of Hyperlipidemia: completed - Julian Eli MD ENCOUNTERS Date Type Provider Location Encounter Diag nosis 1 - 3 In-person encounter Office Visit Julian Eli MD [facility] Office Intermediate CADCADCKD stage 4 (gfr 15-29) 7 - 0 In-person encounter Office Visit Julian Eli MD [place] [facility] Cardiology examination 6 - 6 In-person encounter Office Visit Julian Eli MD [place] 4 - 4 In-person encounter Office Visit Jose A Gastelum MD [place] [facility] 8 - 8 In-person encounter Office Visit Julian Eli MD [facility] 1 - 3 In-person encounter Office Visit Julian Eli MD [place] 1 - 2 In-person encounter Office Visit Julian Eli MD [facility] Office 9 - 2 In-person encounter Office Visit Julian Eli MD [place] 3 - 3 In-person encounter Office Visit Jorge Luis Felton MD [facility] 8 - 2 In-person encounter Office Visit Rodolfo Danielle MD [facility] 5 - 5 In-person encounter Office Visit Julian Eli MD [facility] Office 1 - 5 In-person encounter Office Visit Julian Eli MD [facility] LBBB 6 - 1 In-person encounter Office Visit Julian Eli MD [facility] 6 - 8 In-person encounter Office Visit Julian Eli MD [facility] Alcohol abuse 8 - 8 In-person encounter Office Visit Julian Eli MD [facility] Dizziness 4 - 1 In-person encounter Office Visit Julian Eli MD [facility] S/P DC AICD - Biotronik// Upgrade BiV ICD Biotronik 10/01/23 (NOT MRI SAFE/ old RV Lead) 5 - 5 In-person encounter Office Visit Julian Eli MD [place] Leg cramps 5 - 5 In-person encounter Office Visit Julian Eli MD [facility] 4 - 5 In-person encounter Office Visit Julian Eli MD [facility] Office 0 - 0 In-person encounter Office Visit Julian Eli MD [facility] 1 - 1 In-person encounter Office Visit Julian Eli MD [facility] 3 - 8 In-person encounter Office Visit Julian Eli MD [facility] 6 - 8 In-person encounter Office Visit Julian Eli MD [facility] Cough 4 - 4 In-person encounter Office Visit Julian Eli MD [facility] Family History of Hyperlipidemia:Family History of Hypertension:HTN SystolicHypertensionNonischemic cardiomyopathyCHF - systolicHx of CVACongestive Heart FailureS/P DC AICD - Biotronik// Upgrade BiV ICD Biotronik 10/01/23 (NOT MRI SAFE/ old RV Lead)Chest pain-type to be determined 7 - 7 In-person encounter Office Visit Julian Eli MD [facility] 1 - 5 In-person encounter Office Visit Julian Eli MD [facility] Abdominal pain 3 - 4 In-person encounter Office Visit Julian Eli MD [facility] 9 - 9 In-person encounter Office Visit Julian Eli MD [facility] Nonischemic cardiomyopathyCHF - systolic 9 - 2 In-person encounter Office Visit Julian Eli MD [facility] PVC'sTobacco use disorderHypertension VITAL SIGNS Date Observation Value Provider Body Mass Index (Ratio) 26.25 kg/m2 Fracisco Eli MD blood pressure, diastolic 79 mm[Hg] Nicole cherryLoganatoliy blood pressure, systolic 108 mm[Hg] [facility], [facility] 79 mm[Hg] Pushpa Ruby blood pressure, systolic 108 mm[Hg] Leeann Churchills pulse rate 54 /min Jessica Zhao oxygen saturation, oximetry 96 % [place] Ruby weight E&M 183 [lb_av] [place] Zhao s blood pressure, cuff size regular Pushpa bang Ruby height E&M 70 [in_i] Jessica Zhao s Body Mass Index (Ratio) 29.12 kg/m2 Kristopher Vallecillo blood pressure, diastolic 80 mm[Hg] Donna Sevilla blood pressure, systolic 103 mm[Hg] Paty Sevilla oxygen saturation, oximetry 99 % Nathalia Sevilla pulse rate 41 /min Nathalia [place] respiratory rate E&M 12 /min [facility] E&M 203 [lb_av] Nathalia Sevilla height E&M 70 [in_i] [facility] blood pressure, cuff size regular Donna kovacs Sevilla Body Mass Index (Ratio) 26.97 kg/m2 Ramón herrera Castro blood pressure, cuff size regular Hector rri [place] blood pressure, diastolic 86 mm[Hg] Ke rri Gruenenfelder blood pressure, systolic 122 mm[Hg] Sherry ri John oxygen saturation, oximetry 97 % Marcelina John pulse rate 39 /min Marcelina Alyssanealexe lder weight E&M 188 [lb_av] Marcelina Gruenenfe lder height E&M 70 [in_i] Marcelina Gruenenfe lder Body Mass Index (Ratio) 27.09 kg/m2 Alex Gastelum MD blood pressure, diastolic 103 mm[Hg] Sh chrisrohan Hernandez LAPELER blood pressure, systolic 161 mm[Hg] She rry David LAPELER oxygen saturation, oximetry 99 % Pricilla Hernadnez LAPELER pulse rate 71 /min Pricilla Hernandez LAPELER weight E&M 188.8 [lb_av] Pricilla Hernnadez LAPELER blood pressure, cuff size regular Ky jessica Chang height E&M 70 [in_i] Kyaron Chang Body Mass Index (Ratio) 26.97 kg/m2 Fracisco Eli MD blood pressure, diastolic 86 mm[Hg] Li nkLogic blood pressure, systolic 144 mm[Hg] Amrita kLogic oxygen saturation, oximetry 83 % Catarina Ruple pulse rate 44 /min Catarina Ruple blood pressure, cuff size regular Lemuel barnett Ruple blood pressure, diastolic 86 mm[Hg] Lemuel barnett Ruple blood pressure, systolic 144 mm[Hg] Chantel earl Ruple weight E&M 188 [lb_av] Catarina Ruple height E&M 70 [in_i] [facility] Body Mass Index (Ratio) 27.40 kg/m2 Fracisco Eli MD blood pressure, diastolic 80 mm[Hg] Nicole nkLogic blood pressure, systolic 132 mm[Hg] Amrita ogic blood pressure, cuff size regular Ke rri [place] blood pressure, diastolic 80 mm[Hg] Hector rri Gruenenfelder blood pressure, systolic 132 mm[Hg] Sherry ri Alyssanenfelder oxygen saturation, oximetry 98 % Marcelina [facility] respiratory rate E&M 12 /min Marcelina millereneelder pulse rate 71 /min Marcelina Alyssaneheather [facility] weight E&M 191 [lb_av] Marcelina Gruenenfe [facility] height E&M 70 [in_i] Marcelina Gruenenfe [facility] Body Mass Index (Ratio) 27.12 kg/m2 Fracisco Eli MD blood pressure, diastolic 80 mm[Hg] Li nkLogic blood pressure, systolic 145 mm[Hg] Amrita kLogic pulse rate 80 /min Cornelio Eastjenda y blood pressure, cuff size regular Elpidio perez blood pressure, diastolic 80 mm[Hg] Ja rret blood pressure, systolic 145 mm[Hg] Jar ret oxygen saturation, oximetry 95 % Cornelio respiratory rate E&M 14 /min Cornelio weight E&M 189 [lb_av] Cornelio y height E&M 70 [in_i] Cornelio y Body Mass Index (Ratio) 27.12 kg/m2 Grah am Lianne blood pressure, cuff size regular Ja rret blood pressure, diastolic 85 mm[Hg] Ja rret blood pressure, systolic 139 mm[Hg] Jar ret pulse rate 59 /min Cornelio respiratory rate E&M 16 /min Cornelio oxygen saturation, oximetry 100 % Cornelio weight E&M 189 [lb_av] Cornelio y height E&M 70 [in_i] Cornelio y Body Mass Index (Ratio) 29.27 kg/m2 Jonas Danielle MD blood pressure, diastolic 91 mm[Hg] Nicole nkLogic blood pressure, systolic 163 mm[Hg] Amrita kLogic blood pressure, cuff size regular Ja blood pressure, diastolic 91 mm[Hg] Ja rr blood pressure, systolic 163 mm[Hg] Jar ret pulse rate 66 /min Cornelio y oxygen saturation, oximetry 96 % Cornelio weight E&M 204 [lb_av] Cornelio y respiratory rate E&M 20 /min Cornelio height E&M 70 [in_i] Cornelio madrigal Body Mass Index (Ratio) 27.69 kg/m2 Fracisco Eli MD blood pressure, diastolic 92 mm[Hg] Li nkLogic blood pressure, systolic 150 mm[Hg] Amrita kLogic blood pressure, cuff size regular [facility] blood pressure, diastolic 92 mm[Hg] [facility] blood pressure, systolic 150 mm[Hg] [facility] 79 /min [facility] respiratory rate E&M 18 /min Radha Darnell [facility] oxygen saturation, oximetry 99 % [facility] weight E&M 193 [lb_av] [facility] height E&M 70 [in_i] [facility] Body Mass Index (Ratio) 27.26 kg/m2 Fracisco Eli MD blood pressure, diastolic 90 mm[Hg] Li nkLogic blood pressure, systolic 132 mm[Hg] Amrita kLogic blood pressure, cuff size regular Ke rri [place] blood pressure, diastolic 90 mm[Hg] Ke rri [place] blood pressure, systolic 132 mm[Hg] Sherry ri John oxygen saturation, oximetry 99 % Marcelina John respiratory rate E&M 12 /min Marcelina G ruenenfeldjen pulse rate 73 /min Marcelina Claytonuenealexe ld weight E&M 190 [lb_av] Marcelina Alyssaneheather ld height E&M 70 [in_i] Marcelina Alyssanenfe ld Body Mass Index (Ratio) 30.13 kg/m2 Fracisco Eli MD blood pressure, diastolic 82 mm[Hg] Renée Eisenbergand blood pressure, systolic 122 mm[Hg] Mervin ramos [place] oxygen saturation, oximetry 97 % Nel [place] pulse rate 76 /min Nel Bradford marimar weight E&M 210 [lb_av] Nel Bradford marimar respiratory rate E&M 16 /min Lori ho [place] blood pressure, cuff size large Renée garduno [place] height E&M 70 [in_i] Nel Bradford marimar Body Mass Index (Ratio) 30.13 kg/m2 [place] blood pressure, cuff size large Ke rri Gruenenfelder blood pressure, diastolic 70 mm[Hg] Ke rri Gruenenfelder blood pressure, systolic 122 mm[Hg] Ker ri Gruenenfelder oxygen saturation, oximetry 98 % Marcelina Gruenenfelder respiratory rate E&M 14 /min Marcelina G ruenenfelder pulse rate 70 /min Marcelina Gruenenfe lder weight E&M 210 [lb_av] Marcelina Gruenenfe lder height E&M 70 [in_i] Marcelina Gruenenfe lder Body Mass Index (Ratio) 31.71 kg/m2 [place] blood pressure, cuff size large Ke rri Gruenenfelder blood pressure, diastolic 76 mm[Hg] Ke rri Gruenenfelder blood pressure, systolic 130 mm[Hg] Ker ri Gruenenfelder oxygen saturation, oximetry 97 % Marcelina Gruenenfelder respiratory rate E&M 16 /min Marcelina G ruenenfelder pulse rate 69 /min Marcelina Gruenenfe lder weight E&M 221 [lb_av] Marcelina Ginettee lder height E&M 70 [in_i] Marcelina Penge [facility] Body Mass Index (Ratio) 30.70 kg/m2 [place] blood pressure, cuff size large Ke rri Alyssanealexelder blood pressure, diastolic 90 mm[Hg] Ke rri Ginetteelder blood pressure, systolic 152 mm[Hg] Sherry Pengswathi oxygen saturation, oximetry 99 % Marcelina Pengswathi respiratory rate E&M 14 /min Marcelina Russell rashid pulse rate 70 /min Marcelina Brandt [facility] weight E&M 214 [lb_av] Marcelina Brandt [facility] height E&M 70 [in_i] Marcelina Brandt [facility] Body Mass Index (Ratio) 27.69 kg/m2 [place] blood pressure, diastolic 89 mm[Hg] Cy julietmajor Richard blood pressure, systolic 140 mm[Hg] Apurva anna Richard blood pressure, cuff size regular Cy charlie Ramos pulse rate 71 /min Jessie Lorenza l respiratory rate E&M 16 /min Jessie Ramos oxygen saturation, oximetry 98 % Jessie Ramos weight E&M 193 [lb_av] Jessie Campbel l height E&M 70 [in_i] Jessie Campbel l Body Mass Index (Ratio) 27.40 kg/m2 Adonis Elliott blood pressure, diastolic 84 mm[Hg] Er ica Boris-Karthik blood pressure, systolic 130 mm[Hg] Megan ca Boris-Karthik oxygen saturation, oximetry 96 % Dione Rylee pulse rate 76 /min Dione Boris- Karthik weight E&M 191 [lb_av] Dione Queen Karthik height E&M 70 [in_i] Dione Queen Karthik Body Mass Index (Ratio) 27.40 kg/m2 Nicolás Rosas blood pressure, cuff size regular Cy charlie Ramos blood pressure, diastolic 80 mm[Hg] Cy charlie Ramos blood pressure, systolic 130 mm[Hg] Apurva anna Ramos oxygen saturation, oximetry 96 % Jessie Ramos respiratory rate E&M 18 /min Jessieanna Ramos pulse rate 92 /min Jessieanna Hathawaybel l weight E&M 191 [lb_av] Jessie Campbel l height E&M 70 [in_i] Jessie Campbel l Body Mass Index (Ratio) 25.54 kg/m2 Fracisco Eli MD blood pressure, diastolic 80 mm[Hg] Da nigel Ryland blood pressure, systolic 122 mm[Hg] Dac ia Ryland oxygen saturation, oximetry 98 % Amalia Ryland respiratory rate E&M 16 /min Amalia V oss pulse rate 82 /min Amalia Ryland weight E&M 178 [lb_av] Amalia Ryland height E&M 70 [in_i] Amalia Ryland Body Mass Index (Ratio) 26.54 kg/m2 Trevon Blanc blood pressure, resting Yes Trevon Blanc blood pressure, cuff size regular Ke rri John blood pressure, diastolic 83 mm[Hg] Ke rri John blood pressure, systolic 139 mm[Hg] Sherry Lopez oxygen saturation, oximetry 95 % Marcelina Lopez respiratory rate E&M 16 /min Marcelina mike pulse rate 84 /min Marcelina Brandt er weight E&M 185 [lb_av] Marcelina Brandt er height E&M 70 [in_i] Marcelina Brandt er blood pressure, diastolic 80 mm[Hg] Geovani Diamond blood pressure, systolic 144 mm[Hg] Tory Diamond pulse rate 75 /min Nicolasa Olson nson oxygen saturation, oximetry 98 % Nicolasa Diamond respiratory rate E&M 16 /min Tia Diamond Body Mass Index (Ratio) 26.25 kg/m2 Apoorva Diamond weight E&M 183 [lb_av] Nicolasa us blood pressure, diastolic 70 mm[Hg] Geovani Diamond blood pressure, systolic 116 mm[Hg] Tory Diamond pulse rate 71 /min Nicolasa us oxygen saturation, oximetry 93 % Nicolasa Diamond respiratory rate E&M 16 /min Tia Diamond Body Mass Index (Ratio) 24.93 kg/m2 Apoorva Diamond weight E&M 173.8 [lb_av] Nicolasa colungaon Body Mass Index (Ratio) 24.53 kg/m2 Ruby ssa Tabor blood pressure, diastolic 87 mm[Hg] Me lopez T[place] blood pressure, systolic 155 mm[Hg] Corinna octavio Tabor pulse rate 70 /min Anabella Tabor oxygen saturation, oximetry 98 % Anabella Tabor respiratory rate E&M 15 /min Anabella Tabor weight E&M 171 [lb_av] Anabella Tbaor blood pressure, diastolic 94 mm[Hg] Me lopez [place] blood pressure, systolic 188 mm[Hg] Corinna octavio [place] pulse rate 70 /min Anabella Tabor oxygen saturation, oximetry 96 % Anabella Tabor respiratory rate E&M 14 /min Anabella Tabor Body Mass Index (Ratio) 26.40 kg/m2 Ruby sanchez [place] weight E&M 184 [lb_av] Anabella Tabor Body Mass Index (Ratio) 26.25 kg/m2 Anea minh Luis blood pressure, diastolic 81 mm[Hg] An eatris Luis blood pressure, systolic 144 mm[Hg] Ane atris Luis pulse rate 52 /min Aneatris Brown oxygen saturation, oximetry 97 % Aneatris Luis respiratory rate E&M 17 /min Aneatri s Luis weight E&M 183 [lb_av] Aneatris Luis Body Mass Index (Ratio) 26.25 kg/m2 Michael i John blood pressure, diastolic 80 mm[Hg] Ke rri John blood pressure, systolic 170 mm[Hg] Sherry ri John pulse rate 59 /min Marcelina Rikki suarez oxygen saturation, oximetry 98 % Marcelina Lopez respiratory rate E&M 16 /min Marcelina mike weight E&M 183 [lb_av] Marcelina Rikki maldonadoer height E&M 70 [in_i] Marcelina Alyssanenfe lder ALLERGIES No Known Drug Allergies RESULTS Date Observation Value Provider Reference Range Interpretation Location 08/18 coagulation managed by Franci Weeks RN 08/18 international normalized ratio (INR) 1.9 Franci Weeks RN Normal 08/16 coagulation managed by Arturo Amaro RN 08/16 international normalized ratio (INR) 22.8 Arturo Amaro RN Normal coagulation managed by Arturo Amaro RN international normalized ratio (INR) 2.0 Arturo Amaro RN Normal prothrombin time (patient) 23.7 s Arturo Bermans RN 0 coagulation managed by Arturo Amaro RN Arturo Bermans RN international normalized ratio (INR) 1.8 Arturo Amaro RN Normal 0 prothrombin time (patient) 21.3 s Arturo Bermans RN 02/16 coagulation managed by Arturo Bermans RN Arturo Bermans RN 02/16 international normalized ratio (INR) 2.2 Arturo Bermans RN Normal 02/16 prothrombin time (patient) 26.9 s Arturo Bermans RN 02/02 coagulation managed by Arturo Bermans RN Arturo Bermans RN 02/02 international normalized ratio (INR) 2.3 Arturo Amaro RN Normal 02/02 prothrombin time (patient) 27.1 s Arturo Amaro RN 12/10 international normalized ratio (INR) 1.4 Marcelina Arnoldsandy Normal 12/10 prothrombin time (patient) 17.4 s Marcelina Joneser 11/12 coagulation managed by Franci Weeks RN 11/12 prothrombin time (patient) 22.4 s Franci Weeks RN 11/12 international normalized ratio (INR) 1.9 Franci Weeks RN Normal 11/03 coagulation managed by Arturo Amaro RN Arturo Amaro RN 11/03 international normalized ratio (INR) 4.6 Arturo Bermanshayla BERNABE Normal 11/03 prothrombin time (patient) 55.4 s Arturo eBrmans RN 10/19 coagulation managed by Arturo Bermanshayla BERNABE Arturo Bermans RN 10/19 international normalized ratio (INR) 3.2 Arturo Bermans RN Normal 10/19 prothrombin time (patient) 38.9 s Arturo Bermans RN 10/07 coagulation managed by Arturo Amaro RN Arturo Bermans RN 10/07 international normalized ratio (INR) 2.1 Arturo Amaro RN Normal 10/07 prothrombin time (patient) 25.2 s Arturo Bermans RN 09/16 coagulation managed by Arturo Amaro RN Arturo Bermans RN 09/16 international normalized ratio (INR) 2.5 Arturo Bermans RN Normal 09/16 prothrombin time (patient) 27.9 s Arturo Bermans RN international normalized ratio (INR) 3.8 Eloisa Goyal Normal coagulation managed by Eloisa Goyal RN Eloisa Goyal 09/01 international normalized ratio (INR) 3.0 Eloisagrant Goyal Normal 09/01 coagulation managed by Eloisa Goyal RN Eloisagrant Goyal 08/26 coagulation managed by Arturo Amaro RN Arturo Bermans RN 08/26 international normalized ratio (INR) 1.1 Arturo Amaro RN Normal 08/26 prothrombin time (patient) 13.3 s Arturo Bermans RN 08/19 coagulation managed by Arturo Amaro RN Arturo Bermans RN 08/19 international normalized ratio (INR) 2.5 [facility] 08/19 prothrombin time (patient) 30.0 s Arturo Bermans RN 08/10 coagulation managed by Franci Weeks RN 08/10 international normalized ratio (INR) 3.9 Franci Weeks RN Normal 08/10 prothrombin time (patient) 46.8 s Franci Weeks RN coagulation managed by Arturo Morris Amaro RN international normalized ratio (INR) 2.1 Arturo Amaro Normal prothrombin time (patient) 24.8 s Arturo Bermans RN 04/02 coagulation managed by Arturo Amaro RN Arturo Bermans RN 04/02 international normalized ratio (INR) 2.5 Arturo Amaro RN Normal 04/02 prothrombin time (patient) 29.8 s Arturo Bermans RN 03/11 coagulation managed by Arturo Amaro RN Arturo Bermans RN 03/11 international normalized ratio (INR) 2.5 Arturo Amaro RN Normal 03/11 prothrombin time (patient) 30.1 s Arturo Bermans RN /26 coagulation managed by Arturo Bermans RN Arturo Amaro RN 2022/0 02/04 international normalized ratio (INR) 2.4 Arturo Bermans RN Normal 0 02/04 prothrombin time (patient) 28.7 s Arturo Amaro RN 2022/0 01/22 coagulation managed by Franci Weeks RN 0 01/22 international normalized ratio (INR) 1.8 Franci Weeks RN Normal 0 01/12 coagulation managed by Franci Weeks RN 0 01/12 international normalized ratio (INR) 1.8 Franci Weeks RN Normal 0 01/07 coagulation managed by Arturo Bermans RN Arturo Amaro RN 0 01/07 international normalized ratio (INR) 1.3 Arturo Bermans RN Normal 0 01/07 prothrombin time (patient) 15.3 s Arturo Amaro RN 2022/0 12/31 coagulation managed by Arturo eBrmans RN Arturo Amaro RN 0 12/31 international normalized ratio (INR) 3.9 Arturo Bermans RN Normal 0 12/31 prothrombin time (patient) 46.9 s Arturo Amaro RN 2022/0 12/24 coagulation managed by Arturo Bermans RN Arturo Amaro RN 2022/0 12/24 international normalized ratio (INR) 1.7 Arturo Amaro RN Normal 0 12/24 prothrombin time (patient) 20.5 s Arturo Amaro RN 2022/0 11/19 coagulation managed by Arturo Amaro RN Arturo Amaro RN 2022/0 11/19 international normalized ratio (INR) 1.4 Arturo Amaro RN Normal 0 11/19 prothrombin time (patient) 17.3 s Arturo Amaro RN 2022/0 10/22 coagulation managed by Arturo Amaro RN Arturo Amaro RN 2022/0 10/22 international normalized ratio (INR) 3.0 Arturo Amaro RN Normal 2022/0 10/22 prothrombin time (patient) 36.1 s Arturo Amaro RN 0 10/08 coagulation managed by Arturo Amaro RN Arturo Amaro RN 2022/0 10/08 international normalized ratio (INR) 2.0 Arturo Amaro RN Normal 0 10/08 prothrombin time (patient) 23.6 s Arturo Amaro RN 2022/0 09/18 coagulation managed by Franci Weeks RN 09/18 international normalized ratio (INR) 2.6 Franci Weeks RN Normal 09/10 prothrombin time (patient) 18.6 s Franci Weeks RN 09/10 coagulation managed by Franci Weeks RN 09/10 international normalized ratio (INR) 1.5 Franci Weeks RN Normal 08/01 coagulation managed by Arturo Amaro RN 08/01 international normalized ratio (INR) 3.7 Arturo Amaro RN Normal 08/01 prothrombin time (patient) 44.7 s Arturo Bermans RN 07/18 coagulation managed by Arturo Amaro RN Arturo Bermans RN 07/18 international normalized ratio (INR) 2.4 Arturo Amaro RN Normal 07/18 prothrombin time (patient) 28.5 s Arturo Amaro RN 07/16 coagulation managed by Franci Weeks RN 07/16 international normalized ratio (INR) 5.9 Franci Weeks RN Normal 08/31 coagulation managed by Franci Weeks RN 08/31 international normalized ratio (INR) 3.1 Franci Weeks RN Normal 03/11 coagulation managed by Franci Weeks RN 03/11 international normalized ratio (INR) 1.3 Franci Weeks RN Normal 03/11 prothrombin time (patient) 15.7 s Franci Weeks RN coagulation managed by Franci Weeks RN international normalized ratio (INR) 2.0 Franci Weeks RN Normal prothrombin time (patient) 23.6 s Franci Weeks RN 04/02 coagulation managed by Franci Weeks RN 04/02 international normalized ratio (INR) 2.3 Franci Weeks RN Normal 04/02 prothrombin time (patient) 28.0 s Franci Weeks RN 03/19 international normalized ratio (INR) 4.3 Eloisa Goyal Normal 03/19 coagulation managed by Eloisa Goyal 03/04 coagulation managed by Franci Weeks RN 03/04 international normalized ratio (INR) 3.4 Franci Weeks RN Normal 0 03/04 prothrombin time (patient) 41.1 s Franci Weeks RN 0 02/12 coagulation managed by Franci Weeks RN 02/12 international normalized ratio (INR) 1.8 Franci Weeks RN Normal 02/12 prothrombin time (patient) 22.1 s Franci Weeks RN 02/05 coagulation managed by Franci Weeks RN 02/05 international normalized ratio (INR) 1.3 Franci Weeks RN Normal 02/05 prothrombin time (patient) 15.3 s Franci Weeks RN 01/23 coagulation managed by Franci Weeks RN 01/23 international normalized ratio (INR) 2.5 Franci Weeks RN Normal 01/23 prothrombin time (patient) 29.9 s Franci Weeks RN 01/10 coagulation managed by Marvin Smith RN 01/10 international normalized ratio (INR) 1.7 Marcelina Lopez Normal 01/10 prothrombin time (patient) 20.4 s Marcelina Lopez 12/11 coagulation managed by Arturo Amaro RN 12/11 international normalized ratio (INR) 1.3 Arturo Amaro RN Normal 12/11 prothrombin time (patient) 16.0 s Arturo Amaro RN 11/27 international normalized ratio (INR) 2.2 Alfreda Toribio Normal 11/27 prothrombin time (patient) 26.4 s Alfreda [place] 11/18 coagulation managed by Franci Weeks RN 11/18 international normalized ratio (INR) 2.0 Franci Weeks RN Normal 11/18 prothrombin time (patient) 23.8 s Franci Weeks RN 11/06 coagulation managed by Arturo Amaro RN 11/06 international normalized ratio (INR) 3.2 Arturo Amaro RN Normal 11/06 prothrombin time (patient) 38.0 s Arturo Amaro RN 10/09 coagulation managed by Arturo Amaro RN 10/09 international normalized ratio (INR) 2.5 Arturo Amaro RN Normal 10/09 prothrombin time (patient) 25.3 s Arturo Amaro RN 09/25 international normalized ratio (INR) 1.8 Arturo Amaro RN Normal 09/25 prothrombin time (patient) 22.1 s Arturo Amaro RN 09/25 coagulation managed by Arturo Amaro RN 08/16 coagulation managed by Arturo Amaro RN 08/16 international normalized ratio (INR) 2.2 Kellen Jojo Normal 08/16 prothrombin time (patient) 26.3 s Kellen Jojo 08/01 coagulation managed by Arturo Amaro RN 08/01 international normalized ratio (INR) 2.8 [place] Normal 08/01 prothrombin time (patient) 33.1 s [place] 07/30 coagulation managed by Arturo Amaro RN 07/30 international normalized ratio (INR) 6.8 Nel Serrano Normal 07/30 prothrombin time (patient) 81.6 s Nel Serrano 07/23 coagulation managed by Arturo Amaro RN 07/23 prothrombin time (patient) 17.2 s Zenia Fritz 07/23 international normalized ratio (INR) 1.4 Trynett Fritz Normal coagulation managed by Franci Weeks RN international normalized ratio (INR) 1.7 Trynett Fritz Normal 08/26 coagulation managed by Eloisa Goyal 08/26 international normalized ratio (INR) 4.3 Nicolasa Diamond Normal 08/26 prothrombin time (patient) 52.1 s Nicolasa Diamond 07/28 coagulation managed by Arturo Amaro RN 07/28 international normalized ratio (INR) 2.6 Alfreda [place] Normal 07/28 prothrombin time (patient) 31.4 s Alfreda [place] coagulation managed by Arturo Amaro RN international normalized ratio (INR) 2.5 Nicolasa Diamond Normal prothrombin time (patient) 30.3 s Nicolasa Diamond 04/03 coagulation managed by Arturo Amaro RN 04/03 international normalized ratio (INR) 2.8 Jessie Ramos Normal 04/03 prothrombin time (patient) 34.2 s Jessie Ramos 03/20 coagulation managed by Arturo Amaro RN 03/20 international normalized ratio (INR) 2.6 Marcelina Gruenenfelder Normal 03/20 prothrombin time (patient) 31.7 s Marcelina Gruenenfelder 03/13 coagulation managed by Arturo Amaro RN 03/13 prothrombin time (patient) 52.7 s Shira Diana 03/13 international normalized ratio (INR) 4.4 Shira [place] Normal 02/13 coagulation managed by Eloisa Goyal 02/13 international normalized ratio (INR) 2.3 Eloisa Goyal Normal 01/15 coagulation managed by Arturo Amaro RN 01/15 prothrombin time (patient) 26.7 s Sherkeitha Bautista 01/15 international normalized ratio (INR) 2.2 Sherkeitha Bautista Normal 12/11 coagulation managed by Arturo Amaro RN 12/11 prothrombin time (patient) 26.8 s Sherkeitha Bautista 12/11 international normalized ratio (INR) 2.2 Sherkeitha Bautista Normal 11/26 coagulation managed by Arturo Amaor RN 11/26 international normalized ratio (INR) 1.9 Marcelina Gruenenfelder Normal 11/26 prothrombin time (patient) 22.4 s Marcelina Gruenenfelder 09/25 coagulation managed by Arturo Amaro RN 09/25 international normalized ratio (INR) 2.2 Marcelina Lopez Normal 09/25 prothrombin time (patient) 25.9 s Marcelina Joneser 09/11 coagulation managed by Arturo Amaro RN 09/11 international normalized ratio (INR) 1.8 Nicolasa Diamond Normal 09/11 prothrombin time (patient) 22.0 s Nicolasa Diamond 08/14 coagulation managed by Arturo Amaro RN 08/14 international normalized ratio (INR) 2.5 Jessieanna Ramos Normal 08/14 prothrombin time (patient) 30.1 s Jessie Ramos 07/16 prothrombin time (patient) 23.8 s Chastity Patricia 07/16 international normalized ratio (INR) 2.0 Chastity Patricia Normal 08/14 coagulation managed by Arturo Amaro RN 08/14 international normalized ratio (INR) 2.0 Jessie Ramos Normal 08/14 prothrombin time (patient) 24.5 s Jessie Ramos 07/16 coagulation managed by Arturo Amaro RN 07/16 international normalized ratio (INR) 2.9 Jessie Ramos Normal 07/16 prothrombin time (patient) 35.4 s Jessie Ramos coagulation managed by Arturo Amaro RN international normalized ratio (INR) 2.3 Jessie Ramos Normal prothrombin time (patient) 28.1 s Jessie Ramos 04/07 free thyroxine index 2.0 [facility] 1.2-4.9 04/07 triiodothyronine resin uptake 26 % [facility] 24-39 04/07 thyroxine, serum, total 7.7 ug/dL [facility] 4.5-12.0 04/07 thyroid stimulating hormone, serum 1.640 u[IU]/mL [facility] 0.450-4.500 04/07 HDL cholesterol, serum 46 mg/dL [facility] >39 04/07 triglyceride, serum, random 162 mg/dL [facility] 0-149 High 04/07 cholesterol, serum 175 mg/dL [facility] 593-749 9880/0 9/26 basophil count, absolute 0.1 x10E3/uL [facility] 0.0-0.2 04/07 Eosinophil Absolute Count 0.3 X10E3/UL [facility] 0.0-0.4 04/07 monocyte count, blood, automated 0.6 X10E3/UL [facility] 0.1-0.9 04/07 lymphocyte count, blood, automated 1.6 X10E3/UL [facility] 0.7-3.1 04/07 Absolute Neutrophils 3.7 X10E3/UL [facility] 1.4-7.0 04/07 basophils as percent of blood leukocytes 1 % [facility] Not Estab. 04/07 eosinophils as percent of blood leukocytes 4 % [facility] Not Estab. 04/07 monocytes as percent of blood leukocytes 10 % [facility] Not Estab. 04/07 lymphocytes as percent of blood leukocytes 25 % [facility] Not Estab. 04/07 neutrophils as percent of blood leukocytes 60 % [facility] Not Estab. 04/07 platelet count 224 X10E3/UL [facility] 145-871 3936/0 9/26 red blood cell distribution width 12.6 % [facility] 11.6-15.4 04/07 mean corpuscular hemoglobin concentration, RBC 33.7 G/DL [facility] 31.5-35.7 04/07 mean corpuscular hemoglobin, RBC 32.2 pg [facility] 26.6-33.0 04/07 mean corpuscular volume, RBC 95 fL [facility] 79-97 04/07 hematocrit, blood 40.6 % [facility] 37.5-51.0 04/07 hemoglobin, blood 13.7 g/dL [facility] 13.0-17.7 04/07 erythrocyte (RBC) count 4.26 X10E6/UL [facility] 4.14-5.80 04/07 leukocyte count, blood 6.3 X10E3/UL [facility] 3.4-10.8 04/07 alanine aminotransferase (SGPT), serum 14 1/L [facility] 0-44 04/07 aspartate aminotransferase (SGOT), serum 22 1/L [facility] 0-40 04/07 alkaline phosphatase, serum 52 1/L [facility] 39-117 04/07 bilirubin, serum, total 0.3 mg/dL [facility] 0.0-1.2 04/07 albumin/globulin ratio, serum 2.2 [facility] 1.2-2.2 04/07 globulin, serum 2.3 [facility] 1.5-4.5 04/07 albumin, serum 5.0 g/dL [facility] 3.8-4.8 High 04/07 protein, total, serum 7.3 g/dL [facility] 6.0-8.5 04/07 calcium, serum 10.4 mg/dL [facility] 8.6-10.2 High 04/07 carbon dioxide, venous blood 25 mmol/L [facility] 20-29 04/07 chloride, serum 104 mmol/L [facility] 96-106 04/07 potassium, serum 5.4 mmol/L [facility] 3.5-5.2 High 04/07 sodium, serum 144 mmol/L [facility] 257-289 8526/0 9/26 urea nitrogen/creatinin e ratio, serum 17 [facility] 10-24 04/07 eGFR if 40 mL/min/{1.7 3_m2} [facility] >59 Low 04/07 eGFR if not 35 mL/min/{1.7 3_m2} [facility] >59 Low 04/07 creatinine, serum 1.92 mg/dL [facility] 0.76-1.27 High 04/07 urea nitrogen, blood 33 mg/dL [facility] 8-27 High 04/07 blood glucose, random 105 mg/dL [facility] 65-99 High 03/14 coagulation managed by Arturo Amaro RN 03/14 international normalized ratio (INR) 2.2 Tonsha Linder Normal 03/14 prothrombin time (patient) 26.0 s Tonsha Linder 2020/0 02/28 coagulation managed by Arturo Amaro RN 2020/0 02/28 international normalized ratio (INR) 1.7 Jessie Ramos Normal 2020/0 02/28 prothrombin time (patient) 20.5 s Jessie Ramos 2020/0 01/24 [place] [id number] 01/24 prothrombin time (patient) 27.4 s Tonsha Linder 2020/0 01/24 international normalized ratio (INR) 2.3 Tonsha Linder Normal 2020/0 01/10 [place] [address] 01/10 international normalized ratio (INR) 3.1 Tonsha Linder Normal 2020/0 01/10 prothrombin time (patient) 37.1 s Tonsha Linder 2020/0 12/27 coagulation managed by Eloisa Goyal 2020/0 12/27 international normalized ratio (INR) 2.9 Tonsha Linder Normal 2020/0 12/27 prothrombin time (patient) 34.9 s Tonsha Linder 2020/0 12/13 coagulation managed by Arturo Amaro RN 2020/0 12/13 international normalized ratio (INR) 1.8 Jessie Ramos Normal 2020/0 12/13 prothrombin time (patient) 21.5 s Jessie Armos 2020/0 11/15 [place] [address] 11/15 international normalized ratio (INR) 2.9 Jessie Ramos Normal 2020/0 11/15 prothrombin time (patient) 34.8 s Jessie Ramos 2020/0 10/18 coagulation managed by Apoorva Mccarty RN 2020/0 10/18 prothrombin time (patient) 31.3 s Apoorva Mccarty RN 2020/0 08 international normalized ratio (INR) 2.6 Apoorva Mccarty RN Normal 2020/0 09/21 coagulation managed by Arturo Amaro RN 2020/0 09/21 international normalized ratio (INR) 2.3 Jessie Ramos Normal 2020/0 09/21 prothrombin time (patient) 28.1 s Jessie Ramos 2020/0 08/24 coagulation managed by Arturo Amaro RN 2020/0 08/24 international normalized ratio (INR) 2.1 Jessie Ramos Normal 2020/0 2/12 prothrombin time (patient) 24.8 s Jessie Ramos 07/27 coagulation managed by Tonsha Linder Tonsha Linder 07/27 international normalized ratio (INR) 2.9 Tonsha Linder Normal 07/27 prothrombin time (patient) 34.4 s Tonsha Linder 08/30 coagulation managed by Arturo Amaro RN 08/30 international normalized ratio (INR) 1.9 Tonsha Linder Normal 08/30 prothrombin time (patient) 22.5 s Tonsha Linder 07/27 coagulation managed by Arturo Amaro RN 07/27 international normalized ratio (INR) 2.3 Jessie Ramos Normal 07/27 prothrombin time (patient) 27.8 s Jessie Ramos coagulation managed by Arturo Amaro RN prothrombin time (patient) 21.4 s Shira [place] international normalized ratio (INR) 1.8 Shira Diana Normal coagulation managed by Arturo Amaro RN international normalized ratio (INR) 2.6 Nicolasa Diamond Normal prothrombin time (patient) 30.6 s Nicolasa Diamond 04/01 coagulation managed by Arturo Amaro RN 04/01 prothrombin time (patient) 38.5 s Dione Escalante-Karthik 04/01 international normalized ratio (INR) 3.2 Dione Escalante-Karthik Normal 03/18 coagulation managed by Arturo Amaro RN 03/18 international normalized ratio (INR) 3.2 Nicolasa Diamond Normal 03/18 prothrombin time (patient) 38.3 s Nicolasa Diamond 02/16 coagulation managed by Arturo Amaro RN 02/16 international normalized ratio (INR) 2.2 [place] Normal 02/16 prothrombin time (patient) 25.9 s [place] 01/19 coagulation managed by Arturo Amaro RN 01/19 international normalized ratio (INR) 2.8 Jessie Ramos Normal 01/19 prothrombin time (patient) 33.6 s Jessie Ramos 01/05 coagulation managed by Arturo Bermanshayla BERNABE Arturo Bermans RN 01/05 international normalized ratio (INR) 2.4 Arturo Bermanshayla BERNABE Normal 01/05 prothrombin time (patient) 28.6 s Arturo Bermans RN 12/29 coagulation managed by Arturo Bermanshayla BERNABE Arturo Bermanshayla BERNABE 12/29 international normalized ratio (INR) 3.6 Jessie Ramos Normal 12/29 prothrombin time (patient) 43.0 s Jessie Ramos 12/01 coagulation managed by Arturo Bermanshayla BERNABE Arturo Bermanshayla BERNABE 12/01 international normalized ratio (INR) 2.1 Jessie Ramos Normal 12/01 prothrombin time (patient) 25.4 s Jessie Ramos 11/17 coagulation managed by Arturo Bermanshayla BERNABE Arturo Bermans RN 11/17 prothrombin time (patient) 22.3 s Chastity Patricia 11/17 international normalized ratio (INR) 1.9 Chastity Patricia Normal 10/29 coagulation managed by Arturo Bermanshayla BERNABE Arturo Bermans RN 10/29 international normalized ratio (INR) 2.3 [place] Normal 10/29 prothrombin time (patient) 27.0 s [place] 10/22 coagulation managed by Arturo Bermanshayla BERNABE Arturo Bermans RN 10/22 international normalized ratio (INR) 4.2 Arturo Bermanshayla BERNABE Normal 10/22 prothrombin time (patient) 50.1 s Arturo Amaro RN 09/24 coagulation managed by Arturo Amaroshayla Morris Amaro RN 09/24 international normalized ratio (INR) 2.7 Amalia Ryland Normal 09/24 prothrombin time (patient) 32.6 s Amalia Ryland 09/10 coagulation managed by Arturo Morris Amaro RN 09/10 international normalized ratio (INR) 1.7 Jessieanna Ramos Normal 09/10 prothrombin time (patient) 20.7 s Jessie Ramos 08/27 coagulation managed by Arturo Morris Amaro RN 08/27 international normalized ratio (INR) 2.9 Jessie Ramos Normal 08/27 prothrombin time (patient) 35.1 s Jessie Ramos 08/12 coagulation managed by Arturo Amaro RN 08/12 international normalized ratio (INR) 1.6 Jessie Ramos Normal 08/12 prothrombin time (patient) 19.4 s Jessie Ramos 07/30 coagulation managed by Arturo Amaro RN 07/30 international normalized ratio (INR) 3.1 Arturo Amaro RN Normal 07/30 prothrombin time (patient) 36.7 s Arturo Amaro RN 07/23 coagulation managed by Arturo Amaro RN 07/23 international normalized ratio (INR) 3.7 Nicolasa Diamond Normal 07/23 prothrombin time (patient) 44 s Nicolasa Diamond 08/24 coagulation managed by Arturo Amaro RN 08/24 prothrombin time (patient) 35.7 s Jessie Ramos 08/24 international normalized ratio (INR) 3.0 Jessieanna Ramos Normal 08/09 coagulation managed by Arturo Amaro RN 08/09 international normalized ratio (INR) 1.8 Nicolasa Diamond Normal 08/09 prothrombin time (patient) 21.7 s Nicolasa Diamond 07/26 coagulation managed by Arturo Amaro RN 07/26 international normalized ratio (INR) 3.4 Amaliawilly Marcelino Normal 07/26 prothrombin time (patient) 40.5 s Amalia Ryland coagulation managed by Day Huitron international normalized ratio (INR) 5.5 Jessie Ramos Normal prothrombin time (patient) 65.4 s Jessie Ramos coagulation managed by Day Dugganssscarlett Huitron international normalized ratio (INR) 2.4 Jessie Ramos Normal prothrombin time (patient) 28.7 s Jessie Ramos coagulation managed by Day Dugganssscarlett Huitron international normalized ratio (INR) 1.1 Amalia Ryland Normal prothrombin time (patient) 13.3 s Amalia Ryland 04/02 coagulation managed by Vita Mathews 04/02 international normalized ratio (INR) 2.9 Jessie Richard Normal 04/02 prothrombin time (patient) 35.2 s Jessieanna Ramos 03/31 coagulation managed by Arturo Amaro RN 03/31 international normalized ratio (INR) 6.8 Jessie Richard Normal 03/31 prothrombin time (patient) 81.7 s Jessie Ramos 02/17 coagulation managed by Yary Hu 02/17 international normalized ratio (INR) 2.5 Marcelina Grtobinneyariel Normal 02/17 prothrombin time (patient) 29.9 s Marcelina Lopez 01/22 coagulation managed by Arturo Amaro RN 01/22 international normalized ratio (INR) 1.8 Amalia Ryland Normal 01/22 prothrombin time (patient) 22.2 s Amalia Ryland 12/30 coagulation managed by Arturo Amaro RN 12/30 international normalized ratio (INR) 2.4 Amalia Ryland Normal 12/30 prothrombin time (patient) 29.0 s Amalia Ryland 12/23 coagulation managed by Arturo Amaro RN 12/23 international normalized ratio (INR) 1.5 Amalia Ryland Normal 12/23 prothrombin time (patient) 17.9 s Amalia Ryland 09/10 coagulation managed by Arturo Amaro RN 09/10 international normalized ratio (INR) 2.2 Amalia Ryland Normal 09/10 prothrombin time (patient) 26.7 s Amalia Ryland 07/17 coagulation managed by Arturo Amaro RN 07/17 international normalized ratio (INR) 2.1 Amalia Ryland Normal 07/17 prothrombin time (patient) 25.1 s Amalia Ryland 09/09 coagulation managed by Apoorva Johnson RN 09/09 international normalized ratio (INR) 1.5 Amalia Ryland Normal 09/09 prothrombin time (patient) 17.8 s Amalia Ryland 09/03 coagulation managed by Apoorva Johnson RN 09/03 prothrombin time (patient) 17.1 s Ryanne Camejo 09/03 international normalized ratio (INR) 1.5 Ryanne Camejo Normal 08/27 coagulation managed by Arturo Amaro RN 08/27 international normalized ratio (INR) 4.1 Amalia Ryland Normal 08/27 prothrombin time (patient) 49.5 s Amalia Ryland 08/20 coagulation managed by Apoorva Johnson RN 08/20 international normalized ratio (INR) 1.2 Amalia Ryland Normal 08/20 prothrombin time (patient) 14.8 s Amalia Ryland coagulation managed by Apoorva Johnson RN international normalized ratio (INR) 2.1 Marcelina Gruenenfelder Normal prothrombin time (patient) 24.6 s Marcelina Gruenen[place] coagulation managed by Arturo Amaro RN international normalized ratio (INR) 4.2 Marcelina Gruenenfelder Normal prothrombin time (patient) 50.9 s Marcelina Gruenen[place] coagulation managed by Arturo Amaro RN international normalized ratio (INR) 4.3 Amalia Ryland Normal prothrombin time (patient) 51.1 s Amalia Ryland 03/31 coagulation managed by Arturo Amaro RN 03/31 international normalized ratio (INR) 1.5 Amalia Ryland Normal 03/31 prothrombin time (patient) 17.8 s Amalia Ryland 03/24 coagulation managed by Apoorva Johnson RN 03/24 international normalized ratio (INR) 2.8 Amalia Ryland Normal 03/24 prothrombin time (patient) 34.1 s Amalia Ryland 03/17 coagulation managed by Apoorva Johnson RN 03/17 international normalized ratio (INR) 1.4 Amalia Ryland Normal 03/17 prothrombin time (patient) 16.5 s Amalia Ryland 03/10 coagulation managed by Apoorva Johnson RN 03/10 international normalized ratio (INR) 1.2 Amalia Ryland Normal 03/10 prothrombin time (patient) 14.0 s Amalia Ryland 03/03 coagulation managed by Apoorva Johnson RN 03/03 international normalized ratio (INR) 4.8 Amalia Ryland Normal 03/03 prothrombin time (patient) 58.0 s Amalia Ryland 02/24 coagulation managed by Apoorva Johnson RN 02/24 international normalized ratio (INR) 1.6 Apoorva Johnson RN Low 02/24 prothrombin time (patient) 18.6 s Amalia Ryland 07/19 anion gap, serum 15.6 [facility] - 07/19 albumin/globulin ratio, serum 1.8 g/dL [facility] 1.1 - 2.5 07/19 globulin, serum 2.3 [facility] 2.3 - 3.8 07/19 urea nitrogen/creatinin e ratio, serum 11.4 [facility] - 07/19 Estimated Glomerular Filtration Rate (calc) 54.1 (?) [facility] 59.0 - Low 07/19 chloride, serum 102.4 mmol/L [facility] 98.0 - 107.0 07/19 potassium, serum 4.3 mmol/L [facility] 3.5 - 5.1 07/19 sodium, serum 142.0 mmol/L [facility] 136.0 - 145.0 07/19 creatinine, serum 1.4 mg/dL [facility] 0.7 - 1.2 High 07/19 carbon dioxide, venous blood 24.0 mmol/L [facility] 23.0 - 31.0 07/19 albumin, serum 4.2 g/dL [facility] 3.5 - 5.2 07/19 [facility], [facility].3 [facility] 10[facility] 07/19 aspartate aminotransferase (SGOT), serum 19.0 1/L [facility] 0.0 - 40.0 07/19 alkaline phosphatase, serum 92.0 1/L [facility] 40.0 - 130.0 07/19 alanine aminotransferase (SGPT), serum 18.0 1/L [facility] 0.0 - 41.0 07/19 protein, total, serum 6.5 g/dL [facility] 6.6 - 8.7 Low 07/19 bilirubin, serum, total 0.2 mg/dL [facility] 0.0 - 1.2 07/19 urea nitrogen, blood 16.0 mg/dL [facility] 8.0 - 23.0 07/19 blood glucose, random 99.0 mg/dL [facility] 74.0 - 99.0 07/19 red blood cell distribution width, size density 43.4 fL [facility] - 07/19 immature granulocytes, percentage of total cells, blood 0.2 % [facility] 07/19 nucleated red blood cells as percent of blood leukocytes 0.0 % [facility] 07/19 red blood cell (erythrocyte) count, per high power field 0.0 10*3/UL [facility] - 07/19 eosinophils as percent of blood leukocytes 4.9 % [facility] - 07/19 neutrophils as percent of blood leukocytes 74.2 % [facility] 07/19 Absolute Neutrophils 6.0 CELLS/UL [facility] 1.5 - 7.8 07/19 basophils as percent of blood leukocytes 0.7 % [facility] - 07/19 Absolute Basophils 0.1 CELLS/UL [facility] 0.0 - 0.2 07/19 monocytes as percent of blood leukocytes 7.1 % [facility] - 07/19 Absolute Monocytes 0.6 CELLS/UL [facility] 0.2 - 1.0 07/19 lymphocytes as percent of blood leukocytes 12.9 % [facility] - 07/19 Absolute Lymphocytes 1.1 CELLS/UL [facility] 0.9 - 3.9 07/19 mean platelet volume 11.7 (?) [facility] - 07/19 platelet count 187.0 THOUSAND/UL [facility] 100.0 - 400.0 07/19 mean corpuscular hemoglobin concentration, RBC 32.9 G/DL [facility] 31.0 - 38.0 07/19 mean corpuscular hemoglobin, RBC 32.5 pg [facility] 25.0 - 35.0 07/19 mean corpuscular volume, RBC 99.0 fL [facility] 75.0 - 100.0 07/19 hematocrit, blood 41.7 % [facility] 35.0 - 55.0 07/19 hemoglobin, blood 13.7 g/dL [facility] 11.5 - 16.5 07/19 erythrocyte count, whole blood 4.2 MILLION/UL [facility] 3.5 - 5.5 HISTORY OF MEDICATION USE Medication Status Instructions Dates Provider Indications Com ments albuterol sulfate 90 mcg/actuation HFA aerosol inhaler active Eloisa Goyal docusate sodium 100 mg capsule active TAKE 1 CAPSULE BY MOUTH DAILY Eloisa Goyal ergocalciferol (vitamin D2) 1,250 mcg (50,000 unit) capsule active TAKE 1 CAPSULE BY MOUTH 1 TIME A WEEK Eloisa Goyal isosorbide dinitrate 10 mg tablet active Take 1 tablet by mouth twice a day Eloisa Goyal Furoscix 80 mg/10 mL kit active use daily for 3 days - hold Lasix pills while taking Furoscix -continue Lasix pills after completion of of Furoscix Eloisa Goyal carvedilol 3.125 mg tablet active Take 1 tablet by mouth twice daily Eloisa Goyal calcitriol 0.25 mcg capsule active ALLEN Mederos DNP Eliquis 2.5 mg tablet active Take 1 tablet by mouth twice a day Eloisa Goyal lorazepam 1 mg tablet active ALLEN Mederos DNP chlordiazepoxide HCl 10 mg capsule active TAKE 1 CAPSULE BY MOUTH EVERY 6 HOURS NEEDED FOR WITHDRAWALS ALLEN Mederos DNP amiodarone 200 mg tablet active Take 2 tablet by mouth twice a day Eloisa Goyal metolazone 2.5 mg tablet active Take 1 tablet by mouth once a day Eloisa Goyal Farxiga 10 mg tablet active Take 1 tablet by mouth once a day Eloisa Goyal Furoscix 80 mg/10 mL kit completed use daily for 5 days - hold Lasix pills while taking Furoscix -continue Lasix pills after completion of of Furoscix - ALLEN Mederos DNP Furoscix 80 mg/10 mL kit completed - Arturo Amaro RN cyclobenzaprine 10 mg tablet active Take 1 tablet by mouth every night at bedtime as needed as directed Eloisa Goyal furosemide 40 mg tablet active Take 1 tablet by mouth twice a day Eloisa Goyal potassium chloride 20 mEq tablet extended release active Take 1 tablet by mouth once a day Eloisa Goyal warfarin 5 mg tablet completed Take 1 tablet by mouth every night EXCEPT ON Mon and Wed TAKE 1/2 ( 1 half) tablet to = 2.5 mg - Arturo Amaro RN potassium chloride 20 mEq tablet extended release completed TAKE 1 TABLET BY MOUTH EVERY DAY WITH FUROSEMIDE - Julian Eli MD ferrous sulfate 325 mg (65 mg iron) tablet completed Take 1 tablet by mouth twice a day - ALLEN Mederos DNP Entresto 49-51 mg tablet active TAKE 1 TABLET BY MOUTH TWICE DAILY Eloisa Goyal cephalexin 250 mg capsule completed Take 1 capsule by mouth three times a day - Kristopher Vallecillo Percocet 5-325 mg tablet active Take 1 tablet by mouth three times a day for pain Julian Eli MD losartan 25 mg tablet completed one tablet daily - Jorge Luis Felton MD furosemide 40 mg tablet completed Take one tablet per day for the next three days, then take only on Thursday, Thursday, Thursday - Julian Eli MD potassium chloride 20 mEq tablet extended release completed Take 1 tablet by mouth once a day with furosemide doses - warfarin 5 mg tablet completed TAKE 1/2 TABLET BY MOUTH EVERY EVENING EXCEPT ON Thu and TAKE A whole TAB (2.5MG) - Franci Weeks RN carvedilol 6.25 mg tablet completed Take 1 tablet by mouth twice daily - Augusto Kan DNP,SE[employer] 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 - Arturo Amaro RN warfarin 5 mg tablet completed TAKE 1 TABLET BY MOUTH EVERY EVENING EXCEPT THURSDAY TAKE 2.5 MG= 1/2 TAB. - Shari Rushing warfarin 5 mg tablet completed Take 1 tablet by mouth every evening Except Thursday take 2.5 mg= 1/2 tab. - Jeanette Mccormack RN warfarin 2.5 mg tablet completed Take 1 tablet by mouth every evening Except on Sat take 2 tabs (= 5mg) - Franci Weeks RN carvedilol 3.125 mg tablet completed Take 1 tablet by mouth twice daily - Arturo Amaro RN folic acid 0.8 mg capsule completed Take 1 capsule by mouth once a day - Monica Orellana LAPELER warfarin 5 mg tablet completed Take 1 tablet by mouth every evening Except on Thu-Thu-Thu take 1/2 tab - Arturo Amaro RN captopril 25 mg tablet completed once a day - Arturo Amaro RN fluticasone propionate 50 mcg/actuation spray,suspension active Monica Orellana NP trazodone 150 mg tablet completed - Monica Orellana NP hydrocodone-acetam inophen 5-325 mg tablet active q12hrs Monica Orellana NP venlafaxine 75 mg capsule,extended release 24hr active daily Monica Orellana NP warfarin 5 mg tablet completed 1/2 tab daily except on take 1 tab - Franci Weeks RN warfarin 5 mg tablet completed Take 1 tablet by mouth every evening except on Tue, Thur, Sat, sun take a HALF tab (2.5MG) - Franci Weeks RN captopril 12.5 mg tablet completed Take 1 tablet by mouth once a day - Monica Orellana NP decreased dose carvedilol 3.125 mg tablet completed Take 1 tablet by mouth twice a day - Shari Rushing warfarin 5 mg tablet completed 1/2 tab daily except on Thu- take 1 tab - Franci Weeks RN warfarin 5 mg tablet completed one tab daily - Arturo Amaro RN captopril 12.5 mg tablet completed Take 1 tablet by mouth once a day - Arturo Amaro RN decreased dose nitroglycerin 0.4 mg tablet, sublingual active DISSOLVE 1 TABLET BY MOUTH DIRECTED NEEDED FOR CHEST PAIN, MAY REPEAT EVERY 5 MINUTES IF NEEDED. MAX 3 TABLETS PER EPISODE Collins Jamison nitroglycerin 0.4 mg tablet, sublingual completed under tongue as directed take 1 tab under tongue as needed for CP may repeat every 10 min x 2 - Arturo Amaro RN pregabalin 75 mg capsule completed - Monica Orellana NP lorazepam 1 mg tablet completed - Monica Orellana NP warfarin 5 mg tablet completed one tab daily - Arturo Amaro RN magnesium oxide 400 mg magnesium tablet completed Take 1 tablet by mouth once a day - Donnell Blanco warfarin 2 mg tablet completed Take 1 tablet by mouth once a day - Arturo Amaro RN warfarin 5 mg tablet completed Take 1/2 tablet by mouth as directed Take 2.5 mg daily except one day a week then take 5 mg - Isamar Sharpe rosuvastatin 20 mg tablet completed 1 tablet by mouth once a day - Samuel Fly ATORVASTATIN CALCIUM 40 MG ORAL TABLET completed one tab daily - Julian Eli MD WARFARIN SODIUM 5 MG TABS completed TAKE A HALF TAB (2.5MG) DAILY, EXC ON THU TAKE 1 TAB (5MG) - Donnell Blanco OXYCODONE-ACETAMIN OPHEN 5-325 MG ORAL TABLET completed one tablet each 8 hours PRN for arthritis due to moderate rotator cuff pain. do not drive or use machinery if taking this medication - Jessie Ramos COUMADIN 4 MG ORAL TABLET completed hold - Jessie Ramos warfarin 5 mg tablet completed TAKE A HALF TAB (2.5MG) DAILY, EXCEPT ON THU TAKE 1 TAB (5MG) - Eloisa Goyal ASPIRIN ADULT LOW DOSE 81 MG ORAL TABLET DELAYED RELEASE completed One Tab By Mouth Daily - Amalia Ryland LEVAQUIN 750 MG ORAL TABLET completed One tablet daily for ten days - Amalia Ryland AMOXICILLIN 500 MG ORAL TABLET completed One tablet three times a day for ten days - Amalia Ryland VENTOLIN HFA 108 (90 Base) MCG/ACT INHALATION AEROSOL SOLUTION completed One puff three times daily - Amalia Ryland ARTESIA STUDY: APIXABAN/ASA/PLACE KELLI completed - Marquita Andrade MAGNESIUM OXIDE 400 MG ORAL TABLET completed ONE TAB TWICE A DAY - Marcelina John DILAUDID 2 MG ORAL TABLET completed one tab each six hours for moderate pain. - Marcelina Arnoldshashankjen do not drive or use any machinery when taking AMIODARONE HCL 200 MG ORAL TABLET completed once daily - Julian Eli MD pantoprazole 40 mg tablet,delayed release (DR/EC) active tablet by mouth once a day Eloisa Goyal alprazolam 0.5 mg tablet completed tablet by mouth twice a day - Monica Orellana NP DILAUDID 2 MG ORAL TABLET completed every 6 hours as needed for pain - Anabella Tabor AMBIEN 10 MG ORAL TABLET completed ONE TAB. AT BEDTIME - Amalia Marcelino VERAPAMIL HCL ER 240 MG ORAL TABLET EXTENDED RELEASE completed ONE TAB. DAILY at NIGHT - Armando Amaral captopril 12.5 mg tablet completed 1 tablet by mouth twice a day - Farida Pace decreased dose CAPTOPRIL 50 MG ORAL TABLET completed take 2 a day - Aneatris Brown ADULT ASPIRIN LOW STRENGTH 81 MG ORAL TABLET DISINTEGRATING completed take one pill a day - Anabella Tabor BIDIL TABLET completed 1/2 pill twice a day - Debiatrbreana Smith spironolactone 25 mg tablet completed 1 tablet by mouth once a day - Pricilla Hoyt NP carvedilol 3.125 mg tablet completed Take 1 tablet by mouth twice a day - Farida Pace HYDROCODONE-ACETAM INOPHEN TABLET completed take one pill 4 times a day - Anabella Tabor Effexor XR 150 mg capsule,extended release 24hr active Take capsule by mouth once a day Eloisa Goyal SOCIAL HISTORY Date Observation Value Provider alcohol use no Collins Shaheen smoking/tobacco cess ation, patient education and counseling yes Collins Shaheen number of years as a smoker 55 a Collins Shaheen smoking history, tot al pack/day 0.25 Collins Popt cigarette use yes Collins Shaheen smoking status Current every day smoker J dustin Jamison alcohol use no Augusto Kan DN P,[facility] smoking/tobacco cess ation, patient education and counseling yes Augusto Kan DNP,[facility] number of years as a smoker 55 a Augusto Kan DNP,[facility] smoking history, tot al pack/day 0.25 Augusto Kan DNP,[facility] cigarette use yes Augusto Goldman LAPELER,[facility] smoking status Current every day smoker C kirby Kan DNP,[facility] alcohol use no Pricilla David LAPELER smoking/tobacco cess ation, patient education and counseling yes Pricilla Savagedall LAPELER number of years as a smoker 55 a Pricilla Vincentll LAPELER smoking history, tot al pack/day 0.25 Pricilla Savagedall LAPELER cigarette use yes Pricilla Savagedall LAPELER smoking status Current every day smoker S katlyn Vincentll LAPELER alcohol use no Kristopher Whitemedzai smoking/tobacco cess ation, patient education and counseling yes Kristopher Whitemedzai number of years as a smoker 55 a Kristopher Starkszaarhtur smoking history, tot al pack/day 0.25 Kristopher Whitemedzai cigarette use yes Kristopher Whitemedzai smoking status Current every day smoker R liat Whitemedzaarthur alcohol use no Kristopher Whitemedzai smoking/tobacco cess ation, patient education and counseling yes Kristopher Vallecillo number of years as a smoker 55 a Kristopherrickie Vallecillo smoking history, tot al pack/day 0.25 Kristopher Starkszaarthur cigarette use yes Kristopher Starkszaarthur smoking status Current every day smoker R liat Vallecillo alcohol use no Jorge Luis Felton MD smoking/tobacco cess ation, patient education and counseling yes Jorge Luis Felton MD number of years as a smoker 55 a Jorge Luis Felton MD smoking history, tot al pack/day 0.25 Jorge Luis Felton MD cigarette use yes Jorge Luis Felton MD smoking status Current every day smoker G quinten Felton MD alcohol use no Rodolfo Danielle MD smoking/tobacco cess ation, patient education and counseling yes Rodolfo Danielle MD number of years as a smoker 55 a Rodolfo Danielle MD smoking history, tot al pack/day 0.25 Rodolfo Danielle MD cigarette use yes Rodolfo Danielle MD smoking status Current every day smoker M breann Danielle MD alcohol use no Kristopher Vallecillo smoking/tobacco cess ation, patient education and counseling yes Kristopher Vallecillo number of years as a smoker 55 a Kristopher Vallecillo smoking history, tot al pack/day 0.25 Kristopher Vallecillo cigarette use yes Kristopher Starkszaarthur smoking status Current every day smoker R willyrickie Whitemedzaarthur number of years as a smoker 55 a Monica Orellana LAPELER smoking history, tot al pack/day 0.25 Monica Orellana LAPELER cigarette use yes Monica li LAPELER smoking/tobacco cess ation, patient education and counseling yes Monica Orellana NP smoking status Current every day smoker J wilner Orellana LAPELER Exercise counseling yes Monica Orellana NP social history reviewed E&M revi ewed - no changes required Julian Eli MD smoking/tobacco cess ation, patient education and counseling yes Nel Serrano number of years as a smoker 30 a Nel Serrano smoking history, tot al pack/day 1/2 Nel Serrano cigarette use yes Nel Thomason nd smoking status Current every day smoker Darnell Serrano social history E&M S moking History: P atient currently smokes every day. P atient has been counseled to quit. Donnell Blanco social history reviewed E&M revi ewed - no changes required Donnell Blanco smoking/tobacco cess ation, patient education and counseling yes Marcelina Arnoldtyronealexswathi number of years as a smoker 30 a Marcelina Arnoldtyronealexswathi smoking history, tot al pack/day 1/2 Marcelina Arnoldtyronealexswathi cigarette use yes Marcelina echevarria smoking status Current every day smoker Heena lawrence John smoking/tobacco cess ation, patient education and counseling yes Marcelina John number of years as a smoker 30 a Marcelina Arnoldshashankjen smoking history, tot al pack/day 1/2 Marcelina John cigarette use yes Marcelina Peng swathi smoking status Current every day smoker Heena Arnoldtyronealexswathi social history E&M S moking History: P atient currently smokes every day. P atient has been counseled to quit. Donnell Blanco social history reviewed E&M revi ewed - no changes required Donnell Blanco smoking/tobacco cess ation, patient education and counseling yes Marcelina Lopez number of years as a smoker 30 a Marcelina Lopez smoking history, tot al pack/day 1/2 Marcelina Lopez cigarette use yes Marcelina echevarria smoking status Current every day smoker K howard Lopez social history E&M S moking History: P atient currently smokes every day. P atient has been counseled to quit. Donnell Blanco social history reviewed E&M revi ewed - no changes required Donnell Blanco smoking/tobacco cess ation, patient education and counseling yes Jessie Richard number of years as a smoker 30 a Jessie Richard smoking history, tot al pack/day 1/2 Jessie Richard cigarette use yes Jessie Talib casiano smoking status Current every day smoker C valencia Ramos social history reviewed E&M revi ewed - no changes required Osmel Lester smoking/tobacco cess ation, patient education and counseling yes Matt Elliott smoking status Current every day smoker N cherry Elliott social history E&M S moking History: P atient currently smokes every day. P atient has been counseled to quit. Matt Elliott number of years as a smoker 30 a Dione Mckee smoking history, tot al pack/day 1/2 Dione Rylee cigarette use yes Dione Boris -Karthik social history reviewed E&M revi ewed - no changes required Dione Mckee number of grandchildren Julian Rosas social history reviewed E&M revi ewed - no changes required Bob Rosas social history E&M S moking History: P atparam currently smokes every day. P atient has been counseled to quit. Bob Rosas smoking/tobacco cess ation, patient education and counseling yes Jessie Ramos alcohol use no Jessie herrera number of years as a smoker 30 a Jessie Ramos smoking history, tot al pack/day 1/2 Jessie Ramos cigarette use yes Jessie casiano smoking status current every day smoker C valencia Ramos social history reviewed E&M revi ewed - no changes required Armando Amaral smoking/tobacco cess ation, patient education and counseling yes Amalia Ryland alcohol use no Amalai Ryland number of years as a smoker 30 a Amalia Ryland smoking history, tot al pack/day 1/2 Amalia Ryladn cigarette use yes Amalia Ryland smoking status current every day smoker D acia Ryland social history E&M Smoking Histo ry: P atient currently smokes every day. P atient has been counseled to quit. Brandon Blanc social history reviewed E&M revi ewed - no changes required Brandon Blanc smoking/tobacco cess ation, patient education and counseling yes Marcelina Lopez alcohol use no Marcelina suarez number of years as a smoker 30 a Marcelina Lopez smoking history, tot al pack/day 1/2 Marcelina Lopez cigarette use yes Marcelina echevarria smoking status current every day smoker K howard Lopez social history reviewed E&M revi ewed - no changes required Julian Eli MD social history E&M Smoking Histo ry: P atient currently smokes every day. Julian Eli MD smoking/tobacco cess ation, patient education and counseling yes Nicolasa Diamond alcohol use no Nicolasa us number of years as a smoker 30 a Nicolasa Diamond smoking history, tot al pack/day 1/2 Nicolasa Diamond cigarette use yes Nicolasa clarke smoking status current every day smoker Darnell Diamond smoking/tobacco cess ation, patient education and counseling yes Nicolasa Diamond alcohol use no Nicolasa us number of years as a smoker 30 a Nicolasa Diamond smoking history, tot al pack/day 1/2 Nicolasa Diamond cigarette use yes Nicolasa clarke smoking status current every day smoker Darnell Diamond social history reviewed E&M revi ewed - no changes required Julian Eli MD alcohol use no Anabella Leander smoking/tobacco cess ation, patient education and counseling yes Anabella Tabor number of years as a smoker 30 a Anabella Leander smoking history, tot al pack/day 1/2 Anabella Tabor cigarette use yes Anabella Tabor smoking status current every day smoker Darnell steiner Leander smoking/tobacco cess ation, patient education and counseling yes Julian Eli MD social history E&M Patient isidro sanchez smokes every day. Smoking History: P atparam currently smokes every day. Julian Eli MD social history reviewed E&M revi ewed - no changes required Julian Eli MD alcohol use no Anabella Taobr number of years as a smoker 30 a Anabella Leander smoking history, tot al pack/day 1/2 Anabella Tabor cigarette use yes Anabella Tabor smoking status current every day smoker S rayshawn Eli MD social history reviewed E&M revi ewed - no changes required Julian Eli MD alcohol use no Liz Smith number of years as a smoker 30 a Liz Smith smoking history, tot al pack/day 1/2 Aneemis Luis cigarette use yes Liz Smith smoking status Current every day smoker A neha Smith social history reviewed E&M revi ewed - no changes required Julian Eli MD appendectomy, history of yes Aneta Eli MD alcohol use no Marcelina suarez number of years as a smoker 30 a Marcelina Lopez smoking history, tot al pack/day 1/2 Marcelina Lopez cigarette use yes Marcelina echevarria smoking status Current every day smoker K howard Lopez FUNCTIONAL STATUS Date Observation Value Provider HRA, CV Assess/Plan, Angina (inactive) Management Plan continue current therapy Collins Jamison HRA, CV Assess/Plan, Angina (inactive) Management Plan continue current therapy Augusto aKn DNP,SEED CORE OPERATOR HRA, CV Assess/Plan, Angina (inactive) Management Plan continue current therapy Kristopher Vallecillo HRA, CV Assess/Plan, Angina (inactive) Management Plan continue current therapy Jorge Luis Felton MD HRA, CV Assess/Plan, Angina (inactive) Management Plan continue current therapy Rodolfo Danielle MD HRA, CV Assess/Plan, Angina (inactive) Management Plan continue current therapy Kristopher Avel HRA, CV Assess/Plan, Angina (inactive) Management Plan continue current therapy Monica Orellana NP HRA, CV Assess/Plan, Angina (inactive) Management Plan continue current therapy Monica Orellana NP HRA, CV Assess/Plan, Angina (inactive) Management Plan continue current therapy Pricilla Lai BRANCH HRA, CV Assess/Plan, Angina (inactive) Management Plan continue current therapy Donnell Blanco HRA, CV Assess/Plan, Angina (inactive) Management Plan continue current therapy Donnell Blanco HRA, CV Assess/Plan, Angina (inactive) Management Plan continue current therapy Donnell Blanco HRA, CV Assess/Plan, Angina (inactive) Management Plan continue current therapy Osmel Trevon HRA, CV Assess/Plan, Angina (inactive) Management Plan continue current therapy Bob Rosas HRA, CV Assess/Plan, Angina (inactive) Management Plan continue current therapy Brandon Blanc HRA, CV Assess/Plan, Angina (inactive) Management Plan continue current therapy Julian Eli MD FAMILY HISTORY Family Member Condition Father Family History of Co ronary Artery Disease: Father Family History of Hy pertension: Father Family History of Hy perlipidemia: Mother Family History of Lisa ng Cancer: INSURANCE PROVIDERS Payer name Policy type / Coverage type [place] [employer] party ID [employer] MED[employer]ARE GOLD ADVANTAGE HMO Medicare [id number] ADVANCE DIRECTIVES Name Date DISCUSSED - NO DECISION MADE TREATMENT PLAN Date Name Performer [id number],C,A T/AF [place]: 0.0% % Pacing: RA - 75.0% RV - 10.0% T ransthoracic Impedance: 78.1 ohms today c ompared to baseline of 83.5 ohm Monica Orellana NP [id number],C,s mokes 4-5 cigarettes/day. encouraged cessation Monica Orellana NP [id number],C, B P today: 132/90 P rior BP: 122/82 (03/28/2022) Labs Reviewed: C reat: 1.92 (04/07/2020) C hol: 175 (04/07/2020) HDL: 46 (04/07/2020) His updated medication list for this problem includes: Carvedilol 3.125 Mg Tablet (Carvedilol) ..... Take 1 tablet by mouth twice daily Spironolactone 25 Mg Tablet (Spironolactone) ..... Daily Captopril 25 Mg Tablet (Captopril) ..... Once a day Monica Orellana SARINA [id number],C,E CHO 04/2022 EF 50%, impaired LV relaxation. Monica Fryemagda BRANCH [id number],C,l ast remote check no afib. 12 % battery. Monica Frye LAPELER [id number],S,l ast remote check 0% AFIB H is updated medication list for this problem includes: Carvedilol 3.125 Mg Tablet (Carvedilol) ..... Take 1 tablet by mouth twice daily Warfarin 5 Mg Tablet (Warfarin) ..... Take 1 tablet by mouth every evening except on thu and take a half tab (2.5mg) Monica Fryemagda BRANCH [id number],B, pt continues to c/o of postural dizziness. he reports that he continues to have neck pain and swelling. he also states that he has a new psychiatrist that stopped his lorazepam after being on it for a 'long time' and he has been having anxity/panic attacks 'again.' 2 months ago, the anxiety/panic attack was so bad, that he presented to ED. Monica Usvaldo BRANCH [id number],B,quit 15 yrs a go Monica Usvaldo BRANCH [id number],W,c ontinues to smoke. counseled on cessation. encouraged to cut down by half until able to quit. encouraged to do self relaxation/deep breathing techniques. will check Low dose CT O rders: 9 9214 MOD 30-39min (CPT-52723) C inés LDCT (CPT-G0296) - The Patient was encouraged to stop smoking by Dr. Sreedhar Herrera ow Dose Lung CT (CPT-G0297) F VC - 26577 (54554) F RC - 91903 (01098) D LCO - 10534 (78877) C omplete Echo (CPT-91468) T obacco cessation counseling, 3-10minutes (88174) Julian Eli MD [id number],C,r emote check 03/26/22 A T/AF [place]: 0.0% % Pacing: RA - 81.0% RV - 7.0% T ransthoracic Impedance: 92.7 ohms today c ompared to baseline of 87.1 ohms Julian Eli MD [id number],C, 4 0% LAD disease by cath 2013 and NICM noted 10% at that time E F today 60% by echo. stress test: 05/2021 normal stress test E CHO: EF 60%, impaired LV relaxation, mild MR, mild TR . will recheck ECHO T he following medications were removed from the medication list: Captopril 12.5 Mg Tablet (Captopril) ..... Take 1 tablet by mouth once a day His updated medication list for this problem includes: Captopril 25 Mg Tablet (Captopril) ..... Once a day Warfarin 5 Mg Tablet (Warfarin) ..... Take 1 tablet by mouth every evening except on tue, thur, sat, sun take a half tab (2.5mg) Carvedilol 3.125 Mg Tablet (Carvedilol) ..... Take 1 tablet by mouth twice a day Nitroglycerin 0.4 Mg Tablet, Sublingual (Nitroglycerin) ..... 1 tablet under tongue as directed take 1 tab under tongue as needed for cp may repeat every 10 min x 2 Julian Eli MD [id number],C,E KG today SR. on coumadin and INRS per anticoagulation clinic. H is updated medication list for this problem includes: Warfarin 5 Mg Tablet (Warfarin) ..... Take 1 tablet by mouth every evening except on tue, thur, sat, sun take a half tab (2.5mg) Carvedilol 3.125 Mg Tablet (Carvedilol) ..... Take 1 tablet by mouth twice a day Julian Eli MD [id number],C,c ontinues to smoke. counseled on cessation. encouraged to cut down by half until able to quit. encouraged to do self relaxation/deep breathing techniques. will check Low dose CT Monica Orellana NP [id number],C, B P today: 122/82 P rior BP: 122/70 (09/27/2021) Labs Reviewed: C reat: 1.92 (04/07/2020) C hol: 175 (04/07/2020) HDL: 46 (04/07/2020) The following medications were removed from the medication list: Captopril 12.5 Mg Tablet (Captopril) ..... Take 1 tablet by mouth once a day His updated medication list for this problem includes: Captopril 25 Mg Tablet (Captopril) ..... Once a day Carvedilol 3.125 Mg Tablet (Carvedilol) ..... Take 1 tablet by mouth twice a day Monica Orellana NP [id number],C,s tress test: 05/2021 normal stress test E CHO: EF 60%, impaired LV relaxation, mild MR, mild TR . will recheck ECHO appears compensated at present The following medications were removed from the medication list: Captopril 12.5 Mg Tablet (Captopril) ..... Take 1 tablet by mouth once a day His updated medication list for this problem includes: Captopril 25 Mg Tablet (Captopril) ..... Once a day Warfarin 5 Mg Tablet (Warfarin) ..... Take 1 tablet by mouth every evening except on tue, thur, sat, sun take a half tab (2.5mg) Carvedilol 3.125 Mg Tablet (Carvedilol) ..... Take 1 tablet by mouth twice a day Nitroglycerin 0.4 Mg Tablet, Sublingual (Nitroglycerin) ..... 1 tablet under tongue as directed take 1 tab under tongue as needed for cp may repeat every 10 min x 2 Monica Orellana NP [id number],C,r emote check 03/26/22 A T/AF [place]: 0.0% % Pacing: RA - 81.0% RV - 7.0% T ransthoracic Impedance: 92.7 ohms today c ompared to baseline of 87.1 ohms Monica Orellana SARINA [id number],C, 4 0% LAD disease by cath 2013 and NICM noted 10% at that time E F today 60% by echo. stress test: 05/2021 normal stress test E CHO: EF 60%, impaired LV relaxation, mild MR, mild TR . will recheck ECHO Monica Orellana SARINA [id number],C,E KG today SR. on coumadin and INRS per anticoagulation clinic. Monica Fryemagda BRANCH [id number],C,p ostural dizziness can't stand on heels or tiptoes. modifiied Romberg positive for loss of balance, due to weakness would recommend pt following with neurologist and ENT reports PCP examined pt's R ear recently and was told he had 'infection behind my eardrum.' he was not treated. exam today of R ear no evidence of infection, prob some fluid present. mucinex BID with meals, continue flonase, and sinus rinses. Monica Fryemagda BRANCH [id number],W,o rthostatics positive. Stop spironolactone. Decrease captopril to 1/2 tablet twice daily. Pricilla Lai BRANCH [id number],B,EF 60% per la st echo. Pricilla Lai BRANCH [id number],S, Pricilla price NP [id number],S,r ate is controlled. Warfarin for AC. Pricilla Lai BRANCH [id number],B, B P today: 130/76 P rior BP: 152/90 (05/17/2021) His updated medication list for this problem includes: Spironolactone 25 Mg Tablet (Spironolactone) ..... 1 tablet by mouth once a day Captopril 12.5 Mg Tablet (Captopril) ..... Take 1 tablet by mouth once a day Carvedilol 3.125 Mg Tablet (Carvedilol) ..... Take 1 tablet by mouth twice a day Larrysandra Francis [id number],C, T he Patient was reencouraged to stop smoking. Orders: T obacco cessation counseling, 3-10minutes (81455) F VC - 78990 (04914) F RC - 77301 (79433) D LCO - 36253 (68319) Larrysandra Francis [id number],C, R ecommend medical treatment only without ablation as an option in patient without documented VT and with history of signifcant neck surgery. Will need to check labs prior to starting antiarrhythmic agent .AT followup review device interrogation to finalize decision on antiarrhythmic medication. Orders: C OMPREHENSIVE METABOLIC PANEL, W/EGFR (88122) L IPID PANEL (7600) T SH, free T4, total T3 (7444) P ROBNP, N TERMINAL (28134) C BC (H/H, RBC, INDICES, WBC, PLT) (1759) M AGNESIUM (622) P ROTHROMBIN TIME WITH INR (8847) P artial Thromboplastin Time, Activated (763) Adamallie Francis [id number],C,A T/AF [place]: 0.0% % Pacing: RA - 85.0% RV - 8.0% T ransthoracic Impedance: 92.4 ohms today c ompared to baseline of 88.9 ohms T echnician Summary: B attery normal. Lead trends appear n ormal. HF trends normal. No new e pisodes. Appropriate device function. P atient is on OAC. 07-18-2021 11:51 AM Donnell Blanco [id number],C, Donnell Blanco [id number],C, O rders: S tress Regadenoson (CPT-22469 Donnell Blanco [id number],C, N YHA class II symptoms. EF 60% Donnell Blanco [id number],C, START magnesium 400mg one tab once a day. Donnell Francis [id number],C, a trial paced with PVCs by EKG. l ast episode in 09/2019 by ICD. now having some palpitations S TART magnesium 400mg one tab once a day. His updated medication list for this problem includes: Carvedilol 3.125 Mg Tablet (Carvedilol) ..... Take 1 tablet by mouth twice a day Donnell Francis [id number], [facility] [id number],C, 4 0% LAD disease by cath 2013 and NICM noted 10% at that time E F today 60% by echo. Orders: S tress Regadenoson (CPT-13269) [facility] [id number],W, O rders: S tress Regadenoson (CPT-96075) His updated medication list for this problem includes: Captopril 12.5 Mg Tablet (Captopril) ..... 1 tablet by mouth twice a day Carvedilol 3.125 Mg Tablet (Carvedilol) ..... Take 1 tablet by mouth twice a day Donnell Francis Electrophysiology: o ne episodes of CP which resolved when he drank water m ild nonobstructive CAD on cath 08/2023 His updated medication list for this problem includes: Nitroglycerin 0.4 Mg Tablet, Sublingual (Nitroglycerin) ..... Dissolve 1 tablet by mouth as directed as needed for chest pain, may repeat every 5 minutes if needed. max 3 tablets per episode Isosorbide Dinitrate 10 Mg Tablet (Isosorbide dinitrate) ..... Take 1 tablet by mouth twice a day Carvedilol 3.125 Mg Tablet (Carvedilol) ..... Take 1 tablet by mouth twice daily Julian Eli MD Electrophysiology: E liquis for oac His updated medication list for this problem includes: Carvedilol 3.125 Mg Tablet (Carvedilol) ..... Take 1 tablet by mouth twice daily Amiodarone 200 Mg Tablet (Amiodarone) ..... Take 2 tablet by mouth twice a day Julian Eli MD Electrophysiology:s/ p AICD His updated medication list for this problem includes: Furoscix 80 Mg/10 Ml Kit (Furosemide) ..... Use daily for 3 days - hold lasix pills while taking furoscix -continue lasix pills after completion of of furoscix Furosemide 40 Mg Tablet (Furosemide) ..... Take 1 tablet by mouth twice a day Metolazone 2.5 Mg Tablet (Metolazone) ..... Take 1 tablet by mouth once a day Isosorbide Dinitrate 10 Mg Tablet (Isosorbide dinitrate) ..... Take 1 tablet by mouth twice a day Carvedilol 3.125 Mg Tablet (Carvedilol) ..... Take 1 tablet by mouth twice daily Amiodarone 200 Mg Tablet (Amiodarone) ..... Take 2 tablet by mouth twice a day Nitroglycerin 0.4 Mg Tablet, Sublingual (Nitroglycerin) ..... 1 tablet under tongue as directed take 1 tab under tongue as needed for cp may repeat every 10 min x 2 Collins Jamison Electrophysiology: Liv son for oac His updated medication list for this problem includes: Carvedilol 3.125 Mg Tablet (Carvedilol) ..... Take 1 tablet by mouth twice daily Amiodarone 200 Mg Tablet (Amiodarone) ..... Take 2 tablet by mouth twice a day Collins Jamison Electrophysiology:Th is visit has been a part of the consistent, comprehensive, and ongoing management of the chronic medical condition(s) listed above for the patient. BP today: 108/79 P rior BP: 103/80 (07/29/2024) His updated medication list for this problem includes: Furoscix 80 Mg/10 Ml Kit (Furosemide) ..... Use daily for 3 days - hold lasix pills while taking furoscix -continue lasix pills after completion of of furoscix Furosemide 40 Mg Tablet (Furosemide) ..... Take 1 tablet by mouth twice a day Metolazone 2.5 Mg Tablet (Metolazone) ..... Take 1 tablet by mouth once a day Carvedilol 3.125 Mg Tablet (Carvedilol) ..... Take 1 tablet by mouth twice daily Collins Shaheen Electrophysiology: o ne episodes of CP which resolved when he drank water m ild nonobstructive CAD on cath 08/2023 Collins Jamison Electrophysiology: B P today: 103/80 P rior BP: 122/86 (06/17/2024) His updated medication list for this problem includes: Metolazone 2.5 Mg Tablet (Metolazone) ..... Take 1 tablet by mouth once a day Furoscix 80 Mg/10 Ml Kit (Furosemide) ..... Use daily for 3 days - hold lasix pills while taking furoscix -continue lasix pills after completion of of furoscix Carvedilol 3.125 Mg Tablet (Carvedilol) ..... Take 1 tablet by mouth twice daily Furosemide 40 Mg Tablet (Furosemide) ..... Take 1 tablet by mouth once a day Augusto Kan DNP,[employer] Electrophysiology:Ap pears to starting to develop decompensated CHF. No dyspnea at rest. He is maintaining oxygenation. His leg edema is 3+ bilaterally. Unsure fi he is following a strict sodium restriction diet. Sodium diet restriction discussed to more than 2gm per day. Plan to treat outpatient. Will have him take furoscix 80mg for 3 days and hold PO lasix while on it. Continue metolazone. While waiting for injection, take lasix 40mg BID with metolazone once a day. Decrease coreg to 3.125 mg twice a day. Try Dinitrate 1 tablet twice a day, if he becomes dizzy he can stop the medication. Repeat CMP on Thursday and have him f/u in 2 week. Advised if symptoms worsen and breathing is worse to go to ED for admission for inpatient CHF treatment. Advised to take furosemide and metolazone in the morning on an empty stomach. His updated medication list for this problem includes: Isosorbide Dinitrate 10 Mg Tablet (Isosorbide dinitrate) ..... Take 1 tablet by mouth twice a day Metolazone 2.5 Mg Tablet (Metolazone) ..... Take 1 tablet by mouth once a day Furoscix 80 Mg/10 Ml Kit (Furosemide) ..... Use daily for 3 days - hold lasix pills while taking furoscix -continue lasix pills after completion of of furoscix Carvedilol 3.125 Mg Tablet (Carvedilol) ..... Take 1 tablet by mouth twice daily Amiodarone 200 Mg Tablet (Amiodarone) Furosemide 40 Mg Tablet (Furosemide) ..... Take 1 tablet by mouth once a day Nitroglycerin 0.4 Mg Tablet, Sublingual (Nitroglycerin) ..... 1 tablet under tongue as directed take 1 tab under tongue as needed for cp may repeat every 10 min x 2 Augusto Kan [facility] Electrophysiology:No chest pain Augusto Kan [facility] Electrophysiology:El iquis for oac H is updated medication list for this problem includes: Carvedilol 3.125 Mg Tablet (Carvedilol) ..... Take 1 tablet by mouth twice daily Amiodarone 200 Mg Tablet (Amiodarone) Augusto Kan [facility] Cardiology:On coumad in for ac. H is updated medication list for this problem includes: Warfarin 5 Mg Tablet (Warfarin) ..... Take 1/2 tablet by mouth every night except on thu and thursday take 1 tab Carvedilol 6.25 Mg Tablet (Carvedilol) ..... Take 1 tablet by mouth twice daily T his visit has been a part of the consistent, comprehensive, and ongoing management of the chronic medical condition(s) listed above for the patient. Jose A Gastelum MD Cardiology:Stable H is updated medication list for this problem includes: Furosemide 40 Mg Tablet (Furosemide) ..... Take 1 tablet by mouth once a day Carvedilol 6.25 Mg Tablet (Carvedilol) ..... Take 1 tablet by mouth twice daily Spironolactone 25 Mg Tablet (Spironolactone) ..... Daily Pricilla Hernandez NP Cardiology:On coumad in for ac. H is updated medication list for this problem includes: Warfarin 5 Mg Tablet (Warfarin) ..... Take 1/2 tablet by mouth every night except on thu and thursday take 1 tab Carvedilol 6.25 Mg Tablet (Carvedilol) ..... Take 1 tablet by mouth twice daily Pricilla Hernandez NP Cardiology:Has AICD in place. H is updated medication list for this problem includes: Furosemide 40 Mg Tablet (Furosemide) ..... Take 1 tablet by mouth once a day Warfarin 5 Mg Tablet (Warfarin) ..... Take 1/2 tablet by mouth every night except on thu and thursday take 1 tab Nitroglycerin 0.4 Mg Tablet, Sublingual (Nitroglycerin) ..... 1 tablet under tongue as directed take 1 tab under tongue as needed for cp may repeat every 10 min x 2 Carvedilol 6.25 Mg Tablet (Carvedilol) ..... Take 1 tablet by mouth twice daily Spironolactone 25 Mg Tablet (Spironolactone) ..... Daily Pricilla Hernandez NP Cardiology:Patient i s advised to go to the ER. He wishes to go to [facility] as his renal doc is there. He is instructed to go straight there from this office. He verbalizes understanding. H is updated medication list for this problem includes: Furosemide 40 Mg Tablet (Furosemide) ..... Take 1 tablet by mouth once a day Warfarin 5 Mg Tablet (Warfarin) ..... Take 1/2 tablet by mouth every night except on thu and thursday take 1 tab Nitroglycerin 0.4 Mg Tablet, Sublingual (Nitroglycerin) ..... 1 tablet under tongue as directed take 1 tab under tongue as needed for cp may repeat every 10 min x 2 Carvedilol 6.25 Mg Tablet (Carvedilol) ..... Take 1 tablet by mouth twice daily Spironolactone 25 Mg Tablet (Spironolactone) ..... Daily Pricilla Hernandez NP Cardiology:This visi t has been a part of the consistent, comprehensive, and ongoing management of the chronic medical condition(s) listed above for the patient. O rders: 9 9214 MOD 30-39min (CPT-42863) C omplex e/m visit add on (G2211) Kristopher Vallecillo Cardiology:stable cu rrently, advised him to stay complaint on medications. He takes lasix as needed currently. Kristopher Vallecillo Cardiology:This visi t has been a part of the consistent, comprehensive, and ongoing management of the chronic medical condition(s) listed above for the patient. H e is on GDMT, will plan for Echo next visit. Orders: 9 9214 MOD 30-39min (CPT-02576) C omplex e/m visit add on (G2211) Kristopher Vallecillo Cardiology:This visi t has been a part of the consistent, comprehensive, and ongoing management of the chronic medical condition(s) listed above for the patient. O n Warfarin Kristopher Vallecillo Electrophysiology Julian castro MD Electrophysiology: H is updated medication list for this problem includes: Warfarin 5 Mg Tablet (Warfarin) ..... Except on thu and take a whole tab (2.5mg) Nitroglycerin 0.4 Mg Tablet, Sublingual (Nitroglycerin) ..... 1 tablet under tongue as directed take 1 tab under tongue as needed for cp may repeat every 10 min x 2 Carvedilol 6.25 Mg Tablet (Carvedilol) ..... Take 1 tablet by mouth twice daily Orders: C OMPREHENSIVE METABOLIC PANEL, W/EGFR (12854) Julian Eli MD Electrophysiology: T he following medications were removed from the medication list: Furosemide 40 Mg Tablet (Furosemide) ..... Take one tablet per day for the next three days, then take only on thursday, thursday, thursday His updated medication list for this problem includes: Furosemide 40 Mg Tablet (Furosemide) ..... Take 1 tablet by mouth once a day take 1 tablet by mouth every day Warfarin 5 Mg Tablet (Warfarin) ..... Except on thu and wd take a whole tab (2.5mg) Nitroglycerin 0.4 Mg Tablet, Sublingual (Nitroglycerin) ..... 1 tablet under tongue as directed take 1 tab under tongue as needed for cp may repeat every 10 min x 2 Carvedilol 6.25 Mg Tablet (Carvedilol) ..... Take 1 tablet by mouth twice daily Spironolactone 25 Mg Tablet (Spironolactone) ..... Daily Julian Eli MD Electrophysiology: H is updated medication list for this problem includes: Warfarin 5 Mg Tablet (Warfarin) ..... Except on thu and take a whole tab (2.5mg) Carvedilol 6.25 Mg Tablet (Carvedilol) ..... Take 1 tablet by mouth twice daily Orders: E KG (CPT-68866) C OMPREHENSIVE METABOLIC PANEL, W/EGFR (91472) Julian Eli MD Cardiology: T he following medications were removed from the medication list: Losartan 25 Mg Tablet (Losartan) ..... One tablet daily Lisinopril 10 Mg Tablet (Lisinopril) ..... One tab daily His updated medication list for this problem includes: Furosemide 40 Mg Tablet (Furosemide) ..... Take one tablet per day for the next three days, then take only on thursday, thursday, thursday Warfarin 5 Mg Tablet (Warfarin) ..... Take 1 tablet by mouth every evening except on thu&thu take a half tab (2.5mg) Nitroglycerin 0.4 Mg Tablet, Sublingual (Nitroglycerin) ..... 1 tablet under tongue as directed take 1 tab under tongue as needed for cp may repeat every 10 min x 2 Carvedilol 6.25 Mg Tablet (Carvedilol) ..... Take 1 tablet by mouth twice daily Spironolactone 25 Mg Tablet (Spironolactone) ..... Daily Jorge Luis Felton MD Cardiology:Pt just d /c from [facility] with another episode of CHF exacerbation. Yesterday at home, it was very difficult for him to breathe. We will start Furoscix and switch losartan to Entresto 49-51mg BID. He was started on Farxiga in the hospital and we will continue that. Will obtain lab work. He is instructed to go to ER if sx do not improve. Jorge Luis Felton MD Cardiology: H is updated medication list for this problem includes: Warfarin 5 Mg Tablet (Warfarin) ..... Take 1 tablet by mouth every evening except on mon&fri take a half tab (2.5mg) Carvedilol 6.25 Mg Tablet (Carvedilol) ..... Take 1 tablet by mouth twice daily Jorge Luis Felton MD Cardiology:Pt just d /c from [facility] with another episode of CHF exacerbation. Yesterday at home, it was very difficult for him to breathe. We will start Furoscix and switch losartan to Entresto 49-51mg BID. He was started on Farxiga in the hospital and we will continue that. Will obtain lab work. He is instructed to go to ER if sx do not improve. T he following medications were removed from the medication list: Losartan 25 Mg Tablet (Losartan) ..... One tablet daily Lisinopril 10 Mg Tablet (Lisinopril) ..... One tab daily His updated medication list for this problem includes: Furosemide 40 Mg Tablet (Furosemide) ..... Take one tablet per day for the next three days, then take only on thursday, thursday, thursday Warfarin 5 Mg Tablet (Warfarin) ..... Take 1 tablet by mouth every evening except on thu&thu take a half tab (2.5mg) Nitroglycerin 0.4 Mg Tablet, Sublingual (Nitroglycerin) ..... 1 tablet under tongue as directed take 1 tab under tongue as needed for cp may repeat every 10 min x 2 Carvedilol 6.25 Mg Tablet (Carvedilol) ..... Take 1 tablet by mouth twice daily Spironolactone 25 Mg Tablet (Spironolactone) ..... Daily Jorge Luis Felton MD Cardiology:Slightly worse since the upgrade. Possible etiology is CHF. D ose of diuretics has been increased Rodolfo Danielle MD Cardiology:Continue medications H is updated medication list for this problem includes: Warfarin 5 Mg Tablet (Warfarin) ..... Take 1 tablet by mouth every evening except on thu&fri take a half tab (2.5mg) Carvedilol 6.25 Mg Tablet (Carvedilol) ..... Take 1 tablet by mouth twice daily Rodolfo Danielle MD Cardiology:Worsening of sx with associated nausea and vomiting and SOB C linically he was CHF. He was asked to take Lasix 40mg daily as well as K replacements Z ofran was given for lalita Rodolfo Danielle MD Electrophysiology: H is updated medication list for this problem includes: Furosemide 40 Mg Tablet (Furosemide) ..... Take one tablet per day for the next three days, then take only on thursday, thursday, thursday Losartan 25 Mg Tablet (Losartan) ..... One tablet daily Carvedilol 6.25 Mg Tablet (Carvedilol) ..... Take 1 tablet by mouth twice daily Lisinopril 10 Mg Tablet (Lisinopril) ..... One tab daily Spironolactone 25 Mg Tablet (Spironolactone) ..... Daily Julian Eli MD Electrophysiology Julian castro MD Electrophysiology: H is updated medication list for this problem includes: Furosemide 40 Mg Tablet (Furosemide) ..... Take one tablet per day for the next three days, then take only on thursday, thursday, thursday Losartan 25 Mg Tablet (Losartan) ..... One tablet daily Warfarin 5 Mg Tablet (Warfarin) ..... Take 1 tablet by mouth every evening except on mon&fri take a half tab (2.5mg) Nitroglycerin 0.4 Mg Tablet, Sublingual (Nitroglycerin) ..... 1 tablet under tongue as directed take 1 tab under tongue as needed for cp may repeat every 10 min x 2 Carvedilol 6.25 Mg Tablet (Carvedilol) ..... Take 1 tablet by mouth twice daily Lisinopril 10 Mg Tablet (Lisinopril) ..... One tab daily Spironolactone 25 Mg Tablet (Spironolactone) ..... Daily Orders: Drew moody No Charge (CPT-73394) Julian Eli MD Electrophysiology Julian castro MD Electrophysiology: H is updated medication list for this problem includes: Warfarin 5 Mg Tablet (Warfarin) ..... Take 1 tablet by mouth every evening except on mon&fri take a half tab (2.5mg) Nitroglycerin 0.4 Mg Tablet, Sublingual (Nitroglycerin) ..... 1 tablet under tongue as directed take 1 tab under tongue as needed for cp may repeat every 10 min x 2 Carvedilol 6.25 Mg Tablet (Carvedilol) ..... Take 1 tablet by mouth twice daily Lisinopril 10 Mg Tablet (Lisinopril) ..... One tab daily Julian Eli MD Electrophysiology: O rders: 9 9215 HIGH 40-54min (CPT-28611) Julian Eli MD Electrophysiology:wa 08/2023 showed cardiomyopathy with EF 30%, mild CAD, 50-60% stenosis of left renal artery. Kristopher Vallecillo Electrophysiology:wa 08/2023 showed cardiomyopathy with EF 30%, mild CAD, 50-60% stenosis of left renal artery. E ramon in our office EF 25%, mild to mod Kristopher Bgarthur Electrophysiology: B P today: 150/92 P rior BP: 132/90 (12/26/2022) Labs Reviewed: C reat: 1.92 (04/07/2020) C hol: 175 (04/07/2020) HDL: 46 (04/07/2020) T (04/07/2020) His updated medication list for this problem includes: Furosemide 40 Mg Tablet (Furosemide) ..... Take one tablet per day for the next three days, then take only on thursday, thursday, thursday Carvedilol 6.25 Mg Tablet (Carvedilol) ..... Take 1 tablet by mouth twice daily Lisinopril 10 Mg Tablet (Lisinopril) ..... One tab daily Spironolactone 25 Mg Tablet (Spironolactone) ..... Daily Captopril 25 Mg Tablet (Captopril) ..... Once a day Kristopher Vallecillo Electrophysiology:wi ll proceed with generator change and upgrade device to BiV as his EF has been significantly reduced and has repeat hospital admissions due to decompensation from AFIB and cardiomyopathy. He would greatly benefit from BiV lead implantation in addition to medical therapy optimization H is updated medication list for this problem includes: Warfarin 5 Mg Tablet (Warfarin) ..... Take 1 tablet by mouth every evening except on thu&thu take a half tab (2.5mg) Furosemide 40 Mg Tablet (Furosemide) ..... Take one tablet per day for the next three days, then take only on thursday, thursday, thursday Nitroglycerin 0.4 Mg Tablet, Sublingual (Nitroglycerin) ..... 1 tablet under tongue as directed take 1 tab under tongue as needed for cp may repeat every 10 min x 2 Carvedilol 6.25 Mg Tablet (Carvedilol) ..... Take 1 tablet by mouth twice daily Lisinopril 10 Mg Tablet (Lisinopril) ..... One tab daily Spironolactone 25 Mg Tablet (Spironolactone) ..... Daily Captopril 25 Mg Tablet (Captopril) ..... Once a day Kristopher Vallecillo Electrophysiology:De is MEGAN, will proceed with generator change and upgrade device to BiV as his EF has been significantly reduced and has repeat hospital admission due to CHF decompensation from AFIB and cardiomyopathy. Kristopher Vallecillo Electrophysiology:12 % burden, contributing to his HF admissions, recommend upgrade to BiV and proceeding with AV node ablation, discussed details, risks and benefits of the procedures, he was agreeable. H is updated medication list for this problem includes: Warfarin 5 Mg Tablet (Warfarin) ..... Take 1 tablet by mouth every evening except on thu&thu take a half tab (2.5mg) Carvedilol 6.25 Mg Tablet (Carvedilol) ..... Take 1 tablet by mouth twice daily Orders: L V Pacing Lead Insert (16702) I CD Insert, Generator only w existing single lead (15113) E P Eval single/dual ICD (34652) P ROTHROMBIN TIME WITH INR (8847) P artial Thromboplastin Time, Activated (763) C BC (INCLUDES DIFF/PLT) (6399) C OMPREHENSIVE METABOLIC PANEL, W/EGFR (36550) U RINALYSIS, COMPLETE W/REFLEX TO CULTURE (0964) 9 9215 HIGH 40-54min (CPT-45061) Kristopher Vallecillo Telehealth: H is updated medication list for this problem includes: Furosemide 40 Mg Tablet (Furosemide) ..... Take one tablet per day for the next three days, then take only on thursday, thursday, thursday Carvedilol 6.25 Mg Tablet (Carvedilol) ..... Take 1 tablet by mouth twice daily Lisinopril 10 Mg Tablet (Lisinopril) ..... One tab daily Spironolactone 25 Mg Tablet (Spironolactone) ..... Daily Captopril 25 Mg Tablet (Captopril) ..... Once a day Julian Eli MD Telehealth: n ominal function O rders: P yamilka 21+ (CPT-01322) C cassielete Echo (07690) Julian Eli MD Telehealth: H is updated medication list for this problem includes: Warfarin 5 Mg Tablet (Warfarin) ..... Take 1 tablet by mouth every evening except on th take 1/2 tab Carvedilol 6.25 Mg Tablet (Carvedilol) ..... Take 1 tablet by mouth twice daily Collins Jamison Telehealth Collins Jamison Telehealth: n ominal function Collins Jamison Telehealth: v olume overloaded c /o orthopnea and LE swelling s tart lasix s cheduled echo O rders: P yamilka 21+ (CPT-85389) C omplete Echo (42694) His updated medication list for this problem includes: Furosemide 40 Mg Tablet (Furosemide) ..... Take one tablet per day for the next three days, then take only on thursday, thursday, thursday Warfarin 5 Mg Tablet (Warfarin) ..... Take 1 tablet by mouth every evening except on thurs take 1/2 tab Nitroglycerin 0.4 Mg Tablet, Sublingual (Nitroglycerin) ..... 1 tablet under tongue as directed take 1 tab under tongue as needed for cp may repeat every 10 min x 2 Carvedilol 6.25 Mg Tablet (Carvedilol) ..... Take 1 tablet by mouth twice daily Lisinopril 10 Mg Tablet (Lisinopril) ..... One tab daily Spironolactone 25 Mg Tablet (Spironolactone) ..... Daily Captopril 25 Mg Tablet (Captopril) ..... Once a day Collins Popaayush Electrophysiology:AT /AF [place]: 0.0% % Pacing: RA - 75.0% RV - 10.0% T ransthoracic Impedance: 78.1 ohms today c ompared to baseline of 83.5 ohm Monica Orellana NP Electrophysiology:sm okes 4-5 cigarettes/day. encouraged cessation Monica Orellana NP Electrophysiology: B P today: 132/90 P rior BP: 122/82 (03/28/2022) Labs Reviewed: C reat: 1.92 (04/07/2020) C hol: 175 (04/07/2020) HDL: 46 (04/07/2020) His updated medication list for this problem includes: Carvedilol 3.125 Mg Tablet (Carvedilol) ..... Take 1 tablet by mouth twice daily Spironolactone 25 Mg Tablet (Spironolactone) ..... Daily Captopril 25 Mg Tablet (Captopril) ..... Once a day Monica Orellana NP Electrophysiology:EC MICHAELLE 04/2022 EF 50%, impaired LV relaxation. Monica Orellana NP Electrophysiology:la st remote check no afib. 12 % battery. Julian Eli MD Electrophysiology:la st remote check 0% AFIB H is updated medication list for this problem includes: Carvedilol 3.125 Mg Tablet (Carvedilol) ..... Take 1 tablet by mouth twice daily Warfarin 5 Mg Tablet (Warfarin) ..... Take 1 tablet by mouth every evening except on thu and take a half tab (2.5mg) Julian Eli MD Electrophysiology: p t continues to c/o of postural dizziness. he reports that he continues to have neck pain and swelling. he also states that he has a new psychiatrist that stopped his lorazepam after being on it for a 'long time' and he has been having anxity/panic attacks 'again.' 2 months ago, the anxiety/panic attack was so bad, that he presented to ED. Julian Eli MD Electrophysiology:quit 15 yrs ag o Julian Eli MD Cardiology:continues to smoke. counseled on cessation. encouraged to cut down by half until able to quit. encouraged to do self relaxation/deep breathing techniques. will check Low dose CT Orders: 9 9214 MOD 30-39min (CPT-83995) C ounseling LDCT (CPT-G0296) - The Patient was encouraged to stop smoking by Dr. Sreedhar Herrera ow Dose Lung CT (CPT-G0297) F VC - 52403 (00160) FRC - 48141 (83788) D LCO - 99598 (63170) C omplete Echo (CPT-55689) T obacco cessation counseling, 3-10minutes (61546) Julian Eli MD [facility] A T/AF [place]: 0.0% % Pacing: RA - 81.0% RV - 7.0% T ransthoracic Impedance: 92.7 ohms today c ompared to baseline of 87.1 ohms Julian Eli MD Cardiology: 4 0% LAD disease by cath 2013 and NICM noted 10% at that time E F today 60% by echo. stress test: 05/2021 normal stress test E CHO: EF 60%, impaired LV relaxation, mild MR, mild TR . will recheck ECHO T he following medications were removed from the medication list: Captopril 12.5 Mg Tablet (Captopril) ..... Take 1 tablet by mouth once a day His updated medication list for this problem includes: Captopril 25 Mg Tablet (Captopril) ..... Once a day Warfarin 5 Mg Tablet (Warfarin) ..... Take 1 tablet by mouth every evening except on tue, thur, sat, sun take a half tab (2.5mg) Carvedilol 3.125 Mg Tablet (Carvedilol) ..... Take 1 tablet by mouth twice a day Nitroglycerin 0.4 Mg Tablet, Sublingual (Nitroglycerin) ..... 1 tablet under tongue as directed take 1 tab under tongue as needed for cp may repeat every 10 min x 2 Julian Eli MD Cardiology:EKG today SR. on coumadin and INRS per anticoagulation clinic. H is updated medication list for this problem includes: Warfarin 5 Mg Tablet (Warfarin) ..... Take 1 tablet by mouth every evening except on tue, thur, sat, sun take a half tab (2.5mg) Carvedilol 3.125 Mg Tablet (Carvedilol) ..... Take 1 tablet by mouth twice a day Julian Eli MD Cardiology:continues to smoke. counseled on cessation. encouraged to cut down by half until able to quit. encouraged to do self relaxation/deep breathing techniques. will check Low dose CT Monica Orellana NP Cardiology: B P today: 122/82 P rior BP: 122/70 (09/27/2021) Labs Reviewed: C reat: 1.92 (04/07/2020) C hol: 175 (04/07/2020) HDL: 46 (04/07/2020) The following medications were removed from the medication list: Captopril 12.5 Mg Tablet (Captopril) ..... Take 1 tablet by mouth once a day His updated medication list for this problem includes: Captopril 25 Mg Tablet (Captopril) ..... Once a day Carvedilol 3.125 Mg Tablet (Carvedilol) ..... Take 1 tablet by mouth twice a day Monica Orellana NP Cardiology:stress te st: 05/2021 normal stress test E CHO: EF 60%, impaired LV relaxation, mild MR, mild TR . will recheck ECHO appears compensated at present The following medications were removed from the medication list: Captopril 12.5 Mg Tablet (Captopril) ..... Take 1 tablet by mouth once a day His updated medication list for this problem includes: Captopril 25 Mg Tablet (Captopril) ..... Once a day Warfarin 5 Mg Tablet (Warfarin) ..... Take 1 tablet by mouth every evening except on e, thur, sat, sun take a half tab (2.5mg) Carvedilol 3.125 Mg Tablet (Carvedilol) ..... Take 1 tablet by mouth twice a day Nitroglycerin 0.4 Mg Tablet, Sublingual (Nitroglycerin) ..... 1 tablet under tongue as directed take 1 tab under tongue as needed for cp may repeat every 10 min x 2 Monica Orellana NP Cardiology:remote carmelita 03/26/22 A T/AF [place]: 0.0% % Pacing: RA - 81.0% RV - 7.0% T ransthoracic Impedance: 92.7 ohms today c ompared to baseline of 87.1 ohms Monica Orellana NP Cardiology: 4 0% LAD disease by cath 2013 and NICM noted 10% at that time E F today 60% by echo. stress test: 05/2021 normal stress test E CHO: EF 60%, impaired LV relaxation, mild MR, mild TR . will recheck ECHO Monica Orellana NP Cardiology:EKG today SR. on coumadin and INRS per anticoagulation clinic. Monica Orellana NP Cardiology:postural dizziness can't stand on heels or tiptoes. modifiied Romberg positive for loss of balance, due to weakness would recommend pt following with neurologist and ENT r eports PCP examined pt's R ear recently and was told he had 'infection behind my eardrum.' he was not treated. exam today of R ear no evidence of infection, prob some fluid present. & #13;mucinex BID with meals, continue flonase, and sinus rinses. Monica Orellana NP Electrophysiology:or thostatics positive. Stop spironolactone. Decrease captopril to 1/2 tablet twice daily. Pricilla Hoyt NP Electrophysiology:EF 60% per las t echo. Pricilla Hoyt LAPELER Electrophysiology Pricilla Chakraborty n LAPELER Electrophysiology:ra te is controlled. Warfarin for AC. Pricilla Hoyt LAPELER Electrophysiology: B P today: 130/76 P rior BP: 152/90 (05/17/2021) His updated medication list for this problem includes: Spironolactone 25 Mg Tablet (Spironolactone) ..... 1 tablet by mouth once a day Captopril 12.5 Mg Tablet (Captopril) ..... Take 1 tablet by mouth once a day Carvedilol 3.125 Mg Tablet (Carvedilol) ..... Take 1 tablet by mouth twice a day Donnell Blanco Electrophysiology: T he Patient was reencouraged to stop smoking. Orders: T obacco cessation counseling, 3-10minutes (81672) F VC - 40398 (69392) F RC - 92915 (02985) D LCO - 18830 (77900) Donnell Blanco Electrophysiology: R ecommend medical treatment only without ablation as an option in patient without documented VT and with history of signifcant neck surgery. Will need to check labs prior to starting antiarrhythmic agent .AT followup review device interrogation to finalize decision on antiarrhythmic medication. Orders: C OMPREHENSIVE METABOLIC PANEL, W/EGFR (35052) L IPID PANEL (7600) T SH, free T4, total T3 (7444) P ROBNP, N TERMINAL (25883) C BC (H/H, RBC, INDICES, WBC, PLT) (1759) M AGNESIUM (622) P ROTHROMBIN TIME WITH INR (8847) P artial Thromboplastin Time, Activated (763) Donnell Blanco Electrophysiology:AT /AF [place]: 0.0% % Pacing: RA - 85.0% RV - 8.0% T ransthoracic Impedance: 92.4 ohms today c ompared to baseline of 88.9 ohms T echnician Summary: B attery normal. Lead trends appear n ormal. HF trends normal. No new e pisodes. Appropriate device function. P atient is on OAC. 07-18-2021 11:51 AM [facility] Electrophysiology 13 [facility] Electrophysiology 13 : O rders: S tress Regadenoson (CPT-68979 [facility] Electrophysiology 13 : N YHA class II symptoms. EF 60% [facility] Electrophysiology 13 : START magnesium 400mg one tab once a day. [facility] Electrophysiology 13 : a trial paced with PVCs by EKG. l ast episode in 09/2019 by ICD. now having some palpitations S TART magnesium 400mg one tab once a day. His updated medication list for this problem includes: Carvedilol 3.125 Mg Tablet (Carvedilol) ..... Take 1 tablet by mouth twice a day [facility] Electrophysiology 13 [facility] Electrophysiology 13 : 4 0% LAD disease by cath 2013 and NICM noted 10% at that time E F today 60% by echo. Orders: S tress Regadenoson (CPT-49208) [facility] Electrophysiology 13 : O rders: S tress Regadenoson (CPT-70855) His updated medication list for this problem includes: Captopril 12.5 Mg Tablet (Captopril) ..... 1 tablet by mouth twice a day Carvedilol 3.125 Mg Tablet (Carvedilol) ..... Take 1 tablet by mouth twice a day [facility] Electrophysiology fo llow up : Shayla PRABHAKAR ENCOURAGED TO STOP SMOKING; SMOKING CESSATION TECHNIQUES DISCUSSED. [facility] Electrophysiology fo llow up :Conclusions: 1 . Normal left ventricular size. Normal left ventricular wall thickness. There is E to A wave reversal consistent with impaired L V relaxation. E/E': 12.0. Left ventricular ejection fraction is measured at 50 %. 2 . The right atrium is normal in size. Linear artifact in right atrium suggestive of catheter, pacer lead, or ICD lead. 3 . Normal pericardium with no pericardial or pleural effusion. 4 . Normal aortic root size. E lectronically Signed By: Julian Curry 2 674-11-08 15:59:57 ZYGLO TECHNICIAN Orders: 9 9215 HIGH Complex (CPT-01587) C OMPREHENSIVE METABOLIC PANEL, W/EGFR (74227) C BC (INCLUDES DIFF/PLT) (6399) L IPID PANEL (3810) T SH, free T4, total T3 (7444) C omplete Echo (CPT-86265) [facility] Electrophysiology fo llow up :NYHA class II symptoms. most recent EF 50% AAA and carotids unchanged from previous His updated medication list for this problem includes: Coumadin 5 Mg Oral Tablet (Warfarin sodium) ..... One tab on wed only then 1/2 tab daily Captopril 12.5 Mg Oral Tablet (Captopril) ..... 1 tablet twice a day Spironolactone 25 Mg Oral Tablet (Spironolactone) ..... One tab once daily Carvedilol 3.125mg (Carvedilol) ..... Take one tablet twice daily [facility] Electrophysiology fo llow up : n o recent chest pain His updated medication list for this problem includes: Coumadin 5 Mg Oral Tablet (Warfarin sodium) ..... One tab on wed only then 1/2 tab daily Captopril 12.5 Mg Oral Tablet (Captopril) ..... 1 tablet twice a day Carvedilol 3.125mg (Carvedilol) ..... Take one tablet twice daily [facility] Electrophysiology fo llow up : l ast episode in 09/2019. His updated medication list for this problem includes: Coumadin 5 Mg Oral Tablet (Warfarin sodium) ..... One tab on wed only then 1/2 tab daily Carvedilol 3.125mg (Carvedilol) ..... Take one tablet twice daily [facility] TeleHealth: H is updated medication list for this problem includes: Captopril 12.5 Mg Oral Tablet (Captopril) ..... 1 tablet twice a day *spironolactone 25mg (Spironolactone) ..... Take one tablet daily Carvedilol 3.125mg (Carvedilol) ..... Take one tablet twice daily Osmel Lester TeleHealth: H is updated medication list for this problem includes: Captopril 12.5 Mg Oral Tablet (Captopril) ..... 1 tablet twice a day *spironolactone 25mg (Spironolactone) ..... Take one tablet daily Carvedilol 3.125mg (Carvedilol) ..... Take one tablet twice daily Osmel Lester TeleHealth: H is updated medication list for this problem includes: Coumadin 2.5 Mg Oral Tablet (Warfarin sodium) ..... One tab mon through fri- 2 tabs on sat and sun Captopril 12.5 Mg Oral Tablet (Captopril) ..... 1 tablet twice a day *spironolactone 25mg (Spironolactone) ..... Take one tablet daily Carvedilol 3.125mg (Carvedilol) ..... Take one tablet twice daily Osmel Lester Electrophysiology:Will order ech o for 04/2019 Matt Elliott Electrophysiology:Wi ll order echo in 1 month and AAA and Carotid US in 1 year Matt Elliott Electrophysiology:EF resolved. E cho doppler 04/22/2018 Conclusions: 1 . Normal left ventricular systolic function with EF 65%. Normal left ventricular size. Normal left v entricular wall thickness. There is E to A wave reversal consistent with impaired LV relaxation. 2 . The left atrium is normal in size. 3 . There is aortic valve sclerosis. Tri-leaflet aortic valve. Velocities, as well as gradients across the a ortic valve are normal. No evidence of aortic insufficiency. Matt Elliott Electrophysiology fo llow up :Orders: E KG (CPT-01463) S chedule Followup (*) 9 5045 HIGH Complex (CPT-20345) The following medications were removed from the medication list: Coumadin 4 Mg Oral Tablet (Warfarin sodium) ..... Hold His updated medication list for this problem includes: Coumadin 5 Mg Oral Tablet (Warfarin sodium) ..... Hold Coreg 3.125 Mg Oral Tablet (Carvedilol) ..... Take one pill twice a day Bob Rosas Electrophysiology fo llow up :Orders: C omplete Echo (CPT-30748) S chedule Followup (*) 9 9215 HIGH Complex (CPT-50316) The following medications were removed from the medication list: Coumadin 4 Mg Oral Tablet (Warfarin sodium) ..... Hold His updated medication list for this problem includes: Coumadin 5 Mg Oral Tablet (Warfarin sodium) ..... Hold Captopril 12.5 Mg Oral Tablet (Captopril) ..... 1 tablet twice a day Spironolactone 25 Mg Oral Tablet (Spironolactone) ..... Take one pill a day Coreg 3.125 Mg Oral Tablet (Carvedilol) ..... Take one pill twice a day Bob Rosas Electrophysiology fo llow up :Last DC ICD remote check 03/22/18 showed 4 A-fib events, longest duration 9 hours 16 min, fastest avg HR 150bpm. AF burden 0% of day for 24 hour perid, 1.6% of day since 07/2017. Orders: S chedule Followup (*) 9 9215 HIGH Complex (CPT-99210) The following medications were removed from the medication list: Coumadin 4 Mg Oral Tablet (Warfarin sodium) ..... Hold His updated medication list for this problem includes: Coumadin 5 Mg Oral Tablet (Warfarin sodium) ..... Hold Captopril 12.5 Mg Oral Tablet (Captopril) ..... 1 tablet twice a day Coreg 3.125 Mg Oral Tablet (Carvedilol) ..... Take one pill twice a day Bob Rosas EP:Advised to stop s moking O rders: F VC - 96492 (80402) F RC - 63999 (20508) D LCO - 36955 (91240) The following medications were removed from the medication list: Aspirin Adult Low Dose 81 Mg Oral Tbec (Aspirin) ..... One tab by mouth daily Verapamil Hcl Cr 240 Mg Tbcr (Verapamil hcl) ..... One tab. daily at night His updated medication list for this problem includes: Captopril 12.5 Mg Oral Tabs (Captopril) ..... 1 tablet twice a day Spironolactone 25 Mg Tabs (Spironolactone) ..... Take one pill a day Coreg 3.125 Mg Tabs (Carvedilol) ..... Take one pill twice a day Armando Amarla EP: B P today: 122/80 P rior BP: 139/83 (07/18/2016) The following medications were removed from the medication list: Aspirin Adult Low Dose 81 Mg Oral Tbec (Aspirin) ..... One tab by mouth daily Verapamil Hcl Cr 240 Mg Tbcr (Verapamil hcl) ..... One tab. daily at night His updated medication list for this problem includes: Captopril 12.5 Mg Oral Tabs (Captopril) ..... 1 tablet twice a day Spironolactone 25 Mg Tabs (Spironolactone) ..... Take one pill a day Coreg 3.125 Mg Tabs (Carvedilol) ..... Take one pill twice a day Armando Amaral EP: T he following medications were removed from the medication list: Aspirin Adult Low Dose 81 Mg Oral Tbec (Aspirin) ..... One tab by mouth daily Verapamil Hcl Cr 240 Mg Tbcr (Verapamil hcl) ..... One tab. daily at night His updated medication list for this problem includes: Captopril 12.5 Mg Oral Tabs (Captopril) ..... 1 tablet twice a day Spironolactone 25 Mg Tabs (Spironolactone) ..... Take one pill a day Coreg 3.125 Mg Tabs (Carvedilol) ..... Take one pill twice a day Armando Amaral Cardiology Follow up faxed 08/01/16:Orders: S NOMED-CT: [id number] Current Medications Documented ([facility]-[id number]) F VC - 51242 (40308) F RC - 78468 (15722) D LCO - 89637 (71822) S tarting: Ventolin Hfa 108 (90 Base) Mcg/act Inh Aers (Albuterol sulfate) .... One puff three times daily Brandon Blanc Cardiology Follow up faxed 08/01/16:BP today: 139/83 P rior BP: 144/80 (05/16/2016) His updated medication list for this problem includes: Aspirin Adult Low Dose 81 Mg Oral Tbec (Aspirin) ..... One tab by mouth daily Verapamil Hcl Cr 240 Mg Tbcr (Verapamil hcl) ..... One tab. daily at night Captopril 50 Mg Tabs (Captopril) ..... Take 1/2 twice a day Spironolactone 25 Mg Tabs (Spironolactone) ..... Take one pill a day Coreg 3.125 Mg Tabs (Carvedilol) ..... Take one pill twice a day [facility] Cardiology Follow up faxed 08/01/16:STRONGLY ENCOURAGED TO STOP SMOKING; SMOKING CESSATION TECHNIQUES DISCUSSED. [facility] Cardiology Follow up faxed 08/01/16:Orders: S NOMED-CT: [id number] Current Medications Documented ([facility]-[id number]) C omplete Echo (CPT-18177) [facility] Cardiology Follow up faxed 08/01/16:Orders: S NOMED-CT: [id number] Current Medications Documented ([facility]-[id number]) C BC (INCLUDES DIFF/PLT) (6399) X -Ray, Chest, PA & Lateral (CPT-51575) F VC - 94406 (72760) F RC - 81093 (47276) D LCO - 29683 (01630) C OMPREHENSIVE METABOLIC PANEL W/EGFR (36369) Will start: Levaquin 750 Mg Oral Tabs (Levofloxacin) .... One tablet daily for ten days Amoxicillin 500 Mg Oral Tabs (Amoxicillin) .... One tablet three times a day for ten days [facility] Cardiology Follow up faxed 08/01/16:No chest pain. On ASA. [facility] Cardiology Follow up faxed 08/01/16:His updated medication list for this problem includes: Aspirin Adult Low Dose 81 Mg Oral Tbec (Aspirin) ..... One tab by mouth daily Verapamil Hcl Cr 240 Mg Tbcr (Verapamil hcl) ..... One tab. daily at night Captopril 50 Mg Tabs (Captopril) ..... Take 1/2 twice a day Spironolactone 25 Mg Tabs (Spironolactone) ..... Take one pill a day Coreg 3.125 Mg Tabs (Carvedilol) ..... Take one pill twice a day Brandon Blanc Cardiology:BP today: 144/80 P rior BP: 116/70 (12/28/2015) His updated medication list for this problem includes: Verapamil Hcl Cr 240 Mg Tbcr (Verapamil hcl) ..... One tab. daily at night Captopril 50 Mg Tabs (Captopril) ..... Take 1/2 twice a day Spironolactone 25 Mg Tabs (Spironolactone) ..... Take one pill a day Coreg 3.125 Mg Tabs (Carvedilol) ..... Take one pill twice a day Julian Eli MD Cardiology:STRONGLY ENCOURAGED TO STOP SMOKING; SMOKING CESSATION TECHNIQUES DISCUSSED. Julian Eli MD Cardiology:[facility] medication list for this problem includes: Verapamil Hcl Cr 240 Mg Tbcr (Verapamil hcl) ..... One tab. daily at night Captopril 50 Mg Tabs (Captopril) ..... Take 1/2 twice a day Spironolactone 25 Mg Tabs (Spironolactone) ..... Take one pill a day Coreg 3.125 Mg Tabs (Carvedilol) ..... Take one pill twice a day Julian Eli MD Cardiology:Orders: S TR - Adenosine (CPT-12042) Julian Eli MD Cardiology:Orders: S TR - Adenosine (CPT-67991) Julian Eli MD Cardiology:Orders: S TR - Adenosine (CPT-81253) Julian Eli MD Cardiology Julian mcguire MD Cardiology: O rders: E KG (CPT-52464) 9 9215 HIGH Complex (CPT-20669) Julian Eli MD pre-op faxed 10/20/14 0844: B P today: 144/81 P rior BP: 170/80 (06/30/2014) Julian Eli MD pre-op faxed 10/20/14843 Jose Eli MD pre-op faxed 10/20/1444: T he following medications were removed from the medication list: Captopril 50 Mg Tabs (Captopril) ..... Take 2 a day His updated medication list for this problem includes: Verapamil Hcl Cr 240 Mg Tbcr (Verapamil hcl) ..... One tab. daily at night Captopril 50 Mg Tabs (Captopril) ..... Take 2 pills a day Adult Aspirin Low Strength 81 Mg Tbdp (Aspirin) ..... Take one pill a day Spironolactone 25 Mg Tabs (Spironolactone) ..... Take one pill a day Coreg 3.125 Mg Tabs (Carvedilol) ..... Take one pill twice a day Orders: A ICD Implant - GC (*) Julian Eli MD pre-op faxed 10/20/14 0844:no significant improvement on maximal medical therapy. r ecomend ICD impalntation. T he following medications were removed from the medication list: Captopril 50 Mg Tabs (Captopril) ..... Take 2 a day His updated medication list for this problem includes: Verapamil Hcl Cr 240 Mg Tbcr (Verapamil hcl) ..... One tab. daily at night Captopril 50 Mg Tabs (Captopril) ..... Take 2 pills a day Adult Aspirin Low Strength 81 Mg Tbdp (Aspirin) ..... Take one pill a day Spironolactone 25 Mg Tabs (Spironolactone) ..... Take one pill a day Coreg 3.125 Mg Tabs (Carvedilol) ..... Take one pill twice a day Orders: A ICD Implant - GC (*) Julian Eli MD pre-op faxed 10/20/14 0844: T he following medications were removed from the medication list: Captopril 50 Mg Tabs (Captopril) ..... Take 2 a day His updated medication list for this problem includes: Verapamil Hcl Cr 240 Mg Tbcr (Verapamil hcl) ..... One tab. daily at night Captopril 50 Mg Tabs (Captopril) ..... Take 2 pills a day Adult Aspirin Low Strength 81 Mg Tbdp (Aspirin) ..... Take one pill a day Spironolactone 25 Mg Tabs (Spironolactone) ..... Take one pill a day Coreg 3.125 Mg Tabs (Carvedilol) ..... Take one pill twice a day Orders: A ICD Implant - GC (*) Julian Eli MD pre-op faxed 10/20/14 0844: T he following medications were removed from the medication list: Captopril 50 Mg Tabs (Captopril) ..... Take 2 a day His updated medication list for this problem includes: Verapamil Hcl Cr 240 Mg Tbcr (Verapamil hcl) ..... One tab. daily at night Captopril 50 Mg Tabs (Captopril) ..... Take 2 pills a day Adult Aspirin Low Strength 81 Mg Tbdp (Aspirin) ..... Take one pill a day Spironolactone 25 Mg Tabs (Spironolactone) ..... Take one pill a day Coreg 3.125 Mg Tabs (Carvedilol) ..... Take one pill twice a day Orders: A ICD Implant - GC (*) Julian Eli MD Hospital Follow up : restart verapamil. O rders: E KG (CPT-59874) Julian Eli MD Hospital Follow up Julian boone MD Hospital Follow up : O rders: E KG (CPT-11346) Julian Eli MD Date Name COMPREHENSIVE METABO LIC PANEL, W/EGFR Carotid Duplex Bilat eral Complete Echo COMPREHENSIVE METABO LIC PANEL, W/EGFR TSH, 3RD GENERATION W/REFLEX TO FT4 CBC (INCLUDES DIFF/P LT) PROBNP, N TERMINAL BASIC METABOLIC PANE L W/EGFR Furoscix (furosemide subq injection) HEMOGLOBIN A1c Microalb/Creatinine Urine, Random PROBNP, N TERMINAL BASIC METABOLIC PANE L W/EGFR URINALYSIS, COMPLETE W/REFLEX TO CULTURE COMPREHENSIVE METABO LIC PANEL, W/EGFR CBC (INCLUDES DIFF/P LT) Partial Thromboplast in Time, Activated PROTHROMBIN TIME WIT H INR PROBNP, N TERMINAL COMPREHENSIVE METABO LIC PANEL, W/EGFR Complete Echo Aorta Duplex Ultraso und Carotid Duplex Bilat eral Complete Echo Complete Echo DLCO - 93387 FRC - 89821 FVC - [address] Prothrombin Time w/I NR RPM (remote patient monitoring) DLCO - 68187 FRC - 64149 FVC - 07908 Partial Thromboplast in Time, Activated PROTHROMBIN TIME WIT H INR MAGNESIUM CBC (H/H, RBC, INDIC ES, WBC, PLT) PROBNP, N TERMINAL TSH, free T4, total T3 LIPID PANEL COMPREHENSIVE METABO LIC PANEL, W/EGFR Low Dose Lung CT DLCO - 36456 FRC - 04325 FVC - 29035 Stress Regadenoson Complete Echo Complete Echo TSH, free T4, total T3 LIPID PANEL CBC (INCLUDES DIFF/P LT) COMPREHENSIVE METABO LIC PANEL, W/EGFR INR Strip Carotid Duplex Bilat eral Complete Echo INR Strip INR Strip Complete Echo Complete Echo Aorta Duplex Ultraso und (AAA) DLCO - 55607 FRC - 59855 FVC - 39725 DLCO - 75021 FRC - 24598 FVC - 59683 Carotid Duplex Bilat eral Complete Echo X-Ray, Chest, PA & L ateral CBC (INCLUDES DIFF/P LT) COMPREHENSIVE METABO LIC PANEL W/EGFR STR - Adenosine Aortic Abdominal Ult rasound Carotid Duplex Bilat eral Complete Echo DLCO - 89458 FRC - 52464 FVC - 11333 CBC (H/H, RBC, INDIC ES, WBC, PLT) COMPREHENSIVE METABO LIC PANEL W/EGFR CT, Abdomen DLCO - 63396 FRC - 72257 FVC - 32589 AICD Implant - GC DLCO Order - 45741 FRC Order - 87514 FVC Order - 52640 Spirometry Carotid Duplex Bilat eral Complete Echo Holter Monitor 24 Hr HISTORY OF PROCEDURES Procedure Date Procedure Name Provider Procedure Notes S tatus Complex e/m visit ad d on Julian Eli MD completed EKG Julian mcguire MD completed Protson mcguire MD completed EKG Julian mcguire MD completed Balbir Lugo MD completed Complex e/m visit ad d on Jose A Gastelum MD completed Balbir Chirinos MD complete d Complex e/m visit ad d on Julian Eli MD completed EKG Julian mcguire MD completed Protson Danielle MD complet ed Balbir Lugo MD completed Balbir Chirinos MD complete d Balbir mcguire MD completed EKG Julian mcguire MD completed Protson mcguire MD completed EKG Julian mcguire MD completed Protson Danielle MD complet ed Balbir Maceod MD complete d Balbir Danielle MD complet ed EKG Rodolfo Danielle MD complet ed Protime Arturo Amaro RN completed Balbir Chirinos MD complete d Protson Gastelum MD completed Protson Lugo MD completed Balbir Chirinos MD complete d Balbir Danielle MD complet ed Protime Arturo Amaro RN completed Balbir Begum MD completed Balbir mcguire MD completed Balbir Danielle MD complet ed Balbir Begum MD completed Balbir Webber MD complet ed Balbir mcguire MD completed Protime Arturo Amaro RN completed Balbir Danielle MD complet ed EKG Julian mcguire MD completed aBlbir Chirinos MD complete d Balbir Chirinos MD complete d Protime Arturo Amaro RN completed Protson Gastelum MD completed Protime Laurent Begum MD completed Balbir Danielle MD complet ed Protson mcguire MD completed Protson mcguire MD completed Balbir Felton MD completed Balbir Gastelum MD completed Balbir Gastelum MD completed Spirometry Julian mcguire MD completed FVC / MVV with bronchodilator - 01357 Julian Eli MD completed BLOOD COUNT HEMOGLOBIN Steffus Heena osman MD completed FRC - 46241 Julian mcguire MD completed SpO2 w/o 6min walk/titration Julian Eli MD completed SVC - 30405 Julian mcguire MD completed DLCO - 41358 Julian mcguire MD completed Balbir Lugo MD completed Balbir Danielle MD complet ed Counseling LDCT Julian mcguire MD completed EKG Julian mcguire MD completed Balbir Danielle MD complet ed Balbir Gastelum MD completed Balbir Danielle MD complet ed Balbir Danielle MD complet ed Balbir Cohena MD complete d Protson mcguire MD completed Protime Jose A Gastelum MD completed Protime Kaela Lugo MD completed Balbir Chirinos MD complete d Balbir Lugo MD completed EKG Julian mcguire MD completed Protson Gastelum MD completed Protime Julian mcguire MD completed Protime Arturo Amaro RN completed EKG Julian mcguire MD completed Protime Arturo Amaro RN completed Protime Arturo Amaro RN completed Protime Arturo Amaro RN completed Protime Dwain Macedo MD complete d Counseling LDCT Julian mcguire MD completed EKG Julian mcguire MD completed Protime Nurse .Triage completed Protson Chirinos MD complete d Protime Nurse .Triage completed Balbir Danielle MD complet ed Balbir Danielle MD complet ed Protson Gastelum MD completed Protime Krista Bautista completed Protime Nurse .Triage completed Protime Nurse .Triage completed Protime Nurse .Triage completed Protson Gastelum MD completed Protime Nabeel Webber MD complet ed Balbir Gastelum MD completed Balbir Danielle MD complet ed Balbir Felton MD completed Balbir Gastelum MD completed Balbir Danielle MD complet ed Balbir eFlton MD completed Balbir Felton MD completed Balbir Gastelum MD completed Balbir Danielle MD complet ed Balbir Danielle MD complet ed Balbir Danielle MD complet ed Balbir Chirinos MD complete d Balbir Gastelum MD completed Balbir mcguire MD completed Balbir Lugo MD completed Balbir mcguire MD completed Aortic Abdominal Ultrasound Julian Eli MD in 1 year completed Schedule Followup Julian castro MD in 1 year completed Balbir mcguire MD completed EKG Julian mcguire MD completed Balbir mcguire MD completed Balbir Danielle MD complet ed ICM Interrogation, Remote (Prof) Saulius Dilanitis INTERROGATION EVAL REMOTE </30 D CV MNTR SYS completed AICD Interrogation, Remote (Tech) Saulius Sreedhar SILVERIO INTERROGATION REMOTE </90 D AREA CLEANER REVIEW completed AICD Interrogation, Remote (Prof) Saulius Sreedhar SILVERIO INTERROGATION EVAL REMOTE </90 D 1/2/> LD CVDFB completed Balbir Chirinos MD complete d Balbir Danielle MD complet ed ICM Interrogation, Remote (Prof) Saulius Sreedhar SILVERIO INTERROGATION EVAL REMOTE </30 D CV MNTR SYS completed AICD Interrogation, Remote (Tech) ulius Kongitis INTERROGATION REMOTE </90 D AREA CLEANER REVIEW completed AICD Interrogation, Remote (Prof) ulius Sreedhar SILVERIO INTERROGATION EVAL REMOTE </90 D 1/2/> LD CVDFB completed Balbir Lugo MD completed Balbir Felton MD completed ICM Interrogation, Remote (Prof) Julian Eli MD INTERROGATION EVAL REMOTE </30 D CV MNTR SYS completed ICM Interrogation, Remote (Tech) ulius Sreedhar SILVERIO INTERROGATION EVAL REMOTE </30 D TECH REVIEW completed Balbir Felton MD completed Balbir mcguire MD completed ICM Interrogation, Remote (Prof) Saulius Sreedhar SILVERIO INTERROGATION EVAL REMOTE </30 D CV MNTR SYS completed ICM Interrogation, Remote (Tech) Saulius Sreedhar SILVERIO INTERROGATION EVAL REMOTE </30 D TECH REVIEW completed Balbir mcguire MD completed Balbir mcguire MD completed ICM Interrogation, Remote (Prof) Julian Eli MD INTERROGATION EVAL REMOTE </30 D CV MNTR SYS completed AICD Interrogation, Remote (Tech) Saulius Sreedhar SILVERIO INTERROGATION REMOTE </90 D AREA CLEANER REVIEW completed AICD Interrogation, Remote (Prof) Saulius Sreedhar SILVERIO INTERROGATION EVAL REMOTE </90 D 1/2/> LD CVDFB completed Balbir mcguire MD completed Balbir mcguire MD completed ICM Interrogation, Remote (Prof) Fco Chirinos MD INTERROGATION EVAL REMOTE </30 D CV MNTR SYS completed ICM Interrogation, Remote (Tech) Fco Chirinos MD INTERROGATION EVAL REMOTE </30 D TECH REVIEW completed Balbir Chirinos MD complete d Balbir Begum MD completed ICM Interrogation, Remote (Prof) Julian Eli MD INTERROGATION EVAL REMOTE </30 D CV MNTR SYS completed ICM Interrogation, Remote (Tech) Saulius Sreedhar SILVERIO INTERROGATION EVAL REMOTE </30 D TECH REVIEW completed Balbir Chirinos MD complete d Balbir Chirinos MD complete d Balbir Macedo MD complete d ICM Interrogation, Remote (Prof) Julian Eli MD INTERROGATION EVAL REMOTE </30 D CV MNTR SYS completed ICM Interrogation, Remote (Tech) Julian Eli MD INTERROGATION EVAL REMOTE </30 D TECH REVIEW completed Balbir Macedo MD complete d Balbir Macedo MD complete d Schedule Followup Julian castro MD in 1 yr completed EKG Julian mcguire MD completed Balbir mcguire MD completed Balbir Lugo MD completed ICM Interrogation, Remote (Prof) Julian Eli MD INTERROGATION EVAL REMOTE </30 D CV MNTR SYS completed ICM Interrogation, Remote (Tech) ulius Sreedhar SILVERIO INTERROGATION EVAL REMOTE </30 D TECH REVIEW completed ICM Interrogation, Remote (Prof) Fco Chirinos MD INTERROGATION EVAL REMOTE </30 D CV MNTR SYS completed AICD Interrogation, Remote (Tech) Fco Chirinos MD INTERROGATION REMOTE </90 D AREA CLEANER REVIEW completed AICD Interrogation, Remote (Prof) Fco Chirinos MD INTERROGATION EVAL REMOTE </90 D 1/2/> LD CVDFB completed Balbir Chirinos MD complete d Balbir mcguire MD completed ICM Interrogation, Remote (Prof) Julian Eli MD INTERROGATION EVAL REMOTE </30 D CV MNTR SYS completed ICM Interrogation, Remote (Tech) Julian Eli MD INTERROGATION EVAL REMOTE </30 D TECH REVIEW completed Balbir mcguire MD completed Balbir mcguire MD completed ICM Interrogation, Remote (Prof) Saulius Kalvaitis MD INTERROGATION EVAL REMOTE </30 D CV MNTR SYS completed ICM Interrogation, Remote (Tech) Saulius Fabianvaitis MD INTERROGATION EVAL REMOTE </30 D TECH REVIEW completed ICM Interrogation, Remote (Prof) Saulius Fabianvaitis MD INTERROGATION EVAL REMOTE </30 D CV MNTR SYS completed AICD Interrogation, Remote (Tech) Saulius Kalvaitis MD INTERROGATION REMOTE </90 D AREA CLEANER REVIEW completed AICD Interrogation, Remote (Prof) Saulius Kaltrentitis MD INTERROGATION EVAL REMOTE </90 D 1/2/> LD CVDFB completed ICM Interrogation, Remote (Prof) Saulius Sreedhar MD INTERROGATION EVAL REMOTE </30 D CV MNTR SYS completed ICM Interrogation, Remote (Tech) Saulius Kongitis MD INTERROGATION EVAL REMOTE </30 D TECH REVIEW completed Balbir mcguire MD completed ICM Interrogation, Remote (Prof) Saulius Sreedhar SILVERIO INTERROGATION EVAL REMOTE </30 D CV MNTR SYS completed ICM Interrogation, Remote (Tech) Saulius Sreedhar SILVERIO INTERROGATION EVAL REMOTE </30 D TECH REVIEW completed Balbir mcguire MD completed Balbir mcguire MD completed Balbir mcguire MD completed ICM Interrogation, Remote (Prof) ulius Sreedhar SILVERIO INTERROGATION EVAL REMOTE </30 D CV MNTR SYS completed ICM Interrogation, Remote (Tech) ulius Sreedhar SILVERIO INTERROGATION EVAL REMOTE </30 D TECH REVIEW completed Balbir mcguire MD completed Balbir mcguire MD completed ICM Interrogation, Remote (Prof) Saulius Kalvaitis MD INTERROGATION EVAL REMOTE </30 D CV MNTR SYS completed ICM Interrogation, Remote (Tech) Julian Eli MD INTERROGATION EVAL REMOTE </30 D TECH REVIEW completed Balbir mcguire MD completed ICM Interrogation, Remote (Prof) Julian Eli MD INTERROGATION EVAL REMOTE </30 D CV MNTR SYS completed AICD Interrogation, Remote (Tech) Julina Eli MD INTERROGATION REMOTE </90 D AREA CLEANER REVIEW completed AICD Interrogation, Remote (Prof) Julian Eli MD INTERROGATION EVAL REMOTE </90 D 1/2/ LD CVDFB completed Balbir mcguire MD completed Balbir mcguire MD completed Balbir mcguire MD completed Protson mcguire MD completed ICM Interrogation, Remote (Prof) Julian Eli MD INTERROGATION EVAL REMOTE </30 D CV MNTR SYS completed ICM Interrogation, Remote (Tech) Julian Eli MD INTERROGATION EVAL REMOTE </30 D TECH REVIEW completed Balbir mcguire MD completed Balbir mcguire MD completed Balbir mcguire MD completed Balbir mcguire MD completed ICM Interrogation, Remote (Prof) Julian Eli MD INTERROGATION EVAL REMOTE </30 D CV MNTR SYS completed ICM Interrogation, Remote (Tech) Julian Eli MD INTERROGATION EVAL REMOTE </30 D TECH REVIEW completed Schedule Followup Julian castro MD in 1 year completed EKG Julian mcguire MD completed SNOMED-CT: [id number] Current Medications Documented Julian Eli MD completed SNOMED-CT: [id number] Smoking Cessation Counseling Julian Eli MD completed EKG Julian mcguire MD completed SNOMED-CT: [id number] Current Medications Documented Julian Eli MD completed SNOMED-CT: [id number] Smoking Cessation Counseling Julian Eli MD completed EKG Julian mcguire MD completed SNOMED-CT: [id number] Current Medications Documented ulius Sreedhar SILVERIO completed ICM Interrogation, Remote (Prof) Saulius Kalvaitis INTERROGATION EVAL REMOTE </30 D CV MNTR SYS completed ICM Interrogation, Remote (Tech) Saulius Kalvaitis INTERROGATION EVAL REMOTE </30 D TECH REVIEW completed ICM Interrogation, Remote (Prof) Saulius Kalvaitis INTERROGATION EVAL REMOTE </30 D CV MNTR SYS completed ICM Interrogation, Remote (Tech) Saulius Kalvaitis MD INTERROGATION EVAL REMOTE </30 D TECH REVIEW completed ICM Interrogation, Remote (Prof) Saulius Kalvaitis MD INTERROGATION EVAL REMOTE </30 D CV MNTR SYS completed AICD Interrogation, Remote (Tech) Saulius Kalvaitis INTERROGATION REMOTE </90 D AREA CLEANER REVIEW completed AICD Interrogation, Remote (Prof) Saulius Kalvaitis INTERROGATION EVAL REMOTE </90 D 1/2/> LD CVDFB completed BLOOD COUNT HEMOGLOBIN Julian osman MD completed FVC - 58211 Julian mcguire MD completed FRC - 17739 Julian mcguire MD completed DLCO - 13143 Julian mcguire MD completed EKG Julian mcguire MD completed SNOMED-CT: [id number] Current Medications Documented Julian Eli MD completed ICM Interrogation, Remote (Prof) Saulius Kalvaitis MD INTERROGATION EVAL REMOTE </30 D CV MNTR SYS completed AICD Interrogation, Remote (Tech) Saulius Kalvaitis MD INTERROGATION REMOTE </90 D AREA CLEANER REVIEW completed AICD Interrogation, Remote (Prof) Saulius Kalvaitis MD INTERROGATION EVAL REMOTE </90 D 1/2/> LD CVDFB completed ICM Interrogation, Remote (Prof) Saulius Kalvaitis MD INTERROGATION EVAL REMOTE </30 D CV MNTR SYS completed ICM Interrogation, Remote (Tech) Saulius Kalvaitis MD INTERROGATION EVAL REMOTE </30 D TECH REVIEW completed ICM Interrogation, Remote (Prof) Saulius Kalvaitis MD INTERROGATION EVAL REMOTE </30 D CV MNTR SYS completed ICM Interrogation, Remote (Tech) Saulius Kalvaitis MD INTERROGATION EVAL REMOTE </30 D TECH REVIEW completed ICM Interrogation, Remote (Prof) Saulius Kalvaitis MD INTERROGATION EVAL REMOTE </30 D CV MNTR SYS completed AICD Interrogation, Remote (Tech) Saulius Kalvaitis MD INTERROGATION REMOTE </90 D AREA CLEANER REVIEW completed AICD Interrogation, Remote (Prof) Saulius Kalvaitis MD INTERROGATION EVAL REMOTE </90 D 1/2/> LD CVDFB completed ICM Interrogation, Remote (Prof) Saulius Kalvaitis MD INTERROGATION EVAL REMOTE </30 D CV MNTR SYS completed ICM Interrogation, Remote (Tech) Saulius Kalvaitis MD INTERROGATION EVAL REMOTE </30 D TECH REVIEW completed ICM Interrogation, Remote (Prof) Saulius Kalvaitis MD INTERROGATION EVAL REMOTE </30 D CV MNTR SYS completed ICM Interrogation, Remote (Tech) Saulius Kalvaitis MD INTERROGATION EVAL REMOTE </30 D TECH REVIEW completed ICM Interrogation, Remote (Prof) Saulius Kalvaitis MD INTERROGATION EVAL REMOTE </30 D CV MNTR SYS completed AICD Interrogation, Remote (Tech) Saulius Kalvaitis MD INTERROGATION REMOTE </90 D AREA CLEANER REVIEW completed AICD Interrogation, Remote (Prof) Saulius Kalvaitis MD INTERROGATION EVAL REMOTE </90 D 1/2/> LD CVDFB completed ICM Interrogation, Remote (Prof) Saulius Kalvaitis MD INTERROGATION EVAL REMOTE </30 D CV MNTR SYS completed ICM Interrogation, Remote (Tech) Saulius Kalvaitis MD INTERROGATION EVAL REMOTE </30 D TECH REVIEW completed ICM Interrogation, Remote (Prof) Saulius Kalvaitis MD INTERROGATION EVAL REMOTE </30 D CV MNTR SYS completed ICM Interrogation, Remote (Tech) Saulius Kalvaitis MD INTERROGATION EVAL REMOTE </30 D TECH REVIEW completed EKG Julian mcguire MD completed ICM Interrogation, Remote (Prof) Saulius Kalvaitis MD INTERROGATION EVAL REMOTE </30 D CV MNTR SYS completed AICD Interrogation, Remote (Tech) Saulius Kalvaitis MD INTERROGATION REMOTE </90 D AREA CLEANER REVIEW completed AICD Interrogation, Remote (Prof) Saulius Kalvaitis MD INTERROGATION EVAL REMOTE </90 D 1/2/> LD CVDFB completed ICM Interrogation, Remote (Prof) Saulius Kalvaitis MD INTERROGATION EVAL REMOTE </30 D CV MNTR SYS completed AICD Interrogation, Remote (Tech) Saulius Kalvaitis MD INTERROGATION REMOTE </90 D AREA CLEANER REVIEW completed AICD Interrogation, Remote (Prof) Saulius Kalvaitis MD INTERROGATION EVAL REMOTE </90 D 1/2/> LD CVDFB completed ICM Interrogation, Remote (Prof) Saulius Kalvaitis MD INTERROGATION EVAL REMOTE </30 D CV MNTR SYS completed ICM Interrogation, Remote (Tech) Saulius Kalvaitis MD INTERROGATION EVAL REMOTE </30 D TECH REVIEW completed ICM Interrogation, Remote (Prof) Julian Eli MD INTERROGATION EVAL REMOTE </30 D CV MNTR SYS completed ICM Interrogation, Remote (Tech) Julian Eli MD INTERROGATION EVAL REMOTE </30 D TECH REVIEW completed EKG Julian mcguire MD completed EKG Julian mcguire MD completed Schedule Followup Julian castro MD fu in 1 month with SK completed EKG Julian mcguire MD completed
[2024-10-09 00:49] LABS: Glucose Point of Care 98 mg/dl (65-105)
[2024-10-09 00:53] LABS: Lactic Acid Reflex 1.9 mmol/L (0.7-2.0)
[2024-10-09 00:54] LABS: Alanine Aminotransferase 15 U/L (6-50); Albumin Level 3.2 g/dL (3.5-5.1); Alkaline Phosphatase 110 U/L (38-126); Anion Gap 17 mmol/L (4-12); Aspartate Amino Transferase 22 U/L (17-59); Bilirubin,Total 3.2 mg/dL (0.2-1.3); Blood Urea Nitrogen 64 mg/dL (9-20); Calcium 7.8 mg/dL (8.4-10.2); Carbon Dioxide 17 mmol/L (22-30); Chloride 94 mmol/L (98-107); Estimated CRCL calculation 18 ml/min; Estimated Glomerular Filt Rate 18; Glucose 93 mg/dL (65-110); Potassium 3.3 mmol/L (3.4-5.0); Sodium 128 mmol/L (137-145)
[2024-10-09 01:05] LABS: Lipase 19 U/L (23-300); Magnesium 1.3 mg/dL (1.6-2.3); Phosphorus 3.7 mg/dL (2.5-4.5)
[2024-10-09 01:06] LABS: Ethanol < 10 mg/dL (<10)
[2024-10-09 01:17] LABS: Anisocytosis 2+; Band Neutrophils Percent 8 % (0-6); Eosinophils Absolute Manual 0.24 K/mm3 (0.02-0.50); Eosinophils Percent Manual 1 % (0-4); Lymphocytes Absolute Manual 0.72 K/mm3 (1.1-4.5); Monocytes Percent Manual 5 % (3-9); Neutrophils Absolute Manual 21.93 K/mm3 (1.3-6.7); Neutrophils Percent Manual 83 % (46-73); Platelet Estimate Adequate (Adequate); Total Cells Counted 100
[2024-10-09 01:19] LABS: Poikilocytosis 1+
[2024-10-09 01:21] LABS: Schistocytes Rare
[2024-10-09 01:23] LABS: Troponin I 0.105 ng/mL (0.000-0.034)
[2024-10-09 01:31] LABS: Alveolar/Arterial O2 Gradient 30.7 mmHg; Base Excess ABG -3.4 mEq/l (+/-2.0); Fractional Inspired Oxygen 21 %; HCO3 ABG 18.6 mEq/l (22.0-26.0); Oxygen Content ABG 13.6 %vol (16.0-22.0); Oxygen Saturation ABG 97.6 % (95.0-100.0); Oxyhemoglobin 95.6 % THb (90.0-100.0); PCO2 ABG 24.4 mmHg (35.0-45.0); PO2 ABG 89.8 mmHg (80.0-100.0); PO2 FiO2 Ratio Arterial Blood 4.28 %; pH ABG 7.501 (7.350-7.450)
[2024-10-09 01:32] LABS: Device ROOM AIR; Modified Allen's Test Pass; Site Drawn RIGHT RADIAL
[2024-10-09] MEDS: NOREPINEPHRINE 8 MG/D5W 250 ML 8 MG/250 ML BAG 9.38 MG IV CONT (01:36)
[2024-10-09 01:37] LABS: NT Pro B Type Natriuretic Pept > 30000 pg/mL (19.9-100)
[2024-10-09 01:45] LABS: Lactic Acid Reflex 1.7 mmol/L (0.7-2.0)
[2024-10-09] MEDS: CEFEPIME 2 GM/NS 50 ML 2 GM/50 ML BAG IVPB (02:03)
[2024-10-09] MEDS: POTASSIUM CHLORIDE INJ 40 MEQ in SODIUM CHLORIDE 0.9% IV 500 ML 130 MEQ IVPB (02:04)
[2024-10-09 02:43] LABS: INR 2.5; Prothrombin Time 27.7 Seconds (11.1-14.7)
[2024-10-09 02:44] LABS: Partial Thromboplastin Time 51.2 Seconds (22.3-36.8)
[2024-10-09 03:43] LABS: Add Urine Microscopic? YES; Appearance Urine Cloudy (Clear); Bacteria Urine None Seen /hpf; Bilirubin Urine 2+ (Negative); Blood Urine Negative (Negative); Color Urine Dark Yellow (Yellow); Glucose Urine UA Negative (Negative); Ketones Urine Trace mg/dL (Negative); Leukocyte Esterase Ur 1+ LEU/UL (Negative); Need Manual Microscopic Reviewed; Nitrate Urine Negative (Negative); Non Pathogenic Casts >20; Protein Urine Trace mg/dL (Negative); RBC Urine 0-2 /hpf (0-2); Specific Grav Ur 1.021 (1.001-1.035); Squamous Epithelial Cell Urine Occasional /hpf (Few); WBC Urine 0-5 /hpf (0-3)
--- NOTE | 2024-10-09 03:43 | ED_ITS ---
HPI - General Adult General Chief complaint: Weakness Stated complaint: weakness/hypotension Time Seen by Provider: 10/09/24 00:14 History of Present Illness HPI narrative: This is a 74-year-old male presenting from the shelter for weakness. Patient is somnolent cannot provide me any meaningful history. Per EMS he was noted to have low blood pressure on morning rounds the shelter. Evidently he has been having diarrhea for several days. He is given fluids without response. He was then sent to the ED. Related Data Home Medications ?Medication ?Instructions ?Recorded ?Confirmed ?Last Taken ?Type carvedilol 6.25 mg tablet (Coreg) 6.25 mg PO Q12H 10/10/23 06/07/24 05/15/24 History dapagliflozin propanediol 10 mg 5 mg PO DAILY 10/10/23 06/07/24 Unknown History tablet (Farxiga) pantoprazole 40 mg tablet,delayed 40 mg PO DAILY 10/10/23 06/07/24 Unknown History release potassium chloride 20 mEq 20 meq PO 3XW 10/10/23 06/07/24 06/06/24 History tablet,extended release venlafaxine 150 mg 150 mg PO DAILY 10/10/23 06/07/24 Unknown History capsule,extended release 24 hr ferrous sulfate 325 mg (65 mg 325 mg PO DAILY 11/03/23 06/07/24 Unknown History iron) tablet sacubitril 49 mg-valsartan 51 mg 1 tablet PO Q12H 11/03/23 06/07/24 Unknown History tablet (Entresto) topiramate 50 mg tablet 50 mg PO .COMPLEX 11/03/23 06/07/24 Unknown History lorazepam 1 mg tablet 1 mg PO BID PRN Anxiety 05/16/24 06/07/24 Unknown History meloxicam 15 mg tablet 15 mg PO EVERY OTHER DAY 05/16/24 06/07/24 06/06/24 History warfarin 5 mg tablet 5 mg USEASDIRECTD 05/16/24 06/07/24 Unknown History furosemide 40 mg tablet 40 mg PO 3XW 06/07/24 06/07/24 Unknown History Allergies Allergy/AdvReac Type Severity Reaction Status Date / Time No Known Allergies Allergy Mild Verified 06/07/24 08:12 [facility] Past Medical History Medical History Anxiety and depression Arthritis Presence of combination internal cardiac defibrillator (ICD) and pacemaker CHF (congestive heart failure) Afib CVA (cerebral vascular accident) Chronic kidney disease Surgical History Surgical History History of cataract surgery History of cervical spinal surgery cervical laminectomy History of appendectomy History of cardiac defibrillator placement replaced 10/01/2023; [employer] / [employer]; Dr Fracisco Eli through [facility] Cardiology Family History Family History Father S/P triple vessel bypass Social History Social History Smoking packs per day: 0.5 Smoking cigarettes per day: 10.0 Years smoked: 30 Smoking pack-years: 15.00 Smoking status: Current some day smoker Tobacco type: cigarettes Alcohol intake: former Substance use: never Substance use type: does not use Do You Feel Safe in your Home?: Yes Lack of Transportation: No Lack of Food: Never True Current Housing: I Have Housing Concerned About Future Housing: No Difficulty Paying Gas/Electric Bills: No Difficulty Paying for Meds: No Currently Unemployed: No Education: High School Diploma/GED Difficulty w/ Childcare or Family Care: No Gender identity (if verbalized by the patient): Male Spiritual care concerns: No Exam 2 Narrative: APPEARANCE: A&O x1, somnolent altered Head: atraumatic. EYES: EOMI, NOSE: Atraumatic NECK: Trachea midline RESPIRATORY: No increased rate of breathing, clear to auscultation, 100% on room air CARDIOVASCULAR: RRR, no peripheral edema ABDOMINAL: Diffusely tender with voluntary guarding MUSCULOSKELETAl: No obvious deformities NEURO: Alert. Moving 4/4 extremities SKIN:: Warm, dry. Normal color PSYCHIATRIC: Somnolent Course Vital Signs Vital signs: Vital Signs Temperature 97.7 F 10/08/24 23:52 Pulse Rate 87 10/08/24 23:52 Respiratory Rate 17 10/08/24 23:52 Blood Pressure 78/59 L 10/08/24 23:52 Pulse Oximetry 100 10/08/24 23:52 Oxygen Delivery Room Air 10/08/24 23:52 Temperature 97.7 F 10/08/24 23:52 Pulse Rate 108 H 10/09/24 03:54 Respiratory Rate 18 10/09/24 03:54 Blood Pressure 104/92 H 10/09/24 03:54 Pulse Oximetry 98 10/09/24 03:54 Oxygen Delivery Room Air 10/08/24 23:52 Procedures Central Line Placement Right IJ: Central Line Date: 10/09/24 Discussed w/ the patient/family/POA,the placement of a central venous catheter, including its clinical necessity/indication & associated potential risks, benifits and alternatives.: Yes The patient/family/POA understand(s) and acknowledge(s) the need to proceed with central venous catheter insertion as an important element of the patient's clinical management.: Yes Time Out Performed: Yes Patient Placed on Monitor/Pulse Ox: Yes Max. Sterile Barrier Technique: Caps, large sterile sheet and hand hygiene Central Line Prep: 2% chlorhexidine scrub Emergently Placed, Full Sterile: prep not done Technique: US-Guided Local Anesthetic: lidocaine 1% Amount of anesthesia used (mL): 3 Ultrasound Used for Placement: Yes Central Line Lumen Inserted: triple Post Procedure: sutured in place, good blood return, all ports aspirated, flushed, capped and sterile dressing applied Post Procedure X-Ray: tip of catheter in good position and no pneumothorax seen Patient Tolerated Procedure: well Complications: none Medical Decision Making MDM Narrative Medical decision making narrative: -Course: Is 74-year-old male history of systolic heart failure presenting for weakness. On arrival he was hypotensive 70/50. He is somnolent not able to answer questions. Point of care ultrasound showed a significantly reduced ejection fraction although no overt signs of fluid overload at this time. Patient was given a 30 cc/kilogram bolus of normal saline with no improvement in his blood pressure. A central line was placed he was started on Norepi. He was started on cefepime, and vanco while his workup was being completed. CT brain was unremarkable. CT chest abdomen pelvis showed bladder thickening and evidence of diarrheal illness. Patient started on Flagyl to cover C diff. Laboratory studies significant for white count of 24. Creatinine elevated at 3.3 from a baseline of about 2.2. Lactic is normal. Mild elevations in troponin. BNP greater than 30,000 which is essentially normal for this patient. Urine not indicative infection. C.diff pending. Bcx pending. Patient will be admitted to the ICU for further management. Vital Signs Vital Signs: Vital Signs Temperature 97.7 F 10/08/24 23:52 Pulse Rate 87 10/08/24 23:52 Respiratory Rate 17 10/08/24 23:52 Blood Pressure 78/59 L 10/08/24 23:52 Pulse Oximetry 100 10/08/24 23:52 Oxygen Delivery Room Air 10/08/24 23:52 Temperature 97.7 F 10/08/24 23:52 Pulse Rate 108 H 10/09/24 03:54 Respiratory Rate 18 10/09/24 03:54 Blood Pressure 104/92 H 10/09/24 03:54 Pulse Oximetry 98 10/09/24 03:54 Oxygen Delivery Room Air 10/08/24 23:52 Lab Data 10/09/24 00:34 10/09/24 00:34 Labs: Lab Results 10/09/24 10/09/24 10/09/24 Range/Units 00:34 00:46 01:21 WBC 24.1 H (4.5-10.0) K/mm3 RBC 3.46 L (4.6-6.20) M/mm3 Hgb 10.1 L D (14.0-18.0) g/dL Hct 31.4 L (42.0-52.0) % MCV 90.8 (80-100) fl MCH 29.2 (26-34) pg MCHC 32.2 (32-36) g/dl RDW 19.2 H (11.5-14.5) % Plt Count 159 (150-375) k/mm3 MPV 10.8 H (7.4-10.4) fl Immature Gran % (Auto) Not Reportable Neut % (Auto) Not Reportable Lymph % (Auto) Not Reportable [place] % (Auto) Not Reportable Eos % (Auto) Not Reportable Baso % (Auto) Not Reportable Lymph # (Auto) Not Reportable [place] # (Auto) Not Reportable Eos # (Auto) Not Reportable Baso # (Auto) Not Reportable Abs Immat Gran (auto) Not Reportable Absolute Neuts (auto) Not Reportable Absolute Nucleated RBC Not Reportable Total Counted 100 Neutrophils % (Manual) 83 H (46-73) % Band Neutrophils % 8 H (0-6) % Lymphocytes % (Manual) 3.0 L (18-44) % Monocytes % (Manual) 5 (3-9) % Eosinophils % (Manual) 1 (0-4) % Nucleated RBC % Not Reportable Abs Neuts (Manual) 21.93 H (1.3-6.7) K/mm3 Abs Lymphs (Manual) 0.72 L (1.1-4.5) K/mm3 Abs Monocytes (Manual) 1.20 H (0.1-0.90) K/mm3 Absolute Eos (Manual) 0.24 (0.02-0.50) K/mm3 Platelet Estimate Adequate (Adequate) Poikilocytosis 1+ Anisocytosis 2+ Schistocytes Rare PT 27.7 H (11.1-14.7) Seconds INR 2.5 APTT 51.2 H (22.3-36.8) Seconds Sodium 128 L (137-145) mmol/L Potassium 3.3 L (3.4-5.0) mmol/L Chloride 94 L (98-107) mmol/L Carbon Dioxide 17 L (22-30) mmol/L Anion Gap 17 H (4-12) mmol/L BUN 64 H D (9-20) mg/dL Creatinine 3.34 H (0.7-1.3) mg/dL Estim Creat Clear Calc 18 ml/min Estimated GFR 18 L (59 - ) Glucose 93 (65-110) mg/dL POC Capillary Glucose 98 (65-105) mg/dl Lactic Acid 1.9 1.7 (0.7-2.0) mmol/L Calcium 7.8 L (8.4-10.2) mg/dL Phosphorus 3.7 (2.5-4.5) mg/dL Magnesium 1.3 L (1.6-2.3) mg/dL Total Bilirubin 3.2 H (0.2-1.3) mg/dL AST 22 (17-59) U/L ALT 15 (6-50) U/L Alkaline Phosphatase 110 (38-126) U/L Troponin I 0.105 H* (0.000-0.034) ng/mL NT-Pro-B Natriuret Pep > 20652 H (19.9-100) pg/mL Total Protein 6.0 L (6.3-8.2) g/dL Albumin 3.2 L (3.5-5.1) g/dL Lipase 19 L (23-300) U/L TSH (Reflex) 3.000 (0.465-4.68) uIU/mL Urine Color (Yellow) Urine Appearance (Clear) Urine pH (5.0-9.0) Ur Specific [place] (1.001-1.035) Urine Protein (Negative) mg/dL Urine Glucose (UA) (Negative) mg/dL Urine Ketones (Negative) mg/dL Ur Blood (Man) (Negative) Urine Nitrate (Negative) Urine Bilirubin (Negative) Urine Urobilinogen (<2.0) mg/dL Add Ur Microanalysis Leukocyte Esterase Rfl (Negative) PATRIC/UL Urine RBC (0-2) /hpf Urine WBC (0-3) /hpf Ur Squamous Epith Cells (Few) /hpf Urine Bacteria /hpf Urine Casts Urine Opiates Screen (Negative) Urine Methadone Screen (Negative) Ur Barbiturates Screen (Negative) Ur Phencyclidine Scrn (Negative) Ur Amphetamine Screen (Negative) U Benzodiazepines Scrn (Negative) Urine Cocaine Screen (Negative) U Cannabinoids Screen (Negative) Ethyl Alcohol < 10 (<10) mg/dL Influenza A (RT-PCR) (Negative) Influenza B (RT-PCR) (Negative) RSV (RT-PCR) (Negative) SARS-CoV-2 RNA (RT-PCR) (Negative) 10/09/24 Range/Units 03:26 WBC (4.5-10.0) K/mm3 RBC (4.6-6.20) M/mm3 Hgb (14.0-18.0) g/dL Hct (42.0-52.0) % MCV (80-100) fl MCH (26-34) pg MCHC (32-36) g/dl RDW (11.5-14.5) % Plt Count (150-375) k/mm3 MPV (7.4-10.4) fl Immature Gran % (Auto) Neut % (Auto) Lymph % (Auto) [place] % (Auto) Eos % (Auto) Baso % (Auto) Lymph # (Auto) [place] # (Auto) Eos # (Auto) Baso # (Auto) Abs Immat Gran (auto) Absolute Neuts (auto) Absolute Nucleated RBC Total Counted Neutrophils % (Manual) (46-73) % Band Neutrophils % (0-6) % Lymphocytes % (Manual) (18-44) % Monocytes % (Manual) (3-9) % Eosinophils % (Manual) (0-4) % Nucleated RBC % Abs Neuts (Manual) (1.3-6.7) K/mm3 Abs Lymphs (Manual) (1.1-4.5) K/mm3 Abs Monocytes (Manual) (0.1-0.90) K/mm3 Absolute Eos (Manual) (0.02-0.50) K/mm3 Platelet Estimate (Adequate) Poikilocytosis Anisocytosis Schistocytes PT (11.1-14.7) Seconds INR APTT (22.3-36.8) Seconds Sodium (137-145) mmol/L Potassium (3.4-5.0) mmol/L Chloride (98-107) mmol/L Carbon Dioxide (22-30) mmol/L Anion Gap (4-12) mmol/L BUN (9-20) mg/dL Creatinine (0.7-1.3) mg/dL Estim Creat Clear Calc ml/min Estimated GFR (59 - ) Glucose (65-110) mg/dL POC Capillary Glucose (65-105) mg/dl Lactic Acid (0.7-2.0) mmol/L Calcium (8.4-10.2) mg/dL Phosphorus (2.5-4.5) mg/dL Magnesium (1.6-2.3) mg/dL Total Bilirubin (0.2-1.3) mg/dL AST (17-59) U/L ALT (6-50) U/L Alkaline Phosphatase (38-126) U/L Troponin I (0.000-0.034) ng/mL NT-Pro-B Natriuret Pep (19.9-100) pg/mL Total Protein (6.3-8.2) g/dL Albumin (3.5-5.1) g/dL Lipase (23-300) U/L TSH (Reflex) (0.465-4.68) uIU/mL Urine Color Dark yellow (Yellow) Urine Appearance Cloudy H (Clear) Urine pH 5.0 (5.0-9.0) Ur Specific [place] 1.021 (1.001-1.035) Urine Protein Trace (Negative) mg/dL Urine Glucose (UA) Negative (Negative) mg/dL Urine Ketones Trace H (Negative) mg/dL Ur Blood (Man) Negative (Negative) Urine Nitrate Negative (Negative) Urine Bilirubin 2+ H (Negative) Urine Urobilinogen 1.0 (<2.0) mg/dL Add Ur Microanalysis Reviewed Leukocyte Esterase Rfl 1+ H (Negative) PATRIC/UL Urine RBC 0-2 (0-2) /hpf Urine WBC 0-5 (0-3) /hpf Ur Squamous Epith Cells Occasional (Few) /hpf Urine Bacteria None seen /hpf Urine Casts >20 Urine Opiates Screen Negative (Negative) Urine Methadone Screen Negative (Negative) Ur Barbiturates Screen Negative (Negative) Ur Phencyclidine Scrn Negative (Negative) Ur Amphetamine Screen Negative (Negative) U Benzodiazepines Scrn Negative (Negative) Urine Cocaine Screen Negative (Negative) U Cannabinoids Screen Negative (Negative) Ethyl Alcohol (<10) mg/dL Influenza A (RT-PCR) Negative (Negative) Influenza B (RT-PCR) Negative (Negative) RSV (RT-PCR) Negative (Negative) SARS-CoV-2 RNA (RT-PCR) Negative (Negative) ABG Data ABG results: 10/09/24 01:30 Puncture Site Right radial ABG pH 7.501 H ABG pCO2 24.4 L ABG pO2 89.8 ABG PO2/FiO2 Ratio 4.28 ABG HCO3 18.6 L ABG O2 Saturation 97.6 ABG O2 Content 13.6 L ABG Base Excess -3.4 A-a Gradient 30.7 Oxyhemoglobin 95.6 Total Hemoglobin 10.0 L O2 Delivery Device Room air O2 Liters/Min Not Reportable FiO2 21 Critical Care Time Critical Care Time Critical Care Time: Yes Total Critical Care Time: 45 Discharge Plan Discharge Clinical Impression: Sepsis, Diarrhea, JANELL (acute kidney injury) Patient Disposition: Still a Patient Condition: Stable Patient Language: Chinese Prescriptions: No Action ferrous sulfate 325 mg (65 mg iron) tablet 325 mg PO DAILY Entresto 49-51 mg tablet 1 tablet PO Q12H topiramate 50 mg tablet 50 mg PO .COMPLEX Rx Instructions: 50 mg orally take 2 tabs weekly or as needed carvedilol [Coreg] 6.25 mg tablet 6.25 mg PO Q12H venlafaxine 150 mg capsule,extended release 24hr 150 mg PO DAILY pantoprazole 40 mg tablet,delayed release (DR/EC) 40 mg PO DAILY dapagliflozin propanediol [Farxiga] 10 mg tablet 5 mg PO DAILY potassium chloride 20 mEq tablet extended release 20 meq PO 3XW Rx Instructions: Takes on Thu, Thu, Thu warfarin 5 mg tablet 5 mg USEASDIRECTD Rx Instructions: 5mg on Thursday and Thursday; 2.5mg , Thu, , Thu, Sun meloxicam 15 mg tablet 15 mg PO EVERY OTHER DAY lorazepam 1 mg tablet 1 mg PO BID PRN (Reason: Anxiety) docusate sodium 100 mg Capsule 100 mg PO DAILY Qty: 30 0RF albuterol sulfate 90 mcg/actuation HFA aerosol inhaler 4 puff INHALATION Q4-5H PRN (Reason: Shortness Of Breath) Qty: 6.7 0RF loratadine [Allergy Relief (loratadine)] 10 mg tablet 10 mg PO QHS Qty: 30 0RF furosemide 40 mg tablet 40 mg PO 3XW Rx Instructions: Takes on Thursday, Thursday, and Thursday hydrocodone-acetaminophen 5-325 mg tablet 1 tablet PO BID PRN (Reason: Pain) Qty: 20 0RF Follow-up/Referrals: PHYSICIAN,RAMP JOCKEY [Primary Care Provider] -
[2024-10-09 03:50] LABS: Amphetamine Screen Urine Negative (Negative); Barbiturate Screen Urine Negative (Negative); Benzodiazepines Screen Urine Negative (Negative); Cannabinoid Screen Urine Negative (Negative); Cocaine Screen Urine Negative (Negative); Methadone Screen Urine Negative (Negative); Opiate Screen Urine Negative (Negative); Phencyclidine Screen Urine Negative (Negative)
[2024-10-09 04:09] LABS: Influenza A QL RT-PCR Negative (Negative); Influenza B QL RT-PCR Negative (Negative); RSV RNA, RT-PCR Negative (Negative); SARS-CoV-2 RNA PCR Negative (Negative)
[2024-10-09] MEDS: MAGNESIUM SULF 2 GM/WATER 50ML 2 GM/50 ML BAG IVPB (04:49)
[2024-10-09] MEDS: VANCOMYCIN 1,250 MG/NS 250 ML 1,250 MG/250 ML BAG 166.67 MG IVPB (05:12)
[2024-10-09] MEDS: metroNIDAZOLE 500 MG/ISO 100ML 500 MG/100 ML BAG 100 MG IVPB ×3 (05:18→21:21)
--- NOTE | 2024-10-09 05:28 | PC.NURSE ---
Report received from Tiara BERNABE at [phone]
[2024-10-09 05:45] LABS: Troponin I 0.112 ng/mL (0.000-0.034)
[2024-10-09] MEDS: STAT BOLUS COMMUNICATION ORDER 2343 ML IV CONT (06:08)
--- NOTE | 2024-10-09 07:15 | ADMGEN ---
This patient, Aj Zamarripa, was admitted to Intensive Care Unit-8 at 0555. Patient/family oriented to hospital policies and general routines including ID bracelet, bed and alarms, visiting hours, pain management, procedures, bathroom and other care routines, personal items, smoking policy, room service/diet, and visiting hours. Necklace in plastic bag on white board. Information on how to activate the Rapid Response Team has been discussed. Patient/Family are encouraged to report perceived risks to care and to ask questions if they do not understand what they are told or what they should do.
[2024-10-09 08:01] LABS: Toxigenic C. Diff POSITIVE (NEGATIVE)
[2024-10-09 08:03] LABS: MRSA (PCR) DETECTED (NOT DETECTE)
--- NOTE | 2024-10-09 08:21 | P.CONIN_ITS ---
Assessment and Plan Assessment and plan (1) Septic shock: Code(s): A41.9 - Sepsis, unspecified organism; R65.21 - Severe sepsis with septic shock Status: Acute Assessment and Plan: Septic shock secondary to C diff colitis. Patient presented with diarrhea dehydration and shock Stool was positive with see C diff CT scan of abdomen pelvis was done and is pending at this time Received 30 mL/kg fluid bolus I will give 500 mL of albumin bolus and also continue fluids for another 10 hours. Have to be cautious considering patient's history of congestive heart failure Add vasopressin and hydrocortisone Maintain mean arterial pressure Blood culture have been sent and I will continue cefepime for 48 hours until cultures also back. Start Flagyl IV and p.o. vancomycin for C diff infection Isolation (2) Clostridium difficile colitis: Code(s): A04.72 - Enterocolitis due to Clostridium difficile, not specified as recurrent Status: Acute Assessment and Plan: See above (3) GI bleeding: Code(s): K92.2 - Gastrointestinal hemorrhage, unspecified Status: Acute Assessment and Plan: on arrival to ICU patient had a large bowel movement which was grossly bloody patient is on Eliquis monitor serial hemoglobin. Transfuse if needed in light of GI bleed and shock I will give patient Kcentra 2000 units hold any anticoagulation npo consult GI IV Protonix (4) Afib: Code(s): I48.91 - Unspecified atrial fibrillation Status: Acute Assessment and Plan: Currently in AFib but controlled ventricular rate. Will hold beta-ambrose due to hypotension and shock Continue Eliquis and aspirin (5) CHF (congestive heart failure): Code(s): I50.9 - Heart failure, unspecified Status: Acute Assessment and Plan: Patient has history of cardiomyopathy with EF 25% Cautious IV fluids Hold heart failure medications at this time (6) Acute kidney injury superimposed on CKD: Code(s): N17.9 - Acute kidney failure, unspecified; N18.9 - Chronic kidney disease, unspecified Status: Acute Assessment and Plan: Patient's baseline creatinine is above 2 he presented with creatinine of 3.3 this is likely secondary to shock and hypovolemia Patient is now getting IV fluids and vasopressors to maintain his mean times for pressure Monitor urine output electrolytes and creatinine (7) Electrolyte abnormality: Code(s): E87.8 - Other disorders of electrolyte and fluid balance, not elsewhere classified Status: Acute Assessment and Plan: Patient received potassium and magnesium replacement. I will check a Mag and a BMP level now (8) Biventricular ICD (implantable cardioverter-defibrillator) in place: Code(s): Z95.810 - Presence of automatic (implantable) cardiac defibrillator Status: Acute Plan DVT prophylaxis - S CT Stress ulcer prophylaxis - Nutrition -start clear liquid diet and advance as tolerated Code Status - Full Code as [facility] Total Critical Care Time -30 minutes Due to a high probability of clinically significant, life threatening deterioration, the patient required my highest level of preparedness to intervene emergently and I personally spent this critical care time directly and personally managing the patient. This critical care time included obtaining a history; examining the patient; pulse oximetry; ordering and review of studies; arranging urgent treatment with development of a management plan; evaluation of patient's response to treatment; frequent reassessment; and discussions with other providers. It was exclusive of separately billable procedures and treating other patients and teaching time. 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 Patient has a past medical history of acute kidney injury, chronic kidney disease, alcohol abuse, cardiomyopathy with last EF recorded 25%, GERD, hyperlipidemia, AFib on anticoagulation, pacemaker, hypertension, coronary disease, type 2 diabetes, pneumonia, dementia, UTI. Per EMS report patient has been having diarrhea and on nursing checked this morning his blood pressure is low hence he was sent to ER. In ER he was unable to provide any meaningful history but he was found to be hypotensive. Patient was given IV fluid bolus and his blood pressure remained low hence he was started on norepinephrine. Patient admitted to ICU for further evaluation management. During my evaluation patient is now much more awake although not fully oriented. He states that he has been having diarrhea for last 6 month. He states he has 8-10 bowel movements a day. He also states that he has mild pain in his abdomen. He was unable to provide any further details about pain. He denies any hematuria hematochezia but by but admitted to having dysuria after a Cifuentes catheter was placed. He denies any fever chest pain shortness a breath cough nausea vomiting. All other systems were reviewed and were negative. Patient is currently in 19 mics of Levophed. He is currently not on any other infusions. in ICU patient had a large bowel movement which was grossly bloody. Review of Systems 2 Review of Systems: All systems reviewed & are unremarkable except as noted in HPI and below (HPI) [facility] Past Medical History Medical History Anxiety and depression Arthritis Presence of combination internal cardiac defibrillator (ICD) and pacemaker CHF (congestive heart failure) Afib CVA (cerebral vascular accident) Chronic kidney disease Surgical History Surgical History History of cataract surgery History of cervical spinal surgery cervical laminectomy History of appendectomy History of cardiac defibrillator placement replaced 10/01/2023; [employer] / Setrox/[employer]; Dr Fracisco Eli through [facility] Cardiology Family History Family History Father S/P triple vessel bypass Social History Social History Smoking packs per day: 0.5 Smoking cigarettes per day: 10.0 Years smoked: 30 Smoking pack-years: 15.00 Smoking status: Former smoker Tobacco type: cigarettes Alcohol intake: former Substance use: never Substance use type: does not use Do You Feel Safe in your Home?: Yes Lack of Transportation: No Lack of Food: Never True Current Housing: I Have Housing Concerned About Future Housing: No Difficulty Paying Gas/Electric Bills: No Difficulty Paying for Meds: No Currently Unemployed: No Education: High School Diploma/GED Difficulty w/ Childcare or Family Care: No Gender identity (if verbalized by the patient): Male Spiritual care concerns: No Meds Home Medications and Allergies Home Medications ?Medication ?Instructions ?Recorded ?Confirmed ?Type carvedilol 6.25 mg tablet (Coreg) 6.25 mg PO Q12H 10/10/23 10/09/24 History pantoprazole 40 mg tablet,delayed 40 mg PO DAILY 10/10/23 10/09/24 History release potassium chloride 20 mEq 20 meq PO 3XW 10/10/23 10/09/24 History tablet,extended release venlafaxine 150 mg 150 mg PO DAILY 10/10/23 10/09/24 History capsule,extended release 24 hr lorazepam 1 mg tablet 1 mg PO BID PRN Anxiety 05/16/24 10/09/24 History meloxicam 15 mg tablet 15 mg PO DAILY 05/16/24 10/09/24 History albuterol sulfate 90 mcg/actuation 4 puff inhalation Q4-5H PRN 05/18/24 10/09/24 Rx aerosol inhaler Shortness Of Breath #6.7 grams furosemide 40 mg tablet 40 mg PO DAILY 06/07/24 10/09/24 History apixaban 2.5 mg tablet (Eliquis) 2.5 mg PO Q12H 10/09/24 10/09/24 History aspirin 81 mg tablet,delayed 81 mg PO DAILY 10/09/24 10/09/24 History release (Adult Aspirin Regimen) calcitriol 0.25 mcg capsule 0.25 mcg PO DAILY 10/09/24 10/09/24 History dapagliflozin propanediol 10 mg 10 mg PO DAILY 10/09/24 10/09/24 History tablet (Farxiga) ergocalciferol (vitamin D2) 1,250 5,000 mcg PO WEEKLY 10/09/24 10/09/24 History mcg (50,000 unit) capsule isosorbide dinitrate 10 mg tablet 10 mg PO BID 10/09/24 10/09/24 History loperamide 2 mg capsule 2 mg PO Q2-3H PRN loose stool 10/09/24 10/09/24 History (Anti-Diarrheal (loperamide)) metolazone 2.5 mg tablet 2.5 mg PO DAILY 10/09/24 10/09/24 History multivitamin with minerals-folic 1 cap PO DAILY 10/09/24 10/09/24 History acid 400 mcg-biotin 400 mcg capsule nitroglycerin 0.4 mg sublingual 0.4 mg sublingual Q5M PRN chest 10/09/24 10/09/24 History tablet pain sacubitril 49 mg-valsartan 51 mg 1 tablet PO BID 10/09/24 10/09/24 History tablet (Entresto) Allergies Allergy/AdvReac Type Severity Reaction Status Date / Time No Known Allergies Allergy Mild Verified 06/07/24 08:12 Vital Signs Vital Signs - 24 hr 10/08/24 23:52 10/09/24 00:12 10/09/24 01:17 Temperature 36.5 C Pulse Rate 87 93 88 Respiratory Rate 17 20 Blood Pressure 78/59 L Pulse Oximetry 100 100 Oxygen Delivery Room Air 10/09/24 01:20 10/09/24 01:30 10/09/24 01:31 Temperature Pulse Rate 90 83 86 Respiratory Rate 20 15 21 H Blood Pressure 72/46 L 64/41 L Pulse Oximetry 97 98 100 Oxygen Delivery 10/09/24 01:36 10/09/24 01:43 10/09/24 01:49 Temperature Pulse Rate 95 89 91 Respiratory Rate 18 Blood Pressure 64/41 L 72/48 L Pulse Oximetry Oxygen Delivery 10/09/24 01:52 10/09/24 01:55 10/09/24 03:54 Temperature Pulse Rate 100 94 108 H Respiratory Rate 19 18 Blood Pressure 73/43 L 86/65 L 104/92 H Pulse Oximetry 98 Oxygen Delivery 10/09/24 05:30 10/09/24 06:10 10/09/24 06:15 Temperature Pulse Rate 100 100 100 Respiratory Rate 17 17 Blood Pressure 107/90 107/90 107/77 Pulse Oximetry 97 97 Oxygen Delivery 10/09/24 06:30 10/09/24 06:55 10/09/24 07:44 Temperature Pulse Rate 100 Respiratory Rate Blood Pressure 107/61 Pulse Oximetry 100 100 Oxygen Delivery Room Air Room Air 10/09/24 07:44 10/09/24 07:44 10/09/24 07:46 Temperature 37.4 C 37.4 C Pulse Rate 94 98 98 Respiratory Rate 21 H 22 H Blood Pressure 124/75 103/62 Pulse Oximetry 99 100 Oxygen Delivery Exam 2 Narrative: General: Pt is alert awake and appears ill but in no acute distress Lungs/Chest: Trachea central Clear BS B/L, No crackles or wheezing. Cardiac: RRR. Normal S1 S2. No murmurs Circulation: Feet are warm Abdomen: Normal bowel sounds.. Soft. Mild diffuse tenderness to palpation. No guarding no rigidity. Extremities: No clubbing, cyanosis or edema. Warm : Cifuentes in place Neurologic: Follows commands. Moves all 4 extremities PERRL AO x1 Skin: No Rash Results Labs 10/09/24 00:34 10/09/24 08:36 Labs: Short CBC 10/09/24 Range/Units 00:34 WBC 24.1 H (4.5-10.0) K/mm3 Hgb 10.1 L D (14.0-18.0) g/dL Hct 31.4 L (42.0-52.0) % Plt Count 159 (150-375) k/mm3 BMP 10/09/24 00:34 Sodium 128 L Potassium 3.3 L Chloride 94 L Carbon Dioxide 17 L BUN 64 H D Creatinine 3.34 H Glucose 93 Calcium 7.8 L Cardiac Enzymes 10/09/24 10/09/24 Range/Units 00:34 05:04 Troponin I 0.105 H* 0.112 H* (0.000-0.034) ng/mL Liver Function 10/09/24 Range/Units 00:34 Total Bilirubin 3.2 H (0.2-1.3) mg/dL AST 22 (17-59) U/L ALT 15 (6-50) U/L Alkaline Phosphatase 110 (38-126) U/L Albumin 3.2 L (3.5-5.1) g/dL Urine 10/09/24 Range/Units 03:26 Urine Color Dark yellow (Yellow) Urine Appearance Cloudy H (Clear) Urine pH 5.0 (5.0-9.0) Ur Specific [place] 1.021 (1.001-1.035) Urine Protein Trace (Negative) mg/dL Urine Glucose (UA) Negative (Negative) mg/dL Quality VTE Prophylaxis VTE prophylaxis: pharmacologic ordered Hospitalist MIPS Advance Care Plan I have confirmed that the patient's Advanced Care Plan is present, code status is documented, or surrogate decision maker is listed in patient medical record.: Yes Medication Reconciliation I have utilized all available resources to obtain, update and review the patients current medications (includes all prescriptions, OTC, herbals, cannabis, and nutritional supplements).: Yes
--- NOTE | 2024-10-09 08:50 | P.HP_ITS ---
H&P: HPI History of Present Illness Date/Time: 10/09/24 08:50 Chief Complaint: Weakness and hypotension Narrative: Patient is a 74-year-old male past medical history of CHF with ejection fraction 25%, AFib, AICD, CKD presents to the hospital with complaints of weakness and hypotension from his [facility]. per medical chart patient had been having episodes diarrhea which time he started to develop severe weakness and when his blood pressure was taken this a.m. he was hypotensive EMS was called and patient was brought to the emergency department. Initial findings in the ER showed hypotension initially patient was started on aggressive IV fluid resuscitation however had no response but unable to continue with IV fluids due to patient's CHF and EF of 20% at which time was then started on norepinephrine. Due to patient's continued episodes of diarrhea a C diff sample was performed and came back positive. patient's WBC 24.1, NA 127, creatinine 3.3 BUN 66. patient also had elevated troponins likely secondary [place] [id number] compensating on room air. CT abdomen showing cystitis otherwise unremarkable. Patient was then transferred to the ICU for continued treatment and management sepsis with septic shock. upon assessment patient was alert and oriented able to answer questions but lethargic. Patient states he is having multiple bouts diarrhea and for the last 2 days his weakness continued to increase. patient at time of assessment denied any chest pain, shortness a breath, nausea vomiting, dizziness. per ICU consult patient did have a large bloody bowel upon arrival to the ICU. patient was also then started Flagyl and oral vancomycin and consult to GI placed. Review of Systems Review of Systems: 12 systems were reviewed and are negativ e except for as per HPI. All systems reviewed & are unremarkable except as noted in HPI and below PMFSH Past Medical History Medical History Anxiety and depression Arthritis Presence of combination internal cardiac defibrillator (ICD) and pacemaker CHF (congestive heart failure) Afib CVA (cerebral vascular accident) Chronic kidney disease Surgical History Surgical History History of cataract surgery History of cervical spinal surgery cervical laminectomy History of appendectomy History of cardiac defibrillator placement replaced 10/01/2023; [employer] / Setrox/Josh; Dr Fracisco Eli through [facility] Cardiology Family History Family History Father S/P triple vessel bypass Social History Social History Smoking packs per day: 0.5 Smoking cigarettes per day: 10.0 Years smoked: 30 Smoking pack-years: 15.00 Smoking status: Former smoker Tobacco type: cigarettes Alcohol intake: former Substance use: never Substance use type: does not use Do You Feel Safe in your Home?: Yes Lack of Transportation: No Lack of Food: Never True Current Housing: I Have Housing Concerned About Future Housing: No Difficulty Paying Gas/Electric Bills: No Difficulty Paying for Meds: No Currently Unemployed: No Education: High School Diploma/GED Difficulty w/ Childcare or Family Care: No Gender identity (if verbalized by the patient): Male Spiritual care concerns: No Meds Home Medications and Allergies Home Medications ?Medication ?Instructions ?Recorded ?Confirmed ?Type carvedilol 6.25 mg tablet (Coreg) 6.25 mg PO Q12H 10/10/23 10/09/24 History pantoprazole 40 mg tablet,delayed 40 mg PO DAILY 10/10/23 10/09/24 History release potassium chloride 20 mEq 20 meq PO 3XW 10/10/23 10/09/24 History tablet,extended release venlafaxine 150 mg 150 mg PO DAILY 10/10/23 10/09/24 History capsule,extended release 24 hr lorazepam 1 mg tablet 1 mg PO BID PRN Anxiety 05/16/24 10/09/24 History meloxicam 15 mg tablet 15 mg PO DAILY 05/16/24 10/09/24 History albuterol sulfate 90 mcg/actuation 4 puff inhalation Q4-5H PRN 05/18/24 10/09/24 Rx aerosol inhaler Shortness Of Breath #6.7 grams furosemide 40 mg tablet 40 mg PO DAILY 06/07/24 10/09/24 History apixaban 2.5 mg tablet (Eliquis) 2.5 mg PO Q12H 10/09/24 10/09/24 History aspirin 81 mg tablet,delayed 81 mg PO DAILY 10/09/24 10/09/24 History release (Adult Aspirin Regimen) calcitriol 0.25 mcg capsule 0.25 mcg PO DAILY 10/09/24 10/09/24 History dapagliflozin propanediol 10 mg 10 mg PO DAILY 10/09/24 10/09/24 History tablet (Farxiga) ergocalciferol (vitamin D2) 1,250 5,000 mcg PO WEEKLY 10/09/24 10/09/24 History mcg (50,000 unit) capsule isosorbide dinitrate 10 mg tablet 10 mg PO BID 10/09/24 10/09/24 History loperamide 2 mg capsule 2 mg PO Q2-3H PRN loose stool 10/09/24 10/09/24 History (Anti-Diarrheal (loperamide)) metolazone 2.5 mg tablet 2.5 mg PO DAILY 10/09/24 10/09/24 History multivitamin with minerals-folic 1 cap PO DAILY 10/09/24 10/09/24 History acid 400 mcg-biotin 400 mcg capsule nitroglycerin 0.4 mg sublingual 0.4 mg sublingual Q5M PRN chest 10/09/24 10/09/24 History tablet pain sacubitril 49 mg-valsartan 51 mg 1 tablet PO BID 10/09/24 10/09/24 History tablet (Entresto) Allergies Allergy/AdvReac Type Severity Reaction Status Date / Time No Known Allergies Allergy Mild Verified 06/07/24 08:12 Vital Signs Vital Signs - 24 hr 10/08/24 23:52 10/09/24 00:12 10/09/24 01:17 Temperature 97.7 F Pulse Rate 87 93 88 Respiratory Rate 17 20 Blood Pressure 78/59 L Pulse Oximetry 100 100 Oxygen Delivery Room Air 10/09/24 01:20 10/09/24 01:30 10/09/24 01:31 Temperature Pulse Rate 90 83 86 Respiratory Rate 20 15 21 H Blood Pressure 72/46 L 64/41 L Pulse Oximetry 97 98 100 Oxygen Delivery 10/09/24 01:36 10/09/24 01:43 10/09/24 01:49 Temperature Pulse Rate 95 89 91 Respiratory Rate 18 Blood Pressure 64/41 L 72/48 L Pulse Oximetry Oxygen Delivery 10/09/24 01:52 10/09/24 01:55 10/09/24 03:54 Temperature Pulse Rate 100 94 108 H Respiratory Rate 19 18 Blood Pressure 73/43 L 86/65 L 104/92 H Pulse Oximetry 98 Oxygen Delivery 10/09/24 05:30 10/09/24 06:10 10/09/24 06:15 Temperature Pulse Rate 100 100 100 Respiratory Rate 17 17 Blood Pressure 107/90 107/90 107/77 Pulse Oximetry 97 97 Oxygen Delivery 10/09/24 06:30 10/09/24 06:55 10/09/24 07:44 Temperature Pulse Rate 100 Respiratory Rate Blood Pressure 107/61 Pulse Oximetry 100 100 Oxygen Delivery Room Air Room Air 10/09/24 07:44 10/09/24 07:44 10/09/24 07:46 Temperature 99.3 F 99.3 F Pulse Rate 94 98 98 Respiratory Rate 21 H 22 H Blood Pressure 124/75 103/62 Pulse Oximetry 99 100 Oxygen Delivery Exam Const: General: comfortable and no acute distress Other: pleasant male looks acutely ill, lethargic HENMT: Mouth: Yes dry mucous membranes Eyes: General: appearance normal, both eyes and all related structures Pupils: Equal, round and reactive pupils present Neck: Neck: supple and no JVD Resp: Effort & Inspection: normal respiratory effort Cardio: Rate: regular rate Rhythm: regular rhythm GI: GI Palp: Yes Soft to palpation and Yes Tenderness to palpation present (GI) Urinary Catheter: Urinary Catheter: patent and draining and urine clear Skin: General skin exam: no rashes or lesions noted Wounds: no wounds Other: Skin Pale with yellowing (jaundice) Neuro: Speech: normal speech Sensory Exam: normal sensation Extrem: General: normal to inspection Psych: Mental Status: mental status grossly normal Affect: normal affect H&P: Results Labs Labs: Short CBC 10/09/24 Range/Units 00:34 WBC 24.1 H (4.5-10.0) K/mm3 Hgb 10.1 L D (14.0-18.0) g/dL Hct 31.4 L (42.0-52.0) % Plt Count 159 (150-375) k/mm3 BMP 10/09/24 00:34 Sodium 128 L Potassium 3.3 L Chloride 94 L Carbon Dioxide 17 L BUN 64 H D Creatinine 3.34 H Glucose 93 Calcium 7.8 L Cardiac Enzymes 10/09/24 10/09/24 Range/Units 00:34 05:04 Troponin I 0.105 H* 0.112 H* (0.000-0.034) ng/mL Liver Function 10/09/24 Range/Units 00:34 Total Bilirubin 3.2 H (0.2-1.3) mg/dL AST 22 (17-59) U/L ALT 15 (6-50) U/L Alkaline Phosphatase 110 (38-126) U/L Albumin 3.2 L (3.5-5.1) g/dL Urine 10/09/24 Range/Units 03:26 Urine Color Dark yellow (Yellow) Urine Appearance Cloudy H (Clear) Urine pH 5.0 (5.0-9.0) Ur Specific [place] 1.021 (1.001-1.035) Urine Protein Trace (Negative) mg/dL Urine Glucose (UA) Negative (Negative) mg/dL Assessment and Plan Assessment and plan (1) Septic shock: Code(s): A41.9 - Sepsis, unspecified organism; R65.21 - Severe sepsis with septic shock Status: Acute Assessment and Plan: Septic shock secondary to C diff colitis. HR: 108 Max T:99.7 BP: 78/59 (not responding to fluids) and WBC 24.1 with acute Kidney injury * Admitted to ICU * Stool was positive with see C diff * CT scan of abdomen pelvis: trace perisplenic and perihepatic ascites suggestive of cystitis * IV fluid resuscitation. 30mg/kg for septic shock * reassessment of volume status/tissue perfusion did not respond * empiric IV antibiotic therapy * Monitor lactic acid levels q6hr. * Repeat CBC, CMP. * Two sets of blood cultures pending * urine cultures. Negative * C-reactive proteins * procalcitonin level. * PTT and PT, INR. * TTE if indicated. * Monitor albumin, IV albumin * Steroid suggested if septic shock, continue positive fluid resuscitation and vasopressors if indicated. (2) Acute on chronic heart failure with reduced ejection fraction (HFrEF, <= 40%): Code(s): I50.23 - Acute on chronic systolic (congestive) heart failure Status: Acute Assessment and Plan: Patient with history of systolic heart failure with a last known EF of 25% * Holding current mediations due to sepsis shock with hypotension * Resume lasix and entresto when bp tolerates * BNP >30,000 last 28,000 * Monitor closely for fluid overload minimize IV Fluid resuscitation (3) Elevated troponin: Code(s): R79.89 - Other specified abnormal findings of blood chemistry Status: Acute Assessment and Plan: * 0.105>0.112 Likely ischemic demand secondary to septic shock CHF patient denied chest pain * Trend trops * Cardiac monitoring * EKG with no ST/T elevation (4) JANELL (acute kidney injury): Code(s): N17.9 - Acute kidney failure, unspecified Status: Acute Assessment and Plan: * Stage 3 CKD baseline 2.5 * CR 3.34 POA * Likely secondary to poor perfusion, hypovolemia * Avoid nephrotoxic drugs. * Routine CMP monitoring GFR. * Monitor electrolytes especially potassium. * Antibiotic doses depending on creatinine clearance. * Pharmacy does medications. (5) Afib: Code(s): I48.91 - Unspecified atrial fibrillation Status: Acute Assessment and Plan: * Can restart Coreg when BP tolerates * Resume Eliquis (6) Clostridium difficile colitis: Code(s): A04.72 - Enterocolitis due to Clostridium difficile, not specified as recurrent Status: Acute Assessment and Plan: * C-diff positive * CT ABD no evidence of toxic simon colon * IV Flagyl and oral Vancomycin * Isolation * Bloody stool * GI consulted * monitor H&H * PPI (7) Biventricular ICD (implantable cardioverter-defibrillator) in place: Code(s): Z95.810 - Presence of automatic (implantable) cardiac defibrillator Status: Acute Assessment and Plan: * Of Note Plan Code status: Full code per patient DVT prophylaxis: Eliquis on hold/SCD's Stress ulcer prophylaxis: PPI gtt PT/OT notes: on hold Disposition: Patient admitted to the ICU for treatment of sepsis with septic shock secondary to C infection continue with pressors to maintain BP and map of 60 has been consulted for further evaluation recommendations. Quality VTE Prophylaxis VTE prophylaxis: mechanical ordered -Patient's previous records reviewed on admission -ER notes reviewed in detail on admission -discussed all findings and current treatment plan with patient/Family/POA -Consultations reviewed for recommendations -Patient's disposition for safe discharge discussed with case finishing machine adjuster Dictation performed by [facility] [employer] direct speech recognition software, therefore hand tacker variants and typographical errors may occur. Hospitalist MIPS Advance Care Plan I have confirmed that the patient's Advanced Care Plan is present, code status is documented, or surrogate decision maker is listed in patient medical record.: Yes Medication Reconciliation I have utilized all available resources to obtain, update and review the patients current medications (includes all prescriptions, OTC, herbals, cannabis, and nutritional supplements).: Yes The patient is not eligible for med reconciliation; the patient is in a emergent medical situation where delaying treatment would jeopardize the patients health.: No
[2024-10-09] MEDS: VASOPRESSIN INJ 100 UNITS in DEXTROSE 5% 95 ML IV CONT (08:55)
[2024-10-09] MEDS: ALBUMIN HUMAN 5% 25 GM/500 ML BTL IV CONT (08:55)
[2024-10-09] MEDS: LACTATED RINGERS 1,000 ML 100 ML IV CONT (08:56)
[2024-10-09] MEDS: HYDROCORTISONE SODIUM SUCCINATE 100 MG/2 ML VIAL IV PUSH ×2 (08:56→15:27)
[2024-10-09 09:00] LABS: Anion Gap 13 mmol/L (4-12); Blood Urea Nitrogen 66 mg/dL (9-20); Calcium 7.6 mg/dL (8.4-10.2); Carbon Dioxide 17 mmol/L (22-30); Chloride 97 mmol/L (98-107); Estimated CRCL calculation 18 ml/min; Estimated Glomerular Filt Rate 18; Glucose 117 mg/dL (65-110); Magnesium 1.8 mg/dL (1.6-2.3); Potassium 3.8 mmol/L (3.4-5.0); Sodium 127 mmol/L (137-145)
[2024-10-09] MEDS: HUMAN PROTHROMBIN COMPLEX(PCC) 2,000 UNITS in PREMIXIV 0 ML 491 UNITS IV CONT (10:07)
[2024-10-09 11:52] LABS: Hematocrit 28.5 % (42.0-52.0); Hemoglobin 9.4 g/dL (14.0-18.0); Mean Corpuscular Hemoglobin 29.8 pg (26-34); Mean Corpuscular Volume 90.5 fl (80-100); Mean Platelet Volume 10.7 fl (7.4-10.4); Platelet Count Result 137 k/mm3 (150-375); Red Blood Count 3.15 M/mm3 (4.6-6.20); Red Cell Distribution Width 19.5 % (11.5-14.5); White Blood Count 15.9 K/mm3 (4.5-10.0)
[2024-10-09] MEDS: VANCOMYCIN HCL 250 MG ORAL CAPSULE 500 MG PO ×2 (12:05→18:33)
[2024-10-09] MEDS: PANTOPRAZOLE SODIUM IV 80 MG in SODIUM CHLORIDE 0.9% IV 500 ML 50 MG IV CONT ×2 (12:05→21:27)
--- NOTE | 2024-10-09 12:08 | P.CONGI_ITS ---
Assessment and Plan Assessment and plan (1) GI bleeding: Code(s): K92.2 - Gastrointestinal hemorrhage, unspecified Status: Acute Assessment and Plan: The patient, complicated by multiple comorbidities, has developed acute gastrointestinal bleeding, suspected to be from an upper source. His current hemodynamic status is unstable, with persistently low mean arterial pressure requiring ongoing vasopressor support. Given this instability, an EGD is indicated, but will be postponed until the patient demonstrates improved hemodynamic tolerance. As discussed with the commercial mortgage broker, propofol sedation for the EGD is contraindicated in his current state due to the high risk of further hypotension. We will maintain vigilant monitoring of his hemodynamic parameters and proceed with the EGD once a relative stabilization is achieved. (2) Diarrhea: Code(s): R19.7 - Diarrhea, unspecified Status: Acute GI Consult Note Consult date/time: 10/09/24 12:08 HPI: Aj Zamarripa is a 74 year old male Admitted on 10/08, with a history of diabetes, CHF with an ejection fraction of 25%, status post AICD placement, chronic kidney disease and atrial fibrillation on anticoagulation. He is a custodial resident and was found to have severe hypotension and was brought to the emergency room for evaluation. It is not clear for how many days or weeks he has had diarrhea. Nevertheless, he was found to have C diff positivity and became more severely hypotensive while in the hospital and was therefore transferred to the ICU. He is currently receiving vasopressin, hydrocortisone, cefepime, Flagyl and vancomycin. The reason for the consultation is the presence of large amounts of bloody stools while in the ICU. He has received Kcentra 2000 units and will start a pantoprazole drip today. Review of Systems 2 Review of Systems: All systems reviewed & are unremarkable except as noted in HPI and below PMFSH Past Medical History Medical History Anxiety and depression Arthritis Presence of combination internal cardiac defibrillator (ICD) and pacemaker CHF (congestive heart failure) Afib CVA (cerebral vascular accident) Chronic kidney disease Surgical History Surgical History History of cataract surgery History of cervical spinal surgery cervical laminectomy History of appendectomy History of cardiac defibrillator placement replaced 10/01/2023; [facility] / [employer]; Dr Fracisco Eli through [facility] Cardiology Family History Family History Father S/P triple vessel bypass Social History Social History Smoking packs per day: 0.5 Smoking cigarettes per day: 10.0 Years smoked: 30 Smoking pack-years: 15.00 Smoking status: Former smoker Tobacco type: cigarettes Alcohol intake: former Substance use: never Substance use type: does not use Do You Feel Safe in your Home?: Yes Lack of Transportation: No Lack of Food: Never True Current Housing: I Have Housing Concerned About Future Housing: No Difficulty Paying Gas/Electric Bills: No Difficulty Paying for Meds: No Currently Unemployed: No Education: High School Diploma/GED Difficulty w/ Childcare or Family Care: No Gender identity (if verbalized by the patient): Male Spiritual care concerns: No Meds Home Medications and Allergies Home Medications ?Medication ?Instructions ?Recorded ?Confirmed ?Type carvedilol 6.25 mg tablet (Coreg) 6.25 mg PO Q12H 10/10/23 10/09/24 History pantoprazole 40 mg tablet,delayed 40 mg PO DAILY 10/10/23 10/09/24 History release potassium chloride 20 mEq 20 meq PO 3XW 10/10/23 10/09/24 History tablet,extended release venlafaxine 150 mg 150 mg PO DAILY 10/10/23 10/09/24 History capsule,extended release 24 hr lorazepam 1 mg tablet 1 mg PO BID PRN Anxiety 05/16/24 10/09/24 History meloxicam 15 mg tablet 15 mg PO DAILY 05/16/24 10/09/24 History albuterol sulfate 90 mcg/actuation 4 puff inhalation Q4-5H PRN 05/18/24 10/09/24 Rx aerosol inhaler Shortness Of Breath #6.7 grams furosemide 40 mg tablet 40 mg PO DAILY 06/07/24 10/09/24 History apixaban 2.5 mg tablet (Eliquis) 2.5 mg PO Q12H 10/09/24 10/09/24 History aspirin 81 mg tablet,delayed 81 mg PO DAILY 10/09/24 10/09/24 History release (Adult Aspirin Regimen) calcitriol 0.25 mcg capsule 0.25 mcg PO DAILY 10/09/24 10/09/24 History dapagliflozin propanediol 10 mg 10 mg PO DAILY 10/09/24 10/09/24 History tablet (Farxiga) ergocalciferol (vitamin D2) 1,250 5,000 mcg PO WEEKLY 10/09/24 10/09/24 History mcg (50,000 unit) capsule isosorbide dinitrate 10 mg tablet 10 mg PO BID 10/09/24 10/09/24 History loperamide 2 mg capsule 2 mg PO Q2-3H PRN loose stool 10/09/24 10/09/24 History (Anti-Diarrheal (loperamide)) metolazone 2.5 mg tablet 2.5 mg PO DAILY 10/09/24 10/09/24 History multivitamin with minerals-folic 1 cap PO DAILY 10/09/24 10/09/24 History acid 400 mcg-biotin 400 mcg capsule nitroglycerin 0.4 mg sublingual 0.4 mg sublingual Q5M PRN chest 10/09/24 10/09/24 History tablet pain sacubitril 49 mg-valsartan 51 mg 1 tablet PO BID 10/09/24 10/09/24 History tablet (Entresto) Allergies Allergy/AdvReac Type Severity Reaction Status Date / Time No Known Allergies Allergy Mild Verified 06/07/24 08:12 Vital Signs Vital Signs - 24 hr 10/08/24 23:52 10/09/24 00:12 10/09/24 01:17 Temperature 97.7 F Pulse Rate 87 93 88 Respiratory Rate 17 20 Blood Pressure 78/59 L Pulse Oximetry 100 100 Oxygen Delivery Room Air 10/09/24 01:20 10/09/24 01:30 10/09/24 01:31 Temperature Pulse Rate 90 83 86 Respiratory Rate 20 15 21 H Blood Pressure 72/46 L 64/41 L Pulse Oximetry 97 98 100 Oxygen Delivery 10/09/24 01:36 10/09/24 01:43 10/09/24 01:49 Temperature Pulse Rate 95 89 91 Respiratory Rate 18 Blood Pressure 64/41 L 72/48 L Pulse Oximetry Oxygen Delivery 10/09/24 01:52 10/09/24 01:55 10/09/24 03:54 Temperature Pulse Rate 100 94 108 H Respiratory Rate 19 18 Blood Pressure 73/43 L 86/65 L 104/92 H Pulse Oximetry 98 Oxygen Delivery 10/09/24 05:30 10/09/24 06:10 10/09/24 06:15 Temperature Pulse Rate 100 100 100 Respiratory Rate 17 17 Blood Pressure 107/90 107/90 107/77 Pulse Oximetry 97 97 Oxygen Delivery 10/09/24 06:30 10/09/24 06:55 10/09/24 07:44 Temperature Pulse Rate 100 Respiratory Rate Blood Pressure 107/61 Pulse Oximetry 100 100 Oxygen Delivery Room Air Room Air 10/09/24 07:44 10/09/24 07:44 10/09/24 07:46 Temperature 99.3 F 99.3 F Pulse Rate 94 98 98 Respiratory Rate 21 H 22 H Blood Pressure 124/75 103/62 Pulse Oximetry 99 100 Oxygen Delivery 10/09/24 08:55 10/09/24 10:00 10/09/24 11:46 Temperature 98.5 F 98.7 F Pulse Rate 87 85 95 Respiratory Rate 22 H 35 H Blood Pressure 125/62 89/75 L 109/74 Pulse Oximetry 98 88 L Oxygen Delivery Exam 2 Narrative: General: Pt is alert awake and appears ill but in no acute distress Lungs/Chest: Trachea central Clear BS B/L, No crackles or wheezing. Cardiac: RRR. Normal S1 S2. No murmurs Circulation: Feet are warm Abdomen: Normal bowel sounds.. Soft. Mild diffuse tenderness to palpation. No guarding no rigidity. Extremities: No clubbing, cyanosis or edema. Warm : Cifuentes in place Neurologic: Follows commands. Moves all 4 extremities PERRL AO x1 Skin: No Rash Results Labs 10/09/24 11:45 10/09/24 08:36 Labs: Short CBC 10/09/24 10/09/24 Range/Units 00:34 11:45 WBC 24.1 H 15.9 H (4.5-10.0) K/mm3 Hgb 10.1 L D 9.4 L (14.0-18.0) g/dL Hct 31.4 L 28.5 L (42.0-52.0) % Plt Count 159 137 L (150-375) k/mm3 BMP 10/09/24 10/09/24 00:34 08:36 Sodium 128 L 127 L Potassium 3.3 L 3.8 Chloride 94 L 97 L Carbon Dioxide 17 L 17 L BUN 64 H D 66 H Creatinine 3.34 H 3.33 H Glucose 93 117 H Calcium 7.8 L 7.6 L Cardiac Enzymes 10/09/24 10/09/24 Range/Units 00:34 05:04 Troponin I 0.105 H* 0.112 H* (0.000-0.034) ng/mL Liver Function 10/09/24 Range/Units 00:34 Total Bilirubin 3.2 H (0.2-1.3) mg/dL AST 22 (17-59) U/L ALT 15 (6-50) U/L Alkaline Phosphatase 110 (38-126) U/L Albumin 3.2 L (3.5-5.1) g/dL Urine 10/09/24 Range/Units 03:26 Urine Color Dark yellow (Yellow) Urine Appearance Cloudy H (Clear) Urine pH 5.0 (5.0-9.0) Ur Specific [place] 1.021 (1.001-1.035) Urine Protein Trace (Negative) mg/dL Urine Glucose (UA) Negative (Negative) mg/dL
[2024-10-09 16:59] LABS: Hematocrit 28.5 % (42.0-52.0); Hemoglobin 9.3 g/dL (14.0-18.0); Mean Corpuscular HGB Conc 32.6 g/dl (32-36); Mean Corpuscular Hemoglobin 29.4 pg (26-34); Mean Corpuscular Volume 90.2 fl (80-100); Platelet Count Result 142 k/mm3 (150-375); Red Blood Count 3.16 M/mm3 (4.6-6.20); Red Cell Distribution Width 19.1 % (11.5-14.5); White Blood Count 12.2 K/mm3 (4.5-10.0)
[2024-10-09] MEDS: ALBUMIN HUMAN 25% 25 GM/100 ML 100 ML IVPB (18:33)
[2024-10-09 21:31] LABS: Hematocrit 28.7 % (42.0-52.0); Hemoglobin 9.3 g/dL (14.0-18.0); Immature Platelet Fraction Pct 4.7 % (0.9-11.2); Mean Corpuscular HGB Conc 32.4 g/dl (32-36); Mean Corpuscular Hemoglobin 29.2 pg (26-34); Mean Platelet Volume 11.4 fl (7.4-10.4); Platelet Count Result 132 k/mm3 (150-375); Red Blood Count 3.19 M/mm3 (4.6-6.20); Red Cell Distribution Width 19.2 % (11.5-14.5)
--- NOTE | 2024-10-09 23:28 | PC.NURSE ---
Dr Catherine made aware that pupils are unequal and that patient states that is normal for him. Patient has been alert and oriented this evening. Reviewed that head CT was done in the ER this morning. No further orders at this time.
[2024-10-10] VITALS (43 sets, daily range): BP systolic 87–133; BP diastolic 54–97; PULSE 72–106; RESP 12–32; TEMP 35.7–36.7; O2SAT 87–100
[2024-10-10] MEDS: ALBUMIN HUMAN 25% 25 GM/100 ML 100 ML IVPB ×3 (00:13→12:27)
[2024-10-10] MEDS: HYDROCORTISONE SODIUM SUCCINATE 100 MG/2 ML VIAL IV PUSH ×3 (00:14→12:26)
[2024-10-10] MEDS: VANCOMYCIN HCL 250 MG ORAL CAPSULE 500 MG PO ×4 (00:17→17:19)
[2024-10-10] MEDS: CEFEPIME 2 GM/NS 50 ML 2 GM/50 ML BAG IVPB (01:59)
[2024-10-10] MEDS: LORazepam (*CRX) 1 MG TABLET PO (03:20)
[2024-10-10] MEDS: metroNIDAZOLE 500 MG/ISO 100ML 500 MG/100 ML BAG 100 MG IVPB ×3 (05:07→21:00)
[2024-10-10 05:09] LABS: Hematocrit 28.6 % (42.0-52.0); Hemoglobin 9.4 g/dL (14.0-18.0); Mean Corpuscular HGB Conc 32.9 g/dl (32-36); Mean Corpuscular Hemoglobin 29.9 pg (26-34); Mean Corpuscular Volume 91.1 fl (80-100); Mean Platelet Volume 11.4 fl (7.4-10.4); Platelet Count Result 153 k/mm3 (150-375); Red Blood Count 3.14 M/mm3 (4.6-6.20); Red Cell Distribution Width 19.2 % (11.5-14.5); White Blood Count 14.3 K/mm3 (4.5-10.0)
[2024-10-10 05:20] LABS: INR 2.6; Prothrombin Time 28.1 Seconds (11.1-14.7)
[2024-10-10 05:22] LABS: Alanine Aminotransferase 15 U/L (6-50); Albumin Level 3.4 g/dL (3.5-5.1); Alkaline Phosphatase 81 U/L (38-126); Anion Gap 19 mmol/L (4-12); Aspartate Amino Transferase 24 U/L (17-59); Bilirubin,Total 2.9 mg/dL (0.2-1.3); Blood Urea Nitrogen 63 mg/dL (9-20); Calcium 7.9 mg/dL (8.4-10.2); Carbon Dioxide 14 mmol/L (22-30); Chloride 98 mmol/L (98-107); Estimated CRCL calculation 22 ml/min; Estimated Glomerular Filt Rate 23; Glucose 124 mg/dL (65-110); Magnesium 1.8 mg/dL (1.6-2.3); Phosphorus 5.5 mg/dL (2.5-4.5); Potassium 3.6 mmol/L (3.4-5.0); Sodium 131 mmol/L (137-145)
[2024-10-10 05:38] LABS: Vancomycin Trough 10.5 ug/mL (10.0-20.0)
[2024-10-10] MEDS: PANTOPRAZOLE SODIUM IV 80 MG in SODIUM CHLORIDE 0.9% IV 500 ML 50 MG IV CONT (06:57)
[2024-10-10] MEDS: PANTOPRAZOLE SODIUM IV 40 MG VIAL IV PUSH (08:32)
[2024-10-10] MEDS: FUROSEMIDE INJ 40 MG/4 ML VIAL IV PUSH (08:32)
[2024-10-10] MEDS: SODIUM BICARBONATE TAB 650 MG TABLET PO ×2 (08:32→17:19)
[2024-10-10] MEDS: POTASSIUM BICARBONATE 25 MEQ TABEF 50 MEQ PO (08:32)
--- NOTE | 2024-10-10 09:42 | P.PNINT_ITS ---
Progress Note: A&P Assessment and Plan (1) Septic shock: Code(s): A41.9 - Sepsis, unspecified organism; R65.21 - Severe sepsis with septic shock Status: Acute Assessment and Plan: Septic shock secondary to C diff colitis. Patient presented with diarrhea dehydration and shock Stool was positive with see C diff CT scan of abdomen pelvis was done and reviewed Received 30 mL/kg fluid bolus followed by 1 L of LR over 10 hours and some albumin Hold further fluids. Off vasopressors Wean hydrocortisone Maintain mean arterial pressure Blood culture have been sent and I will continue cefepime for 48 hours until cultures also back. Continue Flagyl IV and p.o. vancomycin for C diff infection Isolation (2) Clostridium difficile colitis: Code(s): A04.72 - Enterocolitis due to Clostridium difficile, not specified as recurrent Status: Acute Assessment and Plan: See above (3) GI bleeding: Code(s): K92.2 - Gastrointestinal hemorrhage, unspecified Status: Acute Assessment and Plan: on arrival to ICU patient had a large bowel movement which was grossly bloody patient is on Eliquis monitor serial hemoglobin. Transfuse if needed in light of GI bleed and shock patient was given Kcentra 2000 units Anticoagulation is on hold npo GI has been consulted and plan for EGD today Continue IV push Protonix rather infusion to cut down on the fluid (4) Afib: Code(s): I48.91 - Unspecified atrial fibrillation Status: Acute Assessment and Plan: Currently in AFib but controlled ventricular rate. Will hold beta-ambrose due to hypotension and shock Aspirin Eliquis on hold due to bleeding (5) CHF (congestive heart failure): Code(s): I50.9 - Heart failure, unspecified Status: Acute Assessment and Plan: Patient has history of cardiomyopathy with EF 25% Off IV fluids now Lasix IV Hold heart failure medications at this time (6) Acute kidney injury superimposed on CKD: Code(s): N17.9 - Acute kidney failure, unspecified; N18.9 - Chronic kidney disease, unspecified Status: Acute Assessment and Plan: Patient's baseline creatinine is above 2 he presented with creatinine of 3.3 this is likely secondary to shock and hypovolemia Patient received IV fluids and creatinine improved. Urine output improved IV Lasix today for pulmonary edema Monitor urine output electrolytes and creatinine (7) Electrolyte abnormality: Code(s): E87.8 - Other disorders of electrolyte and fluid balance, not elsewhere class ified Status: Acute Assessment and Plan: Patient received potassium and magnesium replacement. I will check a Mag and a BMP level now (8) Biventricular ICD (implantable cardioverter-defibrillator) in place: Code(s): Z95.810 - Presence of automatic (implantable) cardiac defibrillator Status: Acute Plan DVT prophylaxis - SCD Stress ulcer prophylaxis -PPI Nutrition - NPO for EGD today Code Status - Full Code as per [facility] Plan to transfer out of ICU today after EGD depending on the result Incentive spirometry,, up in chair Subjective Date/time seen: 10/10/24 Overnight events reviewed. Afebrile Overall he states he feels better. His abdominal pain has resolved. He did had some bowel movement I. He does states that he has some shortness of breath this morning. He does desat when sleeping suggesting he has sleep apnea. He denies any nausea vomiting. All other systems were reviewed and were negative Vasopressors have been weaned off. He is on Protonix infusion. His urine output has improved. He is tolerating p.o. Review of Systems Review of Systems: All systems reviewed & are unremarkable except as noted in HPI and below (HPI) Exam Narrative: General: Pt is alert awake and appears ill but in no acute distress Lungs/Chest: Trachea central Clear BS B/L, No crackles or wheezing. Cardiac: RRR. Normal S1 S2. No murmurs Circulation: Feet are warm Abdomen: Normal bowel sounds.. Soft. Mild diffuse tenderness to palpation. No guarding no rigidity. Extremities: No clubbing, cyanosis or edema. Warm : Cifuentes in place Neurologic: Follows commands. Moves all 4 extremities PERRL AO x1 Skin: No Rash Objective Data Vital Signs Vital Signs: Vital Signs - 24 hr 10/09/24 10:00 10/09/24 10:00 10/09/24 10:00 Temperature 36.9 C Pulse Rate 85 86 88 Respiratory Rate 22 H Blood Pressure 89/75 L 90/61 L Pulse Oximetry 98 Oxygen Delivery Oxygen Flow Rate 10/09/24 10:30 10/09/24 11:46 10/09/24 12:00 Temperature 37.1 C Pulse Rate 95 Respiratory Rate 35 H Blood Pressure 109/74 Pulse Oximetry 100 88 L 100 Oxygen Delivery Room Air Room Air Oxygen Flow Rate 10/09/24 12:00 10/09/24 13:00 10/09/24 13:30 Temperature Pulse Rate 92 97 94 Respiratory Rate Blood Pressure 83/51 L 118/87 109/86 Pulse Oximetry Oxygen Delivery Oxygen Flow Rate 10/09/24 13:45 10/09/24 14:00 10/09/24 14:00 Temperature 37.4 C Pulse Rate 96 94 92 Respiratory Rate 21 H Blood Pressure 105/83 110/90 Pulse Oximetry 99 Oxygen Delivery Oxygen Flow Rate 10/09/24 14:00 10/09/24 14:45 10/09/24 15:15 Temperature Pulse Rate 92 95 91 Respiratory Rate Blood Pressure 110/90 107/71 96/75 L Pulse Oximetry Oxygen Delivery Oxygen Flow Rate 10/09/24 16:00 10/09/24 16:00 10/09/24 16:00 Temperature Pulse Rate 92 99 Respiratory Rate Blood Pressure 130/87 Pulse Oximetry 99 Oxygen Delivery Room Air Oxygen Flow Rate 10/09/24 16:00 10/09/24 18:00 10/09/24 18:00 Temperature 37.1 C 36.9 C Pulse Rate 92 93 93 Respiratory Rate 23 H 23 H Blood Pressure 103/87 76/64 L Pulse Oximetry 92 99 Oxygen Delivery Oxygen Flow Rate 10/09/24 18:00 10/09/24 19:00 10/09/24 19:01 Temperature 36.7 C 36.7 C Pulse Rate 93 91 84 Respiratory Rate 28 H 17 Blood Pressure 76/64 L 98/72 L Pulse Oximetry 98 Oxygen Delivery Oxygen Flow Rate 10/09/24 19:15 10/09/24 19:16 10/09/24 19:30 Temperature 36.7 C 36.7 C 36.6 C Pulse Rate 89 92 87 Respiratory Rate 20 26 H Blood Pressure 102/83 Pulse Oximetry 77 L Oxygen Delivery Oxygen Flow Rate 10/09/24 19:31 10/09/24 20:00 10/09/24 20:00 Temperature 36.6 C 36.6 C Pulse Rate 86 91 91 Respiratory Rate 31 H 22 H Blood Pressure 111/99 H 106/67 Pulse Oximetry 83 L 98 Oxygen Delivery Oxygen Flow Rate 10/09/24 20:00 10/09/24 21:10 10/09/24 22:00 Temperature Pulse Rate 93 97 Respiratory Rate Blood Pressure 109/92 H Pulse Oximetry 98 Oxygen Delivery Room Air Oxygen Flow Rate 10/09/24 22:00 10/09/24 22:31 10/09/24 23:49 Temperature 36.5 C 36.3 C L Pulse Rate 88 90 102 H Respiratory Rate 22 H 22 H Blood Pressure 88/73 L 110/64 Pulse Oximetry 98 99 Oxygen Delivery Oxygen Flow Rate 10/10/24 00:00 10/10/24 00:00 10/10/24 00:00 Temperature 36.3 C L Pulse Rate 92 95 Respiratory Rate 24 H Blood Pressure 97/80 L Pulse Oximetry 98 99 Oxygen Delivery Room Air Oxygen Flow Rate 10/10/24 00:00 10/10/24 00:01 10/10/24 00:04 Temperature 36.3 C L 36.3 C L Pulse Rate 90 89 85 Respiratory Rate 22 H 24 H Blood Pressure 97/80 L 97/80 L Pulse Oximetry 98 98 Oxygen Delivery Oxygen Flow Rate 10/10/24 00:15 10/10/24 00:30 10/10/24 00:31 Temperature 36.3 C L 36.2 C L 36.3 C L Pulse Rate 92 85 87 Respiratory Rate 17 20 18 Blood Pressure 99/77 L Pulse Oximetry 98 97 Oxygen Delivery Oxygen Flow Rate 10/10/24 00:45 10/10/24 01:00 10/10/24 01:01 Temperature 36.2 C L 36.2 C L 36.2 C L Pulse Rate 82 87 101 H Respiratory Rate 18 23 H 19 Blood Pressure 133/73 Pulse Oximetry 98 Oxygen Delivery Oxygen Flow Rate 10/10/24 01:15 10/10/24 01:30 10/10/24 01:32 Temperature 36.3 C L 36.3 C L 36.1 C L Pulse Rate 100 96 90 Respiratory Rate 21 H 23 H Blood Pressure 109/84 Pulse Oximetry 92 99 Oxygen Delivery Oxygen Flow Rate 10/10/24 01:45 10/10/24 02:00 10/10/24 02:00 Temperature 36.2 C L 36.3 C L Pulse Rate 90 88 93 Respiratory Rate 22 H 18 Blood Pressure 97/73 L Pulse Oximetry 92 97 Oxygen Delivery Oxygen Flow Rate 10/10/24 02:00 10/10/24 02:01 10/10/24 02:03 Temperature 36.2 C L 36.3 C L 36.4 C L Pulse Rate 98 88 90 Respiratory Rate 18 16 12 Blood Pressure 87/75 L 97/73 L Pulse Oximetry 97 97 96 Oxygen Delivery Oxygen Flow Rate 10/10/24 02:04 10/10/24 02:25 10/10/24 02:31 Temperature 36.3 C L 36.3 C L Pulse Rate 92 88 98 Respiratory Rate 17 23 H Blood Pressure 97/73 L 108/78 Pulse Oximetry 87 L Oxygen Delivery Oxygen Flow Rate 10/10/24 03:00 10/10/24 03:01 10/10/24 04:00 Temperature 36.2 C L 36.3 C L Pulse Rate 87 92 92 Respiratory Rate 21 H 12 Blood Pressure 118/76 Pulse Oximetry 95 94 Oxygen Delivery Oxygen Flow Rate 10/10/24 04:00 10/10/24 04:00 10/10/24 04:00 Temperature 36.5 C 36.4 C Pulse Rate 95 88 Respiratory Rate 22 H 22 H Blood Pressure 110/85 Pulse Oximetry 98 97 99 Oxygen Delivery Room Air Oxygen Flow Rate 10/10/24 04:01 10/10/24 04:09 10/10/24 05:00 Temperature 36.4 C 35.7 C L Pulse Rate 93 92 95 Respiratory Rate 17 15 Blood Pressure 110/85 110/85 Pulse Oximetry 96 98 Oxygen Delivery Oxygen Flow Rate 10/10/24 05:01 10/10/24 06:00 10/10/24 06:10 Temperature 36.2 C L 36.6 C Pulse Rate 90 91 88 Respiratory Rate 23 H 18 Blood Pressure 112/82 123/76 Pulse Oximetry 98 96 Oxygen Delivery Oxygen Flow Rate 10/10/24 06:11 10/10/24 07:49 10/10/24 08:00 Temperature 36.6 C Pulse Rate 90 92 Respiratory Rate 19 Blood Pressure 123/76 110/94 H Pulse Oximetry 98 99 Oxygen Delivery Nasal Cannula Oxygen Flow Rate 2 10/10/24 08:00 Temperature Pulse Rate Respiratory Rate Blood Pressure Pulse Oximetry 98 Oxygen Delivery Nasal Cannula Oxygen Flow Rate 2 Intake/Output Intake/Output: Intake & Output 10/07/24 10/08/24 10/09/24 10/10/24 23:59 23:59 23:59 23:59 Intake Total 3690.5 825.0 Output Total 675 500 Balance 3015.5 325.0 Meds/Results Medications: Active Medications Generic Name Dose Route Start Last Admin Trade Name Freq PRN Reason Stop Dose Admin Hydrocortisone Sodium Succinate 100 mg 10/10/24 12:00 Hydrocortisone Sodium Succinate 100 Mg/2 Ml Vial IV PUSH QAM MC Cefepime HCl 2 gm in 50 mls @ 100 mls/hr 10/10/24 02:00 10/10/24 02:30 Maxipime 2 Gm/Ns 50 Ml IVPB Infused Q24H MC Infusion Albumin Human 100 mls @ 60 mls/hr 10/09/24 18:00 10/10/24 06:59 Albutein IVPB 10/10/24 13:39 Infused Q6HR MC Infusion Metronidazole 500 mg in 100 mls @ 100 mls/hr 10/09/24 14:00 10/10/24 06:11 Flagyl 500 Mg/Iso Soln 100 Ml IVPB Infused Q8HR MC Infusion Norepinephrine Bitartrate 8 mg in 250 mls @ 9.375 mls/hr 10/09/24 12:05 10/09/24 12:05 Levophed 8 Mg/D5w 250 Ml IV CONT Not Given .Q24H MC Protocol 5 MCG/MIN Lorazepam 0.5 mg 10/10/24 08:54 Lorazepam (*Crx) 0.5 Mg Tablet PO 10/15/24 00:00 BID PRN Anxiety Pantoprazole Sodium 40 mg 10/10/24 09:00 10/10/24 08:32 Pantoprazole Sodium Iv 40 Mg Vial IV PUSH 40 mg Q12HR MC Administration Sodium Bicarbonate 650 mg 10/10/24 09:00 10/10/24 08:32 Sodium Bicarbonate Tab 650 Mg Tablet PO 10/12/24 08:59 650 mg BID MC Administration Sodium Chloride 10 ml 10/10/24 14:00 Central Line Flush IV PUSH Q8HR MC Sodium Chloride 20 ml 10/10/24 06:30 Central Line Flush IV PUSH PRN PRN after blood draws Vancomycin HCl 500 mg 10/09/24 12:00 10/10/24 05:15 Vancomycin Hcl 250 Mg Oral Capsule PO 500 mg Q6HR MC Administration Radiology Results: ITS Impressions Head CT 10/09/24 07:38 Impression: No acute intracranial hemorrhage or suspicious mass effect. Chest/Abdomen/Pelvis CT 10/09/24 07:47 IMPRESSION: Trace perisplenic and perihepatic ascites. Findings suggesting cystitis. Findings consistent with patient's known diarrhea illness. Chest X-Ray 10/10/24 08:11 Impression: Possible minimal developing bibasilar pulmonary edema. Stable support line. Labs Labs: Laboratory Results - last 24 hr 10/09/24 10/09/24 10/09/24 11:45 16:50 21:14 WBC 15.9 H 12.2 H 13.0 H RBC 3.15 L 3.16 L 3.19 L Hgb 9.4 L 9.3 L 9.3 L Hct 28.5 L 28.5 L 28.7 L MCV 90.5 90.2 90.0 MCH 29.8 29.4 29.2 MCHC 33.0 32.6 32.4 RDW 19.5 H 19.1 H 19.2 H Plt Count 137 L 142 L 132 L MPV 10.7 H 11.0 H 11.4 H % Immature Plt Fraction 4.7 PT INR Sodium Potassium Chloride Carbon Dioxide Anion Gap BUN Creatinine Estim Creat Clear Calc Estimated GFR Glucose Calcium Phosphorus Magnesium Total Bilirubin AST ALT Alkaline Phosphatase Total Protein Albumin Vancomycin Trough 10/10/24 04:45 WBC 14.3 H RBC 3.14 L Hgb 9.4 L Hct 28.6 L MCV 91.1 MCH 29.9 MCHC 32.9 RDW 19.2 H Plt Count 153 MPV 11.4 H % Immature Plt Fraction PT 28.1 H INR 2.6 Sodium 131 L Potassium 3.6 Chloride 98 Carbon Dioxide 14 L Anion Gap 19 H BUN 63 H Creatinine 2.73 H Estim Creat Clear Calc 22 Estimated GFR 23 L Glucose 124 H Calcium 7.9 L Phosphorus 5.5 H Magnesium 1.8 Total Bilirubin 2.9 H AST 24 ALT 15 Alkaline Phosphatase 81 Total Protein 6.0 L Albumin 3.4 L Vancomycin Trough 10.5 Quality VTE Prophylaxis VTE prophylaxis: mechanical ordered
[2024-10-10] MEDS: ONDANSETRON INJ 4 MG/2 ML VIAL IV PUSH (09:51)
[2024-10-10] MEDS: LORazepam (*CRX) 0.5 MG TABLET PO ×2 (09:51→22:32)
[2024-10-10 10:35] LABS: Hematocrit 28.5 % (42.0-52.0); Hemoglobin 9.5 g/dL (14.0-18.0); Mean Corpuscular HGB Conc 33.3 g/dl (32-36); Mean Corpuscular Volume 89.9 fl (80-100); Mean Platelet Volume 11.2 fl (7.4-10.4); Platelet Count Result 152 k/mm3 (150-375); Red Blood Count 3.17 M/mm3 (4.6-6.20); Red Cell Distribution Width 19.4 % (11.5-14.5); White Blood Count 12.8 K/mm3 (4.5-10.0)
--- NOTE | 2024-10-10 12:34 | P.PNIM_ITS ---
Progress Note: A&P Assessment and Plan (1) Septic shock: Code(s): A41.9 - Sepsis, unspecified organism; R65.21 - Severe sepsis with septic shock Status: Acute Assessment and Plan: Patient presents with diarrhea, weakness and HoTN and found to have septic shock secondary to C diff colitis. Patient presented with diarrhea dehydration and shock. Stool was positive for Cdiff toxin. CT scan of abdomen pelvis showing trace ascites, possible cystitis and fluid filled colon. He received 30 mL/kg fluid bolus followed by 1 L of LR over 10 hours and some albumin BCx NGTD. He was given Vanco IV, Flagyl IV and Cefepime. Oral Vanco started. Levophed and [employer] started but able to be weaned off vasopressors. Started on hydrocortisone but now being weaned. Continue cefepime for 48 hours until cultures return Continue Flagyl IV and p.o. vancomycin for C diff infection Isolation (2) Clostridium difficile colitis: Code(s): A04.72 - Enterocolitis due to Clostridium difficile, not specified as recurrent Status: Acute Assessment and Plan: As above (3) GI bleeding: Code(s): K92.2 - Gastrointestinal hemorrhage, unspecified Status: Acute Assessment and Plan: On arrival to ICU patient had a large bowel movement which was grossly bloody. Patient is on Eliquis chronically. Baseline Hgb 12-13. Hgb 10.1 on admission and now in the 9 range. In light of GI bleed and shock, patient was given Kcentra 2000 units. Eliquis held. GI consulted and EGD performed showing no upper GI bleeding source. Monitor serial hemoglobin. Transfuse if needed (4) Afib: Code(s): I48.91 - Unspecified atrial fibrillation Status: Acute Assessment and Plan: Currently in AFib but controlled ventricular rate. We held beta-ambrose due to hypotension and shock Aspirin and Eliquis also were held due to bleeding. Monitor on tele. (5) CHF (congestive heart failure): Code(s): I50.9 - Heart failure, unspecified Status: Acute Assessment and Plan: Patient has history of cardiomyopathy with EF 25%. Was on IV fluids for fluid resuscitation but now off all IV fluids. CXR today showing possible minimal developing bibasilar pulmonary edema. BP more stable and he did Lasix IV once on 10/10 Hold heart failure medications at this time but resume when able (6) Acute kidney injury superimposed on CKD: Code(s): N17.9 - Acute kidney failure, unspecified; N18.9 - Chronic kidney disease, unspecified Status: Acute Assessment and Plan: Patient's baseline creatinine is about 2. Cr on admission was 3.3 secondary to shock and hypovolemia. Patient received IV fluids and creatinine improved to 2.7 today. IV Lasix given today for pulmonary edema so monitor renal function closely Monitor urine output, electrolytes and creatinine (7) Biventricular ICD (implantable cardioverter-defibrillator) in place: Code(s): Z95.810 - Presence of automatic (implantable) cardiac defibrillator Status: Acute Assessment and Plan: Stable Plan DVT prophylaxis - SCD Stress ulcer prophylaxis -PPI Nutrition - clear liquid Code Status - Full Code as per his paperwork [facility] Start PT/OT Subjective Date/time seen: 10/10/24 12:34 Interval history: 74yo male with systolic CHF (EF 25%), AFib, AICD, and CKD who presents to the hospital with complaints of diarrhea, weakness and hypotension from his [facility]. Tolerating oral intake. Not on O2 at the facility. No CP or SOB. Complains of abdominal pain and mild nausea. Exam Narrative: AF 97.8 105/85 88 18 96% 1L Gen - NARD Neck -Rt IJ TLC in place. Chest - left base crackles o/w clear. CV -irregularly irregular. Telemetry showing atrial fibrillation with controlled rate. Abd - soft, minimal diffuse tenderness without guarding. - Cifuentes secured draining clear yellow urine. Fecal containment system with dark black stool in bag Ext - No pedal edema Psych - Nml mood and affect Skin - Warm and dry Objective Data Vital Signs Vital Signs: Vital Signs - 24 hr 10/09/24 13:00 10/09/24 13:30 10/09/24 13:45 Temperature Pulse Rate 97 94 96 Respiratory Rate Blood Pressure 118/87 109/86 105/83 Pulse Oximetry Oxygen Delivery Oxygen Flow Rate 10/09/24 14:00 10/09/24 14:00 10/09/24 14:00 Temperature 99.4 F Pulse Rate 94 92 92 Respiratory Rate 21 H Blood Pressure 110/90 110/90 Pulse Oximetry 99 Oxygen Delivery Oxygen Flow Rate 10/09/24 14:45 10/09/24 15:15 10/09/24 16:00 Temperature Pulse Rate 95 91 92 Respiratory Rate Blood Pressure 107/71 96/75 L 130/87 Pulse Oximetry Oxygen Delivery Oxygen Flow Rate 10/09/24 16:00 10/09/24 16:00 10/09/24 16:00 Temperature 98.8 F Pulse Rate 99 92 Respiratory Rate 23 H Blood Pressure 103/87 Pulse Oximetry 99 92 Oxygen Delivery Room Air Oxygen Flow Rate 10/09/24 18:00 10/09/24 18:00 10/09/24 18:00 Temperature 98.5 F Pulse Rate 93 93 93 Respiratory Rate 23 H Blood Pressure 76/64 L 76/64 L Pulse Oximetry 99 Oxygen Delivery Oxygen Flow Rate 10/09/24 19:00 10/09/24 19:01 10/09/24 19:15 Temperature 98.0 F 98.0 F 98.0 F Pulse Rate 91 84 89 Respiratory Rate 28 H 17 20 Blood Pressure 98/72 L Pulse Oximetry 98 Oxygen Delivery Oxygen Flow Rate 10/09/24 19:16 10/09/24 19:30 10/09/24 19:31 Temperature 98.0 F 97.9 F 97.9 F Pulse Rate 92 87 86 Respiratory Rate 26 H 31 H Blood Pressure 102/83 111/99 H Pulse Oximetry 77 L 83 L Oxygen Delivery Oxygen Flow Rate 10/09/24 20:00 10/09/24 20:00 10/09/24 20:00 Temperature 98 F Pulse Rate 91 91 93 Respiratory Rate 22 H Blood Pressure 106/67 109/92 H Pulse Oximetry 98 Oxygen Delivery Oxygen Flow Rate 10/09/24 21:10 10/09/24 22:00 10/09/24 22:00 Temperature 97.7 F Pulse Rate 97 88 Respiratory Rate 22 H Blood Pressure 88/73 L Pulse Oximetry 98 98 Oxygen Delivery Room Air Oxygen Flow Rate 10/09/24 22:31 10/09/24 23:49 10/10/24 00:00 Temperature 97.4 F L 97.4 F L Pulse Rate 90 102 H 92 Respiratory Rate 22 H 24 H Blood Pressure 110/64 97/80 L Pulse Oximetry 99 98 Oxygen Delivery Oxygen Flow Rate 10/10/24 00:00 10/10/24 00:00 10/10/24 00:00 Temperature 97.4 F L Pulse Rate 95 90 Respiratory Rate 22 H Blood Pressure 97/80 L Pulse Oximetry 99 98 Oxygen Delivery Room Air Oxygen Flow Rate 10/10/24 00:01 10/10/24 00:04 10/10/24 00:15 Temperature 97.4 F L 97.4 F L Pulse Rate 89 85 92 Respiratory Rate 24 H 17 Blood Pressure 97/80 L Pulse Oximetry 98 Oxygen Delivery Oxygen Flow Rate 10/10/24 00:30 10/10/24 00:31 10/10/24 00:45 Temperature 97.2 F L 97.3 F L 97.2 F L Pulse Rate 85 87 82 Respiratory Rate 20 18 18 Blood Pressure 99/77 L Pulse Oximetry 98 97 98 Oxygen Delivery Oxygen Flow Rate 10/10/24 01:00 10/10/24 01:01 10/10/24 01:15 Temperature 97.1 F L 97.1 F L 97.3 F L Pulse Rate 87 101 H 100 Respiratory Rate 23 H 19 21 H Blood Pressure 133/73 Pulse Oximetry Oxygen Delivery Oxygen Flow Rate 10/10/24 01:30 10/10/24 01:32 10/10/24 01:45 Temperature 97.3 F L 97.0 F L 97.2 F L Pulse Rate 96 90 90 Respiratory Rate 23 H 22 H Blood Pressure 109/84 Pulse Oximetry 92 99 92 Oxygen Delivery Oxygen Flow Rate 10/10/24 02:00 10/10/24 02:00 10/10/24 02:00 Temperature 97.4 F L 97.2 F L Pulse Rate 88 93 98 Respiratory Rate 18 18 Blood Pressure 97/73 L Pulse Oximetry 97 97 Oxygen Delivery Oxygen Flow Rate 10/10/24 02:01 10/10/24 02:03 10/10/24 02:04 Temperature 97.4 F L 97.5 F L 97.4 F L Pulse Rate 88 90 92 Respiratory Rate 16 12 17 Blood Pressure 87/75 L 97/73 L Pulse Oximetry 97 96 87 L Oxygen Delivery Oxygen Flow Rate 10/10/24 02:25 10/10/24 02:31 10/10/24 03:00 Temperature 97.4 F L 97.2 F L Pulse Rate 88 98 87 Respiratory Rate 23 H 21 H Blood Pressure 97/73 L 108/78 Pulse Oximetry 95 Oxygen Delivery Oxygen Flow Rate 10/10/24 03:01 10/10/24 04:00 10/10/24 04:00 Temperature 97.3 F L Pulse Rate 92 92 Respiratory Rate 12 Blood Pressure 118/76 Pulse Oximetry 94 98 Oxygen Delivery Room Air Oxygen Flow Rate 10/10/24 04:00 10/10/24 04:00 10/10/24 04:01 Temperature 97.7 F 97.6 F 97.6 F Pulse Rate 95 88 93 Respiratory Rate 22 H 22 H 17 Blood Pressure 110/85 110/85 Pulse Oximetry 97 99 96 Oxygen Delivery Oxygen Flow Rate 10/10/24 04:09 10/10/24 05:00 10/10/24 05:01 Temperature 96.2 F L 97.1 F L Pulse Rate 92 95 90 Respiratory Rate 15 23 H Blood Pressure 110/85 112/82 Pulse Oximetry 98 98 Oxygen Delivery Oxygen Flow Rate 10/10/24 06:00 10/10/24 06:10 10/10/24 06:11 Temperature 97.8 F Pulse Rate 91 88 90 Respiratory Rate 18 Blood Pressure 123/76 123/76 Pulse Oximetry 96 Oxygen Delivery Oxygen Flow Rate 10/10/24 07:49 10/10/24 08:00 10/10/24 08:00 Temperature 97.8 F Pulse Rate 92 Respiratory Rate 19 Blood Pressure 110/94 H Pulse Oximetry 98 99 98 Oxygen Delivery Nasal Cannula Nasal Cannula Oxygen Flow Rate 2 2 10/10/24 08:00 10/10/24 10:00 10/10/24 10:00 Temperature 97.5 F L Pulse Rate 98 96 92 Respiratory Rate 32 H Blood Pressure 111/91 H Pulse Oximetry 98 Oxygen Delivery Oxygen Flow Rate 10/10/24 11:54 10/10/24 12:00 Temperature 97.8 F Pulse Rate 88 Respiratory Rate 18 Blood Pressure 105/85 Pulse Oximetry 97 96 Oxygen Delivery Nasal Cannula Oxygen Flow Rate 1 Intake/Output Intake/Output: Intake & Output 10/07/24 10/08/24 10/09/24 10/10/24 23:59 23:59 23:59 23:59 Intake Total 3690.5 1190.0 Output Total 675 500 Balance 3015.5 690.0 Meds/Results Medications: Active Medications Generic Name Dose Route Start Last Admin Trade Name Freq PRN Reason Stop Dose Admin Hydrocortisone Sodium Succinate 100 mg 10/10/24 12:00 10/10/24 12:26 Hydrocortisone Sodium Succinate 100 Mg/2 Ml Vial IV PUSH 100 mg QAM MC Administration Cefepime HCl 2 gm in 50 mls @ 100 mls/hr 10/10/24 02:00 10/10/24 02:30 Maxipime 2 Gm/Ns 50 Ml IVPB Infused Q24H MC Infusion Albumin Human 100 mls @ 60 mls/hr 10/09/24 18:00 10/10/24 12:27 Albutein IVPB 10/10/24 13:39 60 mls/hr Q6HR MC Administration Metronidazole 500 mg in 100 mls @ 100 mls/hr 10/09/24 14:00 10/10/24 06:11 Flagyl 500 Mg/Iso Soln 100 Ml IVPB Infused Q8HR MC Infusion Norepinephrine Bitartrate 8 mg in 250 mls @ 9.375 mls/hr 10/09/24 12:05 10/10/24 12:27 Levophed 8 Mg/D5w 250 Ml IV CONT Not Given .Q24H MC Protocol 5 MCG/MIN Lorazepam 0.5 mg 10/10/24 08:54 10/10/24 09:51 Lorazepam (*Crx) 0.5 Mg Tablet PO 10/15/24 00:00 0.5 mg BID PRN Administration Anxiety Ondansetron HCl 4 mg 10/10/24 09:46 10/10/24 09:51 Ondansetron Inj 4 Mg/2 Ml Vial IV PUSH 4 mg Q6H PRN Administration Nausea And Vomiting Pantoprazole Sodium 40 mg 10/10/24 09:00 10/10/24 08:32 Pantoprazole Sodium Iv 40 Mg Vial IV PUSH 40 mg Q12HR MC Administration Sodium Bicarbonate 650 mg 10/10/24 09:00 10/10/24 08:32 Sodium Bicarbonate Tab 650 Mg Tablet PO 10/12/24 08:59 650 mg BID MC Administration Sodium Chloride 10 ml 10/10/24 14:00 Central Line Flush IV PUSH Q8HR MC Sodium Chloride 20 ml 10/10/24 06:30 Central Line Flush IV PUSH PRN PRN after blood draws Vancomycin HCl 500 mg 10/09/24 12:00 10/10/24 12:26 Vancomycin Hcl 250 Mg Oral Capsule PO 500 mg Q6HR MC Administration Radiology Results: ITS Impressions Head CT 10/09/24 07:38 Impression: No acute intracranial hemorrhage or suspicious mass effect. Chest/Abdomen/Pelvis CT 10/09/24 07:47 IMPRESSION: Trace perisplenic and perihepatic ascites. Findings suggesting cystitis. Findings consistent with patient's known diarrhea illness. Chest X-Ray 10/10/24 08:11 Impression: Possible minimal developing bibasilar pulmonary edema. Stable support line. Labs Labs: Laboratory Results - last 24 hr 10/09/24 10/09/24 10/10/24 16:50 21:14 04:45 WBC 12.2 H 13.0 H 14.3 H RBC 3.16 L 3.19 L 3.14 L Hgb 9.3 L 9.3 L 9.4 L Hct 28.5 L 28.7 L 28.6 L MCV 90.2 90.0 91.1 MCH 29.4 29.2 29.9 MCHC 32.6 32.4 32.9 RDW 19.1 H 19.2 H 19.2 H Plt Count 142 L 132 L 153 MPV 11.0 H 11.4 H 11.4 H % Immature Plt Fraction 4.7 PT 28.1 H INR 2.6 Sodium 131 L Potassium 3.6 Chloride 98 Carbon Dioxide 14 L Anion Gap 19 H BUN 63 H Creatinine 2.73 H Estim Creat Clear Calc 22 Estimated GFR 23 L Glucose 124 H Calcium 7.9 L Phosphorus 5.5 H Magnesium 1.8 Total Bilirubin 2.9 H AST 24 ALT 15 Alkaline Phosphatase 81 Total Protein 6.0 L Albumin 3.4 L Vancomycin Trough 10.5 10/10/24 10:25 WBC 12.8 H RBC 3.17 L Hgb 9.5 L Hct 28.5 L MCV 89.9 MCH 30.0 MCHC 33.3 RDW 19.4 H Plt Count 152 MPV 11.2 H % Immature Plt Fraction PT INR Sodium Potassium Chloride Carbon Dioxide Anion Gap BUN Creatinine Estim Creat Clear Calc Estimated GFR Glucose Calcium Phosphorus Magnesium Total Bilirubin AST ALT Alkaline Phosphatase Total Protein Albumin Vancomycin Trough
[2024-10-10] MEDS: CENTRAL LINE FLUSH 10 ML IV PUSH ×2 (13:34→21:00)
[2024-10-10] MEDS: LACTATED RINGERS 1,000 ML 150 ML IV CONT (13:59)
--- NOTE | 2024-10-10 14:04 | WPDANESEPPF ---
Anes - Initial Pre Proc Eval Procedure: Operation Date: 10/10/24 14:30 Proposed Procedures p Esophagogastroduodenoscopy - Mark Hidalgo MD Date/Time: 10/10/24 14:04 Surgeon: Iris Templeton DO Pre Op Diagnosis: Sepsis Patient Data Age: 74 Gender: M Height: 1.75 m Weight: 71.4 kg Last Vital Signs Temp 96.9 F L 10/10/24 13:59 Pulse 72 10/10/24 13:59 Resp 20 10/10/24 13:59 BP 99/72 L 10/10/24 13:59 Pulse Ox 100 10/10/24 13:59 O2 Del Method Nasal Cannula 10/10/24 13:59 O2 Flow Rate 2 10/10/24 13:59 Allergies Allergy/AdvReac Type Severity Reaction Status Date / Time No Known Allergies Allergy Mild Verified 10/10/24 03:14 Home Medications ?Medication ?Instructions ?Recorded ?Confirmed ?Type carvedilol 6.25 mg tablet (Coreg) 6.25 mg PO Q12H 10/10/23 10/09/24 History pantoprazole 40 mg tablet,delayed 40 mg PO DAILY 10/10/23 10/09/24 History release potassium chloride 20 mEq 20 meq PO 3XW 10/10/23 10/09/24 History tablet,extended release venlafaxine 150 mg 150 mg PO DAILY 10/10/23 10/09/24 History capsule,extended release 24 hr lorazepam 1 mg tablet 1 mg PO BID PRN Anxiety 05/16/24 10/09/24 History meloxicam 15 mg tablet 15 mg PO DAILY 05/16/24 10/09/24 History albuterol sulfate 90 mcg/actuation 4 puff inhalation Q4-5H PRN 05/18/24 10/09/24 Rx aerosol inhaler Shortness Of Breath #6.7 grams furosemide 40 mg tablet 40 mg PO DAILY 06/07/24 10/09/24 History apixaban 2.5 mg tablet (Eliquis) 2.5 mg PO Q12H 10/09/24 10/09/24 History aspirin 81 mg tablet,delayed 81 mg PO DAILY 10/09/24 10/09/24 History release (Adult Aspirin Regimen) calcitriol 0.25 mcg capsule 0.25 mcg PO DAILY 10/09/24 10/09/24 History dapagliflozin propanediol 10 mg 10 mg PO DAILY 10/09/24 10/09/24 History tablet (Farxiga) ergocalciferol (vitamin D2) 1,250 5,000 mcg PO WEEKLY 10/09/24 10/09/24 History mcg (50,000 unit) capsule isosorbide dinitrate 10 mg tablet 10 mg PO BID 10/09/24 10/09/24 History loperamide 2 mg capsule 2 mg PO Q2-3H PRN loose stool 10/09/24 10/09/24 History (Anti-Diarrheal (loperamide)) metolazone 2.5 mg tablet 2.5 mg PO DAILY 10/09/24 10/09/24 History multivitamin with minerals-folic 1 cap PO DAILY 10/09/24 10/09/24 History acid 400 mcg-biotin 400 mcg capsule nitroglycerin 0.4 mg sublingual 0.4 mg sublingual Q5M PRN chest 10/09/24 10/09/24 History tablet pain sacubitril 49 mg-valsartan 51 mg 1 tablet PO BID 10/09/24 10/09/24 History tablet (Entresto) Laboratory Tests 10/09/24 10/09/24 10/10/24 16:50 21:14 04:45 WBC 12.2 H K/mm3 13.0 H K/mm3 14.3 H K/mm3 (4.5-10.0) (4.5-10.0) (4.5-10.0) RBC 3.16 L M/mm3 3.19 L M/mm3 3.14 L M/mm3 (4.6-6.20) (4.6-6.20) (4.6-6.20) Hgb 9.3 L g/dL 9.3 L g/dL 9.4 L g/dL (14.0-18.0) (14.0-18.0) (14.0-18.0) Hct 28.5 L % 28.7 L % 28.6 L % (42.0-52.0) (42.0-52.0) (42.0-52.0) MCV 90.2 fl 90.0 fl 91.1 fl (80-100) (80-100) (80-100) MCH 29.4 pg 29.2 pg 29.9 pg (26-34) (26-34) (26-34) MCHC 32.6 g/dl 32.4 g/dl 32.9 g/dl (32-36) (32-36) (32-36) RDW 19.1 H % 19.2 H % 19.2 H % (11.5-14.5) (11.5-14.5) (11.5-14.5) Plt Count 142 L k/mm3 132 L k/mm3 153 k/mm3 (150-375) (150-375) (150-375) MPV 11.0 H fl 11.4 H fl 11.4 H fl (7.4-10.4) (7.4-10.4) (7.4-10.4) % Immature Plt Fraction 4.7 % (0.9-11.2) PT 28.1 H Seconds (11.1-14.7) INR 2.6 Sodium 131 L mmol/L (137-145) Potassium 3.6 mmol/L (3.4-5.0) Chloride 98 mmol/L (98-107) Carbon Dioxide 14 L mmol/L (22-30) Anion Gap 19 H mmol/L (4-12) BUN 63 H mg/dL (9-20) Creatinine 2.73 H mg/dL (0.7-1.3) Estim Creat Clear Calc 22 ml/min Estimated GFR 23 L (59 - ) Glucose 124 H mg/dL (65-110) Calcium 7.9 L mg/dL (8.4-10.2) Phosphorus 5.5 H mg/dL (2.5-4.5) Magnesium 1.8 mg/dL (1.6-2.3) Total Bilirubin 2.9 H mg/dL (0.2-1.3) AST 24 U/L (17-59) ALT 15 U/L (6-50) Alkaline Phosphatase 81 U/L (38-126) Total Protein 6.0 L g/dL (6.3-8.2) Albumin 3.4 L g/dL (3.5-5.1) Vancomycin Trough 10.5 ug/mL (10.0-20.0) 10/10/24 10:25 WBC 12.8 H K/mm3 (4.5-10.0) RBC 3.17 L M/mm3 (4.6-6.20) Hgb 9.5 L g/dL (14.0-18.0) Hct 28.5 L % (42.0-52.0) MCV 89.9 fl (80-100) MCH 30.0 pg (26-34) MCHC 33.3 g/dl (32-36) RDW 19.4 H % (11.5-14.5) Plt Count 152 k/mm3 (150-375) MPV 11.2 H fl (7.4-10.4) % Immature Plt Fraction PT INR Sodium Potassium Chloride Carbon Dioxide Anion Gap BUN Creatinine Estim Creat Clear Calc Estimated GFR Glucose Calcium Phosphorus Magnesium Total Bilirubin AST ALT Alkaline Phosphatase Total Protein Albumin Vancomycin Trough Patient hx anesthesia problems: none Family hx anesthesia problems: none Results Review: All pre-operative results and documents have been reviewed as part of the pre-operative evaluation. [facility] Past Medical History Medical History Anxiety and depression Arthritis Presence of combination internal cardiac defibrillator (ICD) and pacemaker CHF (congestive heart failure) Afib CVA (cerebral vascular accident) Chronic kidney disease Surgical History Surgical History History of cataract surgery History of cervical spinal surgery cervical laminectomy History of appendectomy History of cardiac defibrillator placement replaced 10/01/2023; [employer] / [employer]; Dr Fracisco Eli through [facility] Cardiology Family History Family History Father S/P triple vessel bypass Social History Social History Smoking packs per day: 0.5 Smoking cigarettes per day: 10.0 Years smoked: 30 Smoking pack-years: 15.00 Smoking status: Former smoker Tobacco type: cigarettes Alcohol intake: former Substance use: never Substance use type: does not use Do You Feel Safe in your Home?: Yes Lack of Transportation: No Lack of Food: Never True Current Housing: I Have Housing Concerned About Future Housing: No Difficulty Paying Gas/Electric Bills: No Difficulty Paying for Meds: No Currently Unemployed: No Education: High School Diploma/GED Difficulty w/ Childcare or Family Care: No Gender identity (if verbalized by the patient): Male Spiritual care concerns: No Anes - Eval Final PreProcedure Day of Procedure 10/10/24 14:04 Patient weight: normal Lungs: normal air movement Airway: Mallampati scale class II Neurological: alert and oriented Last oral intake: >/= 8 hours ASA classification: IV Emergent: no Anesthetic plan: proceed Anesthesia type and monitoring: general GIVS and standard monitoring Results Review: All pre-operative results and documents have been reviewed as part of the pre-operative evaluation. Complicated med hx reviewed w Dr Hidalgo and [employer]. Pt w melena, hx of septic shock, Cdiff, now off vasopressors w melena. CKD, hx of cardiomyopathy w LVEF 20-25% range, AICD in place and now need for EGD. Informed Consent: The patient's anesthetic plan and its attendant risks and benefits were discussed with the patient/family/POA. Questions were solicited and answers provided to the satisfaction of the patient/family/POA.
[2024-10-10 16:33] LABS: Hematocrit 27.4 % (42.0-52.0); Mean Corpuscular HGB Conc 32.8 g/dl (32-36); Mean Corpuscular Hemoglobin 29.7 pg (26-34); Mean Corpuscular Volume 90.4 fl (80-100); Mean Platelet Volume 11.5 fl (7.4-10.4); Platelet Count Result 140 k/mm3 (150-375); Red Blood Count 3.03 M/mm3 (4.6-6.20); Red Cell Distribution Width 19.5 % (11.5-14.5); White Blood Count 11.6 K/mm3 (4.5-10.0)
--- NOTE | 2024-10-10 16:37 | WPDGIPROGNO ---
Progress Note: A&P Assessment and Plan (1) GI bleeding: Code(s): K92.2 - Gastrointestinal hemorrhage, unspecified Status: Acute Assessment and Plan: Evaluation has ruled out upper gastrointestinal bleeding. The clinical presentation suggests a colonic source, with diverticular bleeding being a likely possibility. However, the patient's current condition does not necessitate an emergent colonoscopy since there is no active bleeding. We will defer colonoscopy until his clinical status improves and the sepsis and C. difficile infection are treated. Subjective Date/time seen: 10/10/24 16:37 Interval history: The patient passed small amounts of maroon stools this morning. This is evident through his fecal collection system. Please see EGD report from today, no findings Explaining GI bleeding. Exam Narrative: AF 97.8 105/85 88 18 96% 1L General: Pt is alert awake and appears ill but in no acute distress Lungs/Chest: Trachea central Clear BS B/L, No crackles or wheezing. Cardiac: RRR. Normal S1 S2. No murmurs Circulation: Feet are warm Abdomen: Normal bowel sounds.. Soft. Mild diffuse tenderness to palpation. No guarding no rigidity. Extremities: No clubbing, cyanosis or edema. Warm : Cifuentes in place Neurologic: Follows commands. Moves all 4 extremities PERRL AO x1 Skin: No Rash Objective Data Vital Signs Vital Signs: Vital Signs - 24 hr 10/09/24 18:00 10/09/24 18:00 10/09/24 18:00 Temperature 98.5 F Pulse Rate 93 93 93 Respiratory Rate 23 H Blood Pressure 76/64 L 76/64 L Pulse Oximetry 99 Oxygen Delivery Oxygen Flow Rate 10/09/24 19:00 10/09/24 19:01 10/09/24 19:15 Temperature 98.0 F 98.0 F 98.0 F Pulse Rate 91 84 89 Respiratory Rate 28 H 17 20 Blood Pressure 98/72 L Pulse Oximetry 98 Oxygen Delivery Oxygen Flow Rate 10/09/24 19:16 10/09/24 19:30 10/09/24 19:31 Temperature 98.0 F 97.9 F 97.9 F Pulse Rate 92 87 86 Respiratory Rate 26 H 31 H Blood Pressure 102/83 111/99 H Pulse Oximetry 77 L 83 L Oxygen Delivery Oxygen Flow Rate 10/09/24 20:00 10/09/24 20:00 10/09/24 20:00 Temperature 98 F Pulse Rate 91 91 93 Respiratory Rate 22 H Blood Pressure 106/67 109/92 H Pulse Oximetry 98 Oxygen Delivery Oxygen Flow Rate 10/09/24 21:10 10/09/24 22:00 10/09/24 22:00 Temperature 97.7 F Pulse Rate 97 88 Respiratory Rate 22 H Blood Pressure 88/73 L Pulse Oximetry 98 98 Oxygen Delivery Room Air Oxygen Flow Rate 10/09/24 22:31 10/09/24 23:49 10/10/24 00:00 Temperature 97.4 F L 97.4 F L Pulse Rate 90 102 H 92 Respiratory Rate 22 H 24 H Blood Pressure 110/64 97/80 L Pulse Oximetry 99 98 Oxygen Delivery Oxygen Flow Rate 10/10/24 00:00 10/10/24 00:00 10/10/24 00:00 Temperature 97.4 F L Pulse Rate 95 90 Respiratory Rate 22 H Blood Pressure 97/80 L Pulse Oximetry 99 98 Oxygen Delivery Room Air Oxygen Flow Rate 10/10/24 00:01 10/10/24 00:04 10/10/24 00:15 Temperature 97.4 F L 97.4 F L Pulse Rate 89 85 92 Respiratory Rate 24 H 17 Blood Pressure 97/80 L Pulse Oximetry 98 Oxygen Delivery Oxygen Flow Rate 10/10/24 00:30 10/10/24 00:31 10/10/24 00:45 Temperature 97.2 F L 97.3 F L 97.2 F L Pulse Rate 85 87 82 Respiratory Rate 20 18 18 Blood Pressure 99/77 L Pulse Oximetry 98 97 98 Oxygen Delivery Oxygen Flow Rate 10/10/24 01:00 10/10/24 01:01 10/10/24 01:15 Temperature 97.1 F L 97.1 F L 97.3 F L Pulse Rate 87 101 H 100 Respiratory Rate 23 H 19 21 H Blood Pressure 133/73 Pulse Oximetry Oxygen Delivery Oxygen Flow Rate 10/10/24 01:30 10/10/24 01:32 10/10/24 01:45 Temperature 97.3 F L 97.0 F L 97.2 F L Pulse Rate 96 90 90 Respiratory Rate 23 H 22 H Blood Pressure 109/84 Pulse Oximetry 92 99 92 Oxygen Delivery Oxygen Flow Rate 10/10/24 02:00 10/10/24 02:00 10/10/24 02:00 Temperature 97.4 F L 97.2 F L Pulse Rate 88 93 98 Respiratory Rate 18 18 Blood Pressure 97/73 L Pulse Oximetry 97 97 Oxygen Delivery Oxygen Flow Rate 10/10/24 02:01 10/10/24 02:03 10/10/24 02:04 Temperature 97.4 F L 97.5 F L 97.4 F L Pulse Rate 88 90 92 Respiratory Rate 16 12 17 Blood Pressure 87/75 L 97/73 L Pulse Oximetry 97 96 87 L Oxygen Delivery Oxygen Flow Rate 10/10/24 02:25 10/10/24 02:31 10/10/24 03:00 Temperature 97.4 F L 97.2 F L Pulse Rate 88 98 87 Respiratory Rate 23 H 21 H Blood Pressure 97/73 L 108/78 Pulse Oximetry 95 Oxygen Delivery Oxygen Flow Rate 10/10/24 03:01 10/10/24 04:00 10/10/24 04:00 Temperature 97.3 F L Pulse Rate 92 92 Respiratory Rate 12 Blood Pressure 118/76 Pulse Oximetry 94 98 Oxygen Delivery Room Air Oxygen Flow Rate 10/10/24 04:00 10/10/24 04:00 10/10/24 04:01 Temperature 97.7 F 97.6 F 97.6 F Pulse Rate 95 88 93 Respiratory Rate 22 H 22 H 17 Blood Pressure 110/85 110/85 Pulse Oximetry 97 99 96 Oxygen Delivery Oxygen Flow Rate 10/10/24 04:09 10/10/24 05:00 10/10/24 05:01 Temperature 96.2 F L 97.1 F L Pulse Rate 92 95 90 Respiratory Rate 15 23 H Blood Pressure 110/85 112/82 Pulse Oximetry 98 98 Oxygen Delivery Oxygen Flow Rate 10/10/24 06:00 10/10/24 06:10 10/10/24 06:11 Temperature 97.8 F Pulse Rate 91 88 90 Respiratory Rate 18 Blood Pressure 123/76 123/76 Pulse Oximetry 96 Oxygen Delivery Oxygen Flow Rate 10/10/24 07:49 10/10/24 08:00 10/10/24 08:00 Temperature 97.8 F Pulse Rate 92 Respiratory Rate 19 Blood Pressure 110/94 H Pulse Oximetry 98 99 98 Oxygen Delivery Nasal Cannula Nasal Cannula Oxygen Flow Rate 2 2 10/10/24 08:00 10/10/24 10:00 10/10/24 10:00 Temperature 97.5 F L Pulse Rate 98 96 92 Respiratory Rate 32 H Blood Pressure 111/91 H Pulse Oximetry 98 Oxygen Delivery Oxygen Flow Rate 10/10/24 11:54 10/10/24 12:00 10/10/24 12:00 Temperature 97.8 F Pulse Rate 88 91 Respiratory Rate 18 Blood Pressure 105/85 Pulse Oximetry 97 96 Oxygen Delivery Nasal Cannula Oxygen Flow Rate 1 10/10/24 13:59 10/10/24 14:20 10/10/24 14:30 Temperature 96.9 F L Pulse Rate 72 90 85 Respiratory Rate 20 24 H 20 Blood Pressure 99/72 L 99/65 L 109/78 Pulse Oximetry 100 100 100 Oxygen Delivery Nasal Cannula Nasal Cannula Nasal Cannula Oxygen Flow Rate 2 2 2 10/10/24 14:40 10/10/24 15:00 10/10/24 16:00 Temperature 97.8 F 97.8 F Pulse Rate 88 94 92 Respiratory Rate 23 H 21 H 20 Blood Pressure 99/74 L 123/93 H 123/89 Pulse Oximetry 98 96 96 Oxygen Delivery Nasal Cannula Oxygen Flow Rate 2 10/10/24 16:00 Temperature Pulse Rate Respiratory Rate Blood Pressure Pulse Oximetry 97 Oxygen Delivery Nasal Cannula Oxygen Flow Rate 2 Intake/Output Intake/Output: Intake & Output 10/07/24 10/08/24 10/09/24 10/10/24 23:59 23:59 23:59 23:59 Intake Total 3690.5 1290.0 Output Total 675 500 Balance 3015.5 790.0 Meds/Results Medications: Active Medications Generic Name Dose Route Start Last Admin Trade Name Freq PRN Reason Stop Dose Admin Hydrocortisone Sodium Succinate 100 mg 10/10/24 12:00 10/10/24 12:26 Hydrocortisone Sodium Succinate 100 Mg/2 Ml Vial IV PUSH 100 mg QAM MC Administration Cefepime HCl 2 gm in 50 mls @ 100 mls/hr 10/10/24 02:00 10/10/24 02:30 Maxipime 2 Gm/Ns 50 Ml IVPB Infused Q24H MC Infusion Metronidazole 500 mg in 100 mls @ 100 mls/hr 10/09/24 14:00 10/10/24 16:22 Flagyl 500 Mg/Iso Soln 100 Ml IVPB Infused Q8HR MC Infusion Norepinephrine Bitartrate 8 mg in 250 mls @ 9.375 mls/hr 10/09/24 12:05 10/10/24 12:27 Levophed 8 Mg/D5w 250 Ml IV CONT Not Given .Q24H MC Protocol 5 MCG/MIN Lorazepam 0.5 mg 10/10/24 08:54 10/10/24 09:51 Lorazepam (*Crx) 0.5 Mg Tablet PO 10/15/24 00:00 0.5 mg BID PRN Administration Anxiety Ondansetron HCl 4 mg 10/10/24 09:46 10/10/24 09:51 Ondansetron Inj 4 Mg/2 Ml Vial IV PUSH 4 mg Q6H PRN Administration Nausea And Vomiting Sodium Bicarbonate 650 mg 10/10/24 09:00 10/10/24 08:32 Sodium Bicarbonate Tab 650 Mg Tablet PO 10/12/24 08:59 650 mg BID MC Administration Sodium Chloride 10 ml 10/10/24 14:00 10/10/24 13:34 Central Line Flush IV PUSH 10 ml Q8HR MC Administration Sodium Chloride 20 ml 10/10/24 06:30 Central Line Flush IV PUSH PRN PRN after blood draws Vancomycin HCl 500 mg 10/09/24 12:00 10/10/24 12:26 Vancomycin Hcl 250 Mg Oral Capsule PO 500 mg Q6HR MC Administration Radiology Results: ITS Impressions Head CT 10/09/24 07:38 Impression: No acute intracranial hemorrhage or suspicious mass effect. Chest/Abdomen/Pelvis CT 10/09/24 07:47 IMPRESSION: Trace perisplenic and perihepatic ascites. Findings suggesting cystitis. Findings consistent with patient's known diarrhea illness. Chest X-Ray 10/10/24 08:11 Impression: Possible minimal developing bibasilar pulmonary edema. Stable support line. Labs Labs: Laboratory Results - last 24 hr 10/09/24 10/09/24 10/10/24 16:50 21:14 04:45 WBC 12.2 H 13.0 H 14.3 H RBC 3.16 L 3.19 L 3.14 L Hgb 9.3 L 9.3 L 9.4 L Hct 28.5 L 28.7 L 28.6 L MCV 90.2 90.0 91.1 MCH 29.4 29.2 29.9 MCHC 32.6 32.4 32.9 RDW 19.1 H 19.2 H 19.2 H Plt Count 142 L 132 L 153 MPV 11.0 H 11.4 H 11.4 H % Immature Plt Fraction 4.7 PT 28.1 H INR 2.6 Sodium 131 L Potassium 3.6 Chloride 98 Carbon Dioxide 14 L Anion Gap 19 H BUN 63 H Creatinine 2.73 H Estim Creat Clear Calc 22 Estimated GFR 23 L Glucose 124 H Calcium 7.9 L Phosphorus 5.5 H Magnesium 1.8 Total Bilirubin 2.9 H AST 24 ALT 15 Alkaline Phosphatase 81 Total Protein 6.0 L Albumin 3.4 L Vancomycin Trough 10.5 10/10/24 10:25 WBC 12.8 H RBC 3.17 L Hgb 9.5 L Hct 28.5 L MCV 89.9 MCH 30.0 MCHC 33.3 RDW 19.4 H Plt Count 152 MPV 11.2 H % Immature Plt Fraction PT INR Sodium Potassium Chloride Carbon Dioxide Anion Gap BUN Creatinine Estim Creat Clear Calc Estimated GFR Glucose Calcium Phosphorus Magnesium Total Bilirubin AST ALT Alkaline Phosphatase Total Protein Albumin Vancomycin Trough
[2024-10-11] VITALS (8 sets, daily range): BP systolic 92–117; BP diastolic 62–84; PULSE 82–94; RESP 18; TEMP 36.5–36.6; O2SAT 99–100
[2024-10-11] MEDS: VANCOMYCIN HCL 250 MG ORAL CAPSULE 500 MG PO ×4 (00:25→17:01)
[2024-10-11] MEDS: CEFEPIME 2 GM/NS 50 ML 2 GM/50 ML BAG IVPB (02:57)
[2024-10-11] MEDS: metroNIDAZOLE 500 MG/ISO 100ML 500 MG/100 ML BAG 100 MG IVPB ×3 (06:49→21:29)
[2024-10-11 06:51] LABS: Hematocrit 26.9 % (42.0-52.0); Hemoglobin 8.8 g/dL (14.0-18.0); Mean Corpuscular HGB Conc 32.7 g/dl (32-36); Mean Corpuscular Hemoglobin 29.4 pg (26-34); Mean Platelet Volume 11.4 fl (7.4-10.4); Platelet Count Result 154 k/mm3 (150-375); Red Blood Count 2.99 M/mm3 (4.6-6.20); Red Cell Distribution Width 19.5 % (11.5-14.5); White Blood Count 10.1 K/mm3 (4.5-10.0)
[2024-10-11 07:02] LABS: INR 2.1; Prothrombin Time 24.3 Seconds (11.1-14.7)
[2024-10-11 07:08] LABS: Alanine Aminotransferase 18 U/L (6-50); Albumin Level 3.5 g/dL (3.5-5.1); Alkaline Phosphatase 79 U/L (38-126); Anion Gap 17 mmol/L (4-12); Aspartate Amino Transferase 25 U/L (17-59); Bilirubin,Total 2.4 mg/dL (0.2-1.3); Blood Urea Nitrogen 74 mg/dL (9-20); Calcium 8.2 mg/dL (8.4-10.2); Carbon Dioxide 15 mmol/L (22-30); Chloride 99 mmol/L (98-107); Estimated CRCL calculation 21 ml/min; Estimated Glomerular Filt Rate 22; Glucose 139 mg/dL (65-110); Magnesium 1.8 mg/dL (1.6-2.3); Phosphorus 4.8 mg/dL (2.5-4.5); Potassium 3.5 mmol/L (3.4-5.0); Sodium 131 mmol/L (137-145)
[2024-10-11] MEDS: PANTOPRAZOLE 40 MG TABLET PO (09:21)
[2024-10-11] MEDS: VENLAFAXINE HCL XR 75 MG CAP.ER.24H 150 MG PO (09:21)
[2024-10-11] MEDS: MULTIVITAMINS THERAPEUTIC TAB (*BKC) 1 TABLET PO (09:21)
[2024-10-11] MEDS: SODIUM BICARBONATE TAB 650 MG TABLET PO ×2 (09:21→17:01)
[2024-10-11] MEDS: calcitrioL 0.25 MCG CAPSULE PO (09:21)
[2024-10-11] MEDS: LORazepam (*CRX) 0.5 MG TABLET PO ×2 (09:24→22:26)
[2024-10-11] MEDS: CENTRAL LINE FLUSH 10 ML IV PUSH ×2 (09:24→13:10)
[2024-10-11] MEDS: HYDROCORTISONE SODIUM SUCCINATE 100 MG/2 ML VIAL IV PUSH (09:25)
--- NOTE | 2024-10-11 12:31 | WPDGIPROGNO ---
Progress Note: A&P Assessment and Plan (1) GI bleeding: Code(s): K92.2 - Gastrointestinal hemorrhage, unspecified Status: Acute Assessment and Plan: Patient transferred from the ICU to a regular floor, hemodynamically stable and with stable hematocrit. Yesterday's EGD ruled out upper source of GI bleeding. Will schedule colonoscopy for tomorrow. Prep ordered placed. Time Spent With Patient Time with patient: less than 15 minutes Subjective Date/time seen: 10/11/24 12:31 Interval history: The patient had no further bleeding episodes, he feels much better. Hemodynamically s Exam Narrative: Alert and oriented x3. Cooperative. Abdomen: Soft, nontender, no hepatosplenomegaly. Rest of the examination within normal limits. Objective Data Vital Signs Vital Signs: Vital Signs - 24 hr 10/10/24 13:59 10/10/24 14:20 10/10/24 14:30 Temperature 96.9 F L Pulse Rate 72 90 85 Respiratory Rate 20 24 H 20 Blood Pressure 99/72 L 99/65 L 109/78 Pulse Oximetry 100 100 100 Oxygen Delivery Nasal Cannula Nasal Cannula Nasal Cannula Oxygen Flow Rate 2 2 2 10/10/24 14:40 10/10/24 15:00 10/10/24 16:00 Temperature 97.8 F 97.8 F Pulse Rate 88 94 92 Respiratory Rate 23 H 21 H 20 Blood Pressure 99/74 L 123/93 H 123/89 Pulse Oximetry 98 96 96 Oxygen Delivery Nasal Cannula Oxygen Flow Rate 2 10/10/24 16:00 10/10/24 16:00 10/10/24 18:00 Temperature Pulse Rate 90 92 Respiratory Rate Blood Pressure Pulse Oximetry 97 Oxygen Delivery Nasal Cannula Oxygen Flow Rate 2 10/10/24 18:00 10/10/24 19:41 10/10/24 20:00 Temperature 97.6 F 98.0 F Pulse Rate 106 H 90 Respiratory Rate 25 H 18 Blood Pressure 124/97 H 93/54 L Pulse Oximetry 98 100 Oxygen Delivery Room Air Oxygen Flow Rate 10/10/24 20:00 10/11/24 03:29 10/11/24 04:00 Temperature 97.7 F Pulse Rate 92 90 82 Respiratory Rate 18 Blood Pressure 92/62 L Pulse Oximetry 100 Oxygen Delivery Oxygen Flow Rate 10/11/24 08:00 10/11/24 09:21 10/11/24 09:21 Temperature 97.9 F Pulse Rate 92 92 86 Respiratory Rate 18 18 Blood Pressure 117/75 Pulse Oximetry 100 100 Oxygen Delivery Room Air Oxygen Flow Rate 10/11/24 12:00 Temperature Pulse Rate 87 Respiratory Rate Blood Pressure Pulse Oximetry Oxygen Delivery Oxygen Flow Rate Intake/Output Intake/Output: Intake & Output 10/08/24 10/09/24 10/10/24 10/11/24 23:59 23:59 23:59 23:59 Intake Total 3690.5 1840.0 290 Output Total 675 1400 200 Balance 3015.5 440.0 90 Meds/Results Medications: Active Medications Generic Name Dose Route Start Last Admin Trade Name Freq PRN Reason Stop Dose Admin Albuterol 2 puff 10/10/24 17:02 Albuterol Sulfate (*Sp) Aerosol 1 Puff INHALATION Q4-6H PRN Shortness Of Breath Calcitriol 0.25 mcg 10/11/24 09:00 10/11/24 09:21 Calcitriol 0.25 Mcg Capsule PO 0.25 mcg DAILY MC Administration Hydrocortisone Sodium Succinate 100 mg 10/10/24 12:00 10/11/24 09:25 Hydrocortisone Sodium Succinate 100 Mg/2 Ml Vial IV PUSH 100 mg QAM MC Administration Cefepime HCl 2 gm in 50 mls @ 100 mls/hr 10/10/24 02:00 10/11/24 02:57 Maxipime 2 Gm/Ns 50 Ml IVPB 100 mls/hr Q24H MC Administration Metronidazole 500 mg in 100 mls @ 100 mls/hr 10/09/24 14:00 10/11/24 06:49 Flagyl 500 Mg/Iso Soln 100 Ml IVPB 100 mls/hr Q8HR MC Administration Lorazepam 0.5 mg 10/10/24 08:54 10/11/24 09:24 Lorazepam (*Crx) 0.5 Mg Tablet PO 10/15/24 00:00 0.5 mg BID PRN Administration Anxiety Multivitamins Therapeutic 1 tablet 10/11/24 09:00 10/11/24 09:21 Multivitamins Therapeutic Tab (*Bkc) PO 1 tablet QAM MC Administration Ondansetron HCl 4 mg 10/10/24 09:46 10/10/24 09:51 Ondansetron Inj 4 Mg/2 Ml Vial IV PUSH 4 mg Q6H PRN Administration Nausea And Vomiting Pantoprazole Sodium 40 mg 10/11/24 09:00 10/11/24 09:21 Pantoprazole 40 Mg Tablet PO 40 mg DAILY MC Administration Polyethylene Glycol 119 gm 10/11/24 20:00 Polyethylene Glycol 3350 238 Gm Bottle PO 10/12/24 05:01 BID@0500,2000 MC Sodium Bicarbonate 650 mg 10/10/24 09:00 10/11/24 09:21 Sodium Bicarbonate Tab 650 Mg Tablet PO 10/12/24 08:59 650 mg BID MC Administration Sodium Chloride 10 ml 10/10/24 14:00 10/11/24 09:24 Central Line Flush IV PUSH 10 ml Q8HR MC Administration Sodium Chloride 20 ml 10/10/24 06:30 Central Line Flush IV PUSH PRN PRN after blood draws Vancomycin HCl 500 mg 10/09/24 12:00 10/11/24 11:43 Vancomycin Hcl 250 Mg Oral Capsule PO 500 mg Q6HR MC Administration Venlafaxine HCl 150 mg 10/11/24 09:00 10/11/24 09:21 Venlafaxine Hcl Xr 75 Mg Cap.Er.24h PO 150 mg DAILY MC Administration Radiology Results: ITS Impressions Head CT 10/09/24 07:38 Impression: No acute intracranial hemorrhage or suspicious mass effect. Chest/Abdomen/Pelvis CT 10/09/24 07:47 IMPRESSION: Trace perisplenic and perihepatic ascites. Findings suggesting cystitis. Findings consistent with patient's known diarrhea illness. Chest X-Ray 10/10/24 08:11 Impression: Possible minimal developing bibasilar pulmonary edema. Stable support line. Labs Labs: Laboratory Results - last 24 hr 10/10/24 10/11/24 16:15 06:46 WBC 11.6 H 10.1 H RBC 3.03 L 2.99 L Hgb 9.0 L 8.8 L Hct 27.4 L 26.9 L MCV 90.4 90.0 MCH 29.7 29.4 MCHC 32.8 32.7 RDW 19.5 H 19.5 H Plt Count 140 L 154 MPV 11.5 H 11.4 H PT 24.3 H INR 2.1 Sodium 131 L Potassium 3.5 Chloride 99 Carbon Dioxide 15 L Anion Gap 17 H BUN 74 H D Creatinine 2.84 H Estim Creat Clear Calc 21 Estimated GFR 22 L Glucose 139 H Calcium 8.2 L Phosphorus 4.8 H Magnesium 1.8 Total Bilirubin 2.4 H AST 25 ALT 18 Alkaline Phosphatase 79 Total Protein 6.0 L Albumin 3.5
--- NOTE | 2024-10-11 13:39 | P.PNIM_ITS ---
Progress Note: A&P Assessment and Plan (1) Septic shock: Code(s): A41.9 - Sepsis, unspecified organism; R65.21 - Severe sepsis with septic shock Status: Acute Assessment and Plan: Patient presents with diarrhea, weakness and HoTN and found to have septic shock secondary to C diff colitis. Stool was positive for Cdiff toxin. CT scan of abdomen pelvis showing trace ascites, possible cystitis and fluid filled colon. He received 30 mL/kg fluid bolus followed by 1 L of LR over 10 hours and some albumin. He was given Vanco IV, Flagyl IV and Cefepime. Oral Vanco started. Levophed and [employer] started but able to be weaned off vasopressors. Started on hydrocortisone but now being weaned. Fluids stopped. WBC trending down. Off pressors for >24hr BCx NGTD. Will stop cefepime Continue Flagyl IV and p.o. vancomycin for C diff infection Remove central line Isolation (2) Clostridium difficile colitis: Code(s): A04.72 - Enterocolitis due to Clostridium difficile, not specified as recurrent Status: Acute Assessment and Plan: Stool volume 250mL + 2 BMs yesterday but output not well documented today. Per RN, stool volume about 100mL since yesterday. Will leave in the fecal containment system for now since he will have bowel prep for colonoscopy As above (3) GI bleeding: Code(s): K92.2 - Gastrointestinal hemorrhage, unspecified Status: Acute Assessment and Plan: On arrival to ICU patient had a large bowel movement which was grossly bloody. Patient is on Eliquis chronically. Baseline Hgb 12-13. Hgb 10.1 on admission In light of GI bleed and shock, patient was given Kcentra 2000 units. Eliquis held. GI consulted and EGD performed showing no upper GI bleeding source. Hgb down to 8.8 now. Colonoscopy planned for tomorrow. Continue to monitor and transfuse to a stable Hgb (4) Afib: Code(s): I48.91 - Unspecified atrial fibrillation Status: Acute Assessment and Plan: Currently in AFib but controlled ventricular rate and paced rhythm. Beta-ambrose held due to hypotension and shock Aspirin and Eliquis also were held due to bleeding. HR stable. Monitor on tele. (5) CHF (congestive heart failure): Code(s): I50.9 - Heart failure, unspecified Status: Acute Assessment and Plan: Patient has history of cardiomyopathy with EF 25%. Was on IV fluids for fluid resuscitation but now off all IV fluids. CXR yesterday showing possible minimal developing bibasilar pulmonary edema. BP more stable and he did Lasix IV once on 10/10. He appears euvolemic and not hypoxic. Hold heart failure medications at this time. BP still soft so will continue to hold for now (6) Acute kidney injury superimposed on CKD: Code(s): N17.9 - Acute kidney failure, unspecified; N18.9 - Chronic kidney disease, unspecified Status: Acute Assessment and Plan: Patient's baseline creatinine is about 2. Cr on admission was 3.3 secondary to shock and hypovolemia. Patient received IV fluids and creatinine improved to 2.7 IV Lasix given yesterday and Cr about the same today. Monitor urine output, electrolytes and creatinine (7) Biventricular ICD (implantable cardioverter-defibrillator) in place: Code(s): Z95.810 - Presence of automatic (implantable) cardiac defibrillator Status: Acute Assessment and Plan: Stable Plan DVT prophylaxis - SCD Stress ulcer prophylaxis -PPI Nutrition - clear liquid Code Status - Full Code as per his paperwork from retirement PT/OT ordered Subjective Date/time seen: 10/11/24 13:39 Interval history: 74yo male with systolic CHF (EF 25%), AFib, AICD, and CKD who presents to the hospital with complaints of diarrhea, weakness and hypotension from his SNF. No problems overnight. Slept okay. no CP or SOB. no n/v. He is having some abd pain. Exam Narrative: AF 97.9 117/75 87 18 100% ra Gen - NARD Neck -Rt IJ TLC in place. Chest -bibasilar crackles o/w clear. CV -irregularly irregular. Telemetry showing occasionally paced rhythm with probably underlying afib Abd - soft, lower abd tenderness with minimal guarding. No rebound. +BS - Cifuentes secured draining clear yellow urine. Fecal containment system with dark brown stool in bag Ext - No pedal edema Psych - Nml mood and affect Skin - Warm and dry Objective Data Vital Signs Vital Signs: Vital Signs - 24 hr 10/10/24 13:59 10/10/24 14:20 10/10/24 14:30 Temperature 96.9 F L Pulse Rate 72 90 85 Respiratory Rate 20 24 H 20 Blood Pressure 99/72 L 99/65 L 109/78 Pulse Oximetry 100 100 100 Oxygen Delivery Nasal Cannula Nasal Cannula Nasal Cannula Oxygen Flow Rate 2 2 2 10/10/24 14:40 10/10/24 15:00 10/10/24 16:00 Temperature 97.8 F 97.8 F Pulse Rate 88 94 92 Respiratory Rate 23 H 21 H 20 Blood Pressure 99/74 L 123/93 H 123/89 Pulse Oximetry 98 96 96 Oxygen Delivery Nasal Cannula Oxygen Flow Rate 2 10/10/24 16:00 10/10/24 16:00 10/10/24 18:00 Temperature Pulse Rate 90 92 Respiratory Rate Blood Pressure Pulse Oximetry 97 Oxygen Delivery Nasal Cannula Oxygen Flow Rate 2 10/10/24 18:00 10/10/24 19:41 10/10/24 20:00 Temperature 97.6 F 98.0 F Pulse Rate 106 H 90 Respiratory Rate 25 H 18 Blood Pressure 124/97 H 93/54 L Pulse Oximetry 98 100 Oxygen Delivery Room Air Oxygen Flow Rate 10/10/24 20:00 10/11/24 03:29 10/11/24 04:00 Temperature 97.7 F Pulse Rate 92 90 82 Respiratory Rate 18 Blood Pressure 92/62 L Pulse Oximetry 100 Oxygen Delivery Oxygen Flow Rate 10/11/24 08:00 10/11/24 09:21 10/11/24 09:21 Temperature 97.9 F Pulse Rate 92 92 86 Respiratory Rate 18 18 Blood Pressure 117/75 Pulse Oximetry 100 100 Oxygen Delivery Room Air Oxygen Flow Rate 10/11/24 12:00 Temperature Pulse Rate 87 Respiratory Rate Blood Pressure Pulse Oximetry Oxygen Delivery Oxygen Flow Rate Intake/Output Intake/Output: Intake & Output 10/08/24 10/09/24 10/10/24 10/11/24 23:59 23:59 23:59 23:59 Intake Total 3690.5 1840.0 390 Output Total 675 1400 200 Balance 3015.5 440.0 190 Meds/Results Medications: Active Medications Generic Name Dose Route Start Last Admin Trade Name Freq PRN Reason Stop Dose Admin Albuterol 2 puff 10/10/24 17:02 Albuterol Sulfate (*Sp) Aerosol 1 Puff INHALATION Q4-6H PRN Shortness Of Breath Calcitriol 0.25 mcg 10/11/24 09:00 10/11/24 09:21 Calcitriol 0.25 Mcg Capsule PO 0.25 mcg DAILY MC Administration Hydrocortisone Sodium Succinate 100 mg 10/10/24 12:00 10/11/24 09:25 Hydrocortisone Sodium Succinate 100 Mg/2 Ml Vial IV PUSH 100 mg QAM MC Administration Cefepime HCl 2 gm in 50 mls @ 100 mls/hr 10/10/24 02:00 10/11/24 02:57 Maxipime 2 Gm/Ns 50 Ml IVPB 100 mls/hr Q24H MC Administration Metronidazole 500 mg in 100 mls @ 100 mls/hr 10/09/24 14:00 10/11/24 13:10 Flagyl 500 Mg/Iso Soln 100 Ml IVPB 100 mls/hr Q8HR MC Administration Lorazepam 0.5 mg 10/10/24 08:54 10/11/24 09:24 Lorazepam (*Crx) 0.5 Mg Tablet PO 10/15/24 00:00 0.5 mg BID PRN Administration Anxiety Multivitamins Therapeutic 1 tablet 10/11/24 09:00 10/11/24 09:21 Multivitamins Therapeutic Tab (*Bkc) PO 1 tablet QAM MC Administration Ondansetron HCl 4 mg 10/10/24 09:46 10/10/24 09:51 Ondansetron Inj 4 Mg/2 Ml Vial IV PUSH 4 mg Q6H PRN Administration Nausea And Vomiting Pantoprazole Sodium 40 mg 10/11/24 09:00 10/11/24 09:21 Pantoprazole 40 Mg Tablet PO 40 mg DAILY MC Administration Polyethylene Glycol 119 gm 10/11/24 20:00 Polyethylene Glycol 3350 238 Gm Bottle PO 10/12/24 05:01 BID@0500,2000 MC Sodium Bicarbonate 650 mg 10/10/24 09:00 10/11/24 09:21 Sodium Bicarbonate Tab 650 Mg Tablet PO 10/12/24 08:59 650 mg BID MC Administration Sodium Chloride 10 ml 10/10/24 14:00 10/11/24 13:10 Central Line Flush IV PUSH 10 ml Q8HR MC Administration Sodium Chloride 20 ml 10/10/24 06:30 Central Line Flush IV PUSH PRN PRN after blood draws Vancomycin HCl 500 mg 10/09/24 12:00 10/11/24 11:43 Vancomycin Hcl 250 Mg Oral Capsule PO 500 mg Q6HR MC Administration Venlafaxine HCl 150 mg 10/11/24 09:00 10/11/24 09:21 Venlafaxine Hcl Xr 75 Mg Cap.Er.24h PO 150 mg DAILY MC Administration Radiology Results: ITS Impressions Head CT 10/09/24 07:38 Impression: No acute intracranial hemorrhage or suspicious mass effect. Chest/Abdomen/Pelvis CT 10/09/24 07:47 IMPRESSION: Trace perisplenic and perihepatic ascites. Findings suggesting cystitis. Findings consistent with patient's known diarrhea illness. Chest X-Ray 10/10/24 08:11 Impression: Possible minimal developing bibasilar pulmonary edema. Stable support line. Labs Labs: Laboratory Results - last 24 hr 10/10/24 10/11/24 16:15 06:46 WBC 11.6 H 10.1 H RBC 3.03 L 2.99 L Hgb 9.0 L 8.8 L Hct 27.4 L 26.9 L MCV 90.4 90.0 MCH 29.7 29.4 MCHC 32.8 32.7 RDW 19.5 H 19.5 H Plt Count 140 L 154 MPV 11.5 H 11.4 H PT 24.3 H INR 2.1 Sodium 131 L Potassium 3.5 Chloride 99 Carbon Dioxide 15 L Anion Gap 17 H BUN 74 H D Creatinine 2.84 H Estim Creat Clear Calc 21 Estimated GFR 22 L Glucose 139 H Calcium 8.2 L Phosphorus 4.8 H Magnesium 1.8 Total Bilirubin 2.4 H AST 25 ALT 18 Alkaline Phosphatase 79 Total Protein 6.0 L Albumin 3.5
[2024-10-11] MEDS: NEOMYCIN/POLYMYXIN/BACITRACIN OINTMENT PACKET 1 PACKET (16:54)
[2024-10-11] MEDS: polyethylene glycoL 3350 238 GM BOTTLE 119 GM PO (20:40)
[2024-10-12] VITALS (12 sets, daily range): BP systolic 93–118; BP diastolic 67–85; PULSE 79–108; RESP 16–27; TEMP 36.3–36.8; O2SAT 95–100
[2024-10-12] MEDS: VANCOMYCIN HCL 250 MG ORAL CAPSULE 500 MG PO ×5 (00:05→23:59)
[2024-10-12] MEDS: metroNIDAZOLE 500 MG/ISO 100ML 500 MG/100 ML BAG 100 MG IVPB ×3 (05:01→21:54)
[2024-10-12] MEDS: polyethylene glycoL 3350 238 GM BOTTLE 119 GM PO (05:01)
[2024-10-12 05:27] LABS: Hematocrit 30.9 % (42.0-52.0); Hemoglobin 9.7 g/dL (14.0-18.0); Mean Corpuscular HGB Conc 31.4 g/dl (32-36); Mean Corpuscular Hemoglobin 28.6 pg (26-34); Mean Corpuscular Volume 91.2 fl (80-100); Mean Platelet Volume 11.5 fl (7.4-10.4); Platelet Count Result 193 k/mm3 (150-375); Red Blood Count 3.39 M/mm3 (4.6-6.20); Red Cell Distribution Width 19.8 % (11.5-14.5); White Blood Count 8.7 K/mm3 (4.5-10.0)
[2024-10-12 05:38] LABS: INR 1.8; Prothrombin Time 21.4 Seconds (11.1-14.7)
[2024-10-12 05:42] LABS: Alanine Aminotransferase 22 U/L (6-50); Albumin Level 3.8 g/dL (3.5-5.1); Alkaline Phosphatase 93 U/L (38-126); Anion Gap 18 mmol/L (4-12); Aspartate Amino Transferase 31 U/L (17-59); Bilirubin,Total 2.5 mg/dL (0.2-1.3); Blood Urea Nitrogen 73 mg/dL (9-20); Calcium 8.6 mg/dL (8.4-10.2); Carbon Dioxide 17 mmol/L (22-30); Chloride 98 mmol/L (98-107); Estimated CRCL calculation 22 ml/min; Estimated Glomerular Filt Rate 22; Glucose 102 mg/dL (65-110); Phosphorus 4.8 mg/dL (2.5-4.5); Potassium 3.3 mmol/L (3.4-5.0); Sodium 133 mmol/L (137-145)
[2024-10-12] MEDS: VENLAFAXINE HCL XR 75 MG CAP.ER.24H 150 MG PO (09:00)
[2024-10-12] MEDS: calcitrioL 0.25 MCG CAPSULE PO (09:00)
[2024-10-12] MEDS: MULTIVITAMINS THERAPEUTIC TAB (*BKC) 1 TABLET PO (09:00)
[2024-10-12] MEDS: PANTOPRAZOLE 40 MG TABLET PO (09:00)
[2024-10-12] MEDS: HYDROCORTISONE SODIUM SUCCINATE 100 MG/2 ML VIAL 50 MG IV PUSH (09:01)
--- NOTE | 2024-10-12 11:08 | P.PNIM_ITS ---
Progress Note: A&P Assessment and Plan (1) Septic shock: Code(s): A41.9 - Sepsis, unspecified organism; R65.21 - Severe sepsis with septic shock Status: Acute Plan (1) Septic shock: Code(s): A41.9 - Sepsis, unspecified organism; R65.21 - Severe sepsis with septic shock Status: Acute Assessment and Plan: Patient presents with diarrhea, weakness and HoTN and found to have septic shock secondary to C diff colitis. Stool was positive for Cdiff toxin. CT scan of abdomen pelvis showing trace ascites, possible cystitis and fluid filled colon. He received 30 mL/kg fluid bolus followed by 1 L of LR over 10 hours and some albumin. He was given Vanco IV, Flagyl IV and Cefepime. Oral Vanco started. Levophed and BITE BLOCK MAKER started but able to be weaned off vasopressors. Started on hydrocortisone but now being weaned. Fluids stopped. WBC trending down. Off pressors for >24hr BCx NGTD. Will stop cefepime Continue Flagyl IV and p.o. vancomycin for C diff infection Remove central line Isolation (2) Clostridium difficile colitis: Code(s): A04.72 - Enterocolitis due to Clostridium difficile, not specified as recurrent Status: Acute Assessment and Plan: Had 1 bowel movement in the night (3) GI bleeding: Code(s): K92.2 - Gastrointestinal hemorrhage, unspecified Status: Acute Assessment and Plan: On arrival to ICU patient had a large bowel movement which was grossly bloody. Patient is on Eliquis chronically. Baseline Hgb 12-13. Hgb 10.1 on admission In light of GI bleed and shock, patient was given Kcentra 2000 units. Eliquis held. GI consulted and EGD performed showing no upper GI bleeding source. Hgb down to 8.8 now. Colonoscopy planned today Continue to monitor and transfuse to a stable Hgb (4) Afib: Code(s): I48.91 - Unspecified atrial fibrillation Status: Acute Assessment and Plan: Currently in AFib but controlled ventricular rate and paced rhythm. Beta-ambrose held due to hypotension and shock Aspirin and Eliquis also were held due to bleeding. HR stable. Monitor on tele. (5) CHF (congestive heart failure): Code(s): I50.9 - Heart failure, unspecified Status: Acute Assessment and Plan: Patient has history of cardiomyopathy with EF 25%. Was on IV fluids for fluid resuscitation but now off all IV fluids. CXR yesterday showing possible minimal developing bibasilar pulmonary edema. BP more stable and he did Lasix IV once on 10/10. He appears euvolemic and not hypoxic. Hold heart failure medications at this time. BP still soft so will continue to hold for now (6) Acute kidney injury superimposed on CKD: Code(s): N17.9 - Acute kidney failure, unspecified; N18.9 - Chronic kidney disease, unspecified Status: Acute Assessment and Plan: Patient's baseline creatinine is about 2. Cr on admission was 3.3 secondary to shock and hypovolemia. Patient received IV fluids and creatinine improved to 2.7 IV Lasix given yesterday and Cr about the same today. Monitor urine output, electrolytes and creatinine (7) Biventricular ICD (implantable cardioverter-defibrillator) in place: Code(s): Z95.810 - Presence of automatic (implantable) cardiac defibrillator Status: Acute Assessment and Plan: Stable Plan DVT prophylaxis - SCD Stress ulcer prophylaxis -PPI Nutrition - clear liquid Code Status - Full Code as per his paperwork from intermediate PT/OT ordered Subjective Date/time seen: 10/12/24 11:08 Interval history: patient is afebrile, blood pressure stable, no O2 desaturation on room labs reviewed, hemoglobin 9.7 trending up, leukocytosis resolved hyponatremia, sodium trending up, potassium 3.3, creatinine 2.81 stable Patient has 1 loose stool in the night. Denies abdomen pain nausea vomiting chest pain shortness breast Exam Narrative: GENERAL: Pleasant, in no acute distress. Well-nourished. - EYES: EOMI. Anicteric. - HENT: Moist mucous membranes. - LUNGS: Clear to auscultation bilateral ly, no wheezing, rhonchi, or rales. - CARDIOVASCULAR: Regular rate and rhyth m. No murmur. No JVD. - ABDOMEN: Soft, non-tender and non-dist ended. No palpable masses. - EXTREMITIES: No edema. Peripheral puls es 2+. Non-tender. - NEUROLOGIC: No focal neurological defi cits. CN II-XII grossly intact. - PSYCHIATRIC: Awake, Alert and oriented x 3. Appropriate mood and affect. General weakness - SKIN: No rashes or lesions. Warm. - LYMPH: No cervical lymphadenopathy. Objective Data Vital Signs Vital Signs: Vital Signs - 24 hr 10/11/24 12:00 10/11/24 16:00 10/11/24 16:00 Temperature 97.9 F Pulse Rate 87 82 93 Respiratory Rate 18 Blood Pressure 101/84 Pulse Oximetry 100 Oxygen Delivery 10/11/24 20:00 10/11/24 20:00 10/11/24 20:09 Temperature 97.7 F Pulse Rate 94 86 Respiratory Rate 18 Blood Pressure 109/78 Pulse Oximetry 99 Oxygen Delivery Room Air 10/12/24 00:00 10/12/24 04:00 10/12/24 04:47 Temperature 97.7 F Pulse Rate 86 93 79 Respiratory Rate 18 Blood Pressure 118/82 Pulse Oximetry 99 Oxygen Delivery 10/12/24 09:00 10/12/24 09:00 Temperature Pulse Rate 92 Respiratory Rate Blood Pressure Pulse Oximetry 98 Oxygen Delivery Room Air Intake/Output Intake/Output: Intake & Output 10/09/24 10/10/24 10/11/24 10/12/24 23:59 23:59 23:59 23:59 Intake Total 3690.5 1840.0 1900 100 Output Total 675 1400 750 400 Balance 3015.5 440.0 1150 -300 Meds/Results Medications: Active Medications Generic Name Dose Route Start Last Admin Trade Name Freq PRN Reason Stop Dose Admin Albuterol 2 puff 10/10/24 17:02 Albuterol Sulfate (*Sp) Aerosol 1 Puff INHALATION Q4-6H PRN Shortness Of Breath Calcitriol 0.25 mcg 10/11/24 09:00 10/12/24 09:00 Calcitriol 0.25 Mcg Capsule PO 0.25 mcg DAILY MC Administration Hydrocortisone Sodium Succinate 50 mg 10/12/24 09:00 10/12/24 09:01 Hydrocortisone Sodium Succinate 100 Mg/2 Ml Vial IV PUSH 50 mg QAM MC Administration Metronidazole 500 mg in 100 mls @ 100 mls/hr 10/09/24 14:00 10/12/24 06:09 Flagyl 500 Mg/Iso Soln 100 Ml IVPB Infused Q8HR MC Infusion Lorazepam 0.5 mg 10/10/24 08:54 10/11/24 22:26 Lorazepam (*Crx) 0.5 Mg Tablet PO 10/15/24 00:00 0.5 mg BID PRN Administration Anxiety Multivitamins Therapeutic 1 tablet 10/11/24 09:00 10/12/24 09:00 Multivitamins Therapeutic Tab (*Bkc) PO 1 tablet QAM MC Administration Ondansetron HCl 4 mg 10/10/24 09:46 10/10/24 09:51 Ondansetron Inj 4 Mg/2 Ml Vial IV PUSH 4 mg Q6H PRN Administration Nausea And Vomiting Pantoprazole Sodium 40 mg 10/11/24 09:00 10/12/24 09:00 Pantoprazole 40 Mg Tablet PO 40 mg DAILY MC Administration Sodium Chloride 10 ml 10/10/24 14:00 10/12/24 05:07 Central Line Flush IV PUSH Not Given Q8HR MC Sodium Chloride 20 ml 10/10/24 06:30 Central Line Flush IV PUSH PRN PRN after blood draws Vancomycin HCl 500 mg 10/09/24 12:00 10/12/24 05:02 Vancomycin Hcl 250 Mg Oral Capsule PO 500 mg Q6HR MC Administration Venlafaxine HCl 150 mg 10/11/24 09:00 10/12/24 09:00 Venlafaxine Hcl Xr 75 Mg Cap.Er.24h PO 150 mg DAILY MC Administration Radiology Results: ITS Impressions Head CT 10/09/24 07:38 Impression: No acute intracranial hemorrhage or suspicious mass effect. Chest/Abdomen/Pelvis CT 10/09/24 07:47 IMPRESSION: Trace perisplenic and perihepatic ascites. Findings suggesting cystitis. Findings consistent with patient's known diarrhea illness. Chest X-Ray 10/10/24 08:11 Impression: Possible minimal developing bibasilar pulmonary edema. Stable support line. Labs Labs: Laboratory Results - last 24 hr 10/12/24 05:04 WBC 8.7 RBC 3.39 L Hgb 9.7 L Hct 30.9 L MCV 91.2 MCH 28.6 MCHC 31.4 L RDW 19.8 H Plt Count 193 MPV 11.5 H PT 21.4 H INR 1.8 Sodium 133 L Potassium 3.3 L Chloride 98 Carbon Dioxide 17 L Anion Gap 18 H BUN 73 H Creatinine 2.81 H Estim Creat Clear Calc 22 Estimated GFR 22 L Glucose 102 Calcium 8.6 Phosphorus 4.8 H Magnesium 2.0 Total Bilirubin 2.5 H AST 31 ALT 22 Alkaline Phosphatase 93 Total Protein 6.0 L Albumin 3.8
[2024-10-12] MEDS: POTASSIUM CHLORIDE 20 MEQ PACKET (FOR LIQUID) 40 MEQ PO (11:48)
--- NOTE | 2024-10-12 13:39 | WPDANESEPPF ---
Anes - Initial Pre Proc Eval Procedure: Operation Date: 10/10/24 14:30 Proposed Procedures p Esophagogastroduodenoscopy - Mark Hidalgo MD Operation Date: 10/12/24 14:45 Proposed Procedures p Colonoscopy - Mark Hidalgo MD Date/Time: 10/12/24 13:39 Surgeon: Iris Templeton DO Pre Op Diagnosis: Sepsis Patient Data Age: 74 Gender: M Height: 1.75 m Weight: 83.6 kg Last Vital Signs Temp 36.5 C 10/12/24 04:47 Pulse 97 10/12/24 12:00 Resp 18 10/12/24 04:47 BP 118/82 10/12/24 04:47 Pulse Ox 98 10/12/24 09:00 O2 Del Method Room Air 10/12/24 09:00 O2 Flow Rate 2 10/10/24 16:00 Allergies Allergy/AdvReac Type Severity Reaction Status Date / Time No Known Allergies Allergy Mild Verified 10/10/24 03:14 Home Medications ?Medication ?Instructions ?Recorded ?Confirmed ?Type carvedilol 6.25 mg tablet (Coreg) 6.25 mg PO Q12H 10/10/23 10/09/24 History pantoprazole 40 mg tablet,delayed 40 mg PO DAILY 10/10/23 10/09/24 History release potassium chloride 20 mEq 20 meq PO 3XW 10/10/23 10/09/24 History tablet,extended release venlafaxine 150 mg 150 mg PO DAILY 10/10/23 10/09/24 History capsule,extended release 24 hr lorazepam 1 mg tablet 1 mg PO BID PRN Anxiety 05/16/24 10/09/24 History meloxicam 15 mg tablet 15 mg PO DAILY 05/16/24 10/09/24 History albuterol sulfate 90 mcg/actuation 4 puff inhalation Q4-5H PRN 05/18/24 10/09/24 Rx aerosol inhaler Shortness Of Breath #6.7 grams furosemide 40 mg tablet 40 mg PO DAILY 06/07/24 10/09/24 History apixaban 2.5 mg tablet (Eliquis) 2.5 mg PO Q12H 10/09/24 10/09/24 History aspirin 81 mg tablet,delayed 81 mg PO DAILY 10/09/24 10/09/24 History release (Adult Aspirin Regimen) calcitriol 0.25 mcg capsule 0.25 mcg PO DAILY 10/09/24 10/09/24 History dapagliflozin propanediol 10 mg 10 mg PO DAILY 10/09/24 10/09/24 History tablet (Farxiga) ergocalciferol (vitamin D2) 1,250 5,000 mcg PO WEEKLY 10/09/24 10/09/24 History mcg (50,000 unit) capsule isosorbide dinitrate 10 mg tablet 10 mg PO BID 10/09/24 10/09/24 History loperamide 2 mg capsule 2 mg PO Q2-3H PRN loose stool 10/09/24 10/09/24 History (Anti-Diarrheal (loperamide)) metolazone 2.5 mg tablet 2.5 mg PO DAILY 10/09/24 10/09/24 History multivitamin with minerals-folic 1 cap PO DAILY 10/09/24 10/09/24 History acid 400 mcg-biotin 400 mcg capsule nitroglycerin 0.4 mg sublingual 0.4 mg sublingual Q5M PRN chest 10/09/24 10/09/24 History tablet pain sacubitril 49 mg-valsartan 51 mg 1 tablet PO BID 10/09/24 10/09/24 History tablet (Entresto) Laboratory Tests 10/12/24 05:04 WBC 8.7 K/mm3 (4.5-10.0) RBC 3.39 L M/mm3 (4.6-6.20) Hgb 9.7 L g/dL (14.0-18.0) Hct 30.9 L % (42.0-52.0) MCV 91.2 fl (80-100) MCH 28.6 pg (26-34) MCHC 31.4 L g/dl (32-36) RDW 19.8 H % (11.5-14.5) Plt Count 193 k/mm3 (150-375) MPV 11.5 H fl (7.4-10.4) PT 21.4 H Seconds (11.1-14.7) INR 1.8 Sodium 133 L mmol/L (137-145) Potassium 3.3 L mmol/L (3.4-5.0) Chloride 98 mmol/L (98-107) Carbon Dioxide 17 L mmol/L (22-30) Anion Gap 18 H mmol/L (4-12) BUN 73 H mg/dL (9-20) Creatinine 2.81 H mg/dL (0.7-1.3) Estim Creat Clear Calc 22 ml/min Estimated GFR 22 L (59 - ) Glucose 102 mg/dL (65-110) Calcium 8.6 mg/dL (8.4-10.2) Phosphorus 4.8 H mg/dL (2.5-4.5) Magnesium 2.0 mg/dL (1.6-2.3) Total Bilirubin 2.5 H mg/dL (0.2-1.3) AST 31 U/L (17-59) ALT 22 U/L (6-50) Alkaline Phosphatase 93 U/L (38-126) Total Protein 6.0 L g/dL (6.3-8.2) Albumin 3.8 g/dL (3.5-5.1) Patient hx anesthesia problems: none Family hx anesthesia problems: none Results Review: All pre-operative results and documents have been reviewed as part of the pre-operative evaluation. [facility]LY [facility] Past Medical History Medical History Anxiety and depression Arthritis Presence of combination internal cardiac defibrillator (ICD) and pacemaker CHF (congestive heart failure) Afib CVA (cerebral vascular accident) Chronic kidney disease Surgical History Surgical History History of cataract surgery History of cervical spinal surgery cervical laminectomy History of appendectomy History of cardiac defibrillator placement replaced 10/01/2023; [employer] / [employer]; Dr Fracisco Eli through [facility] Cardiology Family History Family History Father S/P triple vessel bypass Social History Social History Smoking packs per day: 0.5 Smoking cigarettes per day: 10.0 Years smoked: 30 Smoking pack-years: 15.00 Smoking status: Former smoker Tobacco type: cigarettes Alcohol intake: former Substance use: never Substance use type: does not use Do You Feel Safe in your Home?: Yes Lack of Transportation: No Lack of Food: Never True Current Housing: I Have Housing Concerned About Future Housing: No Difficulty Paying Gas/Electric Bills: No Difficulty Paying for Meds: No Currently Unemployed: No Education: High School Diploma/GED Difficulty w/ Childcare or Family Care: No Gender identity (if verbalized by the patient): Male Spiritual care concerns: No Anes - Eval Final PreProcedure Day of Procedure 10/12/24 13:39 Patient weight: overweight Heart: regular rate and rhythm Lungs: decreased breath sounds Airway: Mallampati scale class II Neurological: alert and oriented Last oral intake: >/= 8 hours ASA classification: IV Emergent: no Anesthetic plan: proceed Anesthesia type and monitoring: general GIVS and standard monitoring Results Review: All pre-operative results and documents have been reviewed as part of the pre-operative evaluation. Informed Consent: The patient's anesthetic plan and its attendant risks and benefits were discussed with the patient/family/POA. Questions were solicited and answers provided to the satisfaction of the patient/family/POA.
--- NOTE | 2024-10-12 13:49 | PCPTNOTE ---
Attempted PT evaluation this date, pt is getting a colonoscopy. Will continue to attempt.
[2024-10-12] MEDS: LACTATED RINGERS 1,000 ML 150 ML IV CONT (13:58)
--- NOTE | 2024-10-12 14:43 | WPDGIPROGNO ---
Progress Note: A&P Assessment and Plan (1) Clostridioides difficile infection: Code(s): A49.8 - Other bacterial infections of unspecified site Status: Acute Assessment and Plan: Patient not currently bleeding. Can receive heart healthy diet for dinner and the rest of his medication. Complete treatment course for C difficile and can be discharged home when deemed stable by hospitalist staff. Plan - follow up as an outpatient once finished C difficile treatment Subjective Date/time seen: 10/12/24 14:43 Interval history: See colonoscopy report. No acute lesions, no active bleeding. Exam Narrative: unchanged. Objective Data Vital Signs Vital Signs: Vital Signs - 24 hr 10/11/24 16:00 10/11/24 16:00 10/11/24 20:00 Temperature 97.9 F Pulse Rate 82 93 Respiratory Rate 18 Blood Pressure 101/84 Pulse Oximetry 100 Oxygen Delivery Room Air Oxygen Flow Rate 10/11/24 20:00 10/11/24 20:09 10/12/24 00:00 Temperature 97.7 F Pulse Rate 94 86 86 Respiratory Rate 18 Blood Pressure 109/78 Pulse Oximetry 99 Oxygen Delivery Oxygen Flow Rate 10/12/24 04:00 10/12/24 04:47 10/12/24 09:00 Temperature 97.7 F Pulse Rate 93 79 Respiratory Rate 18 Blood Pressure 118/82 Pulse Oximetry 99 98 Oxygen Delivery Room Air Oxygen Flow Rate 10/12/24 09:00 10/12/24 12:00 10/12/24 13:54 Temperature 97.3 F L Pulse Rate 92 97 98 Respiratory Rate 18 Blood Pressure 113/73 Pulse Oximetry 96 Oxygen Delivery Nasal Cannula Oxygen Flow Rate 2 10/12/24 14:39 Temperature Pulse Rate 105 H Respiratory Rate 27 H Blood Pressure 93/67 L Pulse Oximetry Oxygen Delivery Simple Face Mask Oxygen Flow Rate 10 Intake/Output Intake/Output: Intake & Output 10/09/24 10/10/24 10/11/24 10/12/24 23:59 23:59 23:59 23:59 Intake Total 3690.5 1840.0 1900 202.5 Output Total 675 5774 509 0257 Balance 3015.5 440.0 1150 -997.5 Meds/Results Medications: Active Medications Generic Name Dose Route Start Last Admin Trade Name Freq PRN Reason Stop Dose Admin Albuterol 2 puff 10/10/24 17:02 Albuterol Sulfate (*Sp) Aerosol 1 Puff INHALATION Q4-6H PRN Shortness Of Breath Calcitriol 0.25 mcg 10/11/24 09:00 10/12/24 09:00 Calcitriol 0.25 Mcg Capsule PO 0.25 mcg DAILY MC Administration Hydrocortisone Sodium Succinate 50 mg 10/12/24 09:00 10/12/24 09:01 Hydrocortisone Sodium Succinate 100 Mg/2 Ml Vial IV PUSH 50 mg QAM MC Administration Metronidazole 500 mg in 100 mls @ 100 mls/hr 10/09/24 14:00 10/12/24 06:09 Flagyl 500 Mg/Iso Soln 100 Ml IVPB Infused Q8HR MC Infusion Lactated Ringer's 1,000 mls @ 150 mls/hr 10/12/24 13:55 10/12/24 14:39 Lr - Lactated Ringers Iv IV CONT 150 mls/hr .Q6H40M MC Infusion Lorazepam 0.5 mg 10/10/24 08:54 10/11/24 22:26 Lorazepam (*Crx) 0.5 Mg Tablet PO 10/15/24 00:00 0.5 mg BID PRN Administration Anxiety Multivitamins Therapeutic 1 tablet 10/11/24 09:00 10/12/24 09:00 Multivitamins Therapeutic Tab (*Bkc) PO 1 tablet QAM MC Administration Ondansetron HCl 4 mg 10/10/24 09:46 10/10/24 09:51 Ondansetron Inj 4 Mg/2 Ml Vial IV PUSH 4 mg Q6H PRN Administration Nausea And Vomiting Pantoprazole Sodium 40 mg 10/11/24 09:00 10/12/24 09:00 Pantoprazole 40 Mg Tablet PO 40 mg DAILY MC Administration Sodium Chloride 10 ml 10/10/24 14:00 10/12/24 05:07 Central Line Flush IV PUSH Not Given Q8HR MC Sodium Chloride 20 ml 10/10/24 06:30 Central Line Flush IV PUSH PRN PRN after blood draws Vancomycin HCl 500 mg 10/09/24 12:00 10/12/24 11:49 Vancomycin Hcl 250 Mg Oral Capsule PO 500 mg Q6HR MC Administration Venlafaxine HCl 150 mg 10/11/24 09:00 10/12/24 09:00 Venlafaxine Hcl Xr 75 Mg Cap.Er.24h PO 150 mg DAILY MC Administration Radiology Results: ITS Impressions Head CT 10/09/24 07:38 Impression: No acute intracranial hemorrhage or suspicious mass effect. Chest/Abdomen/Pelvis CT 10/09/24 07:47 IMPRESSION: Trace perisplenic and perihepatic ascites. Findings suggesting cystitis. Findings consistent with patient's known diarrhea illness. Chest X-Ray 10/10/24 08:11 Impression: Possible minimal developing bibasilar pulmonary edema. Stable support line. Labs Labs: Laboratory Results - last 24 hr 10/12/24 05:04 WBC 8.7 RBC 3.39 L Hgb 9.7 L Hct 30.9 L MCV 91.2 MCH 28.6 MCHC 31.4 L RDW 19.8 H Plt Count 193 MPV 11.5 H PT 21.4 H INR 1.8 Sodium 133 L Potassium 3.3 L Chloride 98 Carbon Dioxide 17 L Anion Gap 18 H BUN 73 H Creatinine 2.81 H Estim Creat Clear Calc 22 Estimated GFR 22 L Glucose 102 Calcium 8.6 Phosphorus 4.8 H Magnesium 2.0 Total Bilirubin 2.5 H AST 31 ALT 22 Alkaline Phosphatase 93 Total Protein 6.0 L Albumin 3.8
--- NOTE | 2024-10-12 15:14 | WPDGIPROGNO ---
Progress Note: A&P Assessment and Plan (1) GI bleeding: Code(s): K92.2 - Gastrointestinal hemorrhage, unspecified Status: Acute (2) Clostridioides difficile infection: Code(s): A49.8 - Other bacterial infections of unspecified site Status: Acute Subjective Date/time seen: 10/12/24 15:14 Interval history: See colonoscopy report - no active bleeding. Classic C diff pseudomembranes seen throughout the colon. Biopsies taken. Exam Narrative: Vital signs stable, rest of the examination unchanged. Objective Data Vital Signs Vital Signs: Vital Signs - 24 hr 10/11/24 16:00 10/11/24 16:00 10/11/24 20:00 Temperature 97.9 F Pulse Rate 82 93 Respiratory Rate 18 Blood Pressure 101/84 Pulse Oximetry 100 Oxygen Delivery Room Air Oxygen Flow Rate 10/11/24 20:00 10/11/24 20:09 10/12/24 00:00 Temperature 97.7 F Pulse Rate 94 86 86 Respiratory Rate 18 Blood Pressure 109/78 Pulse Oximetry 99 Oxygen Delivery Oxygen Flow Rate 10/12/24 04:00 10/12/24 04:47 10/12/24 09:00 Temperature 97.7 F Pulse Rate 93 79 Respiratory Rate 18 Blood Pressure 118/82 Pulse Oximetry 99 98 Oxygen Delivery Room Air Oxygen Flow Rate 10/12/24 09:00 10/12/24 12:00 10/12/24 13:54 Temperature 97.3 F L Pulse Rate 92 97 98 Respiratory Rate 18 Blood Pressure 113/73 Pulse Oximetry 96 Oxygen Delivery Nasal Cannula Oxygen Flow Rate 2 10/12/24 14:39 10/12/24 14:49 10/12/24 14:59 Temperature Pulse Rate 105 H 103 H 98 Respiratory Rate 27 H 17 18 Blood Pressure 93/67 L 104/70 108/82 Pulse Oximetry 100 100 95 Oxygen Delivery Simple Face Mask Nasal Cannula Nasal Cannula Oxygen Flow Rate 10 4 2 Intake/Output Intake/Output: Intake & Output 10/09/24 10/10/24 10/11/24 10/12/24 23:59 23:59 23:59 23:59 Intake Total 3690.5 1840.0 1900 500 Output Total 675 6782 302 4761 Balance 3015.5 440.0 1150 -700 Meds/Results Medications: Active Medications Generic Name Dose Route Start Last Admin Trade Name Freq PRN Reason Stop Dose Admin Albuterol 2 puff 10/10/24 17:02 Albuterol Sulfate (*Sp) Aerosol 1 Puff INHALATION Q4-6H PRN Shortness Of Breath Calcitriol 0.25 mcg 10/11/24 09:00 10/12/24 09:00 Calcitriol 0.25 Mcg Capsule PO 0.25 mcg DAILY MC Administration Hydrocortisone Sodium Succinate 50 mg 10/12/24 09:00 10/12/24 09:01 Hydrocortisone Sodium Succinate 100 Mg/2 Ml Vial IV PUSH 50 mg QAM MC Administration Metronidazole 500 mg in 100 mls @ 100 mls/hr 10/09/24 14:00 10/12/24 06:09 Flagyl 500 Mg/Iso Soln 100 Ml IVPB Infused Q8HR MC Infusion Lorazepam 0.5 mg 10/10/24 08:54 10/11/24 22:26 Lorazepam (*Crx) 0.5 Mg Tablet PO 10/15/24 00:00 0.5 mg BID PRN Administration Anxiety Multivitamins Therapeutic 1 tablet 10/11/24 09:00 10/12/24 09:00 Multivitamins Therapeutic Tab (*Bkc) PO 1 tablet QAM MC Administration Ondansetron HCl 4 mg 10/10/24 09:46 10/10/24 09:51 Ondansetron Inj 4 Mg/2 Ml Vial IV PUSH 4 mg Q6H PRN Administration Nausea And Vomiting Sodium Chloride 10 ml 10/10/24 14:00 10/12/24 05:07 Central Line Flush IV PUSH Not Given Q8HR MC Sodium Chloride 20 ml 10/10/24 06:30 Central Line Flush IV PUSH PRN PRN after blood draws Vancomycin HCl 500 mg 10/09/24 12:00 10/12/24 11:49 Vancomycin Hcl 250 Mg Oral Capsule PO 500 mg Q6HR MC Administration Venlafaxine HCl 150 mg 10/11/24 09:00 10/12/24 09:00 Venlafaxine Hcl Xr 75 Mg Cap.Er.24h PO 150 mg DAILY MC Administration Radiology Results: ITS Impressions Head CT 10/09/24 07:38 Impression: No acute intracranial hemorrhage or suspicious mass effect. Chest/Abdomen/Pelvis CT 10/09/24 07:47 IMPRESSION: Trace perisplenic and perihepatic ascites. Findings suggesting cystitis. Findings consistent with patient's known diarrhea illness. Chest X-Ray 10/10/24 08:11 Impression: Possible minimal developing bibasilar pulmonary edema. Stable support line. Labs Labs: Laboratory Results - last 24 hr 10/12/24 05:04 WBC 8.7 RBC 3.39 L Hgb 9.7 L Hct 30.9 L MCV 91.2 MCH 28.6 MCHC 31.4 L RDW 19.8 H Plt Count 193 MPV 11.5 H PT 21.4 H INR 1.8 Sodium 133 L Potassium 3.3 L Chloride 98 Carbon Dioxide 17 L Anion Gap 18 H BUN 73 H Creatinine 2.81 H Estim Creat Clear Calc 22 Estimated GFR 22 L Glucose 102 Calcium 8.6 Phosphorus 4.8 H Magnesium 2.0 Total Bilirubin 2.5 H AST 31 ALT 22 Alkaline Phosphatase 93 Total Protein 6.0 L Albumin 3.8
[2024-10-12] MEDS: CENTRAL LINE FLUSH 10 ML IV PUSH (15:51)
[2024-10-12] MEDS: LORazepam (*CRX) 0.5 MG TABLET PO (21:54)
[2024-10-13] VITALS (9 sets, daily range): BP systolic 96–122; BP diastolic 71–87; PULSE 59–96; RESP 16–20; TEMP 36.1–36.6; O2SAT 93–100
[2024-10-13 05:10] LABS: Hematocrit 31.2 % (42.0-52.0); Mean Corpuscular HGB Conc 32.1 g/dl (32-36); Mean Corpuscular Hemoglobin 29.7 pg (26-34); Mean Corpuscular Volume 92.6 fl (80-100); Mean Platelet Volume 10.9 fl (7.4-10.4); Platelet Count Result 227 k/mm3 (150-375); Red Blood Count 3.37 M/mm3 (4.6-6.20); Red Cell Distribution Width 19.7 % (11.5-14.5); White Blood Count 10.6 K/mm3 (4.5-10.0)
[2024-10-13 05:17] LABS: INR 1.6; Prothrombin Time 19.8 Seconds (11.1-14.7)
[2024-10-13 05:21] LABS: Alanine Aminotransferase 28 U/L (6-50); Albumin Level 3.9 g/dL (3.5-5.1); Alkaline Phosphatase 109 U/L (38-126); Anion Gap 18 mmol/L (4-12); Aspartate Amino Transferase 38 U/L (17-59); Bilirubin,Total 1.9 mg/dL (0.2-1.3); Blood Urea Nitrogen 71 mg/dL (9-20); Calcium 8.8 mg/dL (8.4-10.2); Carbon Dioxide 17 mmol/L (22-30); Chloride 100 mmol/L (98-107); Estimated CRCL calculation 23 ml/min; Estimated Glomerular Filt Rate 24; Glucose 140 mg/dL (65-110); Magnesium 2.1 mg/dL (1.6-2.3); Phosphorus 3.8 mg/dL (2.5-4.5); Potassium 3.6 mmol/L (3.4-5.0); Sodium 135 mmol/L (137-145)
[2024-10-13] MEDS: metroNIDAZOLE 500 MG/ISO 100ML 500 MG/100 ML BAG 100 MG IVPB ×3 (05:22→20:50)
[2024-10-13] MEDS: LORazepam (*CRX) 0.5 MG TABLET PO ×2 (05:23→20:53)
[2024-10-13] MEDS: VANCOMYCIN HCL 250 MG ORAL CAPSULE 500 MG PO ×4 (05:23→23:59)
[2024-10-13] MEDS: VENLAFAXINE HCL XR 75 MG CAP.ER.24H 150 MG PO (08:51)
[2024-10-13] MEDS: HYDROCORTISONE SODIUM SUCCINATE 100 MG/2 ML VIAL 50 MG IV PUSH (08:51)
[2024-10-13] MEDS: MULTIVITAMINS THERAPEUTIC TAB (*BKC) 1 TABLET PO (08:51)
[2024-10-13] MEDS: calcitrioL 0.25 MCG CAPSULE PO (08:51)
--- NOTE | 2024-10-13 09:38 | WPDANESPN ---
Anes - Prog Note Post-Op Date/Time: 10/13/24 09:38 Cardiovascular status: normal Respiratory status: normal Airway patency: baseline Mental status: baseline Post-Op hydration status: normal Vital Signs: Last Vital Signs Temp 36.6 C 10/13/24 05:54 Pulse 84 10/13/24 05:54 Resp 16 10/13/24 05:54 BP 96/75 L 10/13/24 05:54 Pulse Ox 99 10/13/24 05:54 O2 Del Method Nasal Cannula 10/12/24 20:00 O2 Flow Rate 2 10/12/24 20:00 Pain Score (VAS): 1 I/O: Intake & Output 10/12/24 10/13/24 10/13/24 23:59 07:59 15:59 Intake Total 990 100 Output Total 480 300 Balance 510 -200 Laboratory Tests 10/13/24 04:57 10/13/24 04:57 10/13/24 04:57 WBC 10.6 H RBC 3.37 L Hgb 10.0 L Hct 31.2 L MCV 92.6 MCH 29.7 MCHC 32.1 RDW 19.7 H Plt Count 227 MPV 10.9 H PT 19.8 H INR 1.6 Sodium 135 L Potassium 3.6 Chloride 100 Carbon Dioxide 17 L Anion Gap 18 H BUN 71 H Creatinine 2.59 H Estim Creat Clear Calc 23 Estimated GFR 24 L Glucose 140 H Calcium 8.8 Phosphorus 3.8 Magnesium 2.1 Total Bilirubin 1.9 H AST 38 ALT 28 Alkaline Phosphatase 109 Total Protein 6.0 L Albumin 3.9 Post-procedural complaints: none Patient Feedback: Patient satisfied with anesthetic care.
--- NOTE | 2024-10-13 10:37 | P.PNIM_ITS ---
Progress Note: A&P Assessment and Plan (1) Septic shock: Code(s): A41.9 - Sepsis, unspecified organism; R65.21 - Severe sepsis with septic shock Status: Acute Plan Septic shock: Code(s): A41.9 - Sepsis, unspecified organism; R65.21 - Severe sepsis with septic shock Status: Acute Assessment and Plan: Patient presents with diarrhea, weakness and HoTN and found to have septic shock secondary to C diff colitis. Stool was positive for Cdiff toxin. CT scan of abdomen pelvis showing trace ascites, possible cystitis and fluid filled colon. He received 30 mL/kg fluid bolus followed by 1 L of LR over 10 hours and some albumin. He was given Vanco IV, Flagyl IV and Cefepime. Oral Vanco started. Levophed and [employer] started but able to be weaned off vasopressors. Started on hydrocortisone but now being weaned. Fluids stopped. WBC trending down. Off pressors for >24hr BCx NGTD. Will stop cefepime Continue Flagyl IV and p.o. vancomycin for C diff infection Remove central line Isolation Resolved Clostridium difficile colitis: Code(s): A04.72 - Enterocolitis due to Clostridium difficile, not specified as recurrent Status: Acute Assessment and Plan: Had 1 bowel movement in the night Colonoscopy shows severe colitis GI bleeding: Code(s): K92.2 - Gastrointestinal hemorrhage, unspecified Status: Acute Assessment and Plan: On arrival to ICU patient had a large bowel movement which was grossly bloody. Patient is on Eliquis chronically. Baseline Hgb 12-13. Hgb 10.1 on admission In light of GI bleed and shock, patient was given Kcentra 2000 units. Eliquis held. GI consulted and EGD performed showing no upper GI bleeding source. Hgb down to 8.8 now. Colonoscopy shows severe diffuse colitis in the left colon, in the right colon and rectum Continue to monitor and transfuse to a stable Hgb Dysphagia Bedside swallowing test Afib: Code(s): I48.91 - Unspecified atrial fibrillation Status: Acute Assessment and Plan: Currently in AFib but controlled ventricular rate and paced rhythm. Beta-ambrose held due to hypotension and shock Aspirin and Eliquis also were held due to bleeding. HR stable. Monitor on tele. CHF (congestive heart failure): Code(s): I50.9 - Heart failure, unspecified Status: Acute Assessment and Plan: Patient has history of cardiomyopathy with EF 25%. Was on IV fluids for fluid resuscitation but now off all IV fluids. CXR yesterday showing possible minimal developing bibasilar pulmonary edema. BP more stable and he did Lasix IV once on 10/10. He appears euvolemic and not hypoxic. Hold heart failure medications at this time. BP still soft so will continue to hold for now Acute kidney injury superimposed on CKD: Code(s): N17.9 - Acute kidney failure, unspecified; N18.9 - Chronic kidney disease, unspecified Status: Acute Assessment and Plan: Patient's baseline creatinine is about 2. Cr on admission was 3.3 secondary to shock and hypovolemia. Patient received IV fluids and creatinine improved to 2.7 IV Lasix given yesterday and Cr about the same today. Monitor urine output, electrolytes and creatinine Biventricular ICD (implantable cardioverter-defibrillator) in place: Code(s): Z95.810 - Presence of automatic (implantable) cardiac defibrillator Status: Acute Assessment and Plan: Stable Plan DVT prophylaxis - SCD Stress ulcer prophylaxis -PPI Nutrition - clear liquid Code Status - Full Code as per his paperwork from residential PT/OT ordered Subjective Date/time seen: 10/13/24 10:37 Interval history: Patient underwent colonoscopy yesterday without complication, patient had 1 bowel movement today without bleeding. Per nurse report, patient choked when patient was eating drinking. Patient denies shortness breath, chest pain, abdomen pain nausea vomiting. Exam Narrative: GENERAL: Pleasant, in no acute distress. Well-nourished. - EYES: EOMI. Anicteric. - HENT: Moist mucous membranes. - LUNGS: Clear to auscultation bilateral ly, no wheezing, rhonchi, or rales. - CARDIOVASCULAR: Regular rate and rhyth m. No murmur. No JVD. - ABDOMEN: Soft, non-tender and non-dist ended. No palpable masses. - EXTREMITIES: No edema. Peripheral puls es 2+. Non-tender. - NEUROLOGIC: No focal neurological defi cits. CN II-XII grossly intact. - PSYCHIATRIC: Awake, Alert and oriented x 3. Appropriate mood and affect. General weakness - SKIN: No rashes or lesions. Warm. - LYMPH: No cervical lymphadenopathy. Objective Data Vital Signs Vital Signs: Vital Signs - 24 hr 04/02/25 12:00 10/12/24 13:54 10/12/24 14:39 Temperature 97.3 F L Pulse Rate 97 98 105 H Respiratory Rate 18 27 H Blood Pressure 113/73 93/67 L Pulse Oximetry 96 100 Oxygen Delivery Nasal Cannula Simple Face Mask Oxygen Flow Rate 2 10 10/12/24 14:49 10/12/24 14:59 10/12/24 16:00 Temperature 97.8 F Pulse Rate 103 H 98 105 H Respiratory Rate 17 18 16 Blood Pressure 104/70 108/82 104/85 Pulse Oximetry 100 95 98 Oxygen Delivery Nasal Cannula Nasal Cannula Oxygen Flow Rate 4 2 10/12/24 16:00 10/12/24 20:00 10/12/24 20:00 Temperature Pulse Rate 108 H 92 Respiratory Rate Blood Pressure Pulse Oximetry 100 Oxygen Delivery Nasal Cannula Oxygen Flow Rate 2 10/12/24 20:02 10/13/24 00:44 10/13/24 04:00 Temperature 98.3 F Pulse Rate 95 96 87 Respiratory Rate 16 Blood Pressure 104/74 Pulse Oximetry 100 Oxygen Delivery Oxygen Flow Rate 10/13/24 05:54 10/13/24 09:24 10/13/24 09:40 Temperature 97.9 F Pulse Rate 84 Respiratory Rate 16 Blood Pressure 96/75 L Pulse Oximetry 99 Oxygen Delivery Room Air Room Air Oxygen Flow Rate Intake/Output Intake/Output: Intake & Output 10/10/24 10/11/24 10/12/24 10/13/24 23:59 23:59 23:59 23:59 Intake Total 1840.0 1900 1490 100 Output Total 0213 799 5453 300 Balance 440.0 1150 -190 -200 Meds/Results Medications: Active Medications Generic Name Dose Route Start Last Admin Trade Name Freq PRN Reason Stop Dose Admin Albuterol 2 puff 10/10/24 17:02 Albuterol Sulfate (*Sp) Aerosol 1 Puff INHALATION Q4-6H PRN Shortness Of Breath Calcitriol 0.25 mcg 10/11/24 09:00 10/13/24 08:51 Calcitriol 0.25 Mcg Capsule PO 0.25 mcg DAILY MC Administration Hydrocortisone Sodium Succinate 50 mg 10/12/24 09:00 10/13/24 08:51 Hydrocortisone Sodium Succinate 100 Mg/2 Ml Vial IV PUSH 50 mg QAM MC Administration Metronidazole 500 mg in 100 mls @ 100 mls/hr 10/09/24 14:00 10/13/24 06:33 Flagyl 500 Mg/Iso Soln 100 Ml IVPB Infused Q8HR MC Infusion Lorazepam 0.5 mg 10/10/24 08:54 10/13/24 05:23 Lorazepam (*Crx) 0.5 Mg Tablet PO 10/15/24 00:00 0.5 mg BID PRN Administration Anxiety Multivitamins Therapeutic 1 tablet 10/11/24 09:00 10/13/24 08:51 Multivitamins Therapeutic Tab (*Bkc) PO 1 tablet QAM MC Administration Ondansetron HCl 4 mg 10/10/24 09:46 10/10/24 09:51 Ondansetron Inj 4 Mg/2 Ml Vial IV PUSH 4 mg Q6H PRN Administration Nausea And Vomiting Sodium Chloride 10 ml 10/10/24 14:00 10/13/24 06:31 Central Line Flush IV PUSH Not Given Q8HR MC Sodium Chloride 20 ml 10/10/24 06:30 Central Line Flush IV PUSH PRN PRN after blood draws Vancomycin HCl 500 mg 10/09/24 12:00 10/13/24 05:23 Vancomycin Hcl 250 Mg Oral Capsule PO 500 mg Q6HR MC Administration Venlafaxine HCl 150 mg 10/11/24 09:00 10/13/24 08:51 Venlafaxine Hcl Xr 75 Mg Cap.Er.24h PO 150 mg DAILY MC Administration Radiology Results: ITS Impressions Head CT 10/09/24 07:38 Impression: No acute intracranial hemorrhage or suspicious mass effect. Chest/Abdomen/Pelvis CT 10/09/24 07:47 IMPRESSION: Trace perisplenic and perihepatic ascites. Findings suggesting cystitis. Findings consistent with patient's known diarrhea illness. Chest X-Ray 10/10/24 08:11 Impression: Possible minimal developing bibasilar pulmonary edema. Stable support line. Labs Labs: Laboratory Results - last 24 hr 10/13/24 04:57 WBC 10.6 H RBC 3.37 L Hgb 10.0 L Hct 31.2 L MCV 92.6 MCH 29.7 MCHC 32.1 RDW 19.7 H Plt Count 227 MPV 10.9 H PT 19.8 H INR 1.6 Sodium 135 L Potassium 3.6 Chloride 100 Carbon Dioxide 17 L Anion Gap 18 H BUN 71 H Creatinine 2.59 H Estim Creat Clear Calc 23 Estimated GFR 24 L Glucose 140 H Calcium 8.8 Phosphorus 3.8 Magnesium 2.1 Total Bilirubin 1.9 H AST 38 ALT 28 Alkaline Phosphatase 109 Total Protein 6.0 L Albumin 3.9
--- NOTE | 2024-10-13 12:15 | PCSTNOTE ---
Please refer to the Bedside Swallow Evaluation in the EMR. Please note, silent aspiration cannot be ruled out at bedside. The pt was seen for a bedside swallow evaluation due to an incident of choking on toast; per the pt it was an isolated incident and everyone is now overreacting; pt agreed to this swallow eval at the bedside. He is currently on a regular diet. Cursory oral motor exam revealed structures to be WFL re ROM and strength. His natural dentition was adequate. Before oral trials, he was intermittently throat-clearing during our conversation. He was positioned upright in the bed and tested with controlled amounts of thin liquid via a spoon, pudding via a spoon, and small pieces of cracker. He was also tested with uncontrolled amounts of thin liquids via a cup and a straw. The oral stages appeared intact as no pocketing, residual, or leakage occurred. Pharyngeal swallow appeared timely with adequate laryngeal elevation but intermittent subtle throat clearing was exhibited which occurred after the pudding and the thin liquids when taken via a straw. Due to the overt but subtle signs of aspiration, an MBS was recommended. The purpose of testing was explained to the pt but he refused stating he does not want that test. He stated that he has had throat clearing all the time and doesn't feel it's related to difficulty swallowing. Impression/recommendations: questionable degree of dysphagia due to subtle but overt s/s of aspiration (throat clearing) but pt is refusing further testing via MBS. ST spoke with RN re monitoring meals & getting pt OOB to chair to reduce aspiration risk. If any further instances of aspiration occur, more discussion should be had with pt re the importance and purpose of further testing/MBS.
[2024-10-14] VITALS (10 sets, daily range): BP systolic 114–129; BP diastolic 75–90; PULSE 68–99; RESP 16–18; TEMP 35–36.4; O2SAT 84–98
[2024-10-14 05:24] LABS: Hematocrit 33.2 % (42.0-52.0); Hemoglobin 10.3 g/dL (14.0-18.0); Mean Corpuscular Hemoglobin 29.4 pg (26-34); Mean Corpuscular Volume 94.9 fl (80-100); Mean Platelet Volume 10.7 fl (7.4-10.4); Platelet Count Result 237 k/mm3 (150-375); Red Cell Distribution Width 19.7 % (11.5-14.5); White Blood Count 11.2 K/mm3 (4.5-10.0)
[2024-10-14 05:34] LABS: Alanine Aminotransferase 28 U/L (6-50); Albumin Level 4.1 g/dL (3.5-5.1); Alkaline Phosphatase 139 U/L (38-126); Anion Gap 16 mmol/L (4-12); Aspartate Amino Transferase 36 U/L (17-59); Blood Urea Nitrogen 66 mg/dL (9-20); Calcium 9.1 mg/dL (8.4-10.2); Carbon Dioxide 21 mmol/L (22-30); Chloride 100 mmol/L (98-107); Estimated CRCL calculation 26 ml/min; Estimated Glomerular Filt Rate 28; Glucose 103 mg/dL (65-110); Phosphorus 3.4 mg/dL (2.5-4.5); Potassium 3.2 mmol/L (3.4-5.0); Sodium 137 mmol/L (137-145)
[2024-10-14 05:36] LABS: INR 1.4; Prothrombin Time 17.6 Seconds (11.1-14.7)
[2024-10-14] MEDS: metroNIDAZOLE 500 MG/ISO 100ML 500 MG/100 ML BAG 100 MG IVPB ×2 (05:43→14:11)
[2024-10-14] MEDS: VANCOMYCIN HCL 250 MG ORAL CAPSULE 500 MG PO ×4 (05:44→23:24)
[2024-10-14] MEDS: VENLAFAXINE HCL XR 75 MG CAP.ER.24H 150 MG PO (10:02)
[2024-10-14] MEDS: MULTIVITAMINS THERAPEUTIC TAB (*BKC) 1 TABLET PO (10:03)
[2024-10-14] MEDS: calcitrioL 0.25 MCG CAPSULE PO (10:04)
[2024-10-14] MEDS: HYDROCORTISONE SODIUM SUCCINATE 100 MG/2 ML VIAL 50 MG IV PUSH (10:05)
--- NOTE | 2024-10-14 13:53 | PM.IMPN ---
Progress Note: A&P Assessment and Plan (1) Septic shock: Code(s): A41.9 - Sepsis, unspecified organism; R65.21 - Severe sepsis with septic shock Status: Acute Plan # Septic shock: Patient presents with diarrhea, weakness and HoTN and found to have septic shock secondary to C diff colitis. Stool was positive for Cdiff toxin. CT scan of abdomen pelvis showing trace ascites, possible cystitis and fluid filled colon. He received 30 mL/kg fluid bolus followed by 1 L of LR over 10 hours and some albumin. He was given Vanco IV, Flagyl IV and Cefepime. Oral Vanco started. Levophed and vasopressin started but able to be weaned off vasopressors. Started on hydrocortisone but now being weaned. Fluids stopped. WBC trending down. Off pressors for >24hr BCx NGTD. Start cefepime Continue Flagyl IV and p.o. vancomycin for C diff infection Remove central line Isolation Resolved Will stop IV metronidazole. Taper off hydrocortisone # Clostridium difficile colitis: Had 1 bowel movement in the night Colonoscopy shows severe colitis # GI bleeding: On arrival to ICU patient had a large bowel movement which was grossly bloody. Patient is on Eliquis chronically. Baseline Hgb 12-13. Hgb 10.1 on admission In light of GI bleed and shock, patient was given Kcentra 2000 units. Eliquis held. GI consulted and EGD performed showing no upper GI bleeding source. Hgb down to 8.8 Colonoscopy shows severe diffuse colitis in the left colon, in the right colon and rectum Continue to monitor and transfuse to a stable Hgb # Dysphagia Bedside swallowing test # Afib: Currently in AFib but controlled ventricular rate and paced rhythm. Beta-ambrose held due to hypotension and shock Aspirin and Eliquis also were held due to bleeding. HR stable. Monitor on tele. # CHF (congestive heart failure): Patient has history of cardiomyopathy with EF 25%. Was on IV fluids for fluid resuscitation but now off all IV fluids. CXR yesterday showing possible minimal developing bibasilar pulmonary edema. BP more stable and he did Lasix IV once on 10/10. He appears euvolemic and not hypoxic. Hold heart failure medications at this time. BP still soft so will continue to hold for now # Acute kidney injury superimposed on CKD: Patient's baseline creatinine is about 2. Cr on admission was 3.3 secondary to shock and hypovolemia. Patient received IV fluids and creatinine improved IV Lasix given yesterday and Cr about the same today. Monitor urine output, electrolytes and creatinine renal function stable # Biventricular ICD (implantable cardioverter-defibrillator) in place: Stable # DVT prophylaxis - SCD # Stress ulcer prophylaxis -PPI # Nutrition - on heart healthy # Code Status - Full Code as per his paperwork from long term Subjective Date/time seen: 10/14/24 13:53 Interval history: No overnight events. Patient states stool is getting softer not watery anymore. No further blood in stool. Still feels weak working with therapy. Review of Systems Review of Systems: All systems reviewed & are unremarkable except as noted in HPI and below (HPI) Exam Narrative: GENERAL: Pleasant, in no acute distress. Well-nourished. - EYES: EOMI. Anicteric. - HENT: Moist mucous membranes. - LUNGS: Clear to auscultation bilaterally, no wheezing, rhonchi, or rales. - CARDIOVASCULAR: Regular rate and rhythm. No murmur. No JVD. - ABDOMEN: Soft, non-tender and non-distended. No palpable masses. - EXTREMITIES: No edema. Peripheral pulses 2+. Non-tender. - NEUROLOGIC: No focal neurological deficits. CN II-XII grossly intact. - PSYCHIATRIC: Awake, Alert and oriented x 3. Appropriate mood and affect. General weakness - SKIN: No rashes or lesions. Warm. - LYMPH: No cervical lymphadenopathy. Objective Data Vital Signs Vital Signs: Vital Signs - 24 hr 10/13/24 15:30 10/13/24 16:00 10/13/24 20:00 Temperature 97 F L Pulse Rate 75 91 Respiratory Rate 20 Blood Pressure 120/71 Pulse Oximetry 93 Oxygen Delivery Room Air 10/13/24 20:00 10/13/24 20:34 10/14/24 00:00 Temperature 97.6 F Pulse Rate 95 59 L 93 Respiratory Rate 18 Blood Pressure 122/87 Pulse Oximetry 100 Oxygen Delivery 10/14/24 04:00 10/14/24 05:20 10/14/24 08:00 Temperature 97.5 F L Pulse Rate 91 68 95 Respiratory Rate 18 Blood Pressure 119/89 Pulse Oximetry 94 Oxygen Delivery 10/14/24 08:40 10/14/24 12:18 10/14/24 12:18 Temperature 97.6 F 95 F L Pulse Rate 95 94 94 Respiratory Rate 18 16 Blood Pressure 129/75 121/90 Pulse Oximetry 98 84 L Oxygen Delivery Intake/Output Intake/Output: Intake & Output 10/11/24 10/12/24 10/13/24 10/14/24 23:59 23:59 23:59 23:59 Intake Total 1900 1490 1200 880 Output Total 750 1680 1450 400 Balance 1150 -190 -250 480 Meds/Results Medications: Active Medications Generic Name Dose Route Start Last Admin Trade Name Freq PRN Reason Stop Dose Admin Albuterol 2 puff 10/10/24 17:02 Albuterol Sulfate (*Sp) Aerosol 1 Puff INHALATION Q4-6H PRN Shortness Of Breath Calcitriol 0.25 mcg 10/11/24 09:00 10/14/24 10:04 Calcitriol 0.25 Mcg Capsule PO 0.25 mcg DAILY MC Administration Hydrocortisone Sodium Succinate 50 mg 10/12/24 09:00 10/14/24 10:05 Hydrocortisone Sodium Succinate 100 Mg/2 Ml Vial IV PUSH 50 mg QAM MC Administration Metronidazole 500 mg in 100 mls @ 100 mls/hr 10/09/24 14:00 10/14/24 06:42 Flagyl 500 Mg/Iso Soln 100 Ml IVPB Infused Q8HR MC Infusion Lorazepam 0.5 mg 10/10/24 08:54 10/13/24 20:53 Lorazepam (*Crx) 0.5 Mg Tablet PO 10/15/24 00:00 0.5 mg BID PRN Administration Anxiety Multivitamins Therapeutic 1 tablet 10/11/24 09:00 10/14/24 10:03 Multivitamins Therapeutic Tab (*Bkc) PO 1 tablet QAM MC Administration Ondansetron HCl 4 mg 10/10/24 09:46 10/10/24 09:51 Ondansetron Inj 4 Mg/2 Ml Vial IV PUSH 4 mg Q6H PRN Administration Nausea And Vomiting Vancomycin HCl 500 mg 10/09/24 12:00 10/14/24 11:48 Vancomycin Hcl 250 Mg Oral Capsule PO 500 mg Q6HR MC Administration Venlafaxine HCl 150 mg 10/11/24 09:00 10/14/24 10:02 Venlafaxine Hcl Xr 75 Mg Cap.Er.24h PO 150 mg DAILY MC Administration Radiology Results: ITS Impressions Head CT 10/09/24 07:38 Impression: No acute intracranial hemorrhage or suspicious mass effect. Chest/Abdomen/Pelvis CT 10/09/24 07:47 IMPRESSION: Trace perisplenic and perihepatic ascites. Findings suggesting cystitis. Findings consistent with patient's known diarrhea illness. Chest X-Ray 10/10/24 08:11 Impression: Possible minimal developing bibasilar pulmonary edema. Stable support line. Labs Labs: Laboratory Results - last 24 hr 10/14/24 05:01 WBC 11.2 H RBC 3.50 L Hgb 10.3 L Hct 33.2 L MCV 94.9 MCH 29.4 MCHC 31.0 L RDW 19.7 H Plt Count 237 MPV 10.7 H PT 17.6 H INR 1.4 Sodium 137 Potassium 3.2 L Chloride 100 Carbon Dioxide 21 L Anion Gap 16 H BUN 66 H Creatinine 2.32 H Estim Creat Clear Calc 26 Estimated GFR 28 L Glucose 103 Calcium 9.1 Phosphorus 3.4 Magnesium 2.0 Total Bilirubin 2.0 H AST 36 ALT 28 Alkaline Phosphatase 139 H Total Protein 7.0 Albumin 4.1
[2024-10-14] MEDS: HYDROcodone/acetaminophen (*CRX) 5-325 MG TABLET 1 TAB PO (16:40)
[2024-10-14] MEDS: FUROSEMIDE INJ 40 MG/4 ML VIAL IV PUSH (16:41)
[2024-10-14] MEDS: LORazepam (*CRX) 0.5 MG TABLET PO (23:27)
[2024-10-15] VITALS (8 sets, daily range): BP systolic 104–135; BP diastolic 57–88; PULSE 66–105; RESP 16–20; TEMP 36–37.1; O2SAT 90–100
[2024-10-15 05:38] LABS: Hematocrit 33.7 % (42.0-52.0); Hemoglobin 10.3 g/dL (14.0-18.0); Mean Corpuscular HGB Conc 30.6 g/dl (32-36); Mean Corpuscular Hemoglobin 29.1 pg (26-34); Mean Corpuscular Volume 95.2 fl (80-100); Mean Platelet Volume 10.2 fl (7.4-10.4); Platelet Count Result 274 k/mm3 (150-375); Red Blood Count 3.54 M/mm3 (4.6-6.20); Red Cell Distribution Width 19.9 % (11.5-14.5); White Blood Count 13.3 K/mm3 (4.5-10.0)
[2024-10-15 05:48] LABS: Alanine Aminotransferase 27 U/L (6-50); Alkaline Phosphatase 141 U/L (38-126); Anion Gap 14 mmol/L (4-12); Aspartate Amino Transferase 36 U/L (17-59); Bilirubin,Total 1.9 mg/dL (0.2-1.3); Blood Urea Nitrogen 62 mg/dL (9-20); Calcium 9.2 mg/dL (8.4-10.2); Carbon Dioxide 23 mmol/L (22-30); Chloride 101 mmol/L (98-107); Estimated CRCL calculation 28 ml/min; Estimated Glomerular Filt Rate 30; Glucose 96 mg/dL (65-110); Magnesium 1.7 mg/dL (1.6-2.3); Potassium 2.9 mmol/L (3.4-5.0); Sodium 138 mmol/L (137-145)
[2024-10-15] MEDS: VANCOMYCIN HCL 250 MG ORAL CAPSULE 500 MG PO ×3 (06:00→17:05)
[2024-10-15 06:03] LABS: Band Neutrophils Percent 2 % (0-6); Hypochromasia 1+; Lymphocytes Absolute Manual 1.33 K/mm3 (1.1-4.5); Lymphocytes Percent Manual 10 % (18-44); Macrocytosis 1+ (NORMAL); Monocytes Absolute Manual 0.79 K/mm3 (0.1-0.90); Monocytes Percent Manual 6 % (3-9); Neutrophils Absolute Manual 11.17 K/mm3 (1.3-6.7); Neutrophils Percent Manual 82 % (46-73); Ovalocytes 1+; Platelet Estimate Adequate (Adequate); Polychromasia 1+; Smudge Cells FEW; Total Cells Counted 100
[2024-10-15 06:04] LABS: Burr Cells 1+; Schistocytes None Seen
[2024-10-15] MEDS: VENLAFAXINE HCL XR 75 MG CAP.ER.24H 150 MG PO (08:58)
[2024-10-15] MEDS: calcitrioL 0.25 MCG CAPSULE PO (08:58)
[2024-10-15] MEDS: POTASSIUM CHLORIDE 20 MEQ ER TABLET PO (08:58)
[2024-10-15] MEDS: MULTIVITAMINS THERAPEUTIC TAB (*BKC) 1 TABLET PO (08:58)
--- NOTE | 2024-10-15 13:41 | P.PNIM_ITS ---
Progress Note: A&P Assessment and Plan (1) Septic shock: Code(s): A41.9 - Sepsis, unspecified organism; R65.21 - Severe sepsis with septic shock Status: Acute Plan # Septic shock: Patient presents with diarrhea, weakness and HoTN and found to have septic shock secondary to C diff colitis. Stool was positive for Cdiff toxin. CT scan of abdomen pelvis showing trace ascites, possible cystitis and fluid filled colon. He received 30 mL/kg fluid bolus followed by 1 L of LR over 10 hours and some albumin. He was given Vanco IV, Flagyl IV and Cefepime. Oral Vanco started. Levophed and vasopressin started but able to be weaned off vasopressors. Started on hydrocortisone but now being weaned. Fluids stopped. WBC trending down. Off pressors for >24hr BCx NGTD. Start cefepime Continue Flagyl IV and p.o. vancomycin for C diff infection Remove central line Isolation Resolved Will stop IV metronidazole. Taper off hydrocortisone mild leukocytoiss worsening # Clostridium difficile colitis: Had 1 bowel movement in the night Colonoscopy shows severe colitis # GI bleeding: On arrival to ICU patient had a large bowel movement which was grossly bloody. Patient is on Eliquis chronically. Baseline Hgb 12-13. Hgb 10.1 on admission In light of GI bleed and shock, patient was given Kcentra 2000 units. Eliquis held. GI consulted and EGD performed showing no upper GI bleeding source. Hgb down to 8.8 Colonoscopy shows severe diffuse colitis in the left colon, in the right colon and rectum Continue to monitor and transfuse to a stable Hgb # Dysphagia Bedside swallowing test # Afib: Currently in AFib but controlled ventricular rate and paced rhythm. Beta-ambrose held due to hypotension and shock Aspirin and Eliquis also were held due to bleeding. HR stable. Monitor on tele. # CHF (congestive heart failure): Patient has history of cardiomyopathy with EF 25%. Was on IV fluids for fluid resuscitation but now off all IV fluids. CXR yesterday showing possible minimal developing bibasilar pulmonary edema. BP more stable and he did Lasix IV once on 10/10. He appears euvolemic and not hypoxic. Hold heart failure medications at this time. BP still soft so will continue to hold for now # Acute kidney injury superimposed on CKD: Patient's baseline creatinine is about 2. Cr on admission was 3.3 secondary to shock and hypovolemia. Patient received IV fluids and creatinine improved cxr with congestive chagnes. received iv lasix 4/ Monitor urine output, electrolytes and creatinine renal function stable # Biventricular ICD (implantable cardioverter-defibrillator) in place: Stable # DVT prophylaxis - SCD # Stress ulcer prophylaxis -PPI # Nutrition - on heart healthy # Code Status - Full Code as per his paperwork from long term Subjective Date/time seen: 10/15/24 13:41 Interval history: no new compalints. was hypoxic. received lasix. still hving some loose stool Review of Systems Review of Systems: All systems reviewed & are unremarkable except as noted in HPI and below (HPI) Exam Narrative: GENERAL: Pleasant, in no acute distress. Well-nourished. - EYES: EOMI. Anicteric. - HENT: Moist mucous membranes. - LUNGS: Clear to auscultation bilateral ly, no wheezing, rhonchi, or rales. - CARDIOVASCULAR: Regular rate and rhyth m. No murmur. No JVD. - ABDOMEN: Soft, non-tender and non-dist ended. No palpable masses. - EXTREMITIES: No edema. Peripheral puls es 2+. Non-tender. - NEUROLOGIC: No focal neurological defi cits. CN II-XII grossly intact. - PSYCHIATRIC: Awake, Alert and oriented x 3. Appropriate mood and affect. General weakness - SKIN: No rashes or lesions. Warm. - LYMPH: No cervical lymphadenopathy. Objective Data Vital Signs Vital Signs: Vital Signs - 24 hr 10/14/24 14:30 10/14/24 16:00 10/14/24 20:00 Temperature Pulse Rate 99 92 Respiratory Rate Blood Pressure Pulse Oximetry Oxygen Delivery Room Air 10/14/24 20:00 10/14/24 20:46 10/15/24 00:00 Temperature 97.1 F L 97.4 F L Pulse Rate 89 74 86 Respiratory Rate 16 20 Blood Pressure 114/84 132/88 Pulse Oximetry 97 100 Oxygen Delivery 10/15/24 00:00 10/15/24 04:00 10/15/24 06:25 Temperature 97.1 F L Pulse Rate 88 93 94 Respiratory Rate 20 Blood Pressure 135/85 Pulse Oximetry 100 Oxygen Delivery 10/15/24 08:00 10/15/24 08:00 Temperature 97.0 F L Pulse Rate 70 86 Respiratory Rate 18 Blood Pressure 125/57 L Pulse Oximetry 90 Oxygen Delivery Intake/Output Intake/Output: Intake & Output 10/12/24 10/13/24 10/14/24 10/15/24 23:59 23:59 23:59 23:59 Intake Total 1490 1200 1710 740 Output Total 1680 1450 1675 500 Balance -190 -250 35 240 Meds/Results Medications: Active Medications Generic Name Dose Route Start Last Admin Trade Name Freq PRN Reason Stop Dose Admin Albuterol 2 puff 10/10/24 17:02 Albuterol Sulfate (*Sp) Aerosol 1 Puff INHALATION Q4-6H PRN Shortness Of Breath Calcitriol 0.25 mcg 10/11/24 09:00 10/15/24 08:58 Calcitriol 0.25 Mcg Capsule PO 0.25 mcg DAILY MC Administration Multivitamins Therapeutic 1 tablet 10/11/24 09:00 10/15/24 08:58 Multivitamins Therapeutic Tab (*Bkc) PO 1 tablet QAM MC Administration Ondansetron HCl 4 mg 10/10/24 09:46 10/10/24 09:51 Ondansetron Inj 4 Mg/2 Ml Vial IV PUSH 4 mg Q6H PRN Administration Nausea And Vomiting Vancomycin HCl 500 mg 10/09/24 12:00 10/15/24 11:25 Vancomycin Hcl 250 Mg Oral Capsule PO 500 mg Q6HR MC Administration Venlafaxine HCl 150 mg 10/11/24 09:00 10/15/24 08:58 Venlafaxine Hcl Xr 75 Mg Cap.Er.24h PO 150 mg DAILY MC Administration Radiology Results: ITS Impressions Head CT 10/09/24 07:38 Impression: No acute intracranial hemorrhage or suspicious mass effect. Chest/Abdomen/Pelvis CT 10/09/24 07:47 IMPRESSION: Trace perisplenic and perihepatic ascites. Findings suggesting cystitis. Findings consistent with patient's known diarrhea illness. Chest X-Ray 10/14/24 15:43 Impression: 1: Cardiomegaly with pulmonary edema. 2: Small pleural effusions. Labs Labs: Laboratory Results - last 24 hr 10/15/24 05:26 WBC 13.3 H RBC 3.54 L Hgb 10.3 L Hct 33.7 L MCV 95.2 MCH 29.1 MCHC 30.6 L RDW 19.9 H Plt Count 274 MPV 10.2 Immature Gran % (Auto) Not Reportable Neut % (Auto) Not Reportable Lymph % (Auto) Not Reportable [place] % (Auto) Not Reportable Eos % (Auto) Not Reportable Baso % (Auto) Not Reportable Lymph # (Auto) Not Reportable [place] # (Auto) Not Reportable Eos # (Auto) Not Reportable Baso # (Auto) Not Reportable Abs Immat Gran (auto) Not Reportable Absolute Neuts (auto) Not Reportable Absolute Nucleated RBC Not Reportable Total Counted 100 Neutrophils % (Manual) 82 H Band Neutrophils % 2 Lymphocytes % (Manual) 10 L Monocytes % (Manual) 6 Nucleated RBC % Not Reportable Abs Neuts (Manual) 11.17 H Abs Lymphs (Manual) 1.33 Abs Monocytes (Manual) 0.79 Smudge Cells Few Platelet Estimate Adequate Polychromasia 1+ Hypochromasia 1+ Macrocytosis 1+ Ovalocytes 1+ [place] Cells 1+ Schistocytes None seen Sodium 138 Potassium 2.9 L Chloride 101 Carbon Dioxide 23 Anion Gap 14 H BUN 62 H Creatinine 2.18 H Estim Creat Clear Calc 28 Estimated GFR 30 L Glucose 96 Calcium 9.2 Magnesium 1.7 Total Bilirubin 1.9 H AST 36 ALT 27 Alkaline Phosphatase 141 H Total Protein 7.0 Albumin 4.0
[2024-10-15] MEDS: HYDROcodone/acetaminophen (*CRX) 5-325 MG TABLET 1 TAB PO (22:15)
[2024-10-16] VITALS (9 sets, daily range): BP systolic 106–123; BP diastolic 63–74; PULSE 78–118; RESP 16–18; TEMP 36.5–36.9; O2SAT 96–100
[2024-10-16] MEDS: VANCOMYCIN HCL 250 MG ORAL CAPSULE 500 MG PO ×4 (00:04→17:10)
[2024-10-16 05:57] LABS: Hematocrit 33.4 % (42.0-52.0); Hemoglobin 10.4 g/dL (14.0-18.0); Mean Corpuscular HGB Conc 31.1 g/dl (32-36); Mean Corpuscular Hemoglobin 29.5 pg (26-34); Mean Corpuscular Volume 94.9 fl (80-100); Mean Platelet Volume 10.5 fl (7.4-10.4); Platelet Count Result 277 k/mm3 (150-375); Red Blood Count 3.52 M/mm3 (4.6-6.20); Red Cell Distribution Width 21.1 % (11.5-14.5); White Blood Count 11.1 K/mm3 (4.5-10.0)
[2024-10-16 06:06] LABS: Alanine Aminotransferase 24 U/L (6-50); Albumin Level 3.6 g/dL (3.5-5.1); Alkaline Phosphatase 154 U/L (38-126); Anion Gap 12 mmol/L (4-12); Aspartate Amino Transferase 30 U/L (17-59); Bilirubin,Total 1.8 mg/dL (0.2-1.3); Blood Urea Nitrogen 55 mg/dL (9-20); Carbon Dioxide 25 mmol/L (22-30); Chloride 102 mmol/L (98-107); Estimated CRCL calculation 33 ml/min; Estimated Glomerular Filt Rate 37; Glucose 90 mg/dL (65-110); Magnesium 1.6 mg/dL (1.6-2.3); Potassium 3.2 mmol/L (3.4-5.0); Sodium 139 mmol/L (137-145)
[2024-10-16 06:49] LABS: Band Neutrophils Percent 0 % (0-6); Eosinophils Absolute Manual 0.11 K/mm3 (0.02-0.50); Eosinophils Percent Manual 1 % (0-4); Lymphocytes Absolute Manual 0.66 K/mm3 (1.1-4.5); Lymphocytes Percent Manual 6 % (18-44); Monocytes Absolute Manual 1.11 K/mm3 (0.1-0.90); Monocytes Percent Manual 10 % (3-9); Neutrophils Absolute Manual 9.21 K/mm3 (1.3-6.7); Neutrophils Percent Manual 83 % (46-73); Platelet Estimate Adequate (Adequate); Total Cells Counted 100
[2024-10-16 06:50] LABS: Anisocytosis 2+
[2024-10-16 06:52] LABS: Acanthocytes 1+; Polychromasia 2+
[2024-10-16 06:55] LABS: Ovalocytes 1+; Schistocytes None Seen
[2024-10-16] MEDS: VENLAFAXINE HCL XR 75 MG CAP.ER.24H 150 MG PO (08:30)
[2024-10-16] MEDS: calcitrioL 0.25 MCG CAPSULE PO (08:30)
[2024-10-16] MEDS: MULTIVITAMINS THERAPEUTIC TAB (*BKC) 1 TABLET PO (08:30)
[2024-10-16] MEDS: POTASSIUM CHLORIDE 20 MEQ ER TABLET 40 MEQ PO (10:23)
--- NOTE | 2024-10-16 11:02 | PCOTNOTE ---
Attempted to see pt for OT treatment this morning 2x. At 1st attempt, pt was eating breakfast. At 2nd attempt, pt is reporting chills, increase stomach pain, been to the bathroom 4x with loose stool, and general not feeling good. Pt was offered bathroom, however declined at this time. RN is aware of pt's symptoms and states that pt vitals are in normal range. Will attempt per poc duration/frequency tomorrow when appropriate.
--- NOTE | 2024-10-16 13:10 | PM.IMPN ---
Progress Note: A&P Assessment and Plan (1) Septic shock: Code(s): A41.9 - Sepsis, unspecified organism; R65.21 - Severe sepsis with septic shock Status: Acute Plan # Septic shock: Patient presents with diarrhea, weakness and HoTN and found to have septic shock secondary to C diff colitis. Stool was positive for Cdiff toxin. CT scan of abdomen pelvis showing trace ascites, possible cystitis and fluid filled colon. He received 30 mL/kg fluid bolus followed by 1 L of LR over 10 hours and some albumin. He was given Vanco IV, Flagyl IV and Cefepime. Oral Vanco started. Levophed and vasopressin started but able to be weaned off vasopressors. Started on hydrocortisone but now being weaned. Fluids stopped. WBC trending down. Off pressors for >24hr BCx NGTD. Start cefepime Continue Flagyl IV and p.o. vancomycin for C diff infection Remove central line Isolation Resolved Will stop IV metronidazole. Taper off hydrocortisone mild leukocytoiss which has improved today # Clostridium difficile colitis: Had 1 bowel movement in the night Colonoscopy shows severe colitis # GI bleeding: On arrival to ICU patient had a large bowel movement which was grossly bloody. Patient is on Eliquis chronically. Baseline Hgb 12-13. Hgb 10.1 on admission In light of GI bleed and shock, patient was given Kcentra 2000 units. Eliquis held. GI consulted and EGD performed showing no upper GI bleeding source. Hgb down to 8.8 Colonoscopy shows severe diffuse colitis in the left colon, in the right colon and rectum Continue to monitor and transfuse to a stable Hgb # Dysphagia Bedside swallowing test # Afib: Currently in AFib but controlled ventricular rate and paced rhythm. Beta-ambrose held due to hypotension and shock Aspirin and Eliquis also were held due to bleeding. HR stable. Monitor on tele. # CHF (congestive heart failure): Patient has history of cardiomyopathy with EF 25%. Was on IV fluids for fluid resuscitation but now off all IV fluids. CXR yesterday showing possible minimal developing bibasilar pulmonary edema. BP more stable and he did Lasix IV once on 10/10. He appears euvolemic and not hypoxic. Hold heart failure medications at this time. BP still soft so will continue to hold for now # Acute kidney injury superimposed on CKD: Patient's baseline creatinine is about 2. Cr on admission was 3.3 secondary to shock and hypovolemia. Patient received IV fluids and creatinine improved cxr with congestive chagnes. received iv lasix 4/4 Monitor urine output, electrolytes and creatinine renal function stable # Biventricular ICD (implantable cardioverter-defibrillator) in place: Stable # DVT prophylaxis - SCD # Stress ulcer prophylaxis -PPI # Nutrition - on heart healthy # Code Status - Full Code [facility] Subjective Date/time seen: 10/16/24 13:10 Interval history: No new complaint. Having bowel movement but not that frequent anymore. No shortness of breath or chest pain. Review of Systems Review of Systems: All systems reviewed & are unremarkable except as noted in HPI and below (HPI) Exam Narrative: GENERAL: Pleasant, in no acute distress. Well-nourished. - EYES: EOMI. Anicteric. - HENT: Moist mucous membranes. - LUNGS: Clear to auscultation bilaterally, no wheezing, rhonchi, or rales. - CARDIOVASCULAR: Regular rate and rhythm. No murmur. No JVD. - ABDOMEN: Soft, non-tender and non-distended. No palpable masses. - EXTREMITIES: No edema. Peripheral pulses 2+. Non-tender. - NEUROLOGIC: No focal neurological deficits. CN II-XII grossly intact. - PSYCHIATRIC: Awake, Alert and oriented x 3. Appropriate mood and affect. General weakness - SKIN: No rashes or lesions. Warm. - LYMPH: No cervical lymphadenopathy. Objective Data Vital Signs Vital Signs: Vital Signs - 24 hr 10/15/24 16:00 10/15/24 16:00 10/15/24 20:00 Temperature 96.8 F L Pulse Rate 89 66 72 Respiratory Rate 18 Blood Pressure 107/69 Pulse Oximetry 100 Oxygen Delivery 10/15/24 22:10 10/16/24 00:00 10/16/24 00:20 Temperature 98.8 F 98.5 F Pulse Rate 105 H 79 78 Respiratory Rate 16 16 Blood Pressure 104/81 106/74 Pulse Oximetry 96 97 Oxygen Delivery 10/16/24 04:00 10/16/24 08:30 10/16/24 08:30 Temperature Pulse Rate 92 91 Respiratory Rate Blood Pressure Pulse Oximetry 96 Oxygen Delivery Room Air 10/16/24 12:00 Temperature Pulse Rate 107 H Respiratory Rate Blood Pressure Pulse Oximetry Oxygen Delivery Intake/Output Intake/Output: Intake & Output 10/13/24 10/14/24 10/15/24 10/16/24 23:59 23:59 23:59 23:59 Intake Total 1200 1710 1460 680 Output Total 1450 1675 900 552 Balance -250 35 560 128 Meds/Results Medications: Active Medications Generic Name Dose Route Start Last Admin Trade Name Freq PRN Reason Stop Dose Admin Albuterol 2 puff 10/10/24 17:02 Albuterol Sulfate (*Sp) Aerosol 1 Puff INHALATION Q4-6H PRN Shortness Of Breath Calcitriol 0.25 mcg 10/11/24 09:00 10/16/24 08:30 Calcitriol 0.25 Mcg Capsule PO 0.25 mcg DAILY MC Administration Multivitamins Therapeutic 1 tablet 10/11/24 09:00 10/16/24 08:30 Multivitamins Therapeutic Tab (*Bkc) PO 1 tablet QAM MC Administration Ondansetron HCl 4 mg 10/10/24 09:46 10/10/24 09:51 Ondansetron Inj 4 Mg/2 Ml Vial IV PUSH 4 mg Q6H PRN Administration Nausea And Vomiting Vancomycin HCl 500 mg 10/09/24 12:00 10/16/24 11:52 Vancomycin Hcl 250 Mg Oral Capsule PO 500 mg Q6HR MC Administration Venlafaxine HCl 150 mg 10/11/24 09:00 10/16/24 08:30 Venlafaxine Hcl Xr 75 Mg Cap.Er.24h PO 150 mg DAILY MC Administration Radiology Results: ITS Impressions Head CT 10/09/24 07:38 Impression: No acute intracranial hemorrhage or suspicious mass effect. Chest/Abdomen/Pelvis CT 10/09/24 07:47 IMPRESSION: Trace perisplenic and perihepatic ascites. Findings suggesting cystitis. Findings consistent with patient's known diarrhea illness. Chest X-Ray 10/14/24 15:43 Impression: 1: Cardiomegaly with pulmonary edema. 2: Small pleural effusions. Labs Labs: Laboratory Results - last 24 hr 10/16/24 05:39 WBC 11.1 H RBC 3.52 L Hgb 10.4 L Hct 33.4 L MCV 94.9 MCH 29.5 MCHC 31.1 L RDW 21.1 H Plt Count 277 MPV 10.5 H Immature Gran % (Auto) Not Reportable Neut % (Auto) Not Reportable Lymph % (Auto) Not Reportable [place] % (Auto) Not Reportable Eos % (Auto) Not Reportable Baso % (Auto) Not Reportable Lymph # (Auto) Not Reportable [place] # (Auto) Not Reportable Eos # (Auto) Not Reportable Baso # (Auto) Not Reportable Abs Immat Gran (auto) Not Reportable Absolute Neuts (auto) Not Reportable Absolute Nucleated RBC Not Reportable Total Counted 100 Neutrophils % (Manual) 83 H Band Neutrophils % 0 Lymphocytes % (Manual) 6 L Monocytes % (Manual) 10 H Eosinophils % (Manual) 1 Nucleated RBC % Not Reportable Abs Neuts (Manual) 9.21 H Abs Lymphs (Manual) 0.66 L Abs Monocytes (Manual) 1.11 H Absolute Eos (Manual) 0.11 Platelet Estimate Adequate Polychromasia 2+ Anisocytosis 2+ Ovalocytes 1+ Acanthocytes (Spur) 1+ Schistocytes None seen Sodium 139 Potassium 3.2 L Chloride 102 Carbon Dioxide 25 Anion Gap 12 BUN 55 H Creatinine 1.81 H Estim Creat Clear Calc 33 Estimated GFR 37 L Glucose 90 Calcium 9.0 Magnesium 1.6 Total Bilirubin 1.8 H AST 30 ALT 24 Alkaline Phosphatase 154 H Total Protein 6.0 L Albumin 3.6
[2024-10-17] VITALS (8 sets, daily range): BP systolic 95–116; BP diastolic 71–82; PULSE 70–110; RESP 18–20; TEMP 36.6–37.1; O2SAT 90–100
[2024-10-17] MEDS: VANCOMYCIN HCL 250 MG ORAL CAPSULE 500 MG PO ×5 (00:40→23:36)
[2024-10-17 05:41] LABS: Basophils Percent Auto 0.2 % (0.2-1.2); Eosinophils Percent Auto 0.4 % (0-4.4); Hematocrit 31.8 % (42.0-52.0); Hemoglobin 9.6 g/dL (14.0-18.0); Immature Granulocyte Absolute 0.39 K/mm3 (0.00-0.031); Immature Granulocyte Percent A 4.3 % (0-0.5); Lymphocytes Absolute Auto 0.78 K/mm3 (0.9-3.2); Lymphocytes Percent Auto 8.6 % (18.3-44.2); Mean Corpuscular HGB Conc 30.2 g/dl (32-36); Mean Corpuscular Hemoglobin 29.5 pg (26-34); Mean Corpuscular Volume 97.8 fl (80-100); Mean Platelet Volume 10.5 fl (7.4-10.4); Monocytes Percent Auto 10.4 % (2.6-8.5); Neutrophils Absolute Auto 6.9 K/mm3 (1.3-6.7); Neutrophils Percent Auto 76.1 % (45.5-73.1); Platelet Count Result 231 k/mm3 (150-375); Red Blood Count 3.25 M/mm3 (4.6-6.20); Red Cell Distribution Width 21.8 % (11.5-14.5); White Blood Count 9.1 K/mm3 (4.5-10.0)
[2024-10-17 05:55] LABS: Alanine Aminotransferase 23 U/L (6-50); Albumin Level 3.5 g/dL (3.5-5.1); Alkaline Phosphatase 161 U/L (38-126); Anion Gap 10 mmol/L (4-12); Aspartate Amino Transferase 34 U/L (17-59); Bilirubin,Total 1.7 mg/dL (0.2-1.3); Blood Urea Nitrogen 42 mg/dL (9-20); Carbon Dioxide 25 mmol/L (22-30); Chloride 104 mmol/L (98-107); Estimated CRCL calculation 42 ml/min; Estimated Glomerular Filt Rate 49; Glucose 106 mg/dL (65-110); Magnesium 1.6 mg/dL (1.6-2.3); Potassium 3.7 mmol/L (3.4-5.0); Sodium 139 mmol/L (137-145)
[2024-10-17] MEDS: MULTIVITAMINS THERAPEUTIC TAB (*BKC) 1 TABLET PO (09:00)
[2024-10-17] MEDS: calcitrioL 0.25 MCG CAPSULE PO (09:00)
[2024-10-17] MEDS: VENLAFAXINE HCL XR 75 MG CAP.ER.24H 150 MG PO (09:00)
--- NOTE | 2024-10-17 11:02 | P.PNIM_ITS ---
Progress Note: A&P Assessment and Plan (1) Septic shock: Code(s): A41.9 - Sepsis, unspecified organism; R65.21 - Severe sepsis with septic shock Status: Acute Plan # Septic shock: Patient presents with diarrhea, weakness and HoTN and found to have septic shock secondary to C diff colitis. Stool was positive for Cdiff toxin. CT scan of abdomen pelvis showing trace ascites, possible cystitis and fluid filled colon. He received 30 mL/kg fluid bolus followed by 1 L of LR over 10 hours and some albumin. He was given Vanco IV, Flagyl IV and Cefepime. Oral Vanco started. Levophed and vasopressin started but able to be weaned off vasopressors. Started on hydrocortisone but now being weaned. Fluids stopped. WBC trending down. Off pressors for >24hr BCx NGTD. Start cefepime Continue Flagyl IV and p.o. vancomycin for C diff infection Remove central line Isolation Resolved Will stop IV metronidazole. Taper off hydrocortisone mild leukocytoiss which has improved # Clostridium difficile colitis: Had 1 bowel movement in the night Colonoscopy shows severe colitis # GI bleeding: On arrival to ICU patient had a large bowel movement which was grossly bloody. Patient is on Eliquis chronically. Baseline Hgb 12-13. Hgb 10.1 on admission In light of GI bleed and shock, patient was given Kcentra 2000 units. Eliquis held. GI consulted and EGD performed showing no upper GI bleeding source. Hgb down to 8.8 Colonoscopy shows severe diffuse colitis in the left colon, in the right colon and rectum Continue to monitor and transfuse to a stable Hgb # Dysphagia Bedside swallowing test # Afib: Currently in AFib but controlled ventricular rate and paced rhythm. Beta-ambrose held due to hypotension and shock Aspirin and Eliquis also were held due to bleeding. HR stable. Monitor on tele. # CHF (congestive heart failure): Patient has history of cardiomyopathy with EF 25%. Was on IV fluids for fluid resuscitation but now off all IV fluids. CXR yesterday showing possible minimal developing bibasilar pulmonary edema. BP more stable and he did Lasix IV once on 10/10. He appears euvolemic and not hypoxic. Hold heart failure medications at this time. BP still soft so will continue to hold for now # Acute kidney injury superimposed on CKD: Patient's baseline creatinine is about 2. Cr on admission was 3.3 secondary to shock and hypovolemia. Patient received IV fluids and creatinine improved cxr with congestive chagnes. received iv lasix 4/4 Monitor urine output, electrolytes and creatinine renal function stable # Biventricular ICD (implantable cardioverter-defibrillator) in place: Stable # DVT prophylaxis - SCD # Stress ulcer prophylaxis -PPI # Nutrition - on heart healthy # Code Status - Full Code as per his paperwork from [facility] Subjective Date/time seen: 10/17/24 11:02 Interval history: no new complaints, diarrhea slowing down, planning to discharge today Review of Systems Review of Systems: All systems reviewed & are unremarkable except as noted in HPI and below (HPI) Exam Narrative: GENERAL: Pleasant, in no acute distress. Well-nourished. - EYES: EOMI. Anicteric. - HENT: Moist mucous membranes. - LUNGS: Clear to auscultation bilateral ly, no wheezing, rhonchi, or rales. - CARDIOVASCULAR: Regular rate and rhyth m. No murmur. No JVD. - ABDOMEN: Soft, non-tender and non-dist ended. No palpable masses. - EXTREMITIES: No edema. Peripheral puls es 2+. Non-tender. - NEUROLOGIC: No focal neurological defi cits. CN II-XII grossly intact. - PSYCHIATRIC: Awake, Alert and oriented x 3. Appropriate mood and affect. General weakness - SKIN: No rashes or lesions. Warm. - LYMPH: No cervical lymphadenopathy. Objective Data Vital Signs Vital Signs: Vital Signs - 24 hr 10/17/24 12:01 10/17/24 19:55 10/17/24 23:58 Temperature 98.8 F 98.7 F Pulse Rate 107 H 73 70 Respiratory Rate 20 20 Blood Pressure 95/71 L 99/82 L Pulse Oximetry 100 90 10/18/24 04:16 10/18/24 08:00 Temperature 99.5 F 98.1 F Pulse Rate 62 86 Respiratory Rate 20 18 Blood Pressure 111/81 119/78 Pulse Oximetry 90 99 Intake/Output Intake/Output: Intake & Output 10/15/24 10/16/24 10/17/24 10/18/24 23:59 23:59 23:59 23:59 Intake Total 1460 920 870 790 Output Total 832 660 0473 150 Balance 560 280 -159 299 Meds/Results Medications: Active Medications Generic Name Dose Route Start Last Admin Trade Name Freq PRN Reason Stop Dose Admin Albuterol 2 puff 10/10/24 17:02 Albuterol Sulfate (*Sp) Aerosol 1 Puff INHALATION Q4-6H PRN Shortness Of Breath Calcitriol 0.25 mcg 10/11/24 09:00 10/18/24 09:34 Calcitriol 0.25 Mcg Capsule PO 0.25 mcg DAILY MC Administration Multivitamins Therapeutic 1 tablet 10/11/24 09:00 10/18/24 09:34 Multivitamins Therapeutic Tab (*Bkc) PO 1 tablet QAM MC Administration Ondansetron HCl 4 mg 10/10/24 09:46 10/10/24 09:51 Ondansetron Inj 4 Mg/2 Ml Vial IV PUSH 4 mg Q6H PRN Administration Nausea And Vomiting Vancomycin HCl 500 mg 10/09/24 12:00 10/18/24 05:26 Vancomycin Hcl 250 Mg Oral Capsule PO 500 mg Q6HR MC Administration Venlafaxine HCl 150 mg 10/11/24 09:00 10/18/24 09:34 Venlafaxine Hcl Xr 75 Mg Cap.Er.24h PO 150 mg DAILY MC Administration Radiology Results: ITS Impressions Head CT 10/09/24 07:38 Impression: No acute intracranial hemorrhage or suspicious mass effect. Chest/Abdomen/Pelvis CT 10/09/24 07:47 IMPRESSION: Trace perisplenic and perihepatic ascites. Findings suggesting cystitis. Findings consistent with patient's known diarrhea illness. Chest X-Ray 10/14/24 15:43 Impression: 1: Cardiomegaly with pulmonary edema. 2: Small pleural effusions. Labs Labs: Laboratory Results - last 24 hr 10/18/24 05:06 Creatinine 1.35 H Estim Creat Clear Calc 44 Estimated GFR 52 L
--- NOTE | 2024-10-17 11:09 | PCNWS ---
Weekly nutritional screen. Patient is tolerating current Heart healthy diet with adequate intake, 75-100%. No weight loss reported. No nutritional needs at this time.
--- NOTE | 2024-10-17 13:31 | P.DS_ITS ---
DS: Admitting Diagnosis Discharge Date 10/17/2024 Admitting Diagnosis Septic shock DS: Discharge Diagnosis Discharge Diagnosis (1) Septic shock: Code(s): A41.9 - Sepsis, unspecified organism; R65.21 - Severe sepsis with septic shock Status: Acute DS: Summary Hospital Course Hospital Course: # Septic shock: Patient presents with diarrhea, weakness and HoTN and found to have septic shock secondary to C diff colitis. Stool was positive for Cdiff toxin. CT scan of abdomen pelvis showing trace ascites, possible cystitis and fluid filled colon. He received 30 mL/kg fluid bolus followed by 1 L of LR over 10 hours and some albumin. He was given Vanco IV, Flagyl IV and Cefepime. Oral Vanco started. Levophed and vasopressin started but able to be weaned off vasopressors. Started on hydrocortisone but now being weaned. Fluids stopped. WBC trending down. Off pressors BCx NGTD. Start cefepime Continue Flagyl IV and p.o. vancomycin for C diff infection Remove central line Isolation Resolved Stopped IV metronidazole. Taper off hydrocortisone mild leukocytoiss resolved # Clostridium difficile colitis: Had 1 bowel movement in the night Colonoscopy shows severe colitis Vancomycin oral to finish 14 days course # GI bleeding: On arrival to ICU patient had a large bowel movement which was grossly bloody. Patient is on Eliquis chronically. Baseline Hgb 12-13. Hgb 10.1 on admission In light of GI bleed and shock, patient was given Kcentra 2000 units. Eliquis held. GI consulted and EGD performed showing no upper GI bleeding source. Hgb down to 8.8 Colonoscopy shows severe diffuse colitis in the left colon, in the right colon and rectum Continue to monitor and transfuse to a stable Hgb Okay to resume anticoagulation per GI # Dysphagia Bedside swallowing test # Afib: Currently in AFib but controlled ventricular rate and paced rhythm. Beta-ambrose held due to hypotension and shock Aspirin and Eliquis also were held due to bleeding. HR stable. Monitor on tele. # CHF (congestive heart failure): Patient has history of cardiomyopathy with EF 25%. Was on IV fluids for fluid resuscitation but now off all IV fluids. CXR yesterday showing possible minimal developing bibasilar pulmonary edema. BP more stable and he did Lasix IV once on 10/10. He appears euvolemic and not hypoxic. Hold heart failure medications at this time. BP still soft so will continue to hold for now Resume medication as outpatient basis will resume carvedilol at discharge. # Acute kidney injury superimposed on CKD: Patient's baseline creatinine is about 2. Cr on admission was 3.3 secondary to shock and hypovolemia. Patient received IV fluids and creatinine improved cxr with congestive chagnes. received iv lasix 4/4 Monitor urine output, electrolytes and creatinine renal function stable # Biventricular ICD (implantable cardioverter-defibrillator) in place: Stable # DVT prophylaxis - SCD # Stress ulcer prophylaxis -PPI # Nutrition - on heart healthy # Code Status - Full Code as per his paperwork from [facility] # disposition: Patient does not to want to return to nursing facility. Going to home with home health. Time Spent with Patient Time attestation: Total time spent providing and/or coordinating discharge services: 35 minutes Exam Narrative: GENERAL: Pleasant, in no acute distress. Well-nourished. - EYES: EOMI. Anicteric. - HENT: Moist mucous membranes. - LUNGS: Clear to auscultation bilateral ly, no wheezing, rhonchi, or rales. - CARDIOVASCULAR: Regular rate and rhyth m. No murmur. No JVD. - ABDOMEN: Soft, non-tender and non-dist ended. No palpable masses. - EXTREMITIES: No edema. Peripheral puls es 2+. Non-tender. - NEUROLOGIC: No focal neurological defi cits. CN II-XII grossly intact. - PSYCHIATRIC: Awake, Alert and oriented x 3. Appropriate mood and affect. General weakness - SKIN: No rashes or lesions. Warm. - LYMPH: No cervical lymphadenopathy. DS: Data Data Completed and Pending Completed studies during hospitalization: Pending at discharge 10/12/24 14:36 Surgical [PTH] Routine Labs on day of discharge: Labs from last 24 hours 10/17/24 05:11 WBC 9.1 RBC 3.25 L Hgb 9.6 L Hct 31.8 L MCV 97.8 MCH 29.5 MCHC 30.2 L RDW 21.8 H Plt Count 231 MPV 10.5 H Immature Gran % (Auto) 4.3 H Neut % (Auto) 76.1 H Lymph % (Auto) 8.6 L [place] % (Auto) 10.4 H Eos % (Auto) 0.4 Baso % (Auto) 0.2 Lymph # (Auto) 0.78 L [place] # (Auto) 1.0 H Eos # (Auto) 0.0 Baso # (Auto) 0.0 Abs Immat Gran (auto) 0.39 H Absolute Neuts (auto) 6.9 H Absolute Nucleated RBC 0.000 Nucleated RBC % 0.0 Sodium 139 Potassium 3.7 Chloride 104 Carbon Dioxide 25 Anion Gap 10 BUN 42 H D Creatinine 1.41 H Estim Creat Clear Calc 42 Estimated GFR 49 L Glucose 106 Calcium 9.0 Magnesium 1.6 Total Bilirubin 1.7 H AST 34 ALT 23 Alkaline Phosphatase 161 H Total Protein 6.0 L Albumin 3.5 Procedures/Treatments: Colonoscopy 10/13/2023: Pseudomembranous colitis no active bleeding EGD: Hiatal hernia Imaging Radiologist's impression: ITS Impressions Head CT 10/09/24 07:38 Impression: No acute intracranial hemorrhage or suspicious mass effect. Chest X-Ray 10/09/24 07:39 IMPRESSION: No focal infiltrate or effusion. Interval placement of a right internal jugular central venous catheter, in good position and ready for immediate use. Chest/Abdomen/Pelvis CT 10/09/24 07:47 IMPRESSION: Trace perisplenic and perihepatic ascites. Findings suggesting cystitis. Findings consistent with patient's known diarrhea illness. Chest X-Ray 10/09/24 08:27 IMPRESSION: No focal infiltrate or effusion. Chest X-Ray 10/10/24 08:11 Impression: Possible minimal developing bibasilar pulmonary edema. Stable support line. Chest X-Ray 10/14/24 15:43 Impression: 1: Cardiomegaly with pulmonary edema. 2: Small pleural effusions. Discharge Plan Discharge Attending physician on discharge: Ronan Cano Consulting providers: Monica Chaudhary Discharging Clinician: Ronan Cano Anticipated Discharge Date/Time: 10/17/24 13:33 Patient Disposition: Home with Home Health Service Activity: as tolerated Diet: heart healthy Discharge Instructions: Per Care Coordination, patient to discharge with [facility] ([phone]) for PT/OT and alf services. Please fax discharge instructions and medication sheets to . your medication for your heart are currently on hold, resume as per guided by your pcp. fu with pcp in1 week. Patient Instructions: Antibiotic Form, Apixaban (By mouth), Heart Failure (DC), Removal of a Central Line, PICC, or Midline Catheter (GEN) Patient Language: [place] Stand Alone Forms: General Discharge Information Follow-up/Referrals: Ho,Shaun Allan APRN [Primary Care Provider] - 1 Week Discharge Medications: New vancomycin 125 mg capsule 125 mg PO Q6H Qty: 20 0RF Continued carvedilol [Coreg] 6.25 mg tablet 6.25 mg PO Q12H venlafaxine 150 mg capsule,extended release 24hr 150 mg PO DAILY loperamide [Anti-Diarrheal (loperamide)] 2 mg capsule 2 mg PO Q2-3H PRN (Reason: loose stool) Rx Instructions: administer after each loose stool until symptoms controlled; do not exceed 8 mg per 24 hrs [id number] acid-biotin 400-400 mcg capsule 1 cap PO DAILY aspirin [Adult Aspirin Regimen] 81 mg tablet,delayed release (DR/EC) 81 mg PO DAILY ergocalciferol (vitamin D2) 1,250 mcg (50,000 unit) capsule 5,000 mcg PO WEEKLY Patient Comments: thursday dapagliflozin propanediol [Farxiga] 10 mg tablet 10 mg PO DAILY calcitriol 0.25 mcg capsule 0.25 mcg PO DAILY Eliquis 2.5 mg tablet 2.5 mg PO Q12H nitroglycerin 0.4 mg tablet, sublingual 0.4 mg sublingual Q5M PRN (Reason: chest pain) Patient Comments: may repeat x 2 Rx Instructions: do not exceed 3 doses per episode lorazepam 1 mg tablet 1 mg PO BID PRN (Reason: Anxiety) albuterol sulfate 90 mcg/actuation HFA aerosol inhaler 4 puff INHALATION Q4-5H PRN (Reason: Shortness Of Breath) Qty: 6.7 0RF Discontinued pantoprazole 40 mg tablet,delayed release (DR/EC) 40 mg PO DAILY potassium chloride 20 mEq tablet extended release 20 meq PO 3XW Patient Comments: Thu Wed Thu Rx Instructions: Takes on Mon, Wed, Fri metolazone 2.5 mg tablet 2.5 mg PO DAILY Entresto 49-51 mg tablet 1 tablet PO BID isosorbide dinitrate 10 mg tablet 10 mg PO BID Rx Instructions: allow nitrate-free interval of 12-14 hrs per 24-hr period meloxicam 15 mg tablet 15 mg PO DAILY furosemide 40 mg tablet 40 mg PO DAILY Rx Instructions: Takes on Thursday, Thursday, and Thursday Date of admission: 10/09/24 04:41 Primary Care Provider: Ho,Shaun Allan Admitting Provider: Iris Templeton Attending physician on admission: Iris Templeton Condition: Stable
[2024-10-17] MEDS: LORazepam (*CRX) 1 MG TABLET PO (22:14)
[2024-10-18 04:16] VITALS: BP 111/81; PULSE 62; RESP 20; TEMP 37.5; O2SAT 90
[2024-10-18] MEDS: VANCOMYCIN HCL 250 MG ORAL CAPSULE 500 MG PO ×3 (05:26→17:05)
[2024-10-18 05:30] LABS: Estimated CRCL calculation 44 ml/min; Estimated Glomerular Filt Rate 52
[2024-10-18 08:00] VITALS: BP 119/78; PULSE 86; RESP 18; TEMP 36.7; O2SAT 99
--- NOTE | 2024-10-18 09:25 | PCPTNOTE ---
Attempted to see patient for PT, however patient declined. Patient seemed very anxious and reported he did not sleep at all last night and just wants to eat and rest at this time. Patient having increase confusion and tremors while in the chair. O2 SATs 92%. Nursing notified.
[2024-10-18] MEDS: VENLAFAXINE HCL XR 75 MG CAP.ER.24H 150 MG PO (09:34)
[2024-10-18] MEDS: MULTIVITAMINS THERAPEUTIC TAB (*BKC) 1 TABLET PO (09:34)
[2024-10-18] MEDS: calcitrioL 0.25 MCG CAPSULE PO (09:34)
--- NOTE | 2024-10-18 16:50 | PCCCNOTE ---
Pt's nurse Beatriz called, stated the family is asking for a Good Rx coupon d/t the vancomycin costing 600$. Called [facility] on [facility] in [place] at [phone] and noted to have connection issues system wide with the pharmacy and was asked to call back later and the call was disconnected. Called the [facility] on [facility] at [phone] in which the tech had to pull the rx over, verified the pt's insurance information and she was able to run the rx through at a 0$ copay. Pt's nurse updated on the status of the prescription.jenn.
== END 2024-10-18 17:06 | disposition home health service (06) | DRG 871 ==
LOC: ANHED 10-09 04:40 → ANHICU 10-09 05:41 → ANH2MED 10-10 18:56
PROVIDERS: Internal Medicine; Internal Medicine Gastroenterology; Admitting Provider Internal Medicine; Emergency Provider Emergency Medicine; PCP Nurse Practitioner Family; Visit Provider Internal Medicine
PROC: 0DJ08ZZ Inspection of Upper Intestinal Tract, Via Natural or Artificial Opening Endoscopic (ICD-10-PCS; principal; 2024-10-10 14:30)
PROC: 0DJD8ZZ Inspection of Lower Intestinal Tract, Via Natural or Artificial Opening Endoscopic (ICD-10-PCS; CPT 45378; principal; 2024-10-12 14:45)
DX: A41.9 Sepsis, unspecified organism (principal); R65.21 Severe sepsis with septic shock; I50.23 Acute on chronic systolic (congestive) heart failure; A04.72 Enterocolitis due to Clostridium difficile, not specified as recurrent; N17.9 Acute kidney failure, unspecified; K92.2 Gastrointestinal hemorrhage, unspecified; I13.0 Hypertensive heart and chronic kidney disease with heart failure and stage 1 through stage 4 chronic kidney disease, or unspecified chronic kidney disease; I42.9 Cardiomyopathy, unspecified; I24.89 Other forms of acute ischemic heart disease; N18.30 Chronic kidney disease, stage 3 unspecified; N30.90 Cystitis, unspecified without hematuria; R13.10 Dysphagia, unspecified; M19.90 Unspecified osteoarthritis, unspecified site; E86.0 Dehydration; I48.91 Unspecified atrial fibrillation; F41.8 Other specified anxiety disorders; K44.9 Diaphragmatic hernia without obstruction or gangrene; K62.89 Other specified diseases of anus and rectum; F17.210 Nicotine dependence, cigarettes, uncomplicated; K21.9 Gastro-esophageal reflux disease without esophagitis; I25.10 Atherosclerotic heart disease of native coronary artery without angina pectoris; F03.90 Unspecified dementia, unspecified severity, without behavioral disturbance, psychotic disturbance, mood disturbance, and anxiety; E11.9 Type 2 diabetes mellitus without complications; Z79.01 Long term (current) use of anticoagulants; Z86.73 Personal history of transient ischemic attack (TIA), and cerebral infarction without residual deficits; Z95.810 Presence of automatic (implantable) cardiac defibrillator; Z90.49 Acquired absence of other specified parts of digestive tract
CPT/HCPCS: 36415; 36556; 36600; 70450; 71045; 71250; 74176; 80048; 80053; 80202; 80307; 81001; 82077; 82565; 82805; 82948; 83605; 83690; 83735; 83880; 84100; 84443; 84484; 85018; 85025; 85027; 85055; 85610; 85730; 87040; 87086; 87493; 87637; 87641; 88305; 92610; 93005; 96365; 96366; 96367; 96368; 97110; 97116; 97161; 97165; 97530; 97535; 99291; A9270; C1751; J0692; J1720; J1836; J1938; J1940; J2003; J2405; J2470; J2704; J3370; J3475; J3480; J7040; J7120; J7168; P9045; P9047